=== PATIENT | female | born 1945 | race Caucasian/White ===

== ENCOUNTER 2020-07-24 11:26 | Outpatient (REF) | payer MEDICARE, SELFPAY ==
[2020-07-24 12:53] LABS: Thyroid Stimulating Hormone 2.26 mIU/mL (0.32-4.0)
== END 2020-07-24 11:27 | disposition home or self-care (01) ==
LOC: HO.LAB 11:26
PROVIDERS: PCP Internal Medicine; Visit Provider Internal Medicine
DX: I10 Essential (primary) hypertension (principal)
CPT/HCPCS: 84443

== ENCOUNTER 2020-08-13 13:54 | Outpatient (REF) | payer MEDICARE, SELFPAY ==
[2020-08-13 14:57] LABS: C Reactive Protein 1.05 mg/dL (< or = 0.50)
[2020-08-13 15:10] LABS: Erythrocyte Sedimentation Rate 16 MM/HR (0-20)
[2020-08-13 15:20] LABS: Thyroid Stimulating Hormone 1.31 mIU/mL (0.32-4.0)
== END 2020-08-13 13:55 | disposition home or self-care (01) ==
LOC: HO.LAB 13:54
PROVIDERS: PCP Internal Medicine; Visit Provider Student in an Organized Health Care Education/Training Program
DX: M35.3 Polymyalgia rheumatica (principal); M85.89 Other specified disorders of bone density and structure, multiple sites; Z79.52 Long term (current) use of systemic steroids
CPT/HCPCS: 36415; 84443; 85652; 86140

== ENCOUNTER → 2020-08-29 15:06 | Outpatient (BNVA) | payer MEDICARE, SELFPAY | PROVIDERS: PCP Internal Medicine; Referring Provider Internal Medicine; Visit Provider Student in an Organized Health Care Education/Training Program | DX: M35.3 Polymyalgia rheumatica (principal); M85.89 Other specified disorders of bone density and structure, multiple sites; Z79.52 Long term (current) use of systemic steroids | CPT/HCPCS: 99212 ==

== ENCOUNTER → 2020-10-14 10:48 | Outpatient (BNVA) | payer MEDICARE, SELFPAY | PROVIDERS: PCP Internal Medicine; Visit Provider Internal Medicine | DX: I48.0 Paroxysmal atrial fibrillation (principal); R60.0 Localized edema; I27.20 Pulmonary hypertension, unspecified; I12.9 Hypertensive chronic kidney disease with stage 1 through stage 4 chronic kidney disease, or unspecified chronic kidney disease; N18.9 Chronic kidney disease, unspecified; Z79.01 Long term (current) use of 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 | CPT/HCPCS: 99212 ==

== ENCOUNTER 2020-11-05 13:04 | Outpatient (REF) | payer MEDICARE, SELFPAY ==
[2020-11-05 14:02] LABS: MANUAL DIFF FLAG NO
[2020-11-05 14:15] LABS: Basophils Percent Auto 0.2 % (0-2); Eosinophils Absolute Auto 0.1 X10*3/uL (0.0-0.4); Eosinophils Percent Auto 0.8 % (0-4); Hematocrit 36.4 % (37-47); Hemoglobin 11.6 g/dl (12.0-16.0); Imm Gran Abs Auto 0.09 X10*3/uL (0.00-0.03); Lymphocytes Absolute Auto 2.4 X10*3/uL (1.2-4.9); Lymphocytes Percent Auto 26.5 % (20-40); Mean Corpuscular HGB Conc 31.9 g/dl (31.0-35.0); Mean Corpuscular Hemoglobin 29.7 pg (27.0-33.0); Mean Corpuscular Volume 93.1 fL (80-98); Monocytes Absolute Auto 1.1 X10*3/uL (0.1-1.2); Monocytes Percent Auto 11.9 % (2-11); Neutrophils Absolute Auto 5.5 X10*3/uL (2.0-8.3); Neutrophils Percent Auto 59.6 % (45-73); Platelet Count 120 X10*3/uL (160-400); Red Blood Count 3.91 X10*6/uL (4.20-5.50); Red Cell Distribution Width 13.6 % (11.0-16.0); White Blood Count 9.2 X10*3/uL (4.8-10.8)
[2020-11-05 14:56] LABS: Alanine Aminotransferase 7 U/L (0-31); Albumin Level 3.8 g/dL (3.5-5.0); Alkaline Phosphatase 52 U/L (39-117); Anion Gap 13 (12-20); Aspartate Amino Transferase 10 U/L (5-31); Bilirubin Total 0.8 mg/dL (0.0-1.0); Blood Urea Nitrogen 22 mg/dL (9-16); C Reactive Protein 0.77 mg/dL (< or = 0.50); Calcium 8.7 mg/dL (8.4-10.2); Carbon Dioxide 25 mmol/L (22-29); Chloride 110 mmol/L (96-108); Erythrocyte Sedimentation Rate 16 MM/HR (0-20); Estimated Glomerular Filt Rate 47; Glucose Random 96 mg/dL (60-115); Potassium 4.1 mmol/l (3.3-5.1); Sodium 144 mmol/L (135-145); Total Protein 6.8 g/dL (6.5-8.0)
[2020-11-05 15:04] LABS: Thyroid Stimulating Hormone 1.69 uIU/mL (0.32-4.0)
== END 2020-11-05 13:05 | disposition home or self-care (01) ==
LOC: HO.LAB 13:04
PROVIDERS: PCP Internal Medicine; Visit Provider Student in an Organized Health Care Education/Training Program
DX: M35.3 Polymyalgia rheumatica (principal); E03.9 Hypothyroidism, unspecified; M85.89 Other specified disorders of bone density and structure, multiple sites; Z79.52 Long term (current) use of systemic steroids
CPT/HCPCS: 36415; 80053; 84443; 85025; 85652; 86140; 99212

== ENCOUNTER 2021-01-07 14:08 | Outpatient (REF) | payer MEDICARE, SELFPAY ==
[2021-01-07 14:57] LABS: C Reactive Protein 1.21 mg/dL (< or = 0.50)
[2021-01-07 15:19] LABS: Erythrocyte Sedimentation Rate 26 MM/HR (0-20)
== END 2021-01-07 14:09 | disposition home or self-care (01) ==
LOC: HO.LAB 14:08
PROVIDERS: PCP Internal Medicine; Visit Provider Student in an Organized Health Care Education/Training Program
DX: M35.3 Polymyalgia rheumatica (principal)
CPT/HCPCS: 36415; 85652; 86140

== ENCOUNTER → 2021-01-13 15:09 | Outpatient (BNVA) | payer MEDICARE, SELFPAY | PROVIDERS: Visit Provider Student in an Organized Health Care Education/Training Program | DX: M35.3 Polymyalgia rheumatica (principal); M85.89 Other specified disorders of bone density and structure, multiple sites; Z79.52 Long term (current) use of systemic steroids | CPT/HCPCS: 99212 ==

== ENCOUNTER 2021-02-24 13:01 | Outpatient (REF) | payer MEDICARE, SELFPAY ==
[2021-02-24 14:49] LABS: C Reactive Protein 0.78 mg/dL (< or = 0.50); Cholesterol 163 mg/dL; HDL Cholesterol 35 mg/dL; LDL Cholesterol Calculated 104 mg/dl; Triglycerides 120 mg/dL
[2021-02-24 14:59] LABS: Erythrocyte Sedimentation Rate 26 MM/HR (0-20)
[2021-02-24 15:11] LABS: Thyroid Stimulating Hormone 2.51 uIU/mL (0.32-4.0)
== END 2021-02-24 13:02 | disposition home or self-care (01) ==
LOC: HO.LAB 13:01
PROVIDERS: PCP Internal Medicine; Visit Provider Student in an Organized Health Care Education/Training Program
DX: M35.3 Polymyalgia rheumatica (principal); E03.9 Hypothyroidism, unspecified; E11.9 Type 2 diabetes mellitus without complications
CPT/HCPCS: 36415; 80061; 84443; 85652; 86140

== ENCOUNTER → 2021-02-27 11:34 | Outpatient (BNVA) | payer MEDICARE, SELFPAY | PROVIDERS: Visit Provider Student in an Organized Health Care Education/Training Program | DX: M35.3 Polymyalgia rheumatica (principal); M85.89 Other specified disorders of bone density and structure, multiple sites; Z79.52 Long term (current) use of systemic steroids | CPT/HCPCS: 99212 ==

== ENCOUNTER → 2021-04-15 09:11 | Outpatient (REF) | payer MEDICARE, SELFPAY ==
--- NOTE | 2021-04-15 09:26 | CA_ITS ---
Transthoracic Echocardiogram Patient (Last, First, Middle): Sumi Hamilton B Gender: Female Date of : 1945 Age: 75 Procedure Date: 04/15/2021 Procedure Type: Transthoracic Echocardiogram Location: OP Height: 152.4 cm Weight: 75.75 kg BSA: 1.73 m2 Heart Rate: bpm BP: 124 / 60 mmHg Interventional Radiology Technologist: Referring MD: Dean Calderón MD Symptoms: I27.20 - Pulmonary hypertension, unspecified Study Quality: Fair ECG Rhythm: Sinus Conclusions: - The left ventricular systolic function is normal. The visually estimated ejection fraction is between 55-60%. - Evidence suggests grade II (moderate) diastolic dysfunction. - There is mild mitral valve regurgitation. - There is moderate tricuspid valve regurgitation. - Moderate pulmonary hypertension is present. Findings Left Ventricle Normal left ventricular cavity size. There is normal left ventricular wall thickness. The left ventricular systolic function is normal. The visually estimated ejection fraction is between 55-60%. There is no evidence of regional wall motion abnormalities. E/E prime ratio is between 8 and 15 consistent with indeterminate filling pressures. Evidence suggests grade II (moderate) diastolic dysfunction. Right Ventricle Normal right ventricular cavity size and systolic function. Atria The left atrium is moderately dilated. The right atrium is normal in size. Aortic Valve There is a normal trileaflet aortic valve. There is no aortic valve stenosis. There is trace (trivial) aortic valve regurgitation. Mitral Valve The posterior mitral leaflet has restricted mobility. There is mild mitral valve regurgitation. There is no mitral valve stenosis. Pulmonic Valve The pulmonic valve was not well visualized. Tricuspid Valve There is moderate tricuspid valve regurgitation. The right ventricular systolic pressure is 56 mmHg. Moderate pulmonary hypertension is present. Great Vessels The aortic annulus, sinuses of valsalva, and asc aorta are normal in size. Venous The inferior vena cava is normal in size and collapses greater than 50% with inspiration. Pericardium/Pleural There is no evidence of pericardial effusion. Prior Study Comparison Changes noted compared to prior study dated: 02/08/2019. Diastolic dysfunction now present. RVSP higher. Measurements 2D Linear Measurements IVSd: 0.88 0.6-0.9/0.6-1.0 cm LVIDd: 4.65 3.9-5.3/4.2-5.9 cm LVIDs: 3.04 2.0-3.6 cm LVPWd: 0.88 0.7-1.1 cm Ao Root: 2.75 2.1-3.5 cm LV Mass: 169.62 67-162/88-224 g LVOT Diam: 2.00 3.0+(-)1.3 cm Mitral Valve MV Pk E: 0.80 MV PK A: 0.39 MV Decel Time: 143.18 E/A: 2.03 Decel Mayes: 5.58 Aortic Valve AoV Pk Bobby: 1.32 AoV Mn Bobby: 0.85 AoV VTI: 0.40 AoV Pk Grad: 6.96 Aov Mn Grad: 3.51 LVOT LVOT Pk Bobby: 0.85 LVOT Mn Bobby: 0.58 LVOT VTI: 0.24 LVOT Pk Grad: 2.88 LVOT Mn Grad: 1.58 LVOT Diam: 2.00 LVOT Area: 3.13 Diastolic Function MV Pk E: 0.80 MV Pk A: 0.39 E/A: 2.03 Tricuspid Valve TR Pk Bobby: 3.67 TR Pk Grad: 53.76 RVSP: 56.00 Great Vessels Aorta Ao Root-2D: 2.75 2.0-3.7 cm Ao Asc: 2.69 2.1-3.4 cm Pulmonary Valve PV Pk Bobby: 0.79 Peak PV Grad: 2.51 Updated in Other Vendor System with Status of Final Dean Calderón MD electronically signed on 04/16/2021 11:39:17 AM with status of Final
[2021-04-15 10:04] LABS: C Reactive Protein 1.33 mg/dL (< or = 0.50)
[2021-04-15 10:32] LABS: Erythrocyte Sedimentation Rate 42 MM/HR (0-20)
== END ==
LOC: HO.CARD 09:11
PROVIDERS: Student in an Organized Health Care Education/Training Program; PCP Internal Medicine; Visit Provider Internal Medicine
DX: M35.3 Polymyalgia rheumatica (principal); I27.20 Pulmonary hypertension, unspecified
CPT/HCPCS: 36415; 85652; 86140; 93306

== ENCOUNTER → 2021-04-22 10:36 | Outpatient (BNVA) | payer MEDICARE, SELFPAY | PROVIDERS: PCP Internal Medicine; Referring Provider Internal Medicine; Visit Provider Internal Medicine | DX: I48.0 Paroxysmal atrial fibrillation (principal); I13.0 Hypertensive heart and chronic kidney disease with heart failure and stage 1 through stage 4 chronic kidney disease, or unspecified chronic kidney disease; N18.9 Chronic kidney disease, unspecified; R60.0 Localized edema | CPT/HCPCS: 99212 ==

== ENCOUNTER 2021-04-30 13:41 | Outpatient (REF) | payer MEDICARE, SELFPAY ==
[2021-04-30 15:12] LABS: C Reactive Protein 2.05 mg/dL (< or = 0.50); Cholesterol 147 mg/dL; HDL Cholesterol 27 mg/dL; LDL Cholesterol Calculated 97 mg/dl; Triglycerides 117 mg/dL
[2021-04-30 15:51] LABS: Erythrocyte Sedimentation Rate 39 MM/HR (0-20)
== END 2021-04-30 13:42 | disposition home or self-care (01) ==
LOC: HO.LAB 13:41
PROVIDERS: Student in an Organized Health Care Education/Training Program; PCP Internal Medicine; Visit Provider Internal Medicine
DX: M35.3 Polymyalgia rheumatica (principal); E03.9 Hypothyroidism, unspecified; E11.9 Type 2 diabetes mellitus without complications
CPT/HCPCS: 36415; 80061; 84443; 85652; 86140

== ENCOUNTER → 2021-05-07 08:10 | Outpatient (BNVA) | payer MEDICARE, SELFPAY | PROVIDERS: PCP Internal Medicine; Visit Provider Student in an Organized Health Care Education/Training Program | DX: M35.3 Polymyalgia rheumatica (principal); M85.89 Other specified disorders of bone density and structure, multiple sites; Z79.52 Long term (current) use of systemic steroids | CPT/HCPCS: 99212 ==

== ENCOUNTER 2021-05-08 14:08 | Outpatient (REF) | payer MEDICARE, SELFPAY ==
--- NOTE | ~2021-05-08 | MM_ITS ---
EXAMINATION: MM SCREENING DIGITAL BREAST TOMOSYNTHESIS, BILATERAL CLINICAL INFORMATION: Screening. Asymptomatic. The lifetime risk of breast cancer based on the Tyrer-Cuzick Model is 2%. COMPARISON: Mammography: 11/09/2019, 11/03/2018, 03/23/2016 TECHNIQUE: Digital breast tomosynthesis is performed in both the craniocaudal and mediolateral oblique views along with computer-aided detection (CAD). Synthesized 2D images are generated from the tomosynthesis. Additional views are provided: bilateral CC, bilateral MLO. FINDINGS: There are scattered areas of fibroglandular density (ACR BI-RADS breast composition Category b). Breast tissue composition borders on predominantly fatty. Background stromal and fibroglandular densities are stable. There is no interval mass or developing density or architectural abnormality. There are scattered bilateral benign coarse round calcifications. There are some additional vascular calcifications central outer right breast. The axilla and skin contours are unremarkable. MM/MM tomosynthesis screening BI IMPRESSION: No mammographic evidence of malignancy. ASSESSMENT: BI-RADS 2: Benign RECOMMENDATION: Routine annual mammography screening. This patient's information was entered into a reminder system with a target due date for their next mammogram.
== END 2021-05-08 14:09 | disposition home or self-care (01) ==
LOC: HO.MAMMO 14:08
PROVIDERS: Visit Provider Internal Medicine
DX: Z12.31 Encounter for screening mammogram for malignant neoplasm of breast (principal)
CPT/HCPCS: 77063; 77067

== ENCOUNTER 2021-06-17 13:08 | Outpatient (REF) | payer MEDICARE, SELFPAY ==
[2021-06-17 15:03] LABS: Erythrocyte Sedimentation Rate 39 MM/HR (0-20)
== END 2021-06-17 13:09 | disposition home or self-care (01) ==
LOC: HO.LAB 13:08
PROVIDERS: PCP Internal Medicine; Visit Provider Student in an Organized Health Care Education/Training Program
DX: M35.3 Polymyalgia rheumatica (principal)
CPT/HCPCS: 36415; 85652; 86140

== ENCOUNTER 2021-06-23 10:59 | Emergency (ER) | payer MEDICARE, SELFPAY ==
--- NOTE | ~2021-06-23 | CT_ITS ---
EXAMINATION: CT ANGIOGRAM OF THE CHEST WITH AND WITHOUT CONTRAST (CT PULMONARY ANGIOGRAM FOR PE) CLINICAL INFORMATION: Reason for Exam Coughing up blood on Eliquis COMPARISON: Chest radiographs 10/06/2015 TECHNIQUE: Prior to contrast administration, noncontrast localization images were obtained. Subsequently, multidetector volumetric imaging was performed from the thoracic inlet to below the diaphragms following the administration of 65 mL Omnipaque 350 intravenous contrast. Sagittal, coronal, and MIP oblique sagittal reformatted images were obtained on the CT workstation, uploaded to PACS, and reviewed. This CT examination was performed using dose optimization techniques as appropriate, variously including the following: *Automated exposure control *Adjustment of mA and/or kV according to patient size (this includes techniques or standardized protocols for targeted exams where dose is matched to indication/reason for exam; i.e. extremities or head) *Use of iterative reconstruction technique Total exam dose-length product 112 mGy-cm FINDINGS: QUALITY OF STUDY/CONTRAST BOLUS: Satisfactory. PULMONARY ARTERIES: No central or segmental pulmonary emboli. THORACIC AORTA: No aneurysm or dissection. LUNG: There is no pneumothorax, airspace consolidation or groundglass opacity. Fine linear scarring versus disc atelectasis present left posterior base. There are incidental punctate calcified granulomata left anterior base and right posterior medial base, both under 4 mm. The central airways are clear and there is no endobronchial lesion or bronchiectasis. PLEURA: No pleural effusion or pneumothorax. MEDIASTINUM: Normal heart size. No pericardial effusion. No mediastinal mass. There are heavily calcified nodes present consistent with prior granulomatous changes, largest left prevascular space 1.1 cm and also seen in the subcarinal and hilar regions. No evidence of septal bowing or right heart strain. CHEST WALL/AXILLA: No axillary or internal mammary lymphadenopathy. OSSEOUS STRUCTURES: No acute or suspicious osseous abnormality. UPPER ABDOMEN: Punctate nonobstructing calculus under 4 mm interpolar left kidney. No reflux of contrast into the hepatic veins to suggest elevated right heart pressures. CT/CT angio chest PE protocol IMPRESSION: 1. No pulmonary embolism. No thoracic aortic dissection. 2. Incidental small calcified pulmonary granulomata and calcified hilar and mediastinal nodes consistent with remote granulomatous infection. 3. No airspace consolidation or groundglass opacity. No pneumothorax, pleural thickening, or effusion. VTE: negative
--- NOTE | ~2021-06-23 | US_ITS ---
EXAMINATION: US VENOUS ULTRASOUND WITH DOPPLER LOWER EXTREMITY, RIGHT CLINICAL INFORMATION: Right lower extremity swelling. COMPARISON: None TECHNIQUE: Ultrasound of the deep veins is performed from the hip to the calf with compression sonography and color and pulse Doppler assessment. Spectral analysis with color-flow imaging is performed. FINDINGS: There is normal venous compression and respiratory variation and augmented flow. The visualized common femoral vein, superficial femoral vein, profunda femoral vein, popliteal vein, and the trifurcation region shows no evidence of deep venous thrombosis. There is no significant popliteal fossa cyst. If the patient's symptoms persist, followup ultrasound in 5 days 7 days might be of value to exclude proximal propagation from a non-visualized calf vein. US/US venous duplex LE RT IMPRESSION: No DVT demonstrated in the right lower extremity.
[2021-06-23 11:48] VITALS: BP 181/51; PULSE 69; RESP 16; TEMP 36.6; O2SAT 98; BMI 32.5
[2021-06-23 12:19] VITALS: BP 178/61; PULSE 67; RESP 14; O2SAT 98
[2021-06-23 12:35] LABS: Appearance Urine CLEAR; Color Urine STRAW; Glucose Urine UA NEG (NEG); Leukocyte Esterase Urine 2+ (NEG); Nitrite Urine NEG (NEG); PH 5.5 (5.0-8.0); UACC Culture Trigger YES; Urine Blood TRACE (NEG); Urine Ketones NEG (NEG); Urine Protein NEG (NEG-TRACE)
--- NOTE | 2021-06-23 12:36 | ECG_ITS ---
Test Reason : COUGHING UP BLOOD Blood Pressure : / mmHG Vent. Rate : 062 BPM Atrial Rate : 062 BPM P-R Int : 132 ms QRS Dur : 076 ms QT Int : 410 ms P-R-T Axes : 039 032 013 degrees QTc Int : 416 ms Normal sinus rhythm Nonspecific ST and T wave abnormality Abnormal ECG When compared with ECG of 22-JAN-2019 17:15, Sinus rhythm has replaced Atrial fibrillation Vent. rate has decreased BY 58 BPM Nonspecific T wave abnormality, worse in Lateral leads Referred By: Harsha Arreaga Electronically Signed By:MYLES MENDOZA
--- NOTE | 2021-06-23 12:42 | ED.GENADULT ---
HPI - General Adult General Chief complaint: General Medical Stated complaint: GI Bleed Time Seen by Provider: 06/23/21 12:24 Source: patient Mode of arrival: ambulatory Limitations: no limitations History of Present Illness HPI narrative: 76 year old female presents to the ED from home with complaints of coughing up blood for two days. She states she has been coughing blood tinged sputum since last night and nothing like this has ever happened to her in the past. She is currently taking eliquis for a previous DVT and atrial fibrillation. Last dose of eliquis was last night around 9pm. She states she is coughing to clear her throat, but does not actually have a cough. She reports slight shortness of breath since yesterday and also notes that her right foot has been more swollen than usual. 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 She has no other complaints at this time. She denies chest pain, abdominal pain. fevers, chills. Onset (ago): day(s) (1 day ago ) Treatments prior to arrival: none Related Data Home Medications Medication Instructions Recorded Confirmed alendronate 70 mg tablet 70 mg PO QWEEK 07/25/20 05/07/21 calcipotriene 0.005 % topical cream 1 appl TOPICAL BID 11/05/20 05/07/21 halobetasol propionate 0.05 % 1 appl TOPICAL DAILY 11/05/20 05/07/21 topical cream Previous Rx's Medication Instructions Recorded levothyroxine 50 mcg tablet 50 mcg PO DAILY #90 tab 12/22/20 apixaban 5 mg tablet (Eliquis) 5 mg PO BID #180 tab 01/06/21 pantoprazole 40 mg tablet,delayed 40 mg PO DAILY #90 tab 03/23/21 release atenolol 25 mg tablet 25 mg PO BID 90 Days #180 tab 04/24/21 atenolol 50 mg tablet 50 mg PO BID 90 Days #180 tab 04/24/21 codeine 10 mg-guaifenesin 100 mg/5 10 ml PO Q4-6H PRN #237 ml 06/23/21 mL oral liquid Allergies Allergy/AdvReac Type Severity Reaction Status Date / Time No Known Allergies Allergy Verified 05/07/21 08:19 [No Known Allergies*] Review of Systems Constitutional: Constitutional: Reports no additional constitutional complaints Eyes: Eyes: Reports no additional eye complaints ENT: Reports system reviewed and no additional complaints, except as documented Cardiovascular: Cardiovascular: Reports no additional cardiovascular complaints and Reports dyspnea Respiratory: Respiratory: Reports cough (hemoptysis ), Reports hemoptysis and Reports dyspnea Gastrointestinal: Gastrointestinal: Reports no additional gastrointestinal complaints Genitourinary: Genitourinary: Reports no additional female genitourinary complaints [facility] Past Medical History Medical History Chronic kidney disease, unspecified 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 Osteopenia 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 atrial fibrillation) Polymyalgia rheumatica Pulmonary hypertension Surgical History History of bilateral cataract extraction History of section History of cholecystectomy History of partial hysterectomy Family History Family History (Updated 05/04/21 @ 09:48 by SPENCER Rashid) Father Coronary artery disease FH: CVA (cerebrovascular accident) Mother Kidney failure Social History Social History Housing: House Alcohol intake: never Patient Tobacco Use Status: Never used Tobacco e-Cigarette/Vaping Use: Never Used Second Hand Smoke Exposure: No Use of substances other than those prescribed or required for medical reasons: No Advance Directives: Yes Advance Directives Information Provided: No Advance Directives on File: No service: No Current occupational status: retired Physical Exam Vital Signs: Vital Signs: Last Vital Signs Temp 98.4 F 06/23/21 14:21 Pulse 66 06/23/21 14:21 Resp 20 06/23/21 14:21 BP 158/65 H 06/23/21 14:21 Pulse Ox 98 06/23/21 14:21 Body Mass Index 32.5 Const: General: cooperative, alert, awake and other (noted shortness of breath ) HENMT: Head: Yes normal to inspection Face and sinus: Yes normal facial exam Mouth: Normal oral and palatal mucosa present (no bleeding noted. ), lip normal (Dry blood noted to lips ) and oropharynx normal Teeth and gingiva: poor dentition Chest: Chest palpation & inspection: normal inspection of the chest and normal palpation of entire chest wall Resp: Effort & Inspection: normal respiratory effort and Actively coughing Auscultation: clear to auscultation bilaterally Cardio: Rate: regular rate Rhythm: regular rhythm Heart sounds: S1 normal heart sound present and S2 normal heart sound present Extrem: Other: 3+ pitting edema noted to the right lower extremity from the knee down. 2+ on the left side. Right lower extremity: edema Left lower extremity: edema Medical Decision Making MDM Narrative Medical decision making narrative: Patient with small hemoptysis on Eliquis CTA chest negative venous Doppler negative will discharge patient home on cough syrup advised to hold Eliquis for tonight and restart tomorrow and if continues to cough blood will stop Eliquis. Patient is sinus rhythm. Lab Data Lab results reviewed: Yes I reviewed the patient's lab results. Result diagrams: 06/23/21 13:11 06/23/21 13:11 Labs: Lab Results 06/23/21 06/23/21 06/23/21 Range/Units 12:27 13:11 13:11 WBC 6.3 (4.8-10.8) X10*3/uL RBC 4.04 L (4.20-5.50) X10*6/uL Hgb 11.8 L (12.0-16.0) g/dl Hct 36.0 L (37-47) % MCV 89.1 (80-98) fL MCH 29.2 (27.0-33.0) pg MCHC 32.8 (31.0-35.0) g/dl RDW 13.8 (11.0-16.0) % Plt Count 104 L (160-400) X10*3/uL MPV Not Reportable Immature Gran % (Auto) 2.4 H (0.0-0.4) % Neut % (Auto) 62.9 (45-73) % Lymph % (Auto) 21.8 (20-40) % Sebastian % (Auto) 11.3 H (2-11) % Eos % (Auto) 1.4 (0-4) % Baso % (Auto) 0.2 (0-2) % Lymph # (Auto) 1.4 (1.2-4.9) X10*3/uL Sebastian # (Auto) 0.7 (0.1-1.2) X10*3/uL Eos # (Auto) 0.1 (0.0-0.4) X10*3/uL Baso # (Auto) 0.0 (0.0-0.2) X10*3/uL Abs Immat Gran (auto) 0.15 H (0.00-0.03) X10*3/uL Absolute Neuts (auto) 4.0 (2.0-8.3) X10*3/uL Absolute Nucleated RBC 0.000 (0.0-0.012) X10*3/uL Nucleated RBC % (auto) 0.0 (0.0-0.2) /100WBC PT 21.2 H (9.9-13.0) SEC INR 1.8 H (0.9-1.1) APTT 39.7 H (24.1-38.0) SEC Sodium (135-145) mmol/L Potassium (3.3-5.1) mmol/L Chloride (96-108) mmol/L Carbon Dioxide (22-29) mmol/L Anion Gap (12-20) BUN (9-16) mg/dL Creatinine (0.5-1.4) mg/dL Estim Creat Clear Calc Estimated GFR Random Glucose (60-115) mg/dL Calcium (8.4-10.2) mg/dL Urine Color STRAW Urine Appearance CLEAR Urine pH 5.5 (5.0-8.0) Ur Specific [place] 1.010 (1.005-1.025) Urine Protein NEG (NEG-TRACE) MG/DL Urine Glucose (UA) NEG (NEG) MG/DL Urine Ketones NEG (NEG) MG/DL Urine Blood TRACE (NEG) Urine Nitrite NEG (NEG) Ur Leukocyte Esterase 2+ H (NEG) Urine RBC 0-2 (0) /HPF Urine WBC 5-9 H (0-4) /HPF Ur Squamous Epith Cells TRACE /LPF Urine Bacteria NONE /LPF 06/23/21 Range/Units 13:11 WBC (4.8-10.8) X10*3/uL RBC (4.20-5.50) X10*6/uL Hgb (12.0-16.0) g/dl Hct (37-47) % MCV (80-98) fL MCH (27.0-33.0) pg MCHC (31.0-35.0) g/dl RDW (11.0-16.0) % Plt Count (160-400) X10*3/uL MPV Immature Gran % (Auto) (0.0-0.4) % Neut % (Auto) (45-73) % Lymph % (Auto) (20-40) % Sebastian % (Auto) (2-11) % Eos % (Auto) (0-4) % Baso % (Auto) (0-2) % Lymph # (Auto) (1.2-4.9) X10*3/uL Sebastian # (Auto) (0.1-1.2) X10*3/uL Eos # (Auto) (0.0-0.4) X10*3/uL Baso # (Auto) (0.0-0.2) X10*3/uL Abs Immat Gran (auto) (0.00-0.03) X10*3/uL Absolute Neuts (auto) (2.0-8.3) X10*3/uL Absolute Nucleated RBC (0.0-0.012) X10*3/uL Nucleated RBC % (auto) (0.0-0.2) /100WBC PT (9.9-13.0) SEC INR (0.9-1.1) APTT (24.1-38.0) SEC Sodium 141 (135-145) mmol/L Potassium 3.7 (3.3-5.1) mmol/L Chloride 110 H (96-108) mmol/L Carbon Dioxide 21 L (22-29) mmol/L Anion Gap 14 (12-20) BUN 12 (9-16) mg/dL Creatinine 1.01 (0.5-1.4) mg/dL Estim Creat Clear Calc 43.0 Estimated GFR 53 Random Glucose 89 (60-115) mg/dL Calcium 9.1 (8.4-10.2) mg/dL Urine Color Urine Appearance Urine pH (5.0-8.0) Ur Specific [place] (1.005-1.025) Urine Protein (NEG-TRACE) MG/DL Urine Glucose (UA) (NEG) MG/DL Urine Ketones (NEG) MG/DL Urine Blood (NEG) Urine Nitrite (NEG) Ur Leukocyte Esterase (NEG) Urine RBC (0) /HPF Urine WBC (0-4) /HPF Ur Squamous Epith Cells /LPF Urine Bacteria /LPF ECG Data Attestation: I personally reviewed and interpreted this ECG as follows: Interpretation: Normal sinus rhythm heart rate 62 beats per minute nonspecific ST T wave changes acute ischemia Discharge Plan Discharge Clinical Impression: Cough with hemoptysis Patient Disposition: Home, Self-Care Instructions: Hemoptysis (ED) Additional Instructions: Hold Eliquis for tonight and restart it tomorrow if you are not coughing up any blood Do not start Eliquis if you coughing of blood 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/PCP Cough syrup as advised Prescriptions: New codeine-guaifenesin 10-100 mg/5 mL liquid 10 ml PO Q4-6H PRN (Reason: cough) Qty: 237 RF: 0 No Action levothyroxine 50 mcg tablet 50 mcg PO DAILY Qty: 90 RF: 8 apixaban [Eliquis] 5 mg tablet 5 mg PO BID Qty: 180 RF: 2 pantoprazole 40 mg tablet,delayed release (DR/EC) 40 mg PO DAILY Qty: 90 RF: 8 atenolol 50 mg tablet 50 mg PO BID 90 Days Qty: 180 RF: 4 atenolol 25 mg tablet 25 mg PO BID 90 Days Qty: 180 RF: 4 alendronate 70 mg tablet 70 mg PO QWEEK RF: 0 halobetasol propionate 0.05 % cream 1 appl topical DAILY RF: 0 calcipotriene 0.005 % cream 1 appl topical BID RF: 0
[2021-06-23 12:49] LABS: RBC Urine 0-2 /HPF (0); Squamous Epithelial Cell Urine TRACE /LPF
[2021-06-23 13:23] LABS: Eosinophils Absolute Auto 0.1 X10*3/uL (0.0-0.4); Eosinophils Percent Auto 1.4 % (0-4); MANUAL DIFF FLAG NO
[2021-06-23 13:25] LABS: Basophils Percent Auto 0.2 % (0-2); Hemoglobin 11.8 g/dl (12.0-16.0); Imm Gran Abs Auto 0.15 X10*3/uL (0.00-0.03); Imm Gran Pct Auto 2.4 % (0.0-0.4); Lymphocytes Absolute Auto 1.4 X10*3/uL (1.2-4.9); Lymphocytes Percent Auto 21.8 % (20-40); Mean Corpuscular HGB Conc 32.8 g/dl (31.0-35.0); Mean Corpuscular Hemoglobin 29.2 pg (27.0-33.0); Mean Corpuscular Volume 89.1 fL (80-98); Monocytes Absolute Auto 0.7 X10*3/uL (0.1-1.2); Monocytes Percent Auto 11.3 % (2-11); Neutrophils Percent Auto 62.9 % (45-73); Platelet Count 104 X10*3/uL (160-400); Red Blood Count 4.04 X10*6/uL (4.20-5.50); Red Cell Distribution Width 13.8 % (11.0-16.0); White Blood Count 6.3 X10*3/uL (4.8-10.8)
[2021-06-23 13:28] LABS: INTERNATIONAL NORM RATIO 1.8 (0.9-1.1); Prothrombin Time 21.2 SEC (9.9-13.0)
[2021-06-23 13:31] LABS: Partial Thromboplastin Time 39.7 SEC (24.1-38.0)
[2021-06-23 13:37] LABS: Anion Gap 14 (12-20); Blood Urea Nitrogen 12 mg/dL (9-16); Calcium 9.1 mg/dL (8.4-10.2); Carbon Dioxide 21 mmol/L (22-29); Chloride 110 mmol/L (96-108); Estimated Glomerular Filt Rate 53; Glucose Random 89 mg/dL (60-115); Potassium 3.7 mmol/L (3.3-5.1); Sodium 141 mmol/L (135-145)
[2021-06-23 14:21] VITALS: BP 158/65; PULSE 66; RESP 20; TEMP 36.9; O2SAT 98
[2021-06-23] MEDS: iohexoL 350 MG/ML 100 ML INFUS..BTL IV (15:40)
== END 2021-06-23 17:21 | disposition home or self-care (01) ==
PROVIDERS: Internal Medicine; Emergency Provider Emergency Medicine Emergency Medical Services; PCP Internal Medicine
DX: R04.2 Hemoptysis (principal); R60.0 Localized edema; R06.02 Shortness of breath; Z79.899 Other long term (current) drug therapy; Z79.01 Long term (current) use of 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; Z86.718 Personal history of other venous thrombosis and embolism
CPT/HCPCS: 36415; 71275; 80048; 81001; 85025; 85610; 85730; 87086; 93005; 93971; 99284; Q9967

== ENCOUNTER → 2021-06-25 07:51 | Outpatient (BNVA) | payer MEDICARE, SELFPAY | PROVIDERS: PCP Internal Medicine; Visit Provider Internal Medicine | DX: I48.0 Paroxysmal atrial fibrillation (principal); I51.89 Other ill-defined heart diseases; I27.20 Pulmonary hypertension, unspecified; R60.0 Localized edema; R04.2 Hemoptysis; I12.9 Hypertensive chronic kidney disease with stage 1 through stage 4 chronic kidney disease, or unspecified chronic kidney disease; N18.9 Chronic kidney disease, unspecified | CPT/HCPCS: 99212 ==

== ENCOUNTER 2021-07-17 15:57 | Emergency (ER) | payer MEDICARE, SELFPAY ==
--- NOTE | ~2021-07-17 | CT_ITS ---
EXAMINATION: CT HEAD WITHOUT CONTRAST CLINICAL INFORMATION: Dizziness. COMPARISON: CT head May 23, 2015 TECHNIQUE: Contiguous axial imaging was performed from the skull base to vertex without intravenous administration of contrast. Coronal and sagittal reformatted images are performed at CT scanner This CT examination was performed using dose optimization techniques as appropriate, variously including the following: *Automated exposure control *Adjustment of mA and/or kV according to patient size (this includes techniques or standardized protocols for targeted exams where dose is matched to indication/reason for exam; i.e. extremities or head) *Use of iterative reconstruction technique DLP: 566.73+5.12 mGy-cm FINDINGS: There is no evidence of acute intracranial hemorrhage or territorial infarction. No abnormal mass effect or midline shift is seen. Reyes to white matter differentiation is well preserved. No extra-axial fluid collections are identified. There is generalized global volume loss. There is moderate prominence of the ventricles and the sulci . There is mild hypodensity of the periventricular white matter due to chronic small vessel ischemic disease. There are vascular calcifications of the internal carotid arteries bilaterally. The osseous structures and soft tissues are normal. The mastoid air cells and visualized portions of the paranasal sinuses are well aerated. CT/CT head/brain wo con IMPRESSION: No acute intracranial pathology.
--- NOTE | ~2021-07-17 | CT_ITS ---
EXAMINATION: CT ABDOMEN AND PELVIS WITH CONTRAST CLINICAL INFORMATION: Weight loss and dizziness. COMPARISON: CT chest dated from 06/23/2021 TECHNIQUE: Multidetector volumetric images were obtained from the superior aspect of the liver through the pubic symphysis following administration 85 mL of Omnipaque 350 intravenous contrast. Sagittal and coronal reformatted images were obtained on the technologist's workstation. Oral contrast: No This CT examination was performed using dose optimization techniques as appropriate, variously including the following: *Automated exposure control *Adjustment of mA and/or kV according to patient size (this includes techniques or standardized protocols for targeted exams where dose is matched to indication/reason for exam; i.e. extremities or head) *Use of iterative reconstruction technique DLP: 567 mGy-cm FINDINGS: LUNG BASES: Subsegmental atelectasis. Mild smooth interlobular septal thickening and mosaic attenuation of the parenchyma, suggesting some degree of interstitial edema and air-trapping. No focal consolidation or pleural effusion. LIVER, GALLBLADDER, AND BILIARY TREE: The liver is normal in size, shape, and attenuation without focal abnormalities. The patient is status post cholecystectomy with mild intrahepatic and extrahepatic biliary duct dilatation. For example, the CBD measures up to 7 mm and the common hepatic duct measures up to 1.1 cm. This is normal in a post cholecystectomy state. No choledocholithiasis. PANCREAS: Atrophic without focal abnormalities. The main pancreatic duct is nondilated. No peripancreatic free fluid or inflammatory changes. SPLEEN: Unremarkable. ADRENAL GLANDS: Unremarkable. KIDNEYS AND URETERS: There is a 3 mm nonobstructive calculus in the upper pole of the left kidney at 9.7 cm from the skin surface (26:14). No other renal calculi. No hydronephrosis or hydroureter. There are a few bilateral hypoattenuating lesions that are too small to characterize by CT although statistically likely represent simple cysts. There is no significant perinephric fat stranding or free fluid. BLADDER: Underdistended limiting evaluation of wall thickening. However, there is suggestion of some degree of wall thickening and very mild perivesical fat stranding. GASTROINTESTINAL TRACT: Small hiatal hernia. The stomach and the small bowel are nondilated. Normal appendix. No pericolic inflammatory changes. No bowel obstruction. ABDOMINAL WALL: Small fat-containing umbilical hernia. LYMPH NODES: A 7 mm short axis retro esophageal lymph node (8:14) is stable. There are a few prominent peripancreatic and periportal lymph nodes, for example measuring up to 7 mm in maximum short axis posterior to the splenic vein (20:14). No lymphadenopathy by size criteria. VASCULAR: Scattered atherosclerotic disease. The abdominal aorta is of normal diameter. PELVIC VISCERA: Hysterectomy. No adnexal lesions. OSSEOUS STRUCTURES: No acute or aggressive osseous abnormalities. Multilevel spondylosis. Mild grade 1 anterolisthesis of L4 on L5. CT/CT abdomen pelvis w con IMPRESSION: Colonic diverticulosis without significant pericolic inflammatory changes to suggest acute diverticulitis. No bowel obstruction. Small hiatal hernia. Nonobstructive 3 mm calculus in the upper pole of the left kidney. Questionable wall thickening of the urinary bladder with very mild perivesical fat stranding. Correlate clinically for cystitis. A few prominent posterior mediastinal, periportal and peripancreatic lymph nodes are of uncertain clinical significance, possibly reactive.
--- NOTE | 2021-07-17 16:07 | ECG_ITS ---
Test Reason : DIZZY Blood Pressure : / mmHG Vent. Rate : 062 BPM Atrial Rate : 062 BPM P-R Int : 142 ms QRS Dur : 080 ms QT Int : 430 ms P-R-T Axes : 070 026 024 degrees QTc Int : 436 ms Sinus rhythm with Premature supraventricular complexes Otherwise normal ECG When compared with ECG of 23-JUN-2021 13:25, Premature supraventricular complexes are now Present Nonspecific T wave abnormality no longer evident in Lateral leads Referred By: Ilda Crawford Electronically Signed By:COLBY CANSECO MD
--- NOTE | 2021-07-17 16:08 | ED.DIZZY ---
HPI - Dizziness General Chief Complaint: Dizziness Stated Complaint: dizzy Time Seen by Provider: 07/17/21 16:05 Source: patient, EMS and old records reviewed Mode of arrival: EMS Limitations: no limitations History of Present Illness MD elicited complaint: dizziness, lightheadedness and difficulty walking Onset (ago): day(s) (yesterday in the day) Timing: gradual onset and intermittent Severity: moderate Description: lightheadedness and difficulty walking Context: change in body position Exacerbating factors: movement/ambulation and change in body position Relieving factors: remaining still Associated symptoms: other (notes she lost about 30lbs in the last 2 - 3 months unintentionally ) Related Data Home Medications Medication Instructions Recorded Confirmed calcipotriene 0.005 % topical cream 1 appl TOPICAL BID 11/05/20 07/17/21 halobetasol propionate 0.05 % 1 appl TOPICAL DAILY 11/05/20 07/17/21 topical cream Previous Rx's Medication Instructions Recorded levothyroxine 50 mcg tablet 50 mcg PO DAILY #90 tab 12/22/20 apixaban 5 mg tablet (Eliquis) 5 mg PO BID #180 tab 01/06/21 pantoprazole 40 mg tablet,delayed 40 mg PO DAILY #90 tab 03/23/21 release atenolol 25 mg tablet 25 mg PO BID 90 Days #180 tab 04/24/21 atenolol 50 mg tablet 50 mg PO BID 90 Days #180 tab 04/24/21 codeine 10 mg-guaifenesin 100 mg/5 10 ml PO Q4-6H PRN #237 ml 06/23/21 mL oral liquid cefuroxime axetil 250 mg tablet 250 mg PO BID 7 Days #14 tab 07/17/21 Allergies Allergy/AdvReac Type Severity Reaction Status Date / Time No Known Allergies Allergy Verified 07/17/21 13:10 [No Known Allergies*] Review of Systems Review of Systems: Constitutional : pos Weight loss, No Fever, No Chills, No Fatigue, No Malaise ENT/Mouth : No sore throat, No Rhinorrhea Eyes: No Eye Pain, No Swelling, No Redness Cardiovascular : No Chest Pain, No SOB, No Dyspnea on Exertion, No Orthopnea, No Edema, No Palpitations Respiratory : No Cough, No Sputum, No Wheezing Gastrointestinal : No Nausea, No Vomiting, No Diarrhea, No Constipation, No abdominal Pain, No Hematochezia, No Melena Genitourinary : No Dysuria, No Urinary Frequency, No Hematuria, Musculoskeletal : No joint pain, No Myalgias, No Joint Swelling Skin : No Skin Lesions, No rash Neuro : No Weakness, No Numbness, pos Dizziness, No Headache Psych : No Anxiety/Panic, No Depression Heme/Lymph: No Bruising, No Bleeding,No Lymphadenopathy Endocrine : No Polyuria, No Polydipsia All other systems reviewed and are negative [facility] Past Medical History Attestation statement: The following information was validated with the patient. 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 Osteopenia 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 atrial fibrillation) Polymyalgia rheumatica Pulmonary hypertension Surgical History History of bilateral cataract extraction History of section History of cholecystectomy History of partial hysterectomy Family History Family History Father Coronary artery disease FH: CVA (cerebrovascular accident) Mother Kidney failure Social History Social History Housing: House Alcohol intake: never Patient Tobacco Use Status: Never used Tobacco e-Cigarette/Vaping Use: Never Used Second Hand Smoke Exposure: No Advance Directives: No Advance Directives Information Provided: No service: No Current occupational status: retired Physical Exam Vital Signs: Vital Signs: Last Vital Signs Temp 98.6 F 07/17/21 19:25 Pulse 66 07/17/21 19:25 Resp 18 07/17/21 19:25 BP 159/69 H 07/17/21 19:25 Pulse Ox 97 07/17/21 19:25 Body Mass Index 26.2 Appearance: Alert. Oriented X3. No acute distress. Eyes: Pupils equal, round and reactive to light. ENT: Pharynx normal. Neck: Normal inspection. Neck supple. CVS: Normal heart rate and rhythm. Pulses normal. Respiratory: No respiratory distress. Breath sounds normal. Abdomen: Soft and nontender. Skin: Skin warm and dry. Normal skin color. Normal skin turgor. Extremities: No lower extremity edema. No calf ttp Neuro: Oriented X 3. No motor deficit. No sensory deficit. no pronator drift Course Course Course Narrative: + UTI no fevers, no tachycardia no WBC count no signs of sepsis no issues walking to and from bathroom - can be DC at this time MDM - Dizziness MDM Narrative Medical decision making narrative: 76 yo female from home hx of PAF on eliquis, HTN, CKD here with c/o 1.5 days of dizziness worse with standing - denies any CP/SOB no recent GIB symptoms. States she also lost about 30 lbs in 2 to 3 months time unintentionally. She has no neurologic deficits at this time. Will obtain basic labs, EKG, ortho VS, CT head for ICH, CT abd/pelvis for possible mass causing her unexplained weight loss. Her symptoms are only with standing so posterior stroke seems unusual at this time. Dispo per results and findings. Lab Data Result diagrams: 07/17/21 16:30 07/17/21 19:14 Labs: Lab Results 07/17/21 07/17/21 07/17/21 Range/Units 16:30 16:30 16:30 WBC 7.4 (4.8-10.8) X10*3/uL RBC 3.81 L (4.20-5.50) X10*6/uL Hgb 11.3 L (12.0-16.0) g/dl Hct 33.6 L (37-47) % MCV 88.2 (80-98) fL MCH 29.7 (27.0-33.0) pg MCHC 33.6 (31.0-35.0) g/dl RDW 14.0 (11.0-16.0) % Plt Count 103 L (160-400) X10*3/uL MPV Not Reportable Immature Gran % (Auto) 0.8 H (0.0-0.4) % Neut % (Auto) 61.3 (45-73) % Lymph % (Auto) 23.5 (20-40) % [place] % (Auto) 12.8 H (2-11) % Eos % (Auto) 1.5 (0-4) % Baso % (Auto) 0.1 (0-2) % Lymph # (Auto) 1.8 (1.2-4.9) X10*3/uL [place] # (Auto) 1.0 (0.1-1.2) X10*3/uL Eos # (Auto) 0.1 (0.0-0.4) X10*3/uL Baso # (Auto) 0.0 (0.0-0.2) X10*3/uL Abs Immat Gran (auto) 0.06 H (0.00-0.03) X10*3/uL Absolute Neuts (auto) 4.6 (2.0-8.3) X10*3/uL Absolute Nucleated RBC 0.000 (0.0-0.012) X10*3/uL Nucleated RBC % (auto) 0.0 (0.0-0.2) /100WBC Sodium (135-145) mmol/L Potassium (3.3-5.1) mmol/L Chloride (96-108) mmol/L Carbon Dioxide (22-29) mmol/L Anion Gap (12-20) BUN (9-16) mg/dL Creatinine (0.5-1.4) mg/dL Estim Creat Clear Calc Estimated GFR Random Glucose (60-115) mg/dL Calcium (8.4-10.2) mg/dL Magnesium (1.6-2.6) mg/dL Total Bilirubin (0.0-1.0) mg/dL Direct Bilirubin (0.0-0.5) mg/dL AST (5-31) U/L ALT (0-31) U/L Alkaline Phosphatase (39-117) U/L Troponin I High Sens 4.6 (<3.5-17.0) ng/L Total Protein (6.5-8.0) g/dL Albumin (3.5-5.0) g/dL Urine Color Urine Appearance Urine pH (5.0-8.0) Ur Specific [place] (1.005-1.025) Urine Protein (NEG-TRACE) MG/DL Urine Glucose (UA) (NEG) MG/DL Urine Ketones (NEG) MG/DL Urine Blood (NEG) Urine Nitrite (NEG) Ur Leukocyte Esterase (NEG) Urine RBC (0) /HPF Urine WBC (0-4) /HPF Urine WBC Clumps Ur Squamous Epith Cells /LPF Urine Bacteria /LPF COVID-19 ([place]) Negative (Negative) COVID-19 Clin Com See Note 07/17/21 07/17/21 Range/Units 17:04 19:14 WBC (4.8-10.8) X10*3/uL RBC (4.20-5.50) X10*6/uL Hgb (12.0-16.0) g/dl Hct (37-47) % MCV (80-98) fL MCH (27.0-33.0) pg MCHC (31.0-35.0) g/dl RDW (11.0-16.0) % Plt Count (160-400) X10*3/uL MPV Immature Gran % (Auto) (0.0-0.4) % Neut % (Auto) (45-73) % Lymph % (Auto) (20-40) % [place] % (Auto) (2-11) % Eos % (Auto) (0-4) % Baso % (Auto) (0-2) % Lymph # (Auto) (1.2-4.9) X10*3/uL [place] # (Auto) (0.1-1.2) X10*3/uL Eos # (Auto) (0.0-0.4) X10*3/uL Baso # (Auto) (0.0-0.2) X10*3/uL Abs Immat Gran (auto) (0.00-0.03) X10*3/uL Absolute Neuts (auto) (2.0-8.3) X10*3/uL Absolute Nucleated RBC (0.0-0.012) X10*3/uL Nucleated RBC % (auto) (0.0-0.2) /100WBC Sodium 143 (135-145) mmol/L Potassium 4.5 D (3.3-5.1) mmol/L Chloride 112 H (96-108) mmol/L Carbon Dioxide 23 (22-29) mmol/L Anion Gap 13 (12-20) BUN 12 (9-16) mg/dL Creatinine 1.04 (0.5-1.4) mg/dL Estim Creat Clear Calc 36.0 Estimated GFR 52 Random Glucose 87 (60-115) mg/dL Calcium 9.0 (8.4-10.2) mg/dL Magnesium 2.0 (1.6-2.6) mg/dL Total Bilirubin 0.7 (0.0-1.0) mg/dL Direct Bilirubin 0.3 (0.0-0.5) mg/dL AST 13 (5-31) U/L ALT 9 (0-31) U/L Alkaline Phosphatase 71 D (39-117) U/L Troponin I High Sens (<3.5-17.0) ng/L Total Protein 7.4 (6.5-8.0) g/dL Albumin 3.5 (3.5-5.0) g/dL Urine Color STRAW Urine Appearance CLEAR Urine pH 6.5 (5.0-8.0) Ur Specific [place] <= 1.005 (1.005-1.025) Urine Protein NEG (NEG-TRACE) MG/DL Urine Glucose (UA) NEG (NEG) MG/DL Urine Ketones NEG (NEG) MG/DL Urine Blood TRACE (NEG) Urine Nitrite NEG (NEG) Ur Leukocyte Esterase 2+ H (NEG) Urine RBC 0-2 (0) /HPF Urine WBC 10-14 H (0-4) /HPF Urine WBC Clumps NOTED Ur Squamous Epith Cells 1+ /LPF Urine Bacteria NONE /LPF COVID-19 ([place]) (Negative) COVID-19 Clin Com ECG Data Attestation: I personally reviewed and interpreted this ECG as follows: ECG interpretation date: 07/17/21 ECG interpretation time: 17:35 Interpretation: Rate: 62 Rhythm: NSR with occ PACs Mason: normal Normal P waves. Normal YENY. Normal QRS complex. ST T wave : normal no AMBER qTC: normal prior studies: no acute ischemia The study has been interpreted contemporaneously by me. . Discharge Plan Discharge Clinical Impression: Acute UTI, Dizziness Patient Disposition: Home, Self-Care Instructions: Urinary Tract Infection in Women (ED), Dizziness (ED) Additional Instructions: return to ED for any worsening symptoms or concerns IMPRESSION: Colonic diverticulosis without significant pericolic inflammatory changes to suggest acute diverticulitis. No bowel obstruction. ? Small hiatal hernia. ? Nonobstructive 3 mm calculus in the upper pole of the left kidney. ? Questionable wall thickening of the urinary bladder with very mild perivesical fat stranding. Correlate clinically for cystitis. ? A few prominent posterior mediastinal, periportal and peripancreatic lymph nodes are of uncertain clinical significance, possibly reactive. PLEASE FOLLOW UP WITH YOUR DOCTOR Prescriptions: New cefuroxime axetil 250 mg tablet 250 mg PO BID 7 Days Qty: 14 RF: 0 No Action levothyroxine 50 mcg tablet 50 mcg PO DAILY Qty: 90 RF: 8 apixaban [Eliquis] 5 mg tablet 5 mg PO BID Qty: 180 RF: 2 pantoprazole 40 mg tablet,delayed release (DR/EC) 40 mg PO DAILY Qty: 90 RF: 8 atenolol 50 mg tablet 50 mg PO BID 90 Days Qty: 180 RF: 4 atenolol 25 mg tablet 25 mg PO BID 90 Days Qty: 180 RF: 4 codeine-guaifenesin 10-100 mg/5 mL liquid 10 ml PO Q4-6H PRN (Reason: cough) Qty: 237 RF: 0 halobetasol propionate 0.05 % cream 1 appl topical DAILY RF: 0 calcipotriene 0.005 % cream 1 appl topical BID RF: 0 Referrals: Physician,Unknown J [Primary Care Provider] - 3 days (if not better)
[2021-07-17 16:32] VITALS: BP 170/100; BP 170/67; PULSE 64; PULSE 69; RESP 14; TEMP 36.5; O2SAT 94; O2SAT 98; BMI 26.2
[2021-07-17 16:37] LABS: Basophils Percent Auto 0.1 % (0-2); Hematocrit 33.6 % (37-47); Hemoglobin 11.3 g/dl (12.0-16.0); Mean Corpuscular HGB Conc 33.6 g/dl (31.0-35.0); Neutrophils Percent Auto 61.3 % (45-73); SCAN SMEAR FLAG 1
[2021-07-17 16:39] LABS: Eosinophils Absolute Auto 0.1 X10*3/uL (0.0-0.4); Eosinophils Percent Auto 1.5 % (0-4); Imm Gran Abs Auto 0.06 X10*3/uL (0.00-0.03); Imm Gran Pct Auto 0.8 % (0.0-0.4); Lymphocytes Absolute Auto 1.8 X10*3/uL (1.2-4.9); Lymphocytes Percent Auto 23.5 % (20-40); Mean Corpuscular Hemoglobin 29.7 pg (27.0-33.0); Mean Corpuscular Volume 88.2 fL (80-98); Monocytes Percent Auto 12.8 % (2-11); Neutrophils Absolute Auto 4.6 X10*3/uL (2.0-8.3); Platelet Count 103 X10*3/uL (160-400); Red Blood Count 3.81 X10*6/uL (4.20-5.50); White Blood Count 7.4 X10*3/uL (4.8-10.8)
[2021-07-17 16:42] LABS: PLT ABN DIST 1
[2021-07-17 16:54] LABS: COVID-19 Test Negative (Negative)
[2021-07-17 16:59] LABS: Troponin-I High Sensitivity 4.6 ng/L (<3.5-17.0)
[2021-07-17 17:15] LABS: Appearance Urine CLEAR; Color Urine STRAW; Glucose Urine UA NEG (NEG); Leukocyte Esterase Urine 2+ (NEG); Nitrite Urine NEG (NEG); PH 6.5 (5.0-8.0); Specific Gravity - Urine <= 1.005 (1.005-1.025); UACC Culture Trigger YES; Urine Blood TRACE (NEG); Urine Ketones NEG (NEG); Urine Protein NEG (NEG-TRACE)
[2021-07-17 17:22] VITALS: BP 153/68; PULSE 59
[2021-07-17 17:23] VITALS: BP 153/70; BP 165/70; PULSE 61; PULSE 64
[2021-07-17 17:41] LABS: Squamous Epithelial Cell Urine 1+ /LPF
[2021-07-17 17:43] LABS: RBC Urine 0-2 /HPF (0)
[2021-07-17 17:44] LABS: WBC Clumps Urine NOTED
[2021-07-17] MEDS: 0.9 % Sodium Chloride 500 ML IV (17:56)
[2021-07-17] MEDS: cefTRIAXone sodium 1 GM in 0.9 % Sodium Chloride 50 ML IV (19:05)
[2021-07-17 19:25] VITALS: BP 159/69; PULSE 66; RESP 18; TEMP 37; O2SAT 97
[2021-07-17 19:43] LABS: Alanine Aminotransferase 9 U/L (0-31); Albumin Level 3.5 g/dL (3.5-5.0); Alkaline Phosphatase 71 U/L (39-117); Anion Gap 13 (12-20); Aspartate Amino Transferase 13 U/L (5-31); Bilirubin Direct 0.3 mg/dL (0.0-0.5); Bilirubin Total 0.7 mg/dL (0.0-1.0); Blood Urea Nitrogen 12 mg/dL (9-16); Carbon Dioxide 23 mmol/L (22-29); Chloride 112 mmol/L (96-108); Estimated Glomerular Filt Rate 52; Glucose Random 87 mg/dL (60-115); Potassium 4.5 mmol/L (3.3-5.1); Sodium 143 mmol/L (135-145); Total Protein 7.4 g/dL (6.5-8.0)
[2021-07-17] MEDS: iohexoL 350 MG/ML 100 ML INFUS..BTL IV (20:06)
== END 2021-07-17 21:51 | disposition home or self-care (01) ==
PROVIDERS: Emergency Provider Emergency Medicine
DX: N39.0 Urinary tract infection, site not specified (principal); R42 Dizziness and giddiness; I12.9 Hypertensive chronic kidney disease with stage 1 through stage 4 chronic kidney disease, or unspecified chronic kidney disease; N18.9 Chronic kidney disease, unspecified; I48.0 Paroxysmal atrial fibrillation; Z79.01 Long term (current) use of 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; Z20.822 Contact with and (suspected) exposure to COVID-19
CPT/HCPCS: 36415; 70450; 74177; 80048; 80076; 81001; 83735; 84484; 85025; 87086; 87635; 93005; 96361; 96365; 99284; 99285; J0696; Q9967

== ENCOUNTER 2021-09-07 09:55 | Outpatient (REF) | payer MEDICARE, SELFPAY ==
[2021-09-07 11:53] LABS: Erythrocyte Sedimentation Rate 51 MM/HR (0-20)
[2021-09-07 12:09] LABS: C Reactive Protein 2.84 mg/dL (< or = 0.50)
== END 2021-09-07 09:56 | disposition home or self-care (01) ==
LOC: HO.LAB 09:55
PROVIDERS: PCP Internal Medicine; Visit Provider Nurse Practitioner Family
DX: M35.3 Polymyalgia rheumatica (principal); M85.89 Other specified disorders of bone density and structure, multiple sites; M25.511 Pain in right shoulder; M25.512 Pain in left shoulder
CPT/HCPCS: 36415; 85652; 86140; 99212

== ENCOUNTER → 2021-09-29 10:04 | Outpatient (BNVA) | payer MEDICARE, SELFPAY | PROVIDERS: PCP Internal Medicine; Visit Provider Internal Medicine | DX: R04.2 Hemoptysis (principal); R91.8 Other nonspecific abnormal finding of lung field | CPT/HCPCS: 99202 ==

== ENCOUNTER → 2021-10-28 11:13 | Outpatient (BNVA) | payer MEDICARE, SELFPAY | PROVIDERS: PCP Internal Medicine; Referring Provider Internal Medicine; Visit Provider Internal Medicine | DX: I48.0 Paroxysmal atrial fibrillation (principal); I13.10 Hypertensive heart and chronic kidney disease without heart failure, with stage 1 through stage 4 chronic kidney disease, or unspecified chronic kidney disease; N18.9 Chronic kidney disease, unspecified; I27.20 Pulmonary hypertension, unspecified; R60.0 Localized edema; R04.2 Hemoptysis; Z79.01 Long term (current) use of 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; Z79.899 Other long term (current) drug therapy | CPT/HCPCS: 99212 ==

== ENCOUNTER 2021-12-02 11:26 | Outpatient (REF) | payer MEDICARE, SELFPAY ==
--- NOTE | ~2021-12-02 | XR_ITS ---
EXAMINATION: BILATERAL KNEE X-RAY CLINICAL INFORMATION: Pain COMPARISON: Previous x-rays most recent January 2013 TECHNIQUE: 2 views of each knee FINDINGS: Left: Bone alignment is normal. No fracture or dislocation is seen. There is mild joint space narrowing at the lateral femoral tibial joint. There is a small osteophyte at the patellofemoral joint. There is no significant joint effusion. Right knee: Bone alignment is normal. No fracture or dislocation is seen. There are mild degenerative changes at the medial femoral tibial joint with joint space narrowing. There are small osteophytes at the patellofemoral joint. There is no significant joint effusion. XR/XR knee RT 2V IMPRESSION: Mild degenerative changes.
--- NOTE | ~2021-12-02 | XR_ITS ---
EXAMINATION: BILATERAL KNEE X-RAY CLINICAL INFORMATION: Pain COMPARISON: Previous x-rays most recent January 2013 TECHNIQUE: 2 views of each knee FINDINGS: Left: Bone alignment is normal. No fracture or dislocation is seen. There is mild joint space narrowing at the lateral femoral tibial joint. There is a small osteophyte at the patellofemoral joint. There is no significant joint effusion. Right knee: Bone alignment is normal. No fracture or dislocation is seen. There are mild degenerative changes at the medial femoral tibial joint with joint space narrowing. There are small osteophytes at the patellofemoral joint. There is no significant joint effusion. XR/XR knee LT 2V IMPRESSION: Mild degenerative changes.
[2021-12-02 12:47] LABS: Cholesterol 124 mg/dL; HDL Cholesterol 28 mg/dL; LDL Cholesterol Calculated 72 mg/dl; Triglycerides 120 mg/dL
[2021-12-02 13:08] LABS: Thyroid Stimulating Hormone 4.17 uIU/mL (0.32-4.0)
== END 2021-12-02 11:27 | disposition home or self-care (01) ==
LOC: HO.XRAY 11:26
PROVIDERS: PCP Internal Medicine; Visit Provider Internal Medicine
DX: Z00.00 Encounter for general adult medical examination without abnormal findings (principal); M25.561 Pain in right knee; M25.562 Pain in left knee
CPT/HCPCS: 36415; 73560; 80061; 84443

== ENCOUNTER 2021-12-03 14:07 | Outpatient (REF) | payer MEDICARE, SELFPAY ==
--- NOTE | ~2021-12-03 | MM_ITS ---
EXAMINATION: BONE DENSITOMETRY CLINICAL INDICATION: Other specified disorders of bone density and structure, unspecified site. COMPARISON: Baseline BD dated 11/09/2019. TECHNIQUE: Using a Auto Secure DXA System (software version: 13.1) manufactured by [employer], dual-energy x-ray absorptiometry was performed of the lumbar spine and right hip. The images are of good technical quality. Summary results are attached. FINDINGS: AP SPINE L1-L4: Current: BMD 1.039 g/cm2, Z-score 0.6, T-score -1.2, osteopenia, 3.4% increase from baseline (<5% change is not significant). Baseline: BMD 1.005 g/cm2. LEFT FEMUR, NECK: Current: BMD 0.740 g/cm2, Z-score -0.2, T-score -2.1, osteopenia. Baseline: BMD 0.875 g/cm2. LEFT FEMUR, TOTAL: Current: BMD 0.862 g/cm2, Z-score 0.6, T-score -1.2, osteopenia, 11.8% decrease from baseline (<5% change is not significant). Baseline: BMD 0.977 g/cm2. IDENTIFIED RISK FACTORS: Rheumatoid arthritis. Low calcium intake. Secondary osteoporosis (early menopause). Hysterectomy. HISTORY OF FRACTURE: None listed. MEDICATIONS: None listed. MM/XR DEXA axial skeleton IMPRESSION: 1. DIAGNOSIS: Osteopenia based on the lowest T-score value of -2.1 in the femoral neck applying World Health Organization criteria. 2. 10-YEAR FRACTURE RISK PREDICTION, FRAX: Major osteoporotic fracture (clinical spine, forearm, hip or shoulder) 19.0%. Hip fracture 5.8%. 3. Treatment Recommendations: NOF guidelines recommend consideration for treatment in postmenopausal women and men age 50 and older presenting with the following: -A hip or vertebral (clinical or morphometric) fracture. -T-score less than or equal to -2.5 at the femoral neck or spine after appropriate evaluation to exclude secondary causes. -Low bone mass at the hip or spine and a 10-year fracture probability by FRAX of greater than or equal to 3% for hip fracture or greater than or equal to 20% for major osteoporotic fracture based on the [place] adapted WHO algorithm. 4. Other Recommendations: All treatment decisions require clinical judgment and consideration of individual patient factors, including patient preferences, comorbidities, previous drug use, risk factors not captured in the FRAX model (e.g. frailty, falls, vitamin D deficiency, increased bone turnover, interval significant decline in bone density) and possible under or overestimation of fracture risk by FRAX. Additional medical evaluation for secondary cause of low bone mineral density may be appropriate. FUTURE SCAN RECOMMENDATION: People with diagnosed cases of osteoporosis or at high risk for fracture should have regular bone mineral density tests. For patients eligible for Medicare, routine testing is allowed once every 2 years. The testing frequency can be increased to one year for patients who have rapidly progressing disease, those who are receiving or discontinuing medical therapy to restore bone mass, or have additional risk factors.
== END 2021-12-03 14:08 | disposition home or self-care (01) ==
LOC: HO.MAMMO 14:07
PROVIDERS: PCP Internal Medicine; Visit Provider Nurse Practitioner Family
DX: Z13.820 Encounter for screening for osteoporosis (principal); M85.89 Other specified disorders of bone density and structure, multiple sites; Z78.0 Asymptomatic menopausal state; Z98.890 Other specified postprocedural states
CPT/HCPCS: 77080

== ENCOUNTER → 2022-02-05 09:14 | Outpatient (BNVA) | payer MEDICARE, SELFPAY | PROVIDERS: PCP Internal Medicine; Referring Provider Internal Medicine; Visit Provider Nurse Practitioner Family | DX: R94.31 Abnormal electrocardiogram [ECG] [EKG] (principal) | CPT/HCPCS: 93005 ==

== ENCOUNTER → 2022-02-25 09:46 | Outpatient (REF) | payer MEDICARE, SELFPAY ==
--- NOTE | ~2022-02-25 | NM_ITS ---
Lexiscan Myocardial perfusion study Indication: Chest pain, assess for coronary disease and ischemia Technique: The patient was brought in for a Lexiscan perfusion study on 02/25/2022 and was injected 0.4 mg of Lexiscan intravenously. Within a minute of this injection 25 mCi of sestamibi was given intravenously. Images were obtained using the SPECT gamma camera interlaced with the gating device. Images were obtained in supine position. Resting perfusion study was performed on 02/26/2022. Patient was administered 25 mCi of sestamibi intravenously at rest. Images were then obtained in supine position. Total DLP 94mGy-cm. Images were processed with the software and compared side to side in short axis, horizontal long axis and vertical long axis views. Findings: Raw acquisition reviewed. The stress perfusion study showed no significant perfusion abnormality. Both uncorrected as well as CT attenuation corrected images were reviewed. The gated study shows normal LV systolic function with calculated LVEF of 62%. LV cavity is normal in size. The gated study shows normal wall thickening and contraction of segments. Resting study shows no significant perfusion abnormality. Gating at rest reveals normal wall motion with ejection fraction at 70%. The findings are consistent with no reversible or fixed perfusion abnormality. NM/NM cardiolite stress test Impression: 1. Myocardial perfusion imaging study shows likely normal myocardial perfusion. 2. Gated LVEF is 62% during stress and 70% during rest. 3. Transient ischemic dilatation not present. EKG component of the test reported separately.
--- NOTE | 2022-02-25 09:55 | CA_ITS ---
Acquisition Time: 2022-02-25 10:02:14 Total Exercise Time: 00:02:00 Test Indications: Chest Pain Medications: Protocol: LEXISCAN Max HR: 104 BPM 72% of Pred: 144 BPM Max BP: 166/054 mmHG Max Work Load: 1.0 METS Pharmacological stress test with Lexiscan injection, while sitting and kicking her legs, with report of her vague tired feeling in chest , with isolated PAC, with normotensive response to injection, with nondiagnostic EKG for ischemia. In recovery she was treated with Aminophylline 75mg IVP to reverse Lexiscan with resolution of chest symptom. Nuclear images pending. Test reviewed with Dr Calderón. Referred By: Patricia Knox Overread By: PATRICIA KNOX
== END ==
LOC: HO.CARD 09:46
PROVIDERS: PCP Internal Medicine; Visit Provider Nurse Practitioner Family
DX: R07.89 Other chest pain (principal); I48.0 Paroxysmal atrial fibrillation; I10 Essential (primary) hypertension; I27.20 Pulmonary hypertension, unspecified
CPT/HCPCS: 78452; 93017; A9500; J0280; J2785

== ENCOUNTER → 2022-05-13 13:40 | Outpatient (REF) | payer MEDICARE, SELFPAY ==
--- NOTE | 2022-05-13 13:43 | CA_ITS ---
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 Normal LV systolic function 2. Mildly dilated left atrium 3. Fibrocalcific aortic valve and mitral calcification noted 4. Moderate to severe elevation of right ventricular systolic pressure with mildly elevated right atrial pressures 5. Small to moderate circumferential pericardial effusion Findings Left Ventricle Normal left ventricular size, thickness, and systolic function. The visually estimated ejection fraction is between 55-60%. Diastolic function is indeterminate on the basis of available data. Right Ventricle Normal right ventricular cavity size. There is normal right ventricular systolic function. Atria The left atrium is mildly dilated. Interatrial shunt cannot be excluded. The right atrium is likely dilated. Aortic Valve There is mild calcification of the aortic valve. There is no aortic valve stenosis. There is no aortic valve regurgitation. Mitral Valve There is mild anterior and posterior mitral leaflet thickening. There is mild mitral annular calcification. There is trace mitral valve regurgitation. There is no mitral valve stenosis. Pulmonic Valve The pulmonic valve was not well visualized. Tricuspid Valve Likely normal tricuspid valve structure and function. There is mild tricuspid valve regurgitation. Mildly elevated right atrial pressure. Moderate to severe pulmonary hypertension is present. Great Vessels All visible segments of the aorta are normal in size. The pulmonary artery was not well visualized. Venous The inferior vena cava is normal in size and collapses less than 50% with inspiration. Pericardium/Pleural There is a moderate circumferential pericardial effusion. Prior Study Comparison Changes noted compared to prior study dated: 04/15/2021. RV systolic pressure is further increased. Pericardial effusion is noted Measurements 2D Linear Measurements IVSd: 0.96 0.6-0.9/0.6-1.0 cm LVIDd: 4.68 3.9-5.3/4.2-5.9 cm LVIDd Index: 2.98 2.4-3.2/2.2-3.1 cm/m2 LVIDs: 3.24 2.0-3.6 cm LVPWd: 0.72 0.7-1.1 cm LA Diam: 4.30 2.7-3.8/3.0-4.0 cm LAIDs Index: 2.74 1.5-2.3 cm/m2 LV Mass: 159.81 67-162/88-224 g LV Mass Index: 101.79 43-95/49-115 g/m2 LVOT Diam: 1.90 3.0+(-)1.3 cm 2D Systolic Function EF 4C: 57.90 >55% Mitral Valve MV Pk E: 0.69 MV PK A: 0.23 MV Decel Time: 111.00 E/A: 2.90 E'Lateral: 6.73 E'Medial: 4.47 E/E' Med: 15.30 E/E' Lat: 10.20 PHT: 33.00 MVA PHT: 6.67 Decel Yell: 6.17 Aortic Valve AoV Pk Bobby: 1.17 AoV Mn Bobby: 0.82 AoV VTI: 0.29 AoV Pk Grad: 5.00 Aov Mn Grad: 3.00 DOMENICO Cont.VTI: 1.36 LVOT LVOT Pk Bobby: 0.54 LVOT Mn Bobby: 0.44 LVOT VTI: 0.14 LVOT Pk Grad: 1.00 LVOT Mn Grad: 1.00 LVOT Diam: 1.90 LVOT Area: 2.84 Diastolic Function MV Pk E: 0.69 MV Pk A: 0.23 E/A: 2.90 E'Medial: 4.47 E/E' Med: 15.30 E' Laterial: 6.73 E/E' Lat: 10.20 Right Ventricle TAPSE (mm): 17.80 TVS' Bobby: 12.00 Tricuspid Valve TR Pk Bobby: 3.79 TR Pk Grad: 57.00 RA Press: 8.00 RVSP: 65.00 Great Vessels Aorta Sinus of Valsalva: 2.80 2.0-3.5 cm Ao Asc: 2.90 2.1-3.4 cm Pulmonary Veins Pulm Vein S/D 0.60 Pulmonary Valve PV Pk Bobby: 0.54 Peak PV Grad: 1.00 Updated in Other Vendor System with Status of Final Rajesh Haroon MD electronically signed on 05/14/2022 5:13:51 PM with status of Final
[2022-05-13 15:28] LABS: Thyroid Stimulating Hormone 1.95 uIU/mL (0.32-4.0)
== END ==
LOC: HO.CARD 13:40
PROVIDERS: PCP Internal Medicine; Visit Provider Nurse Practitioner Family
DX: R07.89 Other chest pain (principal); I27.20 Pulmonary hypertension, unspecified; I51.89 Other ill-defined heart diseases; E03.9 Hypothyroidism, unspecified
CPT/HCPCS: 36415; 84443; 93306

== ENCOUNTER → 2022-06-21 09:48 | Outpatient (BNVA) | payer MEDICARE, SELFPAY | PROVIDERS: PCP Internal Medicine; Referring Provider Internal Medicine; Visit Provider Internal Medicine | DX: I48.0 Paroxysmal atrial fibrillation (principal); I31.3 Pericardial effusion (noninflammatory); I10 Essential (primary) hypertension; I51.89 Other ill-defined heart diseases; I27.20 Pulmonary hypertension, unspecified; N18.9 Chronic kidney disease, unspecified; R60.0 Localized edema | CPT/HCPCS: 99212 ==

== ENCOUNTER 2022-07-02 11:20 | Outpatient (REF) | payer MEDICARE, SELFPAY ==
[2022-07-02 13:52] LABS: C Reactive Protein 1.66 mg/dL (< or = 0.50)
[2022-07-02 14:23] LABS: Erythrocyte Sedimentation Rate 60 MM/HR (0-20)
== END 2022-07-02 11:21 | disposition home or self-care (01) ==
LOC: HO.10HDL 11:20
PROVIDERS: Visit Provider Nurse Practitioner Family
DX: M35.3 Polymyalgia rheumatica (principal); M85.89 Other specified disorders of bone density and structure, multiple sites; M25.512 Pain in left shoulder; M25.511 Pain in right shoulder; I48.91 Unspecified atrial fibrillation; Z79.899 Other long term (current) drug therapy; Z79.891 Long term (current) use of opiate analgesic; Z79.01 Long term (current) use of 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
CPT/HCPCS: 36415; 85652; 86140; 99212

== ENCOUNTER 2022-07-07 15:25 | Outpatient (REF) | payer MEDICARE, SELFPAY ==
[2022-07-07 15:41] LABS: MANUAL DIFF FLAG NO
[2022-07-07 15:59] LABS: Basophils Percent Auto 0.3 % (0-2); Mean Corpuscular Volume 74.9 fL (80.0-98.0); Red Cell Distribution Width 18.1 % (11.0-16.0); SCAN SMEAR FLAG 1
[2022-07-07 16:01] LABS: Eosinophils Absolute Auto 0.4 X10*3/uL (0.0-0.4); Eosinophils Percent Auto 4.8 % (0-4); Imm Gran Abs Auto 0.05 X10*3/uL (0.00-0.03); Imm Gran Pct Auto 0.7 % (0.0-0.4); Lymphocytes Absolute Auto 2.2 X10*3/uL (1.2-4.9); Lymphocytes Percent Auto 28.9 % (20-40); Mean Corpuscular Hemoglobin 22.5 pg (27.0-33.0); Monocytes Absolute Auto 1.1 X10*3/uL (0.1-1.2); Monocytes Percent Auto 14.7 % (2-11); Neutrophils Absolute Auto 3.8 x10*3/uL (2.0-8.3); Neutrophils Percent Auto 50.6 % (45-73); Platelet Count 152 X10*3/uL (160-400); Red Blood Count 3.07 X10*6/uL (4.20-5.50); White Blood Count 7.5 X10*3/uL (4.8-10.8)
[2022-07-07 16:26] LABS: Alanine Aminotransferase < 6 U/L (0-31); Albumin Level 3.7 g/dL (3.5-5.0); Alkaline Phosphatase 69 U/L (39-117); Anion Gap 15 (12-20); Aspartate Amino Transferase 11 U/L (5-31); Bilirubin Total 0.6 mg/dL (0.0-1.0); Blood Urea Nitrogen 22 mg/dL (9-16); Calcium 9.1 mg/dL (8.4-10.2); Carbon Dioxide 21 mmol/L (22-29); Chloride 107 mmol/L (96-108); Estimated Glomerular Filt Rate 47; Glucose Random 95 mg/dL (60-115); Potassium 4.8 mmol/L (3.3-5.1); Sodium 138 mmol/L (135-145); Total Protein 7.9 g/dL (6.5-8.0)
[2022-07-07 16:47] LABS: Appearance Urine Turbid; Color Urine Yellow; Glucose Urine UA Negative (Negative); Leukocyte Esterase Urine Large (3+) (Negative); Nitrite Urine Negative (Negative); PH 6.5 (5.0-9.0); Specific Gravity - Urine 1.015 (1.005-1.025); UMIC TRIGGER UACC YES; Urine Blood Trace (Negative); Urine Ketones Negative (Negative); Urine Protein 30 (1+) mg/dL (Neg-Trace)
[2022-07-07 17:50] LABS: Hemoglobin 6.9 g/dl (12.0-16.0); PLT ABN DIST 1
[2022-07-07 17:51] LABS: Bacteria Urine 4+ (None Seen); RBC Urine 0-2 /HPF (0-2); Squamous Epithelial Cell Urine >20 /HPF (0-2); UACC Culture Trigger YES; WBC Urine >50 /HPF (0-5)
== END 2022-07-07 15:26 | disposition home or self-care (01) ==
LOC: HO.LAB 15:25
PROVIDERS: PCP Internal Medicine; Visit Provider Nurse Practitioner Family
DX: R70.0 Elevated erythrocyte sedimentation rate (principal)
CPT/HCPCS: 36415; 80053; 81001; 85025; 87086

== ENCOUNTER 2022-07-07 18:23 | Inpatient (IN) | payer MEDICARE, SELFPAY ==
--- NOTE | ~2022-07-07 | CT_ITS ---
EXAMINATION: CT HEAD WITHOUT CONTRAST CLINICAL INFORMATION: Difficulty with speaking. COMPARISON: CT head 07/17/2021, 05/23/2015. TECHNIQUE: Contiguous axial imaging was performed from the skull base to vertex without intravenous administration of contrast. Coronal and sagittal reformatted images are performed at the CT scanner. [This CT examination was performed using dose optimization techniques as appropriate, variously including the following: *Automated exposure control *Adjustment of mA and/or kV according to patient size (this includes techniques or standardized protocols for targeted exams where dose is matched to indication/reason for exam; i.e. extremities or head) *Use of iterative reconstruction technique] DLP: 703 mGy-cm. FINDINGS: There is no evidence of acute intracranial hemorrhage or territorial infarction. No abnormal mass-effect or midline shift is seen. Reyes to white matter differentiation is well preserved. No extra-axial fluid collections are identified. There is generalized global volume loss. There is moderate prominence of the ventricles and the sulci . There is mild hypodensity of the periventricular white matter due to chronic small vessel ischemic disease. There are vascular calcifications of the internal carotid arteries bilaterally. Redemonstration of expansion of the dipole of the skull which remains stable since prior studies. Stable mixed areas of hypodensity and osteosclerosis involving the skull, skull base and partially imaged facial bones. No bone destruction or abnormal periosteal reaction. CT/CT head/brain wo IV con IMPRESSION: No acute intracranial pathology.
--- NOTE | ~2022-07-07 | XR_ITS ---
EXAMINATION: XR CHEST CLINICAL INFORMATION: Dyspnea COMPARISON: 10/06/2015 TECHNIQUE: Frontal view of the chest was obtained. FINDINGS: The lungs are well expanded. There is no focal consolidation, edema, or effusion. No pneumothorax. The cardiomediastinal silhouette is unchanged with a calcified aorta. Left hilar calcifications. No acute osseous abnormality. XR/XR chest 1V IMPRESSION: No acute pulmonary finding.
[2022-07-07 19:24] VITALS: BP 121/38; PULSE 63; RESP 16; TEMP 36.5; O2SAT 100; BMI 26.2
--- NOTE | 2022-07-07 21:15 | ECG_ITS ---
Test Reason : DYSPNEA Blood Pressure : / mmHG Vent. Rate : 061 BPM Atrial Rate : 061 BPM P-R Int : 136 ms QRS Dur : 078 ms QT Int : 422 ms P-R-T Axes : 077 019 035 degrees QTc Int : 424 ms Normal sinus rhythm Cannot rule out Anterior infarct , age undetermined Abnormal ECG When compared with ECG of 17-JUL-2021 17:25, Premature supraventricular complexes are no longer Present Referred By: Raza Babin Electronically Signed By:MYLES MENDOZA
[2022-07-07 21:53] VITALS: BP 167/51; PULSE 63; RESP 16; TEMP 36.5; O2SAT 100
[2022-07-07 22:15] LABS: MANUAL DIFF FLAG NO
[2022-07-07 22:18] LABS: Basophils Percent Auto 0.3 % (0-2); Eosinophils Absolute Auto 0.3 X10*3/uL (0.0-0.4); Eosinophils Percent Auto 4.2 % (0-4); Hematocrit 22.2 % (37.0-47.0); Imm Gran Abs Auto 0.09 X10*3/uL (0.00-0.03); Imm Gran Pct Auto 1.4 % (0.0-0.4); Lymphocytes Absolute Auto 1.9 X10*3/uL (1.2-4.9); Mean Corpuscular HGB Conc 30.2 g/dl (31.0-35.0); Mean Corpuscular Hemoglobin 22.6 pg (27.0-33.0); Mean Corpuscular Volume 74.7 fL (80.0-98.0); Monocytes Percent Auto 15.5 % (2-11); Neutrophils Percent Auto 47.6 % (45-73); Platelet Count 116 X10*3/uL (160-400); Red Blood Count 2.97 X10*6/uL (4.20-5.50); Red Cell Distribution Width 17.8 % (11.0-16.0); SCAN SMEAR FLAG 1; White Blood Count 6.3 X10*3/uL (4.8-10.8)
[2022-07-07 22:21] LABS: Hemoglobin 6.7 g/dl (12.0-16.0); PLT ABN DIST 1
[2022-07-07 22:29] LABS: Prothrombin Time 23.9 SEC (10.0-13.1)
[2022-07-07 22:32] LABS: Partial Thromboplastin Time 37.6 SEC (26.0-36.4)
[2022-07-07 22:32] LABS: COVID-19 Test Negative (Negative)
--- NOTE | 2022-07-07 22:33 | ED.RECABL ---
HPI - Recheck/Abnormal Lab/Rx General Chief Complaint: Recheck/Abnormal Lab/Rx Stated Complaint: abdnormal labs Time Seen by Provider: 07/07/22 20:54 Source: patient Mode of arrival: ambulatory Limitations: no limitations History of Present Illness HPI narrative: 77-year-old female who presents emergency department for evaluation of a low H&H with labs done today revealing hemoglobin of 6.9 hematocrit of 23.0. Patient states that she has been feeling lightheaded and woozy over the past 2-3 days. She states she has been very tired and fatigued over the last several weeks. She has noted dyspnea on exertion but no chest pain with exertion. She has not noticed any change in her bowel movements. She denied abdominal pain. She denied fever, chills, chest pain, weight loss or weight gain. Patient states that she does have GERD and takes pantoprazole. She also has a history of atrial fibrillation and is on Eliquis. She states that 2-3 months prior she was coughing up small amounts of blood in her doctor stopped her Eliquis with improvement of the symptoms and restarted her Eliquis. complaint: abnormal lab Initial visit (ago): hour(s) (3) Initial visit for: other ( by PCP for evaluation of fatigue, lightheadedness and dizziness) Returns today for: other ( evaluation of symptomatic anemia) Description of abnormal result: low H&H 6.9 and 23 Context: called for abnormal lab result ( by PCP) Associated symptoms: shortness of breath ( lightheadedness, dizziness, fatigue, weakness) Related Data Home Medications Medication Instructions Recorded Confirmed calcipotriene 0.005 % topical cream 1 appl topical BID 11/05/20 07/02/22 halobetasol propionate 0.05 % 1 appl topical DAILY 11/05/20 07/02/22 topical cream Previous Rx's Medication Instructions Recorded meclizine 25 mg tablet 25 mg PO TID PRN dizziness #30 tabs 07/28/21 apixaban 5 mg tablet (Eliquis) 5 mg PO BID 90 days #180 tabs 10/21/21 levothyroxine 50 mcg tablet 50 mcg PO DAILY #90 tabs 12/25/21 pantoprazole 40 mg tablet,delayed 40 mg PO DAILY #90 tabs 12/25/21 release atenolol 25 mg tablet 25 mg PO BID 90 days #180 tabs 02/04/22 atenolol 50 mg tablet 50 mg PO BID 90 days #180 tabs 02/04/22 Allergies Allergy/AdvReac Type Severity Reaction Status Date / Time No Known Allergies Allergy Verified 07/02/22 10:23 [No Known Allergies*] Review of Systems Review of Systems: Yes all other systems are reviewed and are negative [facility] Past Medical History [facility] Narrative: social history: She lives at home with her . She denies tobacco, alcohol and drug use. 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 Osteopenia 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 atrial fibrillation) Polymyalgia rheumatica Pulmonary hypertension Pulmonary nodules Surgical History History of bilateral cataract extraction History of section History of cholecystectomy History of partial hysterectomy Family History Family History Father Coronary artery disease FH: CVA (cerebrovascular accident) Mother Kidney failure Social History Social History Housing: House Alcohol intake: never Patient Tobacco Use Status: Never used Tobacco e-Cigarette/Vaping Use: Never Used Second Hand Smoke Exposure: No Advance Directives: No Advance Directives Information Provided: No service: No Current occupational status: retired Cognitive needs: No Hearing needs: No Vision needs: Yes Physical Exam Vital Signs: Vital Signs: Last Vital Signs Temp 97.7 F 07/07/22 21:53 Pulse 63 07/07/22 21:53 Resp 16 07/07/22 21:53 BP 167/51 H 07/07/22 21:53 Pulse Ox 100 07/07/22 21:53 O2 Del Method 07/07/22 21:53 BMI result Body Mass Index 26.2 Const: General: cooperative and no acute distress Orientation/consciousness: oriented to person and oriented to place Limitations: no limitations HEENT: Head: Yes normal to inspection, Yes normocephalic and Yes atraumatic Ears: external ears normal General nose exam: Normal external nose present Face and sinus: Yes normal facial exam Mouth: Normal oral and palatal mucosa present Throat: Yes posterior oropharynx normal Eyes: General: appearance normal, both eyes and all related structures Pupils: Equal, round and reactive pupils present Neck: Neck: Yes normal visual inspection, Yes no lymphadenopathy, Yes trachea midline and Yes supple Chest: Chest palpation & inspection: normal inspection of the chest and normal palpation of entire chest wall Resp: Effort & Inspection: normal respiratory effort and able to speak in complete sentences Auscultation: clear to auscultation bilaterally Cardio: Rate: regular rate Rhythm: regular rhythm Heart sounds: S1 normal heart sound present, S2 normal heart sound present and no murmurs GI: Inspection: Yes normal to inspection Palpation (GI): Soft to palpation, nontender and no guarding Auscultation: normal bowel sounds Rectal Exam - Female: visual inspection normal, normal sphincter tone and heme positive stool ( Brown stool, trace Hemoccult-positive) : General: Yes no CVA tenderness Back/Spine/Pelvis: Back: no CVA tenderness Skin: General skin exam: no rashes or lesions noted Neuro: General: oriented to person and oriented to place Cranial nerves: Yes CN's II-XII intact bilaterally and Yes Equal, round and reactive pupils present Cognition (Neuro): normal cognition Motor exam (neuro): 5/5 motor strength present throughout Extrem: General: Yes normal to inspection Psych: Appearance: grossly normal Speech and movement: Normal speech and movement present Affect: normal affect Attitude: cooperative Thought process: Normal thought process present Thought content: Normal thought content present Course Course Course Narrative: 77-year-old female who presents emergency department for evaluation of symptomatic microcytic anemia which was found by the patient's PCP today and the patient was advised to come to the emergency department for evaluation. Patient states she has had symptoms for several weeks but has been worse over the past 2-3 days with lightheadedness, dizziness, fatigue, weakness and dyspnea on exertion. Abdominal exam was unremarkable. Rectal exam did reveal brown stool which was trace Hemoccult positive. Repeat H&H did confirm that the patient was anemic with a hemoglobin of 6.7 and hematocrit of 22.1. Patient has known thrombocytopenia with a platelet count today of 116,000. BUN was 23, she has had similar elevations in the past. Chest x-ray was unremarkable and 12 EKG was unremarkable . I did order 1 unit of packed red blood cells to be transfused. I will discuss admission with the covering hospitalist. MDM - Recheck/Abnormal Lab/Rx Medical Records Attestation: I reviewed the patient's medical records. Lab Data Attestation: I reviewed the patient's lab results. Result diagrams: 07/07/22 22:10 07/07/22 22:10 Labs: Lab Results 07/07/22 07/07/22 07/07/22 Range/Units 22:09 22:09 22:10 WBC 6.3 (4.8-10.8) X10*3/uL RBC 2.97 L (4.20-5.50) X10*6/uL Hgb 6.7 L* (12.0-16.0) g/dl Hct 22.2 L (37.0-47.0) % MCV 74.7 L (80.0-98.0) fL MCH 22.6 L (27.0-33.0) pg MCHC 30.2 L (31.0-35.0) g/dl RDW 17.8 H (11.0-16.0) % Plt Count 116 L (160-400) X10*3/uL MPV TNP Immature Gran % (Auto) 1.4 H (0.0-0.4) % Neut % (Auto) 47.6 (45-73) % Lymph % (Auto) 31.0 (20-40) % [place] % (Auto) 15.5 H (2-11) % Eos % (Auto) 4.2 H (0-4) % Baso % (Auto) 0.3 (0-2) % Lymph # (Auto) 1.9 (1.2-4.9) X10*3/uL [place] # (Auto) 1.0 (0.1-1.2) X10*3/uL Eos # (Auto) 0.3 (0.0-0.4) X10*3/uL Baso # (Auto) 0.0 (0.0-0.2) X10*3/uL Abs Immat Gran (auto) 0.09 H (0.00-0.03) X10*3/uL Absolute Neuts (auto) 3.0 (2.0-8.3) x10*3/uL Absolute Nucleated RBC 0.000 (0.0-0.012) X10*3/uL Nucleated RBC % (auto) 0.0 (0.0-0.2) /100WBC PT (10.0-13.1) SEC INR (0.9-1.1) APTT (26.0-36.4) SEC COVID-19 ([place]) Negative (Negative) COVID-19 Clin Com See Note Crossmatch See Detail 07/07/22 Range/Units 22:10 WBC (4.8-10.8) X10*3/uL RBC (4.20-5.50) X10*6/uL Hgb (12.0-16.0) g/dl Hct (37.0-47.0) % MCV (80.0-98.0) fL MCH (27.0-33.0) pg MCHC (31.0-35.0) g/dl RDW (11.0-16.0) % Plt Count (160-400) X10*3/uL MPV Immature Gran % (Auto) (0.0-0.4) % Neut % (Auto) (45-73) % Lymph % (Auto) (20-40) % [place] % (Auto) (2-11) % Eos % (Auto) (0-4) % Baso % (Auto) (0-2) % Lymph # (Auto) (1.2-4.9) X10*3/uL [place] # (Auto) (0.1-1.2) X10*3/uL Eos # (Auto) (0.0-0.4) X10*3/uL Baso # (Auto) (0.0-0.2) X10*3/uL Abs Immat Gran (auto) (0.00-0.03) X10*3/uL Absolute Neuts (auto) (2.0-8.3) x10*3/uL Absolute Nucleated RBC (0.0-0.012) X10*3/uL Nucleated RBC % (auto) (0.0-0.2) /100WBC PT 23.9 H (10.0-13.1) SEC INR 2.0 H (0.9-1.1) APTT 37.6 H (26.0-36.4) SEC COVID-19 ([place]) (Negative) COVID-19 Clin Com Crossmatch ECG Data Attestation: I personally reviewed and interpreted this ECG as follows: Interpretation: 2148 : Normal sinus rhythm with a rate of 61, normal AL interval, QRS duration and QTC interval, no ST segment elevation, no ST segment depression, no T-wave abnormalities, poor R-wave progression, Q-wave in lead 3. Compared to EKG dated July 17, 2021 there is no acute changes. Discharge Plan Discharge Clinical Impression: Microcytic anemia Patient Disposition: Admitted As Inpatient
[2022-07-07 22:49] LABS: Alanine Aminotransferase < 6 U/L (0-31); Albumin Level 3.6 g/dL (3.5-5.0); Alkaline Phosphatase 69 U/L (39-117); Anion Gap 17 (12-20); Aspartate Amino Transferase 10 U/L (5-31); Bilirubin Total 0.2 mg/dL (0.0-1.0); Blood Urea Nitrogen 23 mg/dL (9-16); Calcium 9.1 mg/dL (8.4-10.2); Carbon Dioxide 21 mmol/L (22-29); Chloride 109 mmol/L (96-108); Creatinine Clr Calc Pharmacy 32.6; Estimated Glomerular Filt Rate 47; Glucose Random 98 mg/dL (60-115); Lipase 66 U/L (8-78); Potassium 4.8 mmol/L (3.3-5.1); Sodium 142 mmol/L (135-145); Total Protein 7.8 g/dL (6.5-8.0)
[2022-07-07 22:59] LABS: Troponin-I High Sensitivity < 3.5 ng/L (<3.5-17.0)
--- NOTE | 2022-07-07 23:04 | PM.IMHP ---
History of Present Illness Date of Service: 07/07/22 Chief Complaint: SOB 77-year-old female with a past medical history of hypertension, hyperlipidemia, AFib on Eliquis, polymyalgia rheumatica, pulmonary hypertension, pulmonary nodules, peripheral edema, osteopenia presented to the hospital today with a chief complaint of shortness of breath. Patient mentioned that over the past few days he has been having shortness of breath and dyspnea on exertion. Had routine labs done outpatient noted to have low hemoglobin of 6.9; subsequently asked her to go to the ER for further evaluation. Patient denies any gross blood in the stool. Denies any nausea vomiting or diarrhea. Denies any fever chills cough, urinary symptoms. Patient denies any chest pain or palpitations. Mentions that over the past few weeks he has been very fatigued and tired. Denies any change in diet habits. Review of all other systems is negative except mentioned above ER course: Per ER team patient exam was benign, repeat hemoglobin noted to be 6.7; on the rectal exam noted to have brown stool with guaiac positive stool. Patient was given 1 unit of blood transfusion. Admitted for further management. EKG was nonischemic. 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 Osteopenia 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 atrial fibrillation) Polymyalgia rheumatica Pulmonary hypertension Pulmonary nodules Family History Father Coronary artery disease FH: CVA (cerebrovascular accident) Mother Kidney failure Surgical History History of bilateral cataract extraction History of section History of cholecystectomy History of partial hysterectomy Social History Household Members: Spouse Housing: House Do you presently have visiting nurse or other home services: No Alcohol intake: never Patient Tobacco Use Status: Never used Tobacco e-Cigarette/Vaping Use: Never Used Second Hand Smoke Exposure: No service: No Current occupational status: retired Cognitive needs: No Hearing needs: No Vision needs: Yes Meds Allergies Allergy/AdvReac Type Severity Reaction Status Date / Time No Known Allergies Allergy Verified 07/02/22 10:23 [No Known Allergies*] Physical Exam Vital Signs and Narrative: Vital Signs: Last Vital Signs Temp 97.7 F 07/07/22 21:53 Pulse 63 07/07/22 21:53 Resp 16 07/07/22 21:53 BP 167/51 H 07/07/22 21:53 Pulse Ox 100 07/07/22 21:53 O2 Del Method 07/07/22 21:53 BMI result Body Mass Index 26.2 Gen: Appears be in no acute distress HEENT: NCAT, Moist mucosa. Pulmonary: Vesicular breath sounds, fair air entry CVS: Normal S1-S2 Abdomen: BS+, Soft, Nontender Extremities: Warm well perfused Neuro: Alert and awake. Results Labs CBC and Chem 7: 07/11/22 06:39 07/09/22 06:04 Labs: Laboratory Results - last 24 hr 07/07/22 07/07/22 07/07/22 22:09 22:09 22:10 MCV 74.7 L MCH 22.6 L MCHC 30.2 L RDW 17.8 H Plt Count 116 L MPV TNP Immature Gran % (Auto) 1.4 H Neut % (Auto) 47.6 Lymph % (Auto) 31.0 [place] % (Auto) 15.5 H Eos % (Auto) 4.2 H Baso % (Auto) 0.3 Lymph # (Auto) 1.9 [place] # (Auto) 1.0 Eos # (Auto) 0.3 Baso # (Auto) 0.0 Abs Immat Gran (auto) 0.09 H Absolute Neuts (auto) 3.0 Absolute Nucleated RBC 0.000 Nucleated RBC % (auto) 0.0 PT INR APTT Anion Gap Estim Creat Clear Calc Estimated GFR Random Glucose Calcium Total Bilirubin AST ALT Alkaline Phosphatase Total Protein Albumin Lipase COVID-19 ([place]) Negative COVID-19 Clin Com See Note Blood Type A Negative Antibody Screen NEGATIVE Crossmatch See Detail 07/07/22 07/07/22 22:10 22:10 MCV MCH MCHC RDW Plt Count MPV Immature Gran % (Auto) Neut % (Auto) Lymph % (Auto) [place] % (Auto) Eos % (Auto) Baso % (Auto) Lymph # (Auto) [place] # (Auto) Eos # (Auto) Baso # (Auto) Abs Immat Gran (auto) Absolute Neuts (auto) Absolute Nucleated RBC Nucleated RBC % (auto) PT 23.9 H INR 2.0 H APTT 37.6 H Anion Gap 17 Estim Creat Clear Calc 32.6 Estimated GFR 47 Random Glucose 98 Calcium 9.1 Total Bilirubin 0.2 AST 10 ALT < 6 Alkaline Phosphatase 69 Total Protein 7.8 Albumin 3.6 Lipase 66 COVID-19 ([place]) COVID-19 Clin Com Blood Type Antibody Screen Crossmatch Imaging Radiologist's Impressions: Impressions Chest X-Ray 07/07/22 21:20 IMPRESSION: No acute pulmonary finding. Assessment and Plan (1) Microcytic anemia: Status: Acute Plan 77-year-old female with a past medical history of hypertension, hyperlipidemia, AFib on Eliquis, polymyalgia rheumatica, pulmonary hypertension, pulmonary nodules, peripheral edema, osteopenia presented to the hospital today with a chief complaint of shortness of breath. Noted to have symptomatic anemia in the setting of likely GI bleed. Admitted for further management. Symptomatic anemia: Likely in setting of GI bleed. Patient noted to have guaiac-positive stool, brown stool in the rectal wall. Microcytic anemia Will obtain iron studies Patient being transfused 1 unit of blood IV PPI NPO GI consult Shortness of breath/dyspnea on exertion: Likely in setting of anemia. Patient had recent echocardiogram in May noted to have fibrocalcific aortic valve and mitral calcification, moderate to severe elevation in right ventricular systolic pressure, small to moderate pericardial effusion, normal LV systolic function. Will obtain acute echocardiogram Blood pressure currently stable EKG nonischemic Troponin negative History of AFib: Rate controlled. Hold home Eliquis until cleared by Gastroenterology History of hypertension: Hold home atenolol for now History of hypothyroidism: Continue home levothyroxine DVT prophylaxis: SCD boots Code status: Full code Quality Stroke Does the patient have a stroke diagnosis?: No VTE Prior VTE?: No VTE Risk Level:: Medical - moderate - high VTE Device Contraindication: N/A - Device Ordered VTE Drug Contraindication: Treatment Not Indicated
[2022-07-07 23:46] VITALS: BP 173/42; PULSE 63; RESP 16; TEMP 36.6
[2022-07-07 23:49] VITALS: BP 173/57; PULSE 62; RESP 15; O2SAT 98
[2022-07-08] VITALS (7 sets, daily range): BP systolic 143–180; BP diastolic 49–76; PULSE 58–68; RESP 14–20; TEMP 36.2–36.9; O2SAT 97–100; BMI 26.2
--- NOTE | 2022-07-08 | ECG_ITS ---
Test Reason : doctor order Blood Pressure : / mmHG Vent. Rate : 067 BPM Atrial Rate : 067 BPM P-R Int : 140 ms QRS Dur : 072 ms QT Int : 374 ms P-R-T Axes : 081 033 046 degrees QTc Int : 395 ms Normal sinus rhythm Nonspecific ST abnormality Abnormal ECG When compared with ECG of 07-JUL-2022 21:49, No significant change was found Referred By: Armand Parr Electronically Signed By:MYLES MENDOZA
[2022-07-08 00:17] LABS: Iron 10 mcg/dL (30-160); Percent Iron Saturation 3 % (15-50); Total Iron Binding Capacity 365 mcg/dL (228-428); Unsaturated Iron Binding 355 ug/dL
[2022-07-08 00:38] LABS: Ferritin 8 ng/mL (10-250)
[2022-07-08] MEDS: Pantoprazole Sodium 40 MG/10 ML VIAL IVPUSH (05:07)
[2022-07-08] MEDS: Levothyroxine Sodium 50 MCG TABLET PO (05:07)
[2022-07-08 06:06] LABS: Folate 6.9 ng/mL (> or = 4.0); Vitamin B12 748 pg/mL (200-900)
--- NOTE | 2022-07-08 07:00 | CA_ITS ---
Transthoracic Echocardiogram Patient (Last, First, Middle): Sumi Hamilton B Gender: Female Date of : 1945 Age: 77 Procedure Date: 07/08/2022 Procedure Type: Transthoracic Echocardiogram Location: [facility] [place] Height: 149.86 cm Weight: 58.51 kg BSA: 1.53 m2 Heart Rate: 66 bpm BP: 177 / 70 mmHg Regulatory Affairs Coordinator: SB Referring MD: Armand Parr MD Symptoms: pericardial effusion Study Quality: Adequate ECG Rhythm: Sinus Conclusions: - Limited echo. - Pericardial effusion is small. There are no definitive signs of pericardial tamponade. Findings Left Ventricle Normal left ventricular size and systolic function. The visually estimated ejection fraction is between 55-60%. There is no evidence of regional wall motion abnormalities. Diastolic function is indeterminate on the basis of available data. Right Ventricle Normal right ventricular cavity size and systolic function. Venous The inferior vena cava is normal in size and collapses greater than 50% with inspiration. Pericardium/Pleural There is a small pericardial effusion. Prior Study Comparison Changes noted compared to prior study dated: 05/13/2022. Small pericardial effusion posteriorly. Measurements Tricuspid Valve RA Press: 3.00 Updated in Other Vendor System with Status of Final John Mueller MD electronically signed on 07/09/2022 12:39:19 PM with status of Final
[2022-07-08 08:23] LABS: MANUAL DIFF FLAG NO
[2022-07-08 08:28] LABS: Basophils Percent Auto 0.2 % (0-2); Eosinophils Absolute Auto 0.3 X10*3/uL (0.0-0.4); Eosinophils Percent Auto 3.3 % (0-4); Hematocrit 27.2 % (37.0-47.0); Hemoglobin 8.6 g/dl (12.0-16.0); Imm Gran Abs Auto 0.08 X10*3/uL (0.00-0.03); Imm Gran Pct Auto 0.9 % (0.0-0.4); Lymphocytes Absolute Auto 2.2 X10*3/uL (1.2-4.9); Lymphocytes Percent Auto 25.6 % (20-40); Mean Corpuscular HGB Conc 31.6 g/dl (31.0-35.0); Mean Corpuscular Hemoglobin 24.6 pg (27.0-33.0); Mean Corpuscular Volume 77.9 fL (80.0-98.0); Monocytes Absolute Auto 1.4 X10*3/uL (0.1-1.2); Monocytes Percent Auto 16.6 % (2-11); Neutrophils Absolute Auto 4.5 x10*3/uL (2.0-8.3); Neutrophils Percent Auto 53.4 % (45-73); Platelet Count 126 X10*3/uL (160-400); Red Blood Count 3.49 X10*6/uL (4.20-5.50); Red Cell Distribution Width 20.2 % (11.0-16.0); White Blood Count 8.5 X10*3/uL (4.8-10.8)
--- NOTE | 2022-07-08 08:45 | P.CDIC_ITS ---
CDI Concurrent Query Documentation Clarification: PHYSICIAN'S DOCUMENTATION REQUEST Date of Query: 07/08/22 0846 Patient Name: Sumi Hamilton Admit Date: 07/07/22 Dear Doctor, A review of the medical record indicates additional documentation may be needed. Please review below and update the documentation accordingly. Clinical Indicators: Risk Factors/Clinical Indicators/Treatments H/H: 6.9/23.0 Atrial Fibrillation- on Eliquis, held stool OB + GI:pending transfusion given Based on the above, could you clarify in the Progress Notes which of the following is the most likely type of anemia you are evaluating, treating, and/or monitoring? * Acute blood loss anemia * Acute blood loss anemia with baseline chronic anemia (specify type) * Anemia of chronic disease- indicate if neoplastic disease, CKD, or other * Chronic iron deficiency anemia due to blood loss * Anemia due to anti-coagulant use (Eliquis) * Other ? please specify * Unable to determine Use of terms such as suspected, likely, concern for, or probable (associated with a specific diagnosis that is being evaluated, monitored, or treated as if it exists) are acceptable and can be coded in the inpatient setting, when documented at the time of discharge. Thank you, Mariely Vivar RN Extension: [phone] Please use your independent medical judgment in providing your response. THIS QUERY IS PART OF THE PERMANENT MEDICAL RECORD Provider Response: Other Other Diagnosis: acute blood loss anemia due to GI blood loss
--- NOTE | 2022-07-08 08:58 | MHC.CM.PN ---
IMM 07/08/22 Female 77 DX Anemia She lives with her spouse. A dtr lives close by, she assists. Patient uses a cane and a walker, PRN. She receives assist from family prn for ADLs. The Pt has been Vaccinated 3x. She does not have a HCP. Education was provided; but Pt declined. DP home no services. A family member will provide transportation.
[2022-07-08 09:40] LABS: Anion Gap 16 (12-20); Blood Urea Nitrogen 23 mg/dL (9-16); Calcium 8.6 mg/dL (8.4-10.2); Carbon Dioxide 20 mmol/L (22-29); Chloride 109 mmol/L (96-108); Creatinine Clr Calc Pharmacy 40.4; Estimated Glomerular Filt Rate 60; Glucose Random 78 mg/dL (60-115); Potassium 4.5 mmol/L (3.3-5.1); Sodium 140 mmol/L (135-145)
[2022-07-08] MEDS: 0.9 % Sodium Chloride Flush 3 ML SYRINGE IVFLUSH ×2 (12:00→17:37)
[2022-07-08] MEDS: atenoloL 25 MG TABLET 75 MG PO ×2 (12:00→19:13)
--- NOTE | 2022-07-08 12:17 | P.PNIM_ITS ---
Subjective Subjective Date of Service: 07/08/22 Interval History: no abd pain dyspnea/lightheadedness resolved NPO for GI eval Review of Systems Review of Systems: Yes all other systems are reviewed and are negative Physical Exam Vital Signs: Vital Signs: Last Vital Signs Temp 98.4 F 07/08/22 11:45 Pulse 65 07/08/22 11:45 Resp 20 07/08/22 11:45 BP 143/63 H 07/08/22 11:45 Pulse Ox 97 07/08/22 11:45 O2 Del Method 07/08/22 11:45 BMI result Body Mass Index 26.2 Gen: in no acute distress HEENT: sclera anicteric, pale mucosa Neck: supple Lungs: clear to auscultation bilaterally Heart: regular rate and rhythm, no murmurs Abd: soft, non-tender, non-distended Ext: no edema Skin: warm/well-perfused Neuro: alert and oriented x3, no focal findings Psych: appropriate affect Objective Data Active Medications Acetaminophen (Acetaminophen 325 Mg Tablet) 650 mg PO Q6H PRN PRN Reason: Pain, Mild (Pain Scale 1-3) Atenolol (Atenolol 25 Mg Tablet) 75 mg PO BID [facility]; Protocol Last Admin: 07/08/22 12:00 Dose: 75 mg Documented By: ALMA Benzonatate (Benzonatate 100 Mg Capsule) 100 mg PO TID PRN PRN Reason: Cough Levothyroxine Sodium (Levothyroxine Sodium 50 Mcg Tablet) 50 mcg PO DAILY@0600 [facility] Last Admin: 07/08/22 05:07 Dose: 50 mcg Documented By: OREN Melatonin (Melatonin 3 Mg Tablet) 6 mg PO BEDTIME PRN PRN Reason: Insomnia Pantoprazole Sodium (Pantoprazole Sodium 40 Mg/10 Ml Vial) 40 mg IVPUSH DAILY@0630 [facility] Last Admin: 07/08/22 05:07 Dose: 40 mg Documented By: OREN Senna (Sennosides 8.6 Mg Tablet) 17.2 mg PO BEDTIME PRN PRN Reason: Constipation Sodium Chloride (0.9 % Sodium Chloride Flush 3 Ml Syringe) 3 ml IVFLUSH QSHIFT [facility] Last Admin: 07/08/22 12:00 Dose: 3 ml Documented By: ALMA Labs CBC & Chem 7: 07/08/22 08:12 07/08/22 08:12 Labs: Laboratory Results - last 24 hr 07/07/22 07/07/22 07/07/22 22:09 22:09 22:10 MCV 74.7 L MCH 22.6 L MCHC 30.2 L RDW 17.8 H Plt Count 116 L MPV TNP Immature Gran % (Auto) 1.4 H Neut % (Auto) 47.6 Lymph % (Auto) 31.0 [place] % (Auto) 15.5 H Eos % (Auto) 4.2 H Baso % (Auto) 0.3 Lymph # (Auto) 1.9 [place] # (Auto) 1.0 Eos # (Auto) 0.3 Baso # (Auto) 0.0 Abs Immat Gran (auto) 0.09 H Absolute Neuts (auto) 3.0 Absolute Nucleated RBC 0.000 Nucleated RBC % (auto) 0.0 PT INR APTT Anion Gap Estim Creat Clear Calc Estimated GFR Random Glucose Calcium Iron TIBC % Saturation Unsat Iron Binding Ferritin Total Bilirubin AST ALT Alkaline Phosphatase Troponin I High Sens Total Protein Albumin Lipase Vitamin B12 Folate COVID-19 ([place]) Negative COVID-19 Clin Com See Note Blood Type A Negative Antibody Screen NEGATIVE Crossmatch See Detail 07/07/22 07/07/22 07/07/22 22:10 22:10 22:10 MCV MCH MCHC RDW Plt Count MPV Immature Gran % (Auto) Neut % (Auto) Lymph % (Auto) [place] % (Auto) Eos % (Auto) Baso % (Auto) Lymph # (Auto) [place] # (Auto) Eos # (Auto) Baso # (Auto) Abs Immat Gran (auto) Absolute Neuts (auto) Absolute Nucleated RBC Nucleated RBC % (auto) PT 23.9 H INR 2.0 H APTT 37.6 H Anion Gap 17 Estim Creat Clear Calc 32.6 Estimated GFR 47 Random Glucose 98 Calcium 9.1 Iron 10 L TIBC 365 % Saturation 3 L Unsat Iron Binding 355 Ferritin 8 L Total Bilirubin 0.2 AST 10 ALT < 6 Alkaline Phosphatase 69 Troponin I High Sens < 3.5 Total Protein 7.8 Albumin 3.6 Lipase 66 Vitamin B12 Folate COVID-19 ([place]) COVID-19 Clin Com Blood Type Antibody Screen Crossmatch 07/07/22 07/08/22 07/08/22 22:10 08:12 08:12 MCV 77.9 L MCH 24.6 L MCHC 31.6 RDW 20.2 H Plt Count 126 L MPV Not Reportable Immature Gran % (Auto) 0.9 H Neut % (Auto) 53.4 Lymph % (Auto) 25.6 [place] % (Auto) 16.6 H Eos % (Auto) 3.3 Baso % (Auto) 0.2 Lymph # (Auto) 2.2 [place] # (Auto) 1.4 H Eos # (Auto) 0.3 Baso # (Auto) 0.0 Abs Immat Gran (auto) 0.08 H Absolute Neuts (auto) 4.5 Absolute Nucleated RBC 0.000 Nucleated RBC % (auto) 0.0 PT INR APTT Anion Gap 16 Estim Creat Clear Calc 40.4 Estimated GFR 60 Random Glucose 78 Calcium 8.6 Iron TIBC % Saturation Unsat Iron Binding Ferritin Total Bilirubin AST ALT Alkaline Phosphatase Troponin I High Sens Total Protein Albumin Lipase Vitamin B12 748 Folate 6.9 COVID-19 ([place]) COVID-19 Clin Com Blood Type Antibody Screen Crossmatch Assessment and Plan (1) Microcytic anemia: Status: Acute [facility] hospital d#22 77yo F wtih HTN, HLD, AF on apixaban, chronic HFpEF, pHTN, PMR presenting with dyspnea, found to have iron deficiency anemia, FOBT+ # acute anemia due to GI blood loss - appropriate response to 1u pRBCs, continue IV PPI, NPO for GI evaluation, hold apixaban # dyspnea - likely due to anemia though has significant cardiac disease- followed by [facility] Cardiology # AF - rate-controlled on atenolol; hold apixaban # HTN - continue atenolol # hypothyroidism - continue LT4 # VTE ppx: SCDs In my clinical judgment, the patient requires continued hospitalization for the following reasons: anemia, GI evaluation Quality Stroke Does the patient have a stroke diagnosis?: No VTE Prior VTE?: No VTE Risk Level:: Medical - moderate - high VTE Device Contraindication: N/A - Device Ordered VTE Drug Contraindication: Treatment Not Indicated
--- NOTE | 2022-07-08 18:16 | MHC.SHP ---
Pre-Procedural Eval Section A Date of Service: 07/08/22 The patient is an INPATIENT: Yes The History & Physical has been completed within 30 days and I have reviewed it.: Yes Section B Chief Complaint: Anemia Allergies: Allergies Allergy/AdvReac Type Severity Reaction Status Date / Time No Known Allergies Allergy Verified 07/02/22 10:23 [No Known Allergies*] Plan I have reviewed the history and physical and performed a pertinent physical examination on my patient. No changes have occurred unless specified.
--- NOTE | 2022-07-08 18:16 | PM.EVENT ---
Event Note Date of Service: 07/08/22 Event Note: GI Consult-Full note dictated-Hx via patient, , granddaughter, and EMR. Imp: 77 yo female on Eliquis presenting with approx. 6 months of early satiety, anorexia, approx. 50 pound weight loss, Heme + stool, and microcytic Iron deficiency anemia. She denies any significant heartburn, N/V, dysphagia, abdominal pain, rectal bleeding, nor melena. She denies any aspirin nor NSAID use. She reports 1 or 2 previous colonoscopies but they were a long time ago. Diff dx: Chronic GI blood loss, with associated anemia, due to GI neoplasm, AVM's, silent ulcer disease, erosive gastritis/esophagitis. Celiac disease with iron malabsorption is possible as well. Rec: Correct elevated PT/INR with IV Vitamin K. Given her predominantly UGI complaints, I did recommend an EGD tomorrow, 07/09, with me or Dr. Parekh so as to R/O the above possibilities, including celiac disease. Full consent obtained for this, including risks of bleeding and peforation. Continue PPI for the time being. If the EGD is negative tomorrow the plan will be to have her undergo a colonoscopy on Tuesday, 07/12. D/W patient and family in detail, and they are comfortable with this plan. Thanks
[2022-07-08] MEDS: Phytonadione (Vit K1) 10 MG in 0.9 % Sodium Chloride 50 ML 51 MG IV (19:13)
[2022-07-08 19:32] LABS: Glucose, Whole Blood 91 mg/dL (60-115)
--- NOTE | 2022-07-08 19:41 | PM.EVENT ---
Event Note Date of Service: 07/08/22 Event Note: Rapid response note: Patient had a brief episode of unable to speak after patient was started on vitamin K IV. Vitamin K was stopped. When I examined the patient patient is alert and awake, mentating well, nonfocal examination, speech is clear. Patient reported nausea-likely contributing to her symptoms. Will also obtain a CT head Patient complained of low back pain-chronic; given Dilaudid. Patient also received Zofran for nausea. QTC within normal limits. High blood pressure: Patient systolic blood pressure noted to be in 200s ->likely Pain driven. Will continue to monitor. Patient already received her home dose of atenolol.
[2022-07-08] MEDS: ondansetron HCL 4 MG/2 ML VIAL IVPUSH (19:53)
[2022-07-08 20:40] LABS: Anion Gap 17 (12-20); Blood Urea Nitrogen 20 mg/dL (9-16); Calcium 8.9 mg/dL (8.4-10.2); Carbon Dioxide 19 mmol/L (22-29); Chloride 108 mmol/L (96-108); Estimated Glomerular Filt Rate 53; Glucose Random 99 mg/dL (60-115); Magnesium 1.9 mg/dL (1.6-2.6); Potassium 4.4 mmol/L (3.3-5.1); Sodium 140 mmol/L (135-145)
[2022-07-08 20:45] LABS: Troponin-I High Sensitivity < 3.5 ng/L (<3.5-17.0)
[2022-07-09] VITALS (14 sets, daily range): BP systolic 118–191; BP diastolic 36–74; PULSE 55–79; RESP 16–20; TEMP 36.1–37; O2SAT 98–100
--- NOTE | 2022-07-09 02:23 | PC.NURSE ---
At 1930 this RN was administering pts Vit K IV infusion per DEC. After one minute of infusion, pt states she does not feel well, and is not ok. Upon assessment pt not following commands, unable to speak, clenching teeth with pressured groaning, not responding to this RN or her family members at the bedside. IV Vit K stopped, VS obatined. BP 202/80 manually, poc 91. Rapid response was initiated, and nursing fixer supervisor to pts bedside. New orders for Zofran 4mg IVP, 0.5mg Dilaudid IVP, STAT EKG, head CT, and serial troponins. Episode was brief, now A&oX4. Will continue to monitor pt closely.
--- NOTE | 2022-07-09 03:50 | CONS_ITS ---
DATE OF SERVICE: 07/08/2022 REASON FOR CONSULTATION: Iron-deficiency anemia and heme-positive stool, anorexia, weight loss, and early satiety. HISTORY OF PRESENT ILLNESS: This has been obtained from the patient, her , her granddaughter, and the medical record. The patient is a 77-year-old female admitted to the hospital with significant anemia and symptoms including shortness of breath and weakness. The patient describes that she has been feeling short of breath and weak more lately and had some routine laboratories with her taxation inspector. This revealed significant anemia, and she was directed to go to the ER. The patient does describe that over the past 6 months or so, she has had significant weight loss upwards of 50 pounds, early satiety, and some anorexia. She denies any significant heartburn nor dysphagia. She reports that her bowel movements have been regular with a formed stool on a daily basis. She denies any hematochezia nor melena. She did have a colon[place] [address] Sen, which was described as negative. She thinks she may have had another colonoscopy elsewhere. She does not think she has had a colonoscopy since 2004. She has never had an upper endoscopy. She does take chronic Eliquis, but does not use any aspirin or NSAIDs. She does not use any alcohol nor tobacco. Since admission, she did receive 1 unit of blood and does report that she is feeling somewhat better from a symptomatic standpoint. There has been no sign of bleeding here in the hospital. Her stool did test positive for occult blood. MEDICATIONS: At home include Eliquis, atenolol, levothyroxine, and pantoprazole. Her medications here in the hospital include acetaminophen, Tessalon, IV pantoprazole, Senokot, levothyroxine. PAST MEDICAL HISTORY: She describes a cholecystectomy and foot surgery. She describes a history of atrial fibrillation and hypothyroidism. She denies any history of [place], diabetes, stroke, lung disease, nor kidney disease. She has a history of hypertension and hyperlipidemia. She describes rheumatoid arthritis, although the chart says polymyalgia rheumatica. There was also a report of pulmonary hypertension and edema. SOCIAL HISTORY: She is . She does not smoke nor drink alcohol other than on rare occasions. FAMILY HISTORY: Noncontributory. REVIEW OF SYSTEMS: CONSTITUTIONAL: She has been feeling weak at home and has also been having trouble eating and losing weight. SKIN: No rash, no pruritus. PULMONARY: No coughing or hemoptysis. GI: As above. PHYSICAL EXAMINATION: GENERAL: The patient is a pleasant, alert, comfortable-appearing female. SKIN: Warm and dry. She is somewhat pale. Anicteric sclerae. Moist mucous membranes. CHEST: Clear. CARDIAC: Normal S1, S2. ABDOMEN: Soft, nondistended, nontender without palpable mass. LABORATORY DATA: Initial hemoglobin was 6.9 with MCV of 75. Hemoglobin in July 2021 was 11.3 with a normal MCV. After the unit of blood. Her hemoglobin was 8.6. White blood cell count 8.5. Platelets 126,000. PT was 22.9 with INR 2.0. Normal electrolytes. BUN 22, creatinine 1.1. Iron of 10, TIBC 365 with an iron saturation of 3%. Ferritin was 8. Liver profile was normal. Lipase 66. B12 level 748. Folate 6.9. Chest x-ray on admission was negative for any acute findings. IMPRESSION: The patient is a 77-year-old female, on chronic Eliquis, who presents with significant and symptomatic anemia with iron deficiency. Her main symptoms include that of anorexia, early satiety, and a 50-pound weight loss. At this point, the differential diagnosis would include an upper gastrointestinal source of chronic blood loss such as erosive gastritis, angiodysplasias, ulcer disease, or gastrointestinal neoplasm. Since she is not having any lower gastrointestinal complaints, and the great majority of her symptoms are related to her upper gastrointestinal tract, I would recommend that we simply proceed with an upper endoscopy tomorrow with monitored anesthesia care. I think that would be better than putting her through both procedures as the upper endoscopy may actually reveal the source of her anemia and weight loss. If the upper endoscopy is completely negative, I would then recommend a colonoscopy for further evaluation. The procedures will be done with monitored anesthesia care. Full consent has been obtained from her for both procedures, including risks of bleeding and perforation. In the meantime, she appears very stable. I would obtain repeat laboratories in the morning including a PT with INR. She will receive a dose of IV vitamin K tonight. She does have other blood work ordered for the morning already including a CBC and chemistries. I would continue the IV PPI for the time being. Thank you for the consultation. MD ESAU Figueroa/PAUL / [id number] CHEN
[2022-07-09] MEDS: Levothyroxine Sodium 50 MCG TABLET PO (06:11)
[2022-07-09] MEDS: Pantoprazole Sodium 40 MG/10 ML VIAL IVPUSH (06:11)
[2022-07-09 06:43] LABS: INTERNATIONAL NORM RATIO 1.4 (0.9-1.1); Prothrombin Time 16.1 SEC (10.0-13.1)
[2022-07-09 06:53] LABS: Hematocrit 26.5 % (37.0-47.0); Hemoglobin 8.4 g/dl (12.0-16.0); Mean Corpuscular HGB Conc 31.7 g/dl (31.0-35.0); Mean Corpuscular Hemoglobin 24.9 pg (27.0-33.0); Mean Corpuscular Volume 78.4 fL (80.0-98.0); Platelet Count 115 X10*3/uL (160-400); Red Blood Count 3.38 X10*6/uL (4.20-5.50); Red Cell Distribution Width 20.1 % (11.0-16.0); White Blood Count 9.2 X10*3/uL (4.8-10.8)
[2022-07-09 07:06] LABS: Anion Gap 13 (12-20); Blood Urea Nitrogen 20 mg/dL (9-16); Calcium 8.9 mg/dL (8.4-10.2); Carbon Dioxide 22 mmol/L (22-29); Chloride 108 mmol/L (96-108); Creatinine Clr Calc Pharmacy 38.7; Estimated Glomerular Filt Rate 57; Glucose Random 83 mg/dL (60-115); Potassium 4.4 mmol/L (3.3-5.1); Sodium 139 mmol/L (135-145)
[2022-07-09 08:42] LABS: Troponin-I High Sensitivity 12.6 ng/L (<3.5-17.0)
[2022-07-09] MEDS: atenoloL 25 MG TABLET 75 MG PO ×2 (11:06→21:13)
[2022-07-09] MEDS: 0.9 % Sodium Chloride Flush 3 ML SYRINGE IVFLUSH ×2 (11:06→18:04)
--- NOTE | 2022-07-09 12:25 | P.CONAN_ITS ---
[facility] Active Problems Active Problems: All Active Problems (Updated 07/07/22 @ 22:56 by Raza Babin MD) Microcytic anemia (Acute) Pericardial effusion (Acute) Chest pressure (Acute) Pulmonary nodules (Acute) Bilateral shoulder pain (Acute) Dizziness (Acute) Hemoptysis (Acute) Obesity (BMI 30.0-34.9) (Acute) Diastolic dysfunction (Acute) shelter current use of anticoagulant (Acute) Chronic kidney disease, unspecified (Acute) Leg edema (Acute) Pulmonary hypertension (Acute) Essential hypertension (Acute) 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 atrial fibrillation) (Acute) Osteopenia (Acute) Polymyalgia rheumatica (Acute) Hypothyroidism (Acute) Hypertension (Acute) Past Medical History Medical History Chronic kidney disease, unspecified Essential hypertension Leg edema 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 atrial fibrillation) Polymyalgia rheumatica Pulmonary hypertension Pulmonary nodules Family History Family History Father Coronary artery disease FH: CVA (cerebrovascular accident) Mother Kidney failure Family history of problems with anesthesia: No Surgical History Surgical History History of bilateral cataract extraction History of section History of cholecystectomy History of partial hysterectomy History of Problems with Anesthesia: No Social History Social History Household Members: Spouse Housing: House Do you presently have visiting nurse or other home services: No Alcohol intake: never Patient Tobacco Use Status: Never used Tobacco e-Cigarette/Vaping Use: Never Used Second Hand Smoke Exposure: No Use of substances other than those prescribed or required for medical reasons: No Currently Displaying Signs/Symptoms of Drug Intoxication Withdrawal: No Have you been hit, kicked, punched, or otherwise hurt by someone within the past year? If so, by whom?: No Do you feel safe in your current relationship?: Yes Is there a partner from a previous relationship who is making you feel unsafe now?: No Spiritual Healthcare Practices: none Catholic Healthcare Practices: none Cultural Healthcare Practices: none Advance Directives: No Advance Directives Information Provided: No Do you have thoughts of harming others: None Do you have a plan to hurt others: No Plan Recently lost weight without trying: No Eating poorly because of decreased appetite: No Nutrition Risks: No Nutritional Risk Patient : No service: No Current occupational status: retired Cognitive needs: No Hearing needs: No Vision needs: Yes Meds Allergies Allergy/AdvReac Type Severity Reaction Status Date / Time No Known Allergies Allergy Verified 07/02/22 10:23 [No Known Allergies*] Active Medications: Current Medications Acetaminophen (Acetaminophen 325 Mg Tablet) 650 mg PO Q6H PRN PRN Reason: Pain, Mild (Pain Scale 1-3) Atenolol (Atenolol 25 Mg Tablet) 75 mg PO BID [facility]; Protocol Last Admin: 07/09/22 11:06 Dose: 75 mg Benzonatate (Benzonatate 100 Mg Capsule) 100 mg PO TID PRN PRN Reason: Cough Levothyroxine Sodium (Levothyroxine Sodium 50 Mcg Tablet) 50 mcg PO DAILY@0600 [facility] Last Admin: 07/09/22 06:11 Dose: 50 mcg Melatonin (Melatonin 3 Mg Tablet) 6 mg PO BEDTIME PRN PRN Reason: Insomnia Pantoprazole Sodium (Pantoprazole Sodium 40 Mg/10 Ml Vial) 40 mg IVPUSH DAILY@0630 [facility] Last Admin: 07/09/22 06:11 Dose: 40 mg Senna (Sennosides 8.6 Mg Tablet) 17.2 mg PO BEDTIME PRN PRN Reason: Constipation Sodium Chloride (0.9 % Sodium Chloride Flush 3 Ml Syringe) 3 ml IVFLUSH QSHIFT [facility] Last Admin: 07/09/22 11:06 Dose: 3 ml Exam Exam Date and Time: July 09, 2022 1226 Height,Weight and Vital Signs: Height 4 ft 11 in Weight 58.9 kg Last Vital Signs Temp 97.0 F 07/09/22 12:24 Pulse 63 07/09/22 12:24 Resp 18 07/09/22 12:24 BP 145/59 H 07/09/22 12:24 Pulse Ox 98 07/09/22 12:24 O2 Del Method 07/09/22 12:24 Pertinent Lab Results Pertinent Lab Results: Laboratory Tests 07/07/22 07/07/22 07/07/22 22:09 22:09 22:10 WBC 6.3 RBC 2.97 L Hgb 6.7 L* Hct 22.2 L MCV 74.7 L MCH 22.6 L MCHC 30.2 L RDW 17.8 H Plt Count 116 L MPV TNP Immature Gran % (Auto) 1.4 H Neut % (Auto) 47.6 Lymph % (Auto) 31.0 [place] % (Auto) 15.5 H Eos % (Auto) 4.2 H Baso % (Auto) 0.3 Lymph # (Auto) 1.9 [place] # (Auto) 1.0 Eos # (Auto) 0.3 Baso # (Auto) 0.0 Abs Immat Gran (auto) 0.09 H Absolute Neuts (auto) 3.0 Absolute Nucleated RBC 0.000 Nucleated RBC % (auto) 0.0 PT INR APTT Sodium Potassium Chloride Carbon Dioxide Anion Gap BUN Creatinine Estim Creat Clear Calc Estimated GFR POC Glucose Random Glucose Calcium Magnesium Iron TIBC % Saturation Unsat Iron Binding Ferritin Total Bilirubin AST ALT Alkaline Phosphatase Troponin I High Sens Total Protein Albumin Lipase Vitamin B12 Folate COVID-19 ([place] Negative COVID-19 Clin Com See Note Blood Type A Negative Antibody Screen NEGATIVE Crossmatch See Detail 07/07/22 07/07/22 07/07/22 22:10 22:10 22:10 WBC RBC Hgb Hct MCV MCH MCHC RDW Plt Count MPV Immature Gran % (Auto) Neut % (Auto) Lymph % (Auto) [place] % (Auto) Eos % (Auto) Baso % (Auto) Lymph # (Auto) [place] # (Auto) Eos # (Auto) Baso # (Auto) Abs Immat Gran (auto) Absolute Neuts (auto) Absolute Nucleated RBC Nucleated RBC % (auto) PT 23.9 H INR 2.0 H APTT 37.6 H Sodium 142 Potassium 4.8 Chloride 109 H Carbon Dioxide 21 L Anion Gap 17 BUN 23 H Creatinine 1.13 Estim Creat Clear Calc 32.6 Estimated GFR 47 POC Glucose Random Glucose 98 Calcium 9.1 Magnesium Iron 10 L TIBC 365 % Saturation 3 L Unsat Iron Binding 355 Ferritin 8 L Total Bilirubin 0.2 AST 10 ALT < 6 Alkaline Phosphatase 69 Troponin I High Sens < 3.5 Total Protein 7.8 Albumin 3.6 Lipase 66 Vitamin B12 Folate COVID-19 ([place] COVID-19 Clin Com Blood Type Antibody Screen Crossmatch 07/07/22 07/08/22 07/08/22 22:10 08:12 08:12 WBC 8.5 RBC 3.49 L Hgb 8.6 L D Hct 27.2 L D MCV 77.9 L MCH 24.6 L MCHC 31.6 RDW 20.2 H Plt Count 126 L MPV Not Reportable Immature Gran % (Auto) 0.9 H Neut % (Auto) 53.4 Lymph % (Auto) 25.6 [place] % (Auto) 16.6 H Eos % (Auto) 3.3 Baso % (Auto) 0.2 Lymph # (Auto) 2.2 [place] # (Auto) 1.4 H Eos # (Auto) 0.3 Baso # (Auto) 0.0 Abs Immat Gran (auto) 0.08 H Absolute Neuts (auto) 4.5 Absolute Nucleated RBC 0.000 Nucleated RBC % (auto) 0.0 PT INR APTT Sodium 140 Potassium 4.5 Chloride 109 H Carbon Dioxide 20 L Anion Gap 16 BUN 23 H Creatinine 0.91 Estim Creat Clear Calc 40.4 Estimated GFR 60 POC Glucose Random Glucose 78 Calcium 8.6 Magnesium Iron TIBC % Saturation Unsat Iron Binding Ferritin Total Bilirubin AST ALT Alkaline Phosphatase Troponin I High Sens Total Protein Albumin Lipase Vitamin B12 748 Folate 6.9 COVID-19 ([place]) COVID-[facility] [employer] Blood Type Antibody Screen Crossmatch 07/08/22 07/08/22 07/08/22 19:28 20:11 20:11 WBC RBC Hgb Hct MCV MCH MCHC RDW Plt Count MPV Immature Gran % (Auto) Neut % (Auto) Lymph % (Auto) [place] % (Auto) Eos % (Auto) Baso % (Auto) Lymph # (Auto) [place] # (Auto) Eos # (Auto) Baso # (Auto) Abs Immat Gran (auto) Absolute Neuts (auto) Absolute Nucleated RBC Nucleated RBC % (auto) PT INR APTT Sodium 140 Potassium 4.4 Chloride 108 Carbon Dioxide 19 L Anion Gap 17 BUN 20 H Creatinine 1.02 Estim Creat Clear Calc 36.0 Estimated GFR 53 POC Glucose 91 Random Glucose 99 Calcium 8.9 Magnesium 1.9 Iron TIBC % Saturation Unsat Iron Binding Ferritin Total Bilirubin AST ALT Alkaline Phosphatase Troponin I High Sens < 3.5 Total Protein Albumin Lipase Vitamin B12 Folate COVID-19 ([place]) [employer] [facility] Blood Type Antibody Screen Crossmatch 07/08/22 07/09/22 07/09/22 22:45 06:04 06:04 WBC 9.2 RBC 3.38 L Hgb 8.4 L Hct 26.5 L MCV 78.4 L MCH 24.9 L MCHC 31.7 RDW 20.1 H Plt Count 115 L MPV Not Reportable Immature Gran % (Auto) Neut % (Auto) Lymph % (Auto) [place] % (Auto) Eos % (Auto) Baso % (Auto) Lymph # (Auto) [place] # (Auto) Eos # (Auto) Baso # (Auto) Abs Immat Gran (auto) Absolute Neuts (auto) Absolute Nucleated RBC 0.000 Nucleated RBC % (auto) 0.0 PT INR APTT Sodium 139 Potassium 4.4 Chloride 108 Carbon Dioxide 22 Anion Gap 13 BUN 20 H Creatinine 0.95 Estim Creat Clear Calc 38.7 Estimated GFR 57 POC Glucose Random Glucose 83 Calcium 8.9 Magnesium Iron TIBC % Saturation Unsat Iron Binding Ferritin Total Bilirubin AST ALT Alkaline Phosphatase Troponin I High Sens 17.0 D Total Protein Albumin Lipase Vitamin B12 Folate COVID-19 ([place]) COVID-[facility] [employer] Blood Type Antibody Screen Crossmatch 07/09/22 07/09/22 06:04 07:56 WBC RBC Hgb Hct MCV MCH MCHC RDW Plt Count MPV Immature Gran % (Auto) Neut % (Auto) Lymph % (Auto) [place] % (Auto) Eos % (Auto) Baso % (Auto) Lymph # (Auto) [place] # (Auto) Eos # (Auto) Baso # (Auto) Abs Immat Gran (auto) Absolute Neuts (auto) Absolute Nucleated RBC Nucleated RBC % (auto) PT 16.1 H INR 1.4 H APTT Sodium Potassium Chloride Carbon Dioxide Anion Gap BUN Creatinine Estim Creat Clear Calc Estimated GFR POC Glucose Random Glucose Calcium Magnesium Iron TIBC % Saturation Unsat Iron Binding Ferritin Total Bilirubin AST ALT Alkaline Phosphatase Troponin I High Sens 12.6 Total Protein Albumin Lipase Vitamin B12 Folate COVID-19 ([place]) [employer] [facility] Blood Type Antibody Screen Crossmatch Assessment and Plan Assessment Anesthesia Assessment: Anesthesia Plan Discussed and Chart Reviewed Final Anesthetic Review Family History of Problems with Anesthesia: No History of Problems with Anesthesia: No NPO: Yes ASA Class: III Final Preanesthetic Review: No Changes in Pt Med Stat, Meds/Allgs Chart Reviewed, Consent Obtained/Reviewed and Anes Risks/Benef Reviewed Patient Risk: Intermediate Procedure Risk: Low Anesthetic Plan Anesthetic Plan: MAC: Disposition: Standard PACU
--- NOTE | 2022-07-09 12:26 | PC.NURSE ---
Anesthesia Dr Tuttle aware of pending cardio & neuro consult on patient. Per Dr. Tuttle- to proceed with EGD without consults being completed.
--- NOTE | 2022-07-09 12:31 | P.CONCA_ITS ---
History of Present Illness History of Present Illness Date of Service: 07/09/22 Requesting physician: Rohith Kahn Chief complaint: Anemia, preop assessment Narrative: 77-year-old female who is presenting with a anemia. She has been feeling fatigued and tired and underwent blood workup which showed anemia. She is due to get endoscopy. She also has background history of diastolic dysfunction, small to moderate pericardial effusion, paroxysmal atrial fibrillation on anticoagulation and hypertension. Patient is denying any significant symptoms other than that she is feeling fatigued and tired. It appears she also had a reaction to vitamin K overnight. As per the description she received vitamin K IV and then became unresponsive. I am not clearly sure what exactly happened to her there. 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 Osteopenia 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 atrial fibrillation) Polymyalgia rheumatica Pulmonary hypertension Pulmonary nodules Family History Family History Father Coronary artery disease FH: CVA (cerebrovascular accident) Mother Kidney failure Surgical History Surgical History History of bilateral cataract extraction History of section History of cholecystectomy History of partial hysterectomy Social History Social History Household Members: Spouse Housing: House Do you presently have visiting nurse or other home services: No Alcohol intake: never Patient Tobacco Use Status: Never used Tobacco e-Cigarette/Vaping Use: Never Used Second Hand Smoke Exposure: No Use of substances other than those prescribed or required for medical reasons: No Currently Displaying Signs/Symptoms of Drug Intoxication Withdrawal: No Have you been hit, kicked, punched, or otherwise hurt by someone within the past year? If so, by whom?: No Do you feel safe in your current relationship?: Yes Is there a partner from a previous relationship who is making you feel unsafe now?: No Spiritual Healthcare Practices: none Muslim Healthcare Practices: none Cultural Healthcare Practices: none Advance Directives: No Advance Directives Information Provided: No Do you have thoughts of harming others: None Do you have a plan to hurt others: No Plan Recently lost weight without trying: No Eating poorly because of decreased appetite: No Nutrition Risks: No Nutritional Risk Patient : No service: No Current occupational status: retired Cognitive needs: No Hearing needs: No Vision needs: Yes Meds Allergies Allergy/AdvReac Type Severity Reaction Status Date / Time No Known Allergies Allergy Verified 07/02/22 10:23 [No Known Allergies*] Active Medications: Current Medications Acetaminophen (Acetaminophen 325 Mg Tablet) 650 mg PO Q6H PRN PRN Reason: Pain, Mild (Pain Scale 1-3) Atenolol (Atenolol 25 Mg Tablet) 75 mg PO BID [facility]; Protocol Last Admin: 07/09/22 11:06 Dose: 75 mg Benzonatate (Benzonatate 100 Mg Capsule) 100 mg PO TID PRN PRN Reason: Cough Levothyroxine Sodium (Levothyroxine Sodium 50 Mcg Tablet) 50 mcg PO DAILY@0600 [facility] Last Admin: 07/09/22 06:11 Dose: 50 mcg Melatonin (Melatonin 3 Mg Tablet) 6 mg PO BEDTIME PRN PRN Reason: Insomnia Pantoprazole Sodium (Pantoprazole Sodium 40 Mg/10 Ml Vial) 40 mg IVPUSH DAILY@0630 [facility] Last Admin: 07/09/22 06:11 Dose: 40 mg Senna (Sennosides 8.6 Mg Tablet) 17.2 mg PO BEDTIME PRN PRN Reason: Constipation Sodium Chloride (0.9 % Sodium Chloride Flush 3 Ml Syringe) 3 ml IVFLUSH QSHIFT [facility] Last Admin: 07/09/22 11:06 Dose: 3 ml Physical Exam Vital Signs: Vital Signs: Last Vital Signs Temp 97.0 F 07/09/22 12:24 Pulse 63 07/09/22 12:24 Resp 18 07/09/22 12:24 BP 145/59 H 07/09/22 12:24 Pulse Ox 98 07/09/22 12:24 O2 Del Method 07/09/22 12:24 BMI result Body Mass Index 26.2 GENERAL APPEARANCE: in no acute distress, pleasant. NECK: no carotid bruit, no jugular venous distention. SKIN: no suspicious lesions, warm and dry. HEART: no murmurs, regular rate and rhythm. LUNGS: clear to auscultation bilaterally. ABDOMEN: soft, nontender. EXTREMITIES: no edema. PERIPHERAL PULSES: equal. NEUROLOGIC: No gross deficits, AAO X 3 Objective Labs and Meds Result diagrams: 07/09/22 06:04 07/09/22 06:04 Lab results: Laboratory Results - last 24 hr 07/08/22 07/08/22 07/08/22 19:28 20:11 20:11 WBC RBC Hgb Hct MCV MCH MCHC RDW Plt Count MPV Absolute Nucleated RBC Nucleated RBC % (auto) PT INR Sodium 140 Potassium 4.4 Chloride 108 Carbon Dioxide 19 L Anion Gap 17 BUN 20 H Creatinine 1.02 Estim Creat Clear Calc 36.0 Estimated GFR 53 POC Glucose 91 Random Glucose 99 Calcium 8.9 Magnesium 1.9 Troponin I High Sens < 3.5 07/08/22 07/09/22 07/09/22 22:45 06:04 06:04 WBC 9.2 RBC 3.38 L Hgb 8.4 L Hct 26.5 L MCV 78.4 L MCH 24.9 L MCHC 31.7 RDW 20.1 H Plt Count 115 L MPV Not Reportable Absolute Nucleated RBC 0.000 Nucleated RBC % (auto) 0.0 PT INR Sodium 139 Potassium 4.4 Chloride 108 Carbon Dioxide 22 Anion Gap 13 BUN 20 H Creatinine 0.95 Estim Creat Clear Calc 38.7 Estimated GFR 57 POC Glucose Random Glucose 83 Calcium 8.9 Magnesium Troponin I High Sens 17.0 D 07/09/22 07/09/22 06:04 07:56 WBC RBC Hgb Hct MCV MCH MCHC RDW Plt Count MPV Absolute Nucleated RBC Nucleated RBC % (auto) PT 16.1 H INR 1.4 H Sodium Potassium Chloride Carbon Dioxide Anion Gap BUN Creatinine Estim Creat Clear Calc Estimated GFR POC Glucose Random Glucose Calcium Magnesium Troponin I High Sens 12.6 Imaging Radiologist's impression: Impressions Head CT 07/08/22 20:46 IMPRESSION: No acute intracranial pathology. Assessment and Plan (1) Microcytic anemia: Status: Acute (2) Pericardial effusion: Status: Acute (3) Preop cardiovascular exam: Status: Acute Plan Pleasant 77-year-old female with paroxysmal atrial fibrillation on Eliquis who is presenting with fatigue and anemia. She requires evaluation for anemia and will need EGD/colonoscopy. Clinically stable and has no chest pain or signs of heart failure. She has history of moderate to severe pulmonary hypertension in the past and usually this is a preload dependent condition and during anesthesia if she has any hypotension then fluid administration and avoidance of pure alpha agonist is important. She has a small pericardial effusion and there is no concern for tamponade on her echocardiography. Can proceed with endoscopy with intermediate risk. If a treatable cause is found then anticoagulation can be resumed and we can discuss that in more detail. For now anticoagulation should be stopped. Thank you for allowing me to participate in the care of your patient. Please feel free to contact me if you have any questions. Procedures Date of Service Date of Service: 07/09/22
--- NOTE | 2022-07-09 12:40 | P.CNNE_ITS ---
History of Present Illness Data of Consult Service Date: 07/09/22 Primary Care Provider: Jamshid John MD [facility] Reason for consult: Samia 77 years old woman with hypertension and atrial fibrillation who apparently had an episode of unresponsiveness. Her was around. He said that she said she was not well and then she has slumped to 1 side became unresponsive for few seconds to a minute or 2 and then came out of it but was somewhat not well for few more minutes before she was fully aware. She did not have full knowledge of what had happened. This is not happened before. 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 Osteopenia 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 atrial fibrillation) Polymyalgia rheumatica Pulmonary hypertension Pulmonary nodules Family History Family History Father Coronary artery disease FH: CVA (cerebrovascular accident) Mother Kidney failure Surgical History Surgical History History of bilateral cataract extraction History of section History of cholecystectomy History of partial hysterectomy Social History Social History Household Members: Spouse Housing: House Do you presently have visiting nurse or other home services: No Alcohol intake: never Patient Tobacco Use Status: Never used Tobacco e-Cigarette/Vaping Use: Never Used Second Hand Smoke Exposure: No Use of substances other than those prescribed or required for medical reasons: No Currently Displaying Signs/Symptoms of Drug Intoxication Withdrawal: No Have you been hit, kicked, punched, or otherwise hurt by someone within the past year? If so, by whom?: No Do you feel safe in your current relationship?: Yes Is there a partner from a previous relationship who is making you feel unsafe now?: No Spiritual Healthcare Practices: none [place] Healthcare Practices: none Cultural Healthcare Practices: none Advance Directives: No Advance Directives Information Provided: No Do you have thoughts of harming others: None Do you have a plan to hurt others: No Plan Recently lost weight without trying: No Eating poorly because of decreased appetite: No Nutrition Risks: No Nutritional Risk Patient : No service: No Current occupational status: retired Cognitive needs: No Hearing needs: No Vision needs: Yes Meds Allergies Allergy/AdvReac Type Severity Reaction Status Date / Time No Known Allergies Allergy Verified 07/02/22 10:23 [No Known Allergies*] Active Medications: Current Medications Acetaminophen (Acetaminophen 325 Mg Tablet) 650 mg PO Q6H PRN PRN Reason: Pain, Mild (Pain Scale 1-3) Atenolol (Atenolol 25 Mg Tablet) 75 mg PO BID [facility]; Protocol Last Admin: 07/09/22 11:06 Dose: 75 mg Benzonatate (Benzonatate 100 Mg Capsule) 100 mg PO TID PRN PRN Reason: Cough Levothyroxine Sodium (Levothyroxine Sodium 50 Mcg Tablet) 50 mcg PO DAILY@0600 [facility] Last Admin: 07/09/22 06:11 Dose: 50 mcg Melatonin (Melatonin 3 Mg Tablet) 6 mg PO BEDTIME PRN PRN Reason: Insomnia Pantoprazole Sodium (Pantoprazole Sodium 40 Mg/10 Ml Vial) 40 mg IVPUSH DAILY@0630 [facility] Last Admin: 07/09/22 06:11 Dose: 40 mg Senna (Sennosides 8.6 Mg Tablet) 17.2 mg PO BEDTIME PRN PRN Reason: Constipation Sodium Chloride (0.9 % Sodium Chloride Flush 3 Ml Syringe) 3 ml IVFLUSH QSHIFT [facility] Last Admin: 07/09/22 11:06 Dose: 3 ml Physical Exam Vital Signs: Vital Signs: Last Vital Signs Temp 97.0 F 07/09/22 12:24 Pulse 63 07/09/22 12:24 Resp 18 07/09/22 12:24 BP 145/59 H 07/09/22 12:24 Pulse Ox 98 07/09/22 12:24 O2 Del Method 07/09/22 12:24 BMI result Body Mass Index 26.2 Neuro: Other: She was alert and awake with normal spontaneity of speech fluency comprehension and affect. She had hearing difficulty. Face was symmetrical. Visual rudolph are full. There was no obvious focal arm or leg weakness. Plantars were flexor. 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 This type of seizures are common in this type of patients an age group. I recommend an EEG, which if cannot be done today can be arranged as an outpatient. If EEG would show epileptic tendency or if she would have another episode with no obvious explanation, I would start her on lamotrigine 25 mg twice a day Procedures Date of Service Date of Service: 07/09/22
--- NOTE | 2022-07-09 13:01 | PM.EVENT ---
Event Note Date of Service: 07/09/22 Event Note: GI-EGD-Full note dictated Findings: 1. Gastric ulcer above the pylorus with edema and friability-biopsies taken 2. Hiatal hernia Rec: Hold off on colonoscopy, hold all blood thinners, F/U Hgb, advance diet as long as things remain stable, and change to oral BID PPI. Observe today. Will probably need repeat upper endoscopy in approx. 6 weeks. Will discuss with patient and family. Thanks
--- NOTE | 2022-07-09 13:07 | PM.OP ---
Brief Operative Note Date of Service: 07/09/22 Pre-op diagnosis: Anorexia, anemia, weight loss Post-op diagnosis: other (Gastric ulcer above pylorus, Hiatal hernia) Procedure: EGD with biopsies Surgeon: Luis Marks Anesthesia: MAC Was an Director Instructional Material used for this Procedure?: No Estimated blood loss (mL): 3.0 Pathology: other (A. Gastric antral ulcer) Condition: stable Disposition: PACU
--- NOTE | 2022-07-09 13:56 | MHC.CM.PN ---
Female DX Anemia No DC today. Per MD rounds A Neuro consult is scheduled today. Last PM patient has what appeared to be SZ like activity. She is also scheduled to be SCOPED today r/t Anemia.
--- NOTE | 2022-07-09 14:06 | HO.PM.IMPN ---
Subjective Subjective Date of Service: 07/09/22 Interval History: During vit K infusion last night became stiff, unresponsive, drooling- [facility] called. CT head negative. Took a few minutes before she became fully aware. No hx of seizures. No overt GI bleeding. NPO for EGD today. Review of Systems Review of Systems: Yes all other systems are reviewed and are negative Physical Exam Vital Signs: Vital Signs: Last Vital Signs Temp 97.0 F 07/09/22 12:24 Pulse 63 07/09/22 12:24 Resp 18 07/09/22 12:24 BP 145/59 H 07/09/22 12:24 Pulse Ox 98 07/09/22 12:24 O2 Del Method 07/09/22 12:24 BMI result Body Mass Index 26.2 Gen: in no acute distress HEENT: sclera anicteric, pale mucosa Neck: supple Lungs: clear to auscultation bilaterally Heart: regular rate and rhythm, no murmurs Abd: soft, non-tender, non-distended Ext: no edema Skin: warm/well-perfused Neuro: alert and oriented x3, no focal findings Psych: appropriate affect Objective Data Active Medications Acetaminophen (Acetaminophen 325 Mg Tablet) 650 mg PO Q6H PRN PRN Reason: Pain, Mild (Pain Scale 1-3) Atenolol (Atenolol 25 Mg Tablet) 75 mg PO BID [facility]; Protocol Last Admin: 07/09/22 11:06 Dose: 75 mg Documented By: ALMA Benzonatate (Benzonatate 100 Mg Capsule) 100 mg PO TID PRN PRN Reason: Cough Levothyroxine Sodium (Levothyroxine Sodium 50 Mcg Tablet) 50 mcg PO DAILY@0600 [facility] Last Admin: 07/09/22 06:11 Dose: 50 mcg Documented By: BIANKA Melatonin (Melatonin 3 Mg Tablet) 6 mg PO BEDTIME PRN PRN Reason: Insomnia Pantoprazole Sodium (Pantoprazole Sodium 40 Mg/10 Ml Vial) 40 mg IVPUSH DAILY@0630 [facility] Last Admin: 07/09/22 06:11 Dose: 40 mg Documented By: BIANKA Senna (Sennosides 8.6 Mg Tablet) 17.2 mg PO BEDTIME PRN PRN Reason: Constipation Sodium Chloride (0.9 % Sodium Chloride Flush 3 Ml Syringe) 3 ml IVFLUSH QSHIFT [facility] Last Admin: 07/09/22 11:06 Dose: 3 ml Documented By: ALMA Labs CBC & Chem 7: 07/09/22 06:04 07/09/22 06:04 Labs: Laboratory Results - last 24 hr 07/08/22 07/08/22 07/08/22 19:28 20:11 20:11 MCV MCH MCHC RDW Plt Count MPV Absolute Nucleated RBC Nucleated RBC % (auto) PT INR Anion Gap 17 Estim Creat Clear Calc 36.0 Estimated GFR 53 POC Glucose 91 Random Glucose 99 Calcium 8.9 Magnesium 1.9 Troponin I High Sens < 3.5 07/08/22 07/09/22 07/09/22 22:45 06:04 06:04 MCV 78.4 L MCH 24.9 L MCHC 31.7 RDW 20.1 H Plt Count 115 L MPV Not Reportable Absolute Nucleated RBC 0.000 Nucleated RBC % (auto) 0.0 PT INR Anion Gap 13 Estim Creat Clear Calc 38.7 Estimated GFR 57 POC Glucose Random Glucose 83 Calcium 8.9 Magnesium Troponin I High Sens 17.0 D 07/09/22 07/09/22 06:04 07:56 MCV MCH MCHC RDW Plt Count MPV Absolute Nucleated RBC Nucleated RBC % (auto) PT 16.1 H INR 1.4 H Anion Gap Estim Creat Clear Calc Estimated GFR POC Glucose Random Glucose Calcium Magnesium Troponin I High Sens 12.6 Assessment and Plan (1) Microcytic anemia: Status: Acute Plan hospital d#3 77yo F wtih HTN, HLD, AF on apixaban, chronic HFpEF, pHTN, PMR presenting with dyspnea, found to have iron deficiency anemia, FOBT+ # acute anemia due to GI blood loss from gastric ulcer - EGD today showed gastric ulcer above the pylorus with edema and friability; biopsies taken - hold apixaban, monitor H+H [stable after 1u pRBCs transfused 07/07/22] - change to PO PPI bid - repeat EGD in 6 wk # possible complex partial seizure - Neuro consulted; EEG; lamotrigine if EEG abnormal or episode recurs # dyspnea - likely due to anemia though has significant pulmonary HTN; intermediate-risk for EGD # AF - rate-controlled on atenolol; hold apixaban as above # HTN - continue atenolol # hypothyroidism - continue LT4 # VTE ppx: SCDs In my clinical judgment, the patient requires continued hospitalization for the following reasons: anemia, GI evaluation Quality Stroke Does the patient have a stroke diagnosis?: No VTE Prior VTE?: No VTE Risk Level:: Medical - moderate - high VTE Device Contraindication: N/A - Device Ordered VTE Drug Contraindication: Treatment Not Indicated
[2022-07-09 16:55] LABS: Hematocrit 26.7 % (37.0-47.0); Hemoglobin 8.1 g/dl (12.0-16.0)
[2022-07-09] MEDS: Omeprazole 40 MG CAPSULE.DR PO (18:04)
[2022-07-10] VITALS (9 sets, daily range): BP systolic 140–166; BP diastolic 56–72; PULSE 60–63; RESP 14–18; TEMP 35.7–37; O2SAT 94–100
[2022-07-10] MEDS: 0.9 % Sodium Chloride Flush 3 ML SYRINGE IVFLUSH ×3 (00:02→20:21)
--- NOTE | 2022-07-10 04:27 | OP_ITS ---
SURGEON: Luis Marks MD INDICATIONS: The patient presents for evaluation of anemia, anorexia, early satiety, and weight loss. Full consent has been obtained from her for this, including risks of bleeding and perforation. PREOPERATIVE DIAGNOSIS: POSTOPERATIVE DIAGNOSIS: PROCEDURE PERFORMED: Esophagogastroduodenoscopy with biopsies. ESTIMATED BLOOD LOSS: COMPLICATIONS: ANESTHESIA: Medication used, monitored anesthesia care. ASSISTANTS: SPECIMENS: PREOPERATIVE DIAGNOSES: 1. Anemia. 2. Anorexia. 3. Early satiety. 4. Weight loss. POSTOPERATIVE DIAGNOSES: 1. Anemia. 2. Anorexia. 3. Early satiety. 4. Weight loss. 5. Gastric ulcer. 6. Hiatal hernia. DESCRIPTION OF PROCEDURE: The patient was placed in the left lateral decubitus position. The Olympus video gastroscope was passed in the posterior oropharynx and upper esophagus under direct vision. The scope was passed slowly to the distal esophagus. The gastroesophageal junction appeared normal at 36 cm. There was no sign of any esophagitis. The scope entered into the stomach. There was a small hiatal hernia. The scope was advanced to the pylorus and the duodenum was cannulated to the descending portion. The duodenum including the bulb appeared normal without mass or ulceration. Duodenal folds appeared normal with normal villi. Biopsies were not obtained to rule out celiac disease given the subsequent findings in the stomach. The scope was withdrawn back into the stomach. Above the pylorus, was an area of edema and friability with an associated discrete approximately 15 mm ulcer with overlying exudate. The surrounding tissue was friable with some oozing. There was no active bleeding nor any visible vessel. There were some red markings noted in the ulcer itself. Biopsies were obtained from some of the margins, but I only obtained 2 biopsies as the tissue was quite friable. She had also been on Eliquis up until about 36 to 48 hours ago. The remainder of the gastric antrum and body appeared normal with good peristalsis. The scope was retroflexed visualizing the proximal stomach carefully, which appeared normal, without any sign of mass or ulceration, other than some hyperplastic appearing gastric polyps. The scope was straightened and withdrawn back into the esophagus. The esophageal mucosa appeared normal. The scope was withdrawn from the patient. She tolerated the procedure well and was returned to the recovery area in stable condition. IMPRESSION: 1. Gastric ulcer. 2. Hiatal hernia. PLAN: The results of the biopsies will be checked. Given this finding, I would recommend a repeat upper endoscopy in 6 weeks to assess for healing. If H pylori is found, I would recommend treating that as well. Based on today's findings and her clinical history, I would hold off on a colonoscopy in regard to further evaluation of the anemia, for at least the time being. She will be switched over to oral PPI therapy twice a day. Her diet will be advanced. She should obviously avoid all aspirin and NSAIDs fci, and remain off all 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 for at least 1 or 2 weeks. She should start some iron replacement as well. This has been discussed with the patient and her . My office will arrange for an outpatient followup endoscopy in the next 6 weeks. At some point, if need be, we can always perform an outpatient colonoscopy as well. MD ESAU Figueroa/PAUL / [id number] MTDD
[2022-07-10] MEDS: Levothyroxine Sodium 50 MCG TABLET PO (05:49)
[2022-07-10] MEDS: Omeprazole 40 MG CAPSULE.DR PO ×2 (05:49→17:37)
[2022-07-10 06:43] LABS: Hematocrit 24.8 % (37.0-47.0); Hemoglobin 7.8 g/dl (12.0-16.0)
[2022-07-10] MEDS: atenoloL 25 MG TABLET 75 MG PO ×2 (10:08→20:21)
[2022-07-10] MEDS: amLODIPine Besylate 2.5 MG TABLET PO (11:14)
--- NOTE | 2022-07-10 14:17 | PM.PNCARD ---
Subjective Subjective Date of Service: 07/10/22 Interval history: Seen and examined at bedside. Underwent endoscopy which showed gastric ulcer. She has been off anticoagulation currently. Physical Exam Vital Signs: Last Vital Signs Temp 97.7 F 07/10/22 11:46 Pulse 61 07/10/22 11:46 Resp 16 07/10/22 11:46 BP 164/66 H 07/10/22 11:46 Pulse Ox 98 07/10/22 11:46 O2 Del Method 07/10/22 11:46 O2 Flow Rate 0 07/09/22 13:18 BMI result Body Mass Index 26.2 GENERAL APPEARANCE: in no acute distress, pleasant. NECK: no carotid bruit, no jugular venous distention. SKIN: no suspicious lesions, warm and dry. HEART: no murmurs, regular rate and rhythm. LUNGS: clear to auscultation bilaterally. ABDOMEN: soft, nontender. EXTREMITIES: no edema. PERIPHERAL PULSES: equal. NEUROLOGIC: No gross deficits, AAO X 3 Objective Labs and Meds Result diagrams: 07/10/22 06:15 07/09/22 06:04 Lab results: Laboratory Results - last 24 hr 07/09/22 07/10/22 16:31 06:15 Hgb 8.1 L 7.8 L Hct 26.7 L 24.8 L Progress Note: A&P Assessment and plan (1) Gastric ulcer: Status: Acute (2) Microcytic anemia: Status: Acute (3) Hypertension: Status: Acute (4) 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 atrial fibrillation): Status: Acute Plan [age] year female with paroxysmal atrial fibrillation was on Eliquis and atenolol presenting with anemia and gastric ulcer. Has been off Eliquis appropriately. No further concern for bleeding currently. Her blood pressure is elevated. Adding amlodipine 2.5 mg once a day. As per GI recommendation she should wait 1-2 weeks before starting Eliquis. Continue PPI. Avoid NSAIDs. Thank you for allowing me to participate in the care of your patient. Please feel free to contact me if you have any questions. Time Spent With Patient Time: Total time spent is greater than 50% in coordination of care (as documented) at patient's floor/unit and/or counseling patient: Progress Note: Quality Stroke Does the patient have a stroke diagnosis?: No Procedures Date of Service Date of Service: 07/10/22
--- NOTE | 2022-07-10 15:00 | HO.PM.IMPN ---
Subjective Subjective Date of Service: 07/10/22 Interval History: No further episodes overnight. Feels well Review of Systems Denies chest pain Denies shortness of breath Denies nausea vomiting diarrhea Denies fever chills Physical Exam Vital Signs: Vital Signs: Last Vital Signs Temp 97.7 F 07/10/22 11:46 Pulse 61 07/10/22 11:46 Resp 16 07/10/22 11:46 BP 164/66 H 07/10/22 11:46 Pulse Ox 98 07/10/22 12:26 O2 Del Method 07/10/22 12:26 O2 Flow Rate 0 07/09/22 13:18 BMI result Body Mass Index 26.2 Const: Other: Awake alert no acute distress Resp: Other: Clear to auscultation bilaterally no rales rhonchi or wheezes Cardio: Other: No S4; positive S1-S2; no S3 murmurs rubs or gallops GI: Other: Soft nontender nondistended normoactive bowel sounds Extrem: Other: No edema bilaterally Objective Data Active Medications Acetaminophen (Acetaminophen 325 Mg Tablet) 650 mg PO Q6H PRN PRN Reason: Pain, Mild (Pain Scale 1-3) Amlodipine Besylate (Amlodipine Besylate 2.5 Mg Tablet) 2.5 mg PO DAILY [facility]; Protocol Last Admin: 07/10/22 11:14 Dose: 2.5 mg Documented By: VIN Atenolol (Atenolol 25 Mg Tablet) 75 mg PO BID [facility]; Protocol Last Admin: 07/10/22 10:08 Dose: 75 mg Documented By: VIN Benzonatate (Benzonatate 100 Mg Capsule) 100 mg PO TID PRN PRN Reason: Cough Levothyroxine Sodium (Levothyroxine Sodium 50 Mcg Tablet) 50 mcg PO DAILY@0600 [facility] Last Admin: 07/10/22 05:49 Dose: 50 mcg Documented By: BRIDGRE Melatonin (Melatonin 3 Mg Tablet) 6 mg PO BEDTIME PRN PRN Reason: Insomnia Omeprazole (Omeprazole 40 Mg Capsule.) 40 mg PO BID@0630,1630 [facility] Last Admin: 07/10/22 05:49 Dose: 40 mg Documented By: BRIDGER Senna (Sennosides 8.6 Mg Tablet) 17.2 mg PO BEDTIME PRN PRN Reason: Constipation Sodium Chloride (0.9 % Sodium Chloride Flush 3 Ml Syringe) 3 ml IVFLUSH QSHIFT [facility] Last Admin: 07/10/22 10:09 Dose: 3 ml Documented By: VIN Labs CBC & Chem 7: 07/10/22 06:15 07/09/22 06:04 Assessment and Plan (1) Gastric ulcer: Status: Acute (2) 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 atrial fibrillation): Status: Acute (3) Pulmonary hypertension: Status: Acute (4) Hypertension: Status: Acute (5) Mental status change resolved: Status: Acute Plan 77yo F wtih HTN, HLD, AF on apixaban, chronic HFpEF, pHTN, PMR presenting with dyspnea, found to have iron deficiency anemia, FOBT+ 1.Acute anemia/ gastric ulcer - PPI b.i.d. - hold apixaban x 2 weeks...restart as outpationt - follow-up with GI. . . Dr. Marks to arrange 2.Possible complex partial seizure/mental status change. .. Resolved - Neuro consulted; EEG; lamotrigine if EEG abnormal or episode recurs 3.P AF - rate-controlled on atenolol - hold apixaban as above 4.HTN -acceptable control - continue atenolol SCDs Patient requires ongoing hospitalization to document stabilization gastric ulcer bleed Quality Stroke Does the patient have a stroke diagnosis?: No VTE Prior VTE?: No VTE Risk Level:: Medical - moderate - high VTE Device Contraindication: N/A - Device Ordered VTE Drug Contraindication: Treatment Not Indicated
[2022-07-11] MEDS: Levothyroxine Sodium 50 MCG TABLET PO (05:00)
[2022-07-11] MEDS: Omeprazole 40 MG CAPSULE.DR PO (05:00)
[2022-07-11 06:45] LABS: MANUAL DIFF FLAG NO
[2022-07-11 06:57] LABS: Basophils Percent Auto 0.4 % (0-2); Eosinophils Absolute Auto 0.4 X10*3/uL (0.0-0.4); Eosinophils Percent Auto 4.4 % (0-4); Hematocrit 25.4 % (37.0-47.0); Hemoglobin 7.9 g/dl (12.0-16.0); Imm Gran Abs Auto 0.06 X10*3/uL (0.00-0.03); Imm Gran Pct Auto 0.8 % (0.0-0.4); Lymphocytes Absolute Auto 2.2 X10*3/uL (1.2-4.9); Lymphocytes Percent Auto 27.7 % (20-40); Mean Corpuscular HGB Conc 31.1 g/dl (31.0-35.0); Mean Corpuscular Hemoglobin 24.5 pg (27.0-33.0); Mean Corpuscular Volume 78.6 fL (80.0-98.0); Monocytes Absolute Auto 1.5 X10*3/uL (0.1-1.2); Monocytes Percent Auto 18.5 % (2-11); Neutrophils Absolute Auto 3.8 x10*3/uL (2.0-8.3); Neutrophils Percent Auto 48.2 % (45-73); Platelet Count 96 X10*3/uL (160-400); Red Blood Count 3.23 X10*6/uL (4.20-5.50); Red Cell Distribution Width 20.8 % (11.0-16.0); White Blood Count 7.9 X10*3/uL (4.8-10.8)
[2022-07-11 08:00] VITALS: BP 153/69; PULSE 61; RESP 18; TEMP 36.6; O2SAT 98
[2022-07-11] MEDS: atenoloL 25 MG TABLET 75 MG PO (08:26)
[2022-07-11] MEDS: amLODIPine Besylate 2.5 MG TABLET PO (08:26)
[2022-07-11] MEDS: 0.9 % Sodium Chloride Flush 3 ML SYRINGE IVFLUSH (08:28)
--- NOTE | 2022-07-11 11:22 | HO.POSTANES ---
Post Anesthesia Evaluation Post Anesthesia Evaluation Vital Signs: Vital Signs Temp Pulse Resp BP Pulse Ox O2 Del Method 07/11/22 08:00 98 F 61 18 153/69 H 98 Room Air Anesthesia: Monitored Mental Status: Awake Pain Control: Satisfactory Nausea/Vomiting: None Hydration: Adequate Anesthesia-Related Issues: No Anes. Related Issues
[2022-07-11 11:40] VITALS: BP 135/60; PULSE 58; RESP 19; TEMP 36.7; O2SAT 99
--- NOTE | 2022-07-11 11:59 | P.DS_ITS ---
DS: Providers Provider Date of Service: 07/11/22 Date of admission: 07/07/22 23:01 Date of discharge: 07/11/22 Primary care physician: Jamshid John MD Consults: 07/07/22 23:03 Consult to Gastroenterology Routine Consulting Provider: Jacinto Parekh Reason for consultation: Anemia; Guaiiac positive stool 07/08/22 15:15 Consult to Cardiology Routine Consulting Provider[place] [facility] Reason for consultation: pre-EGD/C-scope evaluation requested 07/09/22 10:03 Consult to Neurology Routine Consulting Provider: [facility] Reason for consultation: seizure like episode during vit K infusion last night DS: Diagnosis Discharge Diagnosis (1) Gastric ulcer: Status: Acute (2) Microcytic anemia: Status: Acute (3) Hypertension: Status: Acute (4) 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 atrial fibrillation): Status: Acute DS: Summary Hospital Course Hospital Course: 77-year-old female with a past medical history of hypertension, hyperlipidemia, AFib on Eliquis, polymyalgia rheumatica, pulmonary hypertension, pulmonary nodu les, peripheral edema, osteopenia presented to the hospital today with a chief complaint of shortness of breath.? Patient mentioned that over the past few days he has been having shortness of breath and dyspnea on exertion.? Had routine labs done outpatient noted to have low hemoglobin of 6.9; subsequently asked her to go to the ER for further evaluation.? Patient denies any gross blood in the stool.? Given 1 unit of blood with good response in hemoglobin. On 07/09/22 she underwent EGD which demonstrated a gastric ulcer. Her hemoglobin continued to be stable and she was started on omeprazole 40 mg b.i.d.. At this point time she is stable for discharge will return to home to continue omeprazole. Her Eliquis will be held for 2 weeks until she is followed up by her PCP at which time they can discuss resuming Eliquis Time Spent with Patient Time attestation: Total time spent providing and/or coordinating discharge services: Discharge coordination time: Greater than 30 minutes Quality: Safe Use of Opioids Does Pt have an Active Cancer Diagnosis on the Problem List?: No Quality: Stroke Does the patient have a stroke diagnosis?: No Physical Exam Vital Signs: Vital Signs: Last Vital Signs Temp 98.1 F 07/11/22 11:40 Pulse 58 07/11/22 11:40 Resp 19 07/11/22 11:40 BP 135/60 07/11/22 11:40 Pulse Ox 99 07/11/22 11:40 O2 Del Method 07/11/22 11:40 O2 Flow Rate 0 07/09/22 13:18 BMI result Body Mass Index 26.2 Const: Other: Awake alert no acute distress Resp: Other: Clear to auscultation bilaterally no rales rhonchi or wheezes Cardio: Other: No S4; positive S1-S2; no S3 murmurs rubs or gallops GI: Other: Soft nontender nondistended normoactive bowel sounds Extrem: Other: No edema bilaterally DS: Data Data Completed and Pending Pending studies at discharge: Pending at discharge 07/09/22 12:50 Surgical [PTH] Routine Labs on day of discharge: Laboratory Results - last 24 hr 07/11/22 06:39 WBC 7.9 RBC 3.23 L Hgb 7.9 L Hct 25.4 L MCV 78.6 L MCH 24.5 L MCHC 31.1 RDW 20.8 H Plt Count 96 L MPV Not Reportable Immature Gran % (Auto) 0.8 H Neut % (Auto) 48.2 Lymph % (Auto) 27.7 [place] % (Auto) 18.5 H Eos % (Auto) 4.4 H Baso % (Auto) 0.4 Lymph # (Auto) 2.2 [place] # (Auto) 1.5 H Eos # (Auto) 0.4 Baso # (Auto) 0.0 Abs Immat Gran (auto) 0.06 H Absolute Neuts (auto) 3.8 Absolute Nucleated RBC 0.000 Nucleated RBC % (auto) 0.0 Discharge Plan Discharge Anticipated Discharge Date/Time: 07/11/22 00:53 Patient Disposition: Home Health Service Discharge Diagnosis: Gastric ulcer Referrals: Jamshid John MD [Primary Care Provider] - 1 Week Discharge Medications: New atenolol 25 mg Tablet 75 mg PO BID Qty: 180 0RF Protocol: Hold for SBP/HR < HOLD for SBP < : 90 HOLD for HR < : 60 amlodipine 2.5 mg Tablet 2.5 mg PO DAILY Qty: 30 0RF Protocol: Hold for SBP< HOLD for SBP < : 90 omeprazole 40 mg Capsule,Delayed Release(Dr/Ec) 40 mg PO BID@0630,1630 Qty: 60 0RF Continued levothyroxine 50 mcg tablet 50 mcg PO DAILY Qty: 90 8RF Discontinued Eliquis 5 mg tablet 5 mg PO BID 90 Days Qty: 180 3RF pantoprazole 40 mg tablet,delayed release (DR/EC) 40 mg PO DAILY Qty: 90 8RF atenolol 50 mg tablet 50 mg PO BID 90 Days Qty: 180 3RF Rx Instructions: Take with one 25mg tablet (to total 75mg) twice daily atenolol 25 mg tablet 25 mg PO BID 90 Days Qty: 180 3RF Discharge Orders: Discharge Order (Routine); Ordered 07/11/22 Ordered By: Terrance Tucker Diet: Advance to usual diet Activity on Discharge: As tolerated Stand Alone Forms: Patient Portal Discharge page Care Plan Goals: Hold Eliquis for 2 weeks. Follow-up with the PCP to discuss restarting Eliquis Health Concerns: Increase omeprazole to 40 mg twice daily Plan of Treatment: Diet as tolerated Assessment: See discharge summary
--- NOTE | 2022-07-11 12:03 | W.MHC.F2F ---
Service Date Service Date: 07/11/22 Encounter Date of encounter: 07/11/22 Encounter: Acute hospitalization Reasons for Services Signs and symptoms assessed: 77-year-old female with upper GI bleed related to gastric ulcer Reason for prison: medication management, teach disease management and GI/ assessment Homebound: Leaving the home is medically contraindicated at this time without the asist of a device and/or another person due th the listed conditions above and below. Reason homebound: unsteady gait / fall risk and weakness related to hospital stay Certification: Based on the above findings, I certify that this patient is confined to the home and needs intermittent prison care, physical therapy and/or speech therapy, or continues to need occupational therapy. The patient is under my care, and I have initiated the establishment of the plan of care. The patient will be followed by a physician who will periodically review the plan of care.
--- NOTE | 2022-07-11 12:16 | MHC.CM.PN ---
order for home, self-care, CM acknowledge.
== END 2022-07-11 14:45 | disposition home health service (06) | DRG 378 ==
LOC: HO.ED 22:56 → HO.EDOVER 23:06 → HO.IMC 07-08 01:18
PROVIDERS: Family Medicine; Internal Medicine; Admitting Provider Hospitalist; Emergency Provider Emergency Medicine Emergency Medical Services; PCP Internal Medicine; Visit Provider Hospitalist
PROC: 0DJ08ZZ Inspection of Upper Intestinal Tract, Via Natural or Artificial Opening Endoscopic (ICD-10-PCS; CPT 43235; principal; 2022-07-09 12:20)
DX: K25.4 Chronic or unspecified gastric ulcer with hemorrhage (principal); D62 Acute posthemorrhagic anemia; I31.3 Pericardial effusion (noninflammatory); G40.89 Other seizures; K44.9 Diaphragmatic hernia without obstruction or gangrene; I48.0 Paroxysmal atrial fibrillation; E78.5 Hyperlipidemia, unspecified; E03.9 Hypothyroidism, unspecified; I10 Essential (primary) hypertension; M35.3 Polymyalgia rheumatica; Z20.822 Contact with and (suspected) exposure to COVID-19; Z79.890 Hormone replacement therapy; Z79.899 Other long term (current) drug therapy
CPT/HCPCS: 36415; 36430; 70450; 71045; 80048; 80053; 82607; 82728; 82746; 82947; 83540; 83690; 83735; 84484; 85014; 85018; 85025; 85027; 85610; 85730; 86850; 86900; 86901; 86923; 87635; 88305; 88342; 93005; 93308; 99285; J2405; J3430; P9016

== ENCOUNTER → 2022-07-28 10:24 | Outpatient (BNVA) | payer MEDICARE, SELFPAY | PROVIDERS: PCP Internal Medicine; Visit Provider Internal Medicine | DX: I27.20 Pulmonary hypertension, unspecified (principal); I48.0 Paroxysmal atrial fibrillation; R91.8 Other nonspecific abnormal finding of lung field; Z79.01 Long term (current) use of 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; Z79.52 Long term (current) use of systemic steroids | CPT/HCPCS: 99212 ==

== ENCOUNTER 2022-08-17 11:39 | Outpatient (REF) | payer MEDICARE, SELFPAY ==
[2022-08-17 12:48] LABS: Basophils Percent Auto 0.4 % (0-2); Eosinophils Absolute Auto 0.2 X10*3/uL (0.0-0.4); Eosinophils Percent Auto 3.2 % (0-4); Hematocrit 29.4 % (37.0-47.0); Imm Gran Abs Auto 0.05 X10*3/uL (0.00-0.03); Lymphocytes Absolute Auto 1.3 X10*3/uL (1.2-4.9); Lymphocytes Percent Auto 26.1 % (20-40); MANUAL DIFF FLAG SCAN; Mean Corpuscular HGB Conc 30.6 g/dl (31.0-35.0); Mean Corpuscular Hemoglobin 24.9 pg (27.0-33.0); Mean Corpuscular Volume 81.4 fL (80.0-98.0); Monocytes Absolute Auto 1.1 X10*3/uL (0.1-1.2); Monocytes Percent Auto 21.4 % (2-11); Neutrophils Absolute Auto 2.4 x10*3/uL (2.0-8.3); Neutrophils Percent Auto 47.9 % (45-73); Platelet Count 87 X10*3/uL (160-400); Red Blood Count 3.61 X10*6/uL (4.20-5.50); SCAN SMEAR FLAG 1
[2022-08-17 13:13] LABS: SLIDE REVIEW VERIFIED
== END 2022-08-17 11:40 | disposition home or self-care (01) ==
LOC: HO.LAB 11:39
PROVIDERS: PCP Internal Medicine; Visit Provider Internal Medicine
DX: Z13.0 Encounter for screening for diseases of the blood and blood-forming organs and certain disorders involving the immune mechanism (principal)
CPT/HCPCS: 36415; 85025

== ENCOUNTER → 2022-09-09 10:18 | Outpatient (REF) | payer MEDICARE, SELFPAY ==
--- NOTE | 2022-09-09 10:21 | CA_ITS ---
Transthoracic Echocardiogram Patient (Last, First, Middle): Sumi Hamilton B Gender: Female Date of : 1945 Age: 77 Procedure Date: 09/09/2022 Procedure Type: Transthoracic Echocardiogram Location: OP Height: 149.86 cm Weight: 57.15 kg BSA: 1.52 m2 Heart Rate: bpm BP: 132 / 70 mmHg [employer]er: LORENA Referring MD: Dean Calderón MD Mixing Tumbler Operator: Rajesh Patiño MD Symptoms: I27.20 - Pulmonary hypertension, unspecified Study Quality: Adequate ECG Rhythm: Sinus Conclusions: - 1. Normal LV systolic function with at least grade 2 diastolic dysfunction 2. Moderately dilated left atrium 3. Wurf-rw-[id number] tricuspid regurgitation with moderately elevated right ventricular systolic pressure 4. No gross pericardial effusion Findings Left Ventricle Normal left ventricular size, thickness, and systolic function. The visually estimated ejection fraction is between 55-60%. Spectral Doppler is indicative of a pseudonormal filling pattern. E/E prime ratio is >15, consistent with elevated filling pressures. Evidence suggests grade II (moderate) diastolic dysfunction. Peak GLS is -15.7%, which is reduced. Right Ventricle Normal right ventricular cavity size and systolic function. Atria The left atrium is moderately dilated. There is no evidence of interatrial shunt. The right atrium is normal in size. Aortic Valve There is mild thickening of the aortic valve. There is no aortic valve stenosis. There is no aortic valve regurgitation. Mitral Valve There is mild anterior and posterior mitral leaflet thickening. There is trace mitral valve regurgitation. There is no mitral valve stenosis. Tricuspid Valve Normal tricuspid valve structure. There is mild to moderate tricuspid valve regurgitation. Normal right atrial pressure. Moderate pulmonary hypertension is present. Great Vessels All visible segments of the aorta are normal in size. The pulmonary artery was not well visualized. Venous The inferior vena cava is normal in size and collapses greater than 50% with inspiration. Pericardium/Pleural There is no evidence of pericardial effusion. Prior Study Comparison Changes noted compared to prior study dated: 07/08/2022. no significant pericardial effusion noted. Moderately elevated right ventricular systolic pressure Measurements 2D Linear Measurements IVSd: 0.97 0.6-0.9/0.6-1.0 cm LVIDd: 4.24 3.9-5.3/4.2-5.9 cm LVIDd Index: 2.79 2.4-3.2/2.2-3.1 cm/m2 LVIDs: 2.80 2.0-3.6 cm LVPWd: 0.82 0.7-1.1 cm LA Diam: 3.70 2.7-3.8/3.0-4.0 cm LAIDs Index: 2.43 1.5-2.3 cm/m2 LV Mass: 148.98 67-162/88-224 g LV Mass Index: 98.01 43-95/49-115 g/m2 LVOT Diam: 1.90 3.0+(-)1.3 cm 2D Systolic Function EF 4C: 57.00 >55% EF 2C: 57.70 >55% EF BiP: 57.90 >55% Mitral Valve MV Pk E: 0.83 MV PK A: 0.32 MV Decel Time: 156.00 E/A: 2.60 E'Lateral: 8.27 E'Medial: 6.31 E/E' Med: 13.10 E/E' Lat: 10.00 PHT: 61.00 MVA PHT: 3.61 Decel [place]: 3.99 Aortic Valve AoV Pk Bobby: 1.20 AoV Mn Bobby: 0.92 AoV VTI: 0.36 AoV Pk Grad: 6.00 Aov Mn Grad: 4.00 DOMENICO Cont.VTI: 1.91 LVOT LVOT Pk Bobby: 0.77 LVOT Mn Bobby: 0.59 LVOT VTI: 0.24 LVOT Pk Grad: 2.00 LVOT Mn Grad: 2.00 LVOT Diam: 1.90 LVOT Area: 2.84 Diastolic Function MV Pk E: 0.83 MV Pk A: 0.32 E/A: 2.60 E'Medial: 6.31 E/E' Med: 13.10 E' Laterial: 8.27 E/E' Lat: 10.00 Right Ventricle TAPSE (mm): 19.60 TVS' Bobby: 12.20 Tricuspid Valve TR Pk Bobby: 3.73 TR Pk Grad: 56.00 RA Press: 3.00 RVSP: 59.00 Great Vessels Aorta Sinus of Valsalva: 3.05 2.0-3.[address] [place]: 2.17 1.7-3.4 cm Ao Asc: 2.80 2.1-3.4 cm Updated in Other Vendor System with Status of Final Rajesh Patiño MD electronically signed on 09/09/2022 2:47:57 PM with status of Final
== END ==
LOC: HO.CARD 10:18
PROVIDERS: PCP Internal Medicine; Visit Provider Internal Medicine
DX: I27.20 Pulmonary hypertension, unspecified (principal); I31.39 Other pericardial effusion (noninflammatory)
CPT/HCPCS: 93306

== ENCOUNTER 2022-09-15 07:13 | Day surgery (SDC) | payer MEDICARE, SELFPAY ==
--- NOTE | 2022-09-14 09:42 | HO.ANESPROP2 ---
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 (Acute) Chronic kidney disease, unspecified (Acute) Leg edema (Acute) Pulmonary hypertension (Acute) Essential hypertension (Acute) 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 atrial fibrillation) (Acute) Osteopenia (Acute) Polymyalgia rheumatica (Acute) Hypothyroidism (Acute) Hypertension (Acute) Past Medical History Medical History Chronic kidney disease, unspecified Essential hypertension Leg edema 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 Osteopenia 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 atrial fibrillation) Polymyalgia rheumatica Preop cardiovascular exam Pulmonary hypertension Pulmonary nodules Family History Family History Father Coronary artery disease FH: CVA (cerebrovascular accident) Mother Kidney failure Family history of problems with anesthesia: No Surgical History Surgical History History of bilateral cataract extraction History of section History of cholecystectomy History of partial hysterectomy History of Problems with Anesthesia: No Social History Social History Household Members: Spouse Housing: House Do you presently have visiting nurse or other home services: No Alcohol intake: never Patient Tobacco Use Status: Never used Tobacco e-Cigarette/Vaping Use: Never Used Second Hand Smoke Exposure: No Use of substances other than those prescribed or required for medical reasons: No Advance Directives: No Advance Directives Information Provided: Yes service: No Current occupational status: retired Cognitive needs: No Hearing needs: No Vision needs: Yes Meds Allergies Allergy/AdvReac Type Severity Reaction Status Date / Time No Known Allergies Allergy Verified 08/25/22 11:26 [No Known Allergies*] Exam Exam Date and Time: September 14, 2022 0942 Narrative Narrative: EKG 06/2022 Vent. Rate : 067 BPM ? ? Atrial Rate : 067 BPM ?? P-R Int : 140 ms? QRS Dur : 072 ms ? ? QT Int : 374 ms ? ? ? P-R-T Axes : 081 033 046 degrees ?? QTc Int : 395 ms ? Normal sinus rhythm Nonspecific ST abnormality Abnormal ECG When compared with ECG of 07-JUL-2022 21:49, No significant change was found ECHO Conclusions: - 1. Normal LV systolic function with at least grade 2 diastolic dysfunction? 2. Moderately dilated left atrium? 3. [id number]-sv-[id number] tricuspid regurgitation with moderately? ? ? elevated right ventricular systolic pressure ? 4. No gross pericardial effusion ? 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 Osteopenia 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 atrial fibrillation) Polymyalgia rheumatica Preop cardiovascular exam Pulmonary hypertension Pulmonary nodules Family History Family History Father Coronary artery disease FH: CVA (cerebrovascular accident) Mother Kidney failure Surgical History Surgical History (Reviewed 08/25/22 @ 11: by SPENCER Grimaldo) History of bilateral cataract extraction History of section History of cholecystectomy History of partial hysterectomy Social History Social History (Reviewed 08/25/22 @ 11: by SPENCER Grimaldo) Household Members: Spouse Housing: House Do you presently have visiting nurse or other home services: No Alcohol intake: never Patient Tobacco Use Status: Never used Tobacco e-Cigarette/Vaping Use: Never Used Second Hand Smoke Exposure: No Use of substances other than those prescribed or required for medical reasons: No Advance Directives: No Advance Directives Information Provided: Yes service: No Current occupational status: retired Cognitive needs: No Hearing needs: No Vision needs: Yes Meds Allergies Allergy/AdvReac Type Severity Reaction Status Date / Time No Known Allergies Allergy Verified 08/25/22 11:26 [No Known Allergies*] Exam Airway Mallampati Class: II TM Dist: >3cm Neck ROM: Full Loose/Missing/Broken Teeth: Yes and Lower Heart: rr Lungs: cta Assessment and Plan Final Anesthetic Review NPO: Yes ASA Class: II Final Preanesthetic Review: No Changes in Pt Med Stat Patient Risk: Intermediate Procedure Risk: Low Anesthetic Plan Anesthetic Plan: MAC: Disposition: Standard PACU
[2022-09-15 07:30] VITALS: BMI 25.0; BMI 25.4
[2022-09-15 07:57] VITALS: BP 150/49; PULSE 58; RESP 16; TEMP 36.1; O2SAT 97
[2022-09-15] MEDS: Lactated Ringers 1,000 ML 50 ML IVCONT (07:58)
[2022-09-15 08:54] VITALS: BP 108/38; PULSE 52; RESP 12; TEMP 36.6; O2SAT 99
--- NOTE | 2022-09-15 09:00 | PM.OP ---
Brief Operative Note Date of Service: 09/15/22 Pre-op diagnosis: Gastric ulcer Post-op diagnosis: other (Gastritis) Procedure: EGD with biopsies Surgeon: Luis Marks Anesthesia: MAC Was an Avionics Systems Engineer used for this Procedure?: No Estimated blood loss (mL): 2.0 Pathology: other (A. Gastric antrum) Condition: stable Disposition: PACU
[2022-09-15 09:09] VITALS: BP 133/57; PULSE 57; RESP 17; O2SAT 97
[2022-09-15 09:24] VITALS: BP 116/50; PULSE 58; RESP 18; TEMP 36.6; O2SAT 97
--- NOTE | 2022-09-15 09:36 | OP_ITS ---
SURGEON: Luis Marks MD INDICATIONS: The patient presents for evaluation of previous gastric ulcer and GI bleeding. Full consent was obtained from her for this, including risks of bleeding and perforation. PREOPERATIVE DIAGNOSIS: History of gastric ulcer and gastrointestinal bleeding. POSTOPERATIVE DIAGNOSIS: History of gastric ulcer and gastrointestinal bleeding, gastritis, hiatal hernia. PROCEDURE PERFORMED: Esophagogastroduodenoscopy with biopsies. ESTIMATED BLOOD LOSS: COMPLICATIONS: ANESTHESIA: Medication used: Monitored anesthesia care. ASSISTANTS: SPECIMENS: DESCRIPTION OF PROCEDURE: The patient was placed in the left lateral decubitus position. The Olympus video gastroscope was passed in the posterior oropharynx and upper esophagus under direct vision. The scope was passed slowly to the distal esophagus. The gastroesophageal junction appeared at 34 cm. There was no sign of any esophagitis nor Bella's esophagus. The scope entered into the stomach. There was a small hiatal hernia. The scope was advanced to the pylorus, and the duodenum was cannulated to the descending portion. The duodenum including the bulb appeared normal without mass or ulceration. The scope was withdrawn back to the stomach. The gastric antrum and body were notable for some friability of the mucosa, but no discrete ulcer. There was a minimal amount of some retained fluid and mucus, as well as a minimal amount of old food. However, the pyloric channel appeared patent without any sign of stricture. The scope was retroflexed visualizing the proximal stomach carefully, which appeared normal, without any sign of mass or ulceration. The scope was straightened. Biopsies were obtained from the gastric antrum. Again, the tissue was quite friable. The scope was withdrawn back to the esophagus. The esophageal mucosa appeared normal. The scope was withdrawn from the patient. She tolerated the procedure well and was returned to the recovery area in stable condition. IMPRESSION: 1. Gastritis. 2. Hiatal hernia. PLAN: The results of the biopsies will be checked. Her most recent blood count at the beginning in August had improved to 9.0. She has been advised to use iron supplements twice a day and to decrease the omeprazole 40 mg to just once a day. I shall add sucralfate 1 g b.i.d. given the ongoing friability of the gastric mucosa despite being on omeprazole. She will have followup blood counts and iron studies, and be seen in the office as well. At some point she may need a colonoscopy if the anemia persists. This has all been discussed with her . MD ESAU Figueroa/PAUL / [id number] CHEN
== END 2022-09-15 09:48 | disposition home or self-care (01) ==
PROVIDERS: PCP Internal Medicine; Visit Provider Internal Medicine
PROC: 0DJ08ZZ Inspection of Upper Intestinal Tract, Via Natural or Artificial Opening Endoscopic (ICD-10-PCS; CPT 43235; principal; 2022-09-15 08:30)
DX: K29.70 Gastritis, unspecified, without bleeding (principal); K44.9 Diaphragmatic hernia without obstruction or gangrene; D50.9 Iron deficiency anemia, unspecified; I48.0 Paroxysmal atrial fibrillation; I12.9 Hypertensive chronic kidney disease with stage 1 through stage 4 chronic kidney disease, or unspecified chronic kidney disease; N18.9 Chronic kidney disease, unspecified; Z87.19 Personal history of other diseases of the digestive system; Z79.01 Long term (current) use of 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; Z79.899 Other long term (current) drug therapy
CPT/HCPCS: 43239; 88305; 88342

== ENCOUNTER 2022-10-20 15:32 | Outpatient (REF) | payer MEDICARE, SELFPAY ==
[2022-10-20 15:53] LABS: MANUAL DIFF FLAG NO
[2022-10-20 16:12] LABS: Basophils Percent Auto 0.2 % (0-2); Eosinophils Absolute Auto 0.2 X10*3/uL (0.0-0.4); Eosinophils Percent Auto 1.8 % (0-4); Hematocrit 30.2 % (37.0-47.0); Hemoglobin 9.7 g/dl (12.0-16.0); Imm Gran Abs Auto 0.08 X10*3/uL (0.00-0.03); Lymphocytes Absolute Auto 1.7 X10*3/uL (1.2-4.9); Lymphocytes Percent Auto 19.8 % (20-40); Mean Corpuscular HGB Conc 32.1 g/dl (31.0-35.0); Mean Corpuscular Hemoglobin 27.3 pg (27.0-33.0); Mean Corpuscular Volume 85.1 fL (80.0-98.0); Monocytes Percent Auto 11.9 % (2-11); Neutrophils Absolute Auto 5.5 x10*3/uL (2.0-8.3); Neutrophils Percent Auto 65.3 % (45-73); Red Blood Count 3.55 X10*6/uL (4.20-5.50); Red Cell Distribution Width 18.4 % (11.0-16.0); White Blood Count 8.3 X10*3/uL (4.8-10.8)
[2022-10-20 16:13] LABS: Platelet Count 98 X10*3/uL (160-400)
[2022-10-20 16:46] LABS: Alanine Aminotransferase < 6 U/L (0-31); Albumin Level 3.4 g/dL (3.5-5.0); Alkaline Phosphatase 59 U/L (39-117); Aspartate Amino Transferase 10 U/L (5-31); Bilirubin Direct 0.2 mg/dL (0.0-0.5); Bilirubin Total 0.6 mg/dL (0.0-1.0); Iron 102 mcg/dL (30-160); Percent Iron Saturation 44 % (15-50); Total Iron Binding Capacity 231 mcg/dL (228-428); Total Protein 7.5 g/dL (6.5-8.0); Unsaturated Iron Binding 129 ug/dL
[2022-10-20 16:58] LABS: Ferritin 41 ng/mL (10-250)
[2022-10-20 17:13] LABS: Vitamin B12 843 pg/mL (200-900)
[2022-10-22 13:08] LABS: Immunoglobulin A 728 mg/dL (70-320)
[2022-10-22 13:14] LABS: Gliadin Deamidated IgA Ab 115.2 U/mL; Gliadin Deamidated IgG Ab 6.7 U/mL; Transglutaminase Ab IgG 3.2 U/mL
[2022-10-26 14:09] LABS: Endomysial IgA Antibody Negative (Negative)
== END 2022-10-20 15:33 | disposition home or self-care (01) ==
LOC: HO.LAB 15:32
PROVIDERS: PCP Internal Medicine; Visit Provider Internal Medicine
DX: D64.9 Anemia, unspecified (principal)
CPT/HCPCS: 36415; 80076; 82607; 82728; 82746; 82784; 83540; 85025; 86231; 86258; 86364

== ENCOUNTER 2022-12-15 13:16 | Day surgery (SDC) | payer MEDICARE, SELFPAY ==
[2022-12-15 15:14] VITALS: BP 186/52; PULSE 58; RESP 16; TEMP 36.2; O2SAT 97
--- NOTE | 2022-12-15 15:38 | P.CONAN_ITS ---
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) Chronic kidney disease, unspecified (Acute) Leg edema (Acute) Pulmonary hypertension (Acute) Essential hypertension (Acute) 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 atrial fibrillation) (Acute) Osteopenia (Acute) Polymyalgia rheumatica (Acute) Hypothyroidism (Acute) Hypertension (Acute) Past Medical History Medical History Chronic kidney disease, unspecified Essential hypertension Leg edema 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 Osteopenia 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 atrial fibrillation) Polymyalgia rheumatica Preop cardiovascular exam Pulmonary hypertension Pulmonary nodules Family History Family History Father Coronary artery disease FH: CVA (cerebrovascular accident) Mother Kidney failure Family history of problems with anesthesia: No Surgical History Surgical History History of bilateral cataract extraction History of section History of cholecystectomy History of partial hysterectomy History of Problems with Anesthesia: No Social History Social History Household Members: Spouse Housing: House Do you presently have visiting nurse or other home services: No Alcohol intake: never Patient Tobacco Use Status: Never used Tobacco e-Cigarette/Vaping Use: Never Used Second Hand Smoke Exposure: No Use of substances other than those prescribed or required for medical reasons: No Are you DNR?: No Advance Directives: No Advance Directives Information Provided: Yes service: No Current occupational status: retired Cognitive needs: No Hearing needs: No Vision needs: Yes Meds Allergies Allergy/AdvReac Type Severity Reaction Status Date / Time vitamin k Allergy Unknown Uncoded 12/14/22 08:54 Active Medications: Current Medications Sodium Biphosphate/Sodium Phosphate (Sodium Phosphate,Mohave-Dibasic 133 Ml Enema) 133 ml DE ONCE PRN PRN Reason: Poor Colonoscopy Prep Results Home Medications Medication Instructions Recorded Confirmed Last Taken Type apixaban 5 mg tablet (Eliquis) 1 tab PO BID 12/14/22 Unknown History Exam Exam Date and Time: December 15, 2022 1538 Height,Weight and Vital Signs: Last Vital Signs Temp 97.2 F 12/15/22 15:14 Pulse 58 12/15/22 15:14 Resp 16 12/15/22 15:14 BP 186/52 H 12/15/22 15:14 Pulse Ox 97 12/15/22 15:14 O2 Del Method 12/15/22 15:14 Airway Mallampati Class: II TM Dist: >3cm Neck ROM: Full Assessment and Plan Assessment Anesthesia Assessment: Anesthesia Plan Discussed and Chart Reviewed Final Anesthetic Review Family History of Problems with Anesthesia: No History of Problems with Anesthesia: No NPO: Yes ASA Class: III Final Preanesthetic Review: No Changes in Pt Med Stat, Meds/Allgs Chart Reviewed, Consent Obtained/Reviewed and Anes Risks/Benef Reviewed Patient Risk: Intermediate Procedure Risk: Low Anesthetic Plan Anesthetic Plan: GA and MAC: Disposition: Standard PACU
--- NOTE | 2022-12-15 16:12 | PM.OP ---
Brief Operative Note Date of Service: 12/15/22 Pre-op diagnosis: fox wt loss abnl celiac tests Post-op diagnosis: same Surgeon: Jacinto Parekh Anesthesia: MAC Was an Painting And Coating Worker used for this Procedure?: No Estimated blood loss (mL): 2 Pathology: other Condition: stable Disposition: PACU
[2022-12-15 16:17] VITALS: BP 120/50; PULSE 59; RESP 18; TEMP 36.3; O2SAT 98
[2022-12-15 16:32] VITALS: BP 125/47; PULSE 55; RESP 15; TEMP 36.4; O2SAT 99
--- NOTE | 2022-12-16 02:35 | OP_ITS ---
SURGEON: Jacinto Parekh MD INDICATIONS: 1. Iron-deficiency anemia. 2. Abnormal celiac antibody panel. 3. Weight loss. PREOPERATIVE DIAGNOSIS: POSTOPERATIVE DIAGNOSIS: PROCEDURE PERFORMED: Upper endoscopy with biopsy, colonoscopy to the terminal ileum with snare polypectomy. ESTIMATED BLOOD LOSS: COMPLICATIONS: ANESTHESIA: Monitored anesthesia care. ASSISTANTS: SPECIMENS: DESCRIPTION OF PROCEDURE: The procedure was performed on 12/15/2022. A history and physical performed. The risks and benefits of the procedure were explained to the patient. Informed consent was obtained. The patient was placed in the left lateral decubitus position. The Olympus video gastroscope was introduced into the esophagus, stomach, and duodenum. Examination was performed. The scope was removed. She was repositioned for colonoscopy. A digital rectal exam was performed and was found to be normal. The Olympus pediatric video colonoscope was introduced into the rectum and advanced to the cecum without difficulty. The cecum was identified by transillumination, palpation, and identification of ileocecal valve. Examination was performed. The scope was removed. She tolerated both procedures well, was returned to recovery in stable condition. FINDINGS: Upper endoscopy: Esophagus: The esophagus was normal. There was no esophagitis. Stomach: The stomach was slightly nodular in the antrum. No ulcer or lesion was identified. There were some flat polyps in the body and fundus consistent with fundic gland polyps. Biopsies were obtained from the antrum. Duodenum: The bulb and 2nd portion were normal. Biopsies were obtained to evaluate for celiac disease. Colonoscopy: The terminal ileum was briefly examined and appeared normal. In the cecum was a flat 7 mm polyp, which was removed with a snare and recovered via suction. No other polyps were identified. The quality of prep was good. Retroflexed examination showed some hypertrophic anal papillae and internal hemorrhoids. IMPRESSION: 1. Normal upper endoscopy. 2. Colon polyp. RECOMMENDATION: Follow up the biopsy results. MD DEEDEE Koo/RICKIL / [id number]
== END 2022-12-15 16:50 | disposition home or self-care (01) ==
PROVIDERS: PCP Internal Medicine; Visit Provider Internal Medicine Gastroenterology
PROC: (CPT 45385; principal; 2022-12-15 15:10)
DX: D50.9 Iron deficiency anemia, unspecified (principal); D12.0 Benign neoplasm of cecum; K64.8 Other hemorrhoids; K62.89 Other specified diseases of anus and rectum; R89.4 Abnormal immunological findings in specimens from other organs, systems and tissues; R63.4 Abnormal weight loss; Z68.24 Body mass index [BMI] 24.0-24.9, adult; K31.7 Polyp of stomach and duodenum; I48.0 Paroxysmal atrial fibrillation; I10 Essential (primary) hypertension; E78.5 Hyperlipidemia, unspecified; Z79.01 Long term (current) use of 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; Z79.899 Other long term (current) drug therapy; Z90.49 Acquired absence of other specified parts of digestive tract
CPT/HCPCS: 45385; 43239; 88305; 88342; J1100

== ENCOUNTER 2022-12-27 10:21 | Outpatient (REF) | payer MEDICARE, SELFPAY ==
[2022-12-27 10:38] LABS: MANUAL DIFF FLAG NO
[2022-12-27 12:13] LABS: Basophils Percent Auto 0.5 % (0-2); Eosinophils Absolute Auto 0.2 X10*3/uL (0.0-0.4); Eosinophils Percent Auto 2.5 % (0-4); Hematocrit 33.6 % (37.0-47.0); Hemoglobin 10.6 g/dl (12.0-16.0); Imm Gran Abs Auto 0.05 X10*3/uL (0.00-0.03); Imm Gran Pct Auto 0.7 % (0.0-0.4); Lymphocytes Absolute Auto 2.1 X10*3/uL (1.2-4.9); Lymphocytes Percent Auto 26.9 % (20-40); Mean Corpuscular HGB Conc 31.5 g/dl (31.0-35.0); Mean Corpuscular Hemoglobin 28.6 pg (27.0-33.0); Mean Corpuscular Volume 90.8 fL (80.0-98.0); Monocytes Absolute Auto 1.1 X10*3/uL (0.1-1.2); Monocytes Percent Auto 14.5 % (2-11); Neutrophils Absolute Auto 4.2 x10*3/uL (2.0-8.3); Neutrophils Percent Auto 54.9 % (45-73); Red Cell Distribution Width 14.6 % (11.0-16.0); White Blood Count 7.6 X10*3/uL (4.8-10.8)
[2022-12-27 12:14] LABS: Platelet Count 80 X10*3/uL (160-400)
[2022-12-27 12:58] LABS: Alanine Aminotransferase 8 U/L (0-31); Albumin Level 3.5 g/dL (3.5-5.0); Alkaline Phosphatase 72 U/L (39-117); Anion Gap 11 (12-20); Aspartate Amino Transferase 14 U/L (5-31); Bilirubin Total 0.6 mg/dL (0.0-1.0); Blood Urea Nitrogen 17 mg/dL (9-16); Calcium 8.7 mg/dL (8.4-10.2); Carbon Dioxide 25 mmol/L (22-29); Chloride 110 mmol/L (96-108); Cholesterol 158 mg/dL; Estimated Glomerular Filt Rate > 60; Glucose Fasting 77 mg/dL (60-99); HDL Cholesterol 37 mg/dL; LDL Cholesterol Calculated 105 mg/dl; Potassium 4.6 mmol/L (3.3-5.1); Sodium 141 mmol/L (135-145); Total Protein 7.1 g/dL (6.5-8.0); Triglycerides 81 mg/dL
[2022-12-27 13:19] LABS: Thyroid Stimulating Hormone 3.32 uIU/mL (0.32-4.0)
== END 2022-12-27 10:22 | disposition home or self-care (01) ==
LOC: HO.LAB 10:21
PROVIDERS: PCP Internal Medicine; Visit Provider Internal Medicine
DX: Z13.0 Encounter for screening for diseases of the blood and blood-forming organs and certain disorders involving the immune mechanism (principal); E03.9 Hypothyroidism, unspecified; I10 Essential (primary) hypertension; E78.5 Hyperlipidemia, unspecified
CPT/HCPCS: 36415; 80053; 80061; 84443; 85025

== ENCOUNTER 2023-01-07 11:20 | Outpatient (REF) | payer MEDICARE, SELFPAY ==
[2023-01-07 11:42] LABS: MANUAL DIFF FLAG NO
[2023-01-07 12:12] LABS: Basophils Percent Auto 0.4 % (0-2); Eosinophils Absolute Auto 0.2 X10*3/uL (0.0-0.4); Eosinophils Percent Auto 3.1 % (0-4); Hematocrit 32.6 % (37.0-47.0); Hemoglobin 10.7 g/dl (12.0-16.0); Imm Gran Abs Auto 0.04 X10*3/uL (0.00-0.03); Imm Gran Pct Auto 0.6 % (0.0-0.4); Lymphocytes Absolute Auto 1.7 X10*3/uL (1.2-4.9); Lymphocytes Percent Auto 24.5 % (20-40); Mean Corpuscular HGB Conc 32.8 g/dl (31.0-35.0); Mean Corpuscular Hemoglobin 29.5 pg (27.0-33.0); Mean Corpuscular Volume 89.8 fL (80.0-98.0); Monocytes Absolute Auto 0.9 X10*3/uL (0.1-1.2); Monocytes Percent Auto 13.2 % (2-11); Neutrophils Absolute Auto 4.1 x10*3/uL (2.0-8.3); Neutrophils Percent Auto 58.2 % (45-73); Red Blood Count 3.63 X10*6/uL (4.20-5.50); White Blood Count 7.1 X10*3/uL (4.8-10.8)
[2023-01-07 12:14] LABS: Platelet Count 80 X10*3/uL (160-400)
== END 2023-01-07 11:21 | disposition home or self-care (01) ==
LOC: HO.LAB 11:20
PROVIDERS: Visit Provider Nurse Practitioner Family
DX: D50.9 Iron deficiency anemia, unspecified (principal); I48.0 Paroxysmal atrial fibrillation; Z79.01 Long term (current) use of 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
CPT/HCPCS: 36415; 85025

== ENCOUNTER → 2023-02-07 11:03 | Outpatient (BNVA) | payer MEDICARE, SELFPAY | PROVIDERS: PCP Internal Medicine; Referring Provider Internal Medicine; Visit Provider Internal Medicine | DX: I48.0 Paroxysmal atrial fibrillation (principal); I27.20 Pulmonary hypertension, unspecified; I13.10 Hypertensive heart and chronic kidney disease without heart failure, with stage 1 through stage 4 chronic kidney disease, or unspecified chronic kidney disease; N18.9 Chronic kidney disease, unspecified; I51.89 Other ill-defined heart diseases; R60.0 Localized edema | CPT/HCPCS: 99212 ==

== ENCOUNTER 2023-02-28 12:23 | Outpatient (REF) | payer MEDICARE, SELFPAY ==
[2023-02-28 12:36] LABS: MANUAL DIFF FLAG NO
[2023-02-28 13:10] LABS: Basophils Percent Auto 0.4 % (0-2); Eosinophils Absolute Auto 0.2 X10*3/uL (0.0-0.4); Eosinophils Percent Auto 2.5 % (0-4); Hemoglobin 10.4 g/dl (12.0-16.0); Imm Gran Abs Auto 0.04 X10*3/uL (0.00-0.03); Imm Gran Pct Auto 0.5 % (0.0-0.4); Lymphocytes Percent Auto 25.5 % (20-40); Mean Corpuscular HGB Conc 32.5 g/dl (31.0-35.0); Mean Corpuscular Hemoglobin 29.2 pg (27.0-33.0); Mean Corpuscular Volume 89.9 fL (80.0-98.0); Monocytes Percent Auto 13.6 % (2-11); Neutrophils Absolute Auto 4.4 x10*3/uL (2.0-8.3); Neutrophils Percent Auto 57.5 % (45-73); Red Blood Count 3.56 X10*6/uL (4.20-5.50); White Blood Count 7.7 X10*3/uL (4.8-10.8)
[2023-02-28 13:11] LABS: Platelet Count 84 X10*3/uL (160-400)
[2023-02-28 13:46] LABS: Iron 57 mcg/dL (30-160); Percent Iron Saturation 24 % (15-50); Total Iron Binding Capacity 239 mcg/dL (228-428); Unsaturated Iron Binding 182 ug/dL
[2023-02-28 14:03] LABS: Ferritin 83 ng/mL (10-250)
== END 2023-02-28 12:24 | disposition home or self-care (01) ==
LOC: HO.LAB 12:23
PROVIDERS: PCP Internal Medicine; Visit Provider Internal Medicine
DX: D50.9 Iron deficiency anemia, unspecified (principal)
CPT/HCPCS: 36415; 82728; 83540; 85025

== ENCOUNTER 2023-03-14 11:04 | Outpatient (REF) | payer MEDICARE, SELFPAY ==
[2023-03-14 11:40] VITALS: BP 187/72; PULSE 57; RESP 16; TEMP 36.6; O2SAT 99
[2023-03-14 11:42] VITALS: BMI 24.6
== END 2023-03-14 11:05 | disposition home or self-care (01) ==
LOC: HO.MS 11:04
PROVIDERS: PCP Internal Medicine; Visit Provider Ophthalmology
PROC: (CPT 66821; principal; 2023-03-14 14:10)
DX: H26.492 Other secondary cataract, left eye (principal); I10 Essential (primary) hypertension
CPT/HCPCS: 66821

== ENCOUNTER 2023-03-28 12:12 | Outpatient (REF) | payer MEDICARE, SELFPAY ==
[2023-03-28 12:22] LABS: MANUAL DIFF FLAG NO
[2023-03-28 13:28] LABS: Basophils Percent Auto 0.3 % (0-2); Eosinophils Absolute Auto 0.2 X10*3/uL (0.0-0.4); Eosinophils Percent Auto 2.4 % (0-4); Hematocrit 32.1 % (37.0-47.0); Hemoglobin 10.4 g/dl (12.0-16.0); Imm Gran Abs Auto 0.07 X10*3/uL (0.00-0.03); Lymphocytes Absolute Auto 1.7 X10*3/uL (1.2-4.9); Lymphocytes Percent Auto 24.9 % (20-40); Mean Corpuscular HGB Conc 32.4 g/dl (31.0-35.0); Mean Corpuscular Hemoglobin 29.6 pg (27.0-33.0); Mean Corpuscular Volume 91.5 fL (80.0-98.0); Monocytes Absolute Auto 0.9 X10*3/uL (0.1-1.2); Monocytes Percent Auto 13.5 % (2-11); Neutrophils Absolute Auto 3.9 x10*3/uL (2.0-8.3); Neutrophils Percent Auto 57.9 % (45-73); Platelet Count 73 X10*3/uL (160-400); Red Blood Count 3.51 X10*6/uL (4.20-5.50); Red Cell Distribution Width 14.3 % (11.0-16.0); White Blood Count 6.8 X10*3/uL (4.8-10.8)
[2023-03-28 16:56] LABS: Appearance Urine Clear; Color Urine Yellow; Glucose Urine UA Negative (Negative); Leukocyte Esterase Urine Moderate (2+) (Negative); Nitrite Urine Negative (Negative); PH 6.5 (5.0-9.0); Specific Gravity - Urine 1.015 (1.005-1.025); UMIC TRIGGER UACC YES; Urine Blood Negative (Negative); Urine Ketones Negative (Negative); Urine Protein Negative (Neg-Trace)
[2023-03-28 17:09] LABS: Bacteria Urine Trace (None Seen); Hyaline Casts Urine 0-2 /LPF (0-2); RBC Urine 0-2 /HPF (0-2); Squamous Epithelial Cell Urine 0-2 /HPF (0-2); UACC Culture Trigger YES; WBC Urine 21-50 /HPF (0-5)
== END 2023-03-28 12:13 | disposition home or self-care (01) ==
LOC: HO.LAB 12:12
PROVIDERS: Nurse Practitioner Family; PCP Internal Medicine; Visit Provider Internal Medicine
DX: Z13.0 Encounter for screening for diseases of the blood and blood-forming organs and certain disorders involving the immune mechanism (principal); R70.0 Elevated erythrocyte sedimentation rate
CPT/HCPCS: 36415; 81001; 85025; 87086

== ENCOUNTER 2023-03-30 11:05 | Outpatient (REF) | payer MEDICARE, SELFPAY ==
--- NOTE | ~2023-03-30 | XR_ITS ---
EXAMINATION: XR CHEST CLINICAL INFORMATION: Hemoptysis COMPARISON: 07/07/2022 TECHNIQUE: 2 views of the chest were obtained. FINDINGS: No acute infiltrate. Lung rudolph are grossly comparable to previous. Some central calcifications are seen may be calcified nodes. The cardiac silhouette is felt to be comparable. The hilar regions do not appear pathologically enlarged. There is no effusion. XR/XR chest 2V IMPRESSION: No acute finding.
== END 2023-03-30 11:06 | disposition home or self-care (01) ==
LOC: HO.XRAY 11:05
PROVIDERS: PCP Internal Medicine; Visit Provider Internal Medicine
DX: R04.2 Hemoptysis (principal)
CPT/HCPCS: 71046

== ENCOUNTER 2023-06-16 11:41 | Outpatient (REF) | payer MEDICARE, SELFPAY ==
[2023-06-16 11:53] LABS: MANUAL DIFF FLAG NO
[2023-06-16 13:55] LABS: Basophils Percent Auto 0.3 % (0-2); Eosinophils Absolute Auto 0.2 X10*3/uL (0.0-0.4); Eosinophils Percent Auto 2.4 % (0-4); Hemoglobin 11.2 g/dl (12.0-16.0); Imm Gran Abs Auto 0.06 X10*3/uL (0.00-0.03); Imm Gran Pct Auto 0.9 % (0.0-0.4); Lymphocytes Absolute Auto 1.5 X10*3/uL (1.2-4.9); Lymphocytes Percent Auto 23.4 % (20-40); Mean Corpuscular HGB Conc 32.9 g/dl (31.0-35.0); Mean Corpuscular Hemoglobin 29.3 pg (27.0-33.0); Monocytes Absolute Auto 0.9 X10*3/uL (0.1-1.2); Neutrophils Absolute Auto 3.9 x10*3/uL (2.0-8.3); Red Blood Count 3.82 X10*6/uL (4.20-5.50); Red Cell Distribution Width 14.4 % (11.0-16.0); White Blood Count 6.6 X10*3/uL (4.8-10.8)
[2023-06-16 14:08] LABS: Platelet Count 63 X10*3/uL (160-400)
[2023-06-16 14:41] LABS: Iron 56 mcg/dL (30-160); Percent Iron Saturation 27 % (15-50); Total Iron Binding Capacity 208 mcg/dL (228-428); Unsaturated Iron Binding 152 ug/dL
[2023-06-16 14:50] LABS: Ferritin 148 ng/mL (10-250)
== END 2023-06-16 11:42 | disposition home or self-care (01) ==
LOC: HO.LAB 11:41
PROVIDERS: PCP Internal Medicine; Visit Provider Internal Medicine
DX: D50.0 Iron deficiency anemia secondary to blood loss (chronic) (principal)
CPT/HCPCS: 36415; 82728; 83540; 85025

== ENCOUNTER 2023-06-28 10:28 | Outpatient (REF) | payer MEDICARE, SELFPAY ==
[2023-06-28 12:17] LABS: Basophils Percent Auto 0.4 % (0-2); Imm Gran Abs Auto 0.07 X10*3/uL (0.00-0.03); MANUAL DIFF FLAG SCAN; SCAN SMEAR FLAG 1
[2023-06-28 12:18] LABS: Appearance Urine Clear; Color Urine Yellow; Glucose Urine UA Negative (Negative); Leukocyte Esterase Urine Moderate (2+) (Negative); Nitrite Urine Negative (Negative); PH 5.5 (5.0-9.0); UMIC TRIGGER UACC YES; Urine Blood Negative (Negative); Urine Ketones Negative (Negative); Urine Protein Trace mg/dL (Neg-Trace)
[2023-06-28 12:19] LABS: Eosinophils Absolute Auto 0.2 X10*3/uL (0.0-0.4); Eosinophils Percent Auto 2.4 % (0-4); Hematocrit 34.1 % (37.0-47.0); Hemoglobin 11.4 g/dl (12.0-16.0); Lymphocytes Absolute Auto 1.6 X10*3/uL (1.2-4.9); Lymphocytes Percent Auto 22.3 % (20-40); Mean Corpuscular HGB Conc 33.4 g/dl (31.0-35.0); Mean Corpuscular Hemoglobin 29.7 pg (27.0-33.0); Mean Corpuscular Volume 88.8 fL (80.0-98.0); Monocytes Absolute Auto 1.2 X10*3/uL (0.1-1.2); Monocytes Percent Auto 16.3 % (2-11); Neutrophils Absolute Auto 4.1 x10*3/uL (2.0-8.3); Neutrophils Percent Auto 57.6 % (45-73); PLT CLUMP 1; Red Blood Count 3.84 X10*6/uL (4.20-5.50); Red Cell Distribution Width 14.3 % (11.0-16.0)
[2023-06-28 12:22] LABS: Bacteria Urine 1+ (None Seen); Hyaline Casts Urine 0-2 /LPF (0-2); RBC Urine 0-2 /HPF (0-2); UACC Culture Trigger YES; WBC Urine >50 /HPF (0-5)
[2023-06-28 12:27] LABS: PLT ABN DIST 1
[2023-06-28 12:45] LABS: White Blood Count 7.1 X10*3/uL (4.8-10.8)
[2023-06-28 12:46] LABS: Platelet Count 65 X10*3/uL (160-400); SLIDE REVIEW VERIFIED
[2023-06-28 12:52] LABS: Alanine Aminotransferase 7 U/L (0-31); Albumin Level 3.6 g/dL (3.5-5.0); Alkaline Phosphatase 56 U/L (39-117); Anion Gap 11 (12-20); Aspartate Amino Transferase 13 U/L (5-31); Bilirubin Total 0.5 mg/dL (0.0-1.0); Blood Urea Nitrogen 19 mg/dL (9-16); Calcium 9.2 mg/dL (8.4-10.2); Carbon Dioxide 25 mmol/L (22-29); Chloride 109 mmol/L (96-108); Cholesterol 135 mg/dL (<200); Estimated Glomerular Filt Rate 55; Glucose Fasting 77 mg/dL (60-99); HDL Cholesterol 37 mg/dL (>40); LDL Cholesterol Calculated 79 mg/dL (<100); Potassium 4.2 mmol/L (3.3-5.1); Sodium 141 mmol/L (135-145); Total Protein 7.6 g/dL (6.5-8.0); Triglycerides 97 mg/dL (<150)
== END 2023-06-28 10:29 | disposition home or self-care (01) ==
LOC: HO.LAB 10:28
PROVIDERS: Nurse Practitioner Family; PCP Internal Medicine; Visit Provider Internal Medicine
DX: N28.9 Disorder of kidney and ureter, unspecified (principal); D64.9 Anemia, unspecified; E78.5 Hyperlipidemia, unspecified
CPT/HCPCS: 36415; 80053; 80061; 81001; 85025; 87086

== ENCOUNTER 2023-06-30 11:31 | Outpatient (AMB) | payer MEDICARE, SELFPAY ==
[2023-06-30 11:33] VITALS: BP 138/50; PULSE 53; O2SAT 99; BMI 24.4
--- NOTE | 2023-06-30 11:33 | MHC.PC.OV ---
Vital Signs 06/30/23 11:33 Height 4 ft 11 in Weight 121 lb BMI 24.4 BP 138/50 L Blood Pressure Location Lt brachial Position Sitting Pulse 53 Pulse Source Pulse Oximeter Pulse Oximetry (%) 99 Oxygen Delivery Method Room Air Intake Visit Reasons: 3mth f/u Sheep Sticker: Present Accompanied by: Spouse Allergies vitamin k Allergy (Uncoded 06/30/23 11:33) Unknown Medication List - Last Reconciled 06/30/23 by Jamshid John MD amlodipine 2.5 mg See Protocol PO DAILY apixaban (Eliquis) 5 mg PO BID 90 days atenolol 75 mg See Protocol PO BID 90 days benzonatate 100 mg PO TID PRN ferrous sulfate 325 mg PO BID levothyroxine 50 mcg PO DAILY omeprazole 40 mg PO BID@0630,1630 Tobacco use date assessed: 03/30/23 Fall risk assessment: No Falls in past year Last assessed Fall Risk: 06/30/23 Dental Screening Dental Screen Date: 06/30/23 Did you have a dental visit in the last 12 months?: Yes Did you have a dental problem in the last 6 months where you did not have access to dental care?: No Was dental information given to patient?: Patient has dentist HPI 3mth f/u HPI Details HTN bleeding ulcer and hypothyroidism; seeing gi bleeding has stopped [facility] Medical History Preop cardiovascular exam Pulmonary nodules 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 Chronic kidney disease, unspecified Leg edema Pulmonary hypertension Essential hypertension 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 Osteopenia Polymyalgia rheumatica Surgical History History of bilateral cataract extraction History of cholecystectomy History of partial hysterectomy History of section Family History Father Coronary artery disease FH: CVA (cerebrovascular accident) Mother Kidney failure Social History Household Members: Spouse Housing: House Do you presently have visiting nurse or other home services: No Alcohol intake: never Patient Tobacco Use Status: Never used Tobacco e-Cigarette/Vaping Use: Never Used Second Hand Smoke Exposure: No service: No Current occupational status: retired Cognitive needs: Yes Hearing needs: No Vision needs: Yes Questionnaire PHQ-9 Over the last 2 weeks, how often have you been bothered by any of the following problems? 1. Little interest or pleasure in doing things: not at all 2. Feeling down, depressed, or hopeless: not at all 3. Trouble falling or staying asleep, or sleeping too much: not at all 4. Feeling tired or having little energy: not at all 5. Poor appetite or overeating: not at all 6. Feeling bad about yourself - or that you are a failure or have let yourself or your family down: not at all 7. Trouble concentrating on things, such as reading the newspaper or watching television: not at all 8. Moving or speaking so slowly that other people could have noticed. Or the opposite - being so fidgety or restless that you have been moving around a lot more than usual: not at all 9. Thoughts that you would be better off or of hurting yourself in some way: not at all Total score: 0 Depression Screening Interpretation: Negative Source: Developed by Drs. Luis Krause, Carissa Ruvalcaba, Eric Fernandez and colleagues, with an educational kee from [employer]. Thrive Questionnaire Date Thrive assessed: 12/29/22 Currently or been in a relationship where the following occur: no concerns reported AUDIT C Alcohol Use Questionnaire (AUDIT-C) 1. How often do you have a drink containing alcohol?: Never Total Score: 0 Score Reviewed/Action Taken: Yes MARCI-7 AMB Questionnaire MARCI-7 Date MARCI - 7 assessed: 12/29/22 Source: Developed by Drs. Luis Krause, Carissa Ruvalcaba, Eric Fernandez and colleagues, with an educational kee from [employer]. Review of Systems Const Denies chills, Denies headache(s) and Denies weight loss ENT Denies headache(s) Card Denies chest pain, Denies syncope, Denies irregular heart rhythm and Denies dyspnea Resp Denies chest congestion, Denies cough and Denies dyspnea GI Denies abdominal pain, Denies change in stool character, Denies nausea and Denies vomiting Musc Denies deformity and Denies joint swelling Neuro Denies syncope and Denies headache(s) Physical exam (Primary Care) Vital Signs: Last Vital Signs Pulse 53 06/30/23 11:33 BP 138/50 L 06/30/23 11:33 Pulse Ox 99 06/30/23 11:33 Oxygen Delivery Method Room Air 06/30/23 11:33 BMI result Body Mass Index 24.4 Tobacco/Smoking Status: Tobacco use Status Tobacco use date assessed 03/30/23 06/30/23 11:41 Patient Tobacco Use Status Never used Tobacco 06/30/23 11:41 e-Cigarette/Vaping Use Never Used 06/30/23 11:41 PHQ-9: PHQ-9 Score PHQ-9: Total score 0 06/30/23 11:41 Depression Screening Interpretation: Negative Thrive Assessment: Date of Thrive Assessment Date Thrive assessed 12/29/22 06/30/23 11:41 Currently or been in a relationship where the following occur: no concerns reported Const General: cooperative, comfortable and no acute distress Resp Effort & Inspection: normal respiratory effort Auscultation: clear to auscultation bilaterally Percussion: percussion normal Cardio Jugular venous distension: no JVD Rate: regular rate Rhythm: regular rhythm GI Inspection: Yes normal to inspection Assessment and Plan Assessment & Plan (1) Gastric ulcer: Code(s): K25.9 - Gastric ulcer, unspecified as acute or chronic, without hemorrhage or perforation Plan: stable; f/u with gi (2) Essential hypertension: Code(s): I10 - Essential (primary) hypertension Plan: stable; same rx (3) Hypothyroidism: Code(s): E03.9 - Hypothyroidism, unspecified Plan: stable; same rx Orders: Orders Thyroid Stimulating Hormone Today E03.9 - Hypothyroidism, unspecified Coding Level of Care Code Est Pt Level 4 (78566) Diagnoses Gastric ulcer K25.9 Essential hypertension I10 Hypothyroidism E03.9
== END 2023-06-30 11:55 | disposition home or self-care (01) ==
PROVIDERS: PCP Internal Medicine; Visit Provider Internal Medicine
DX: K25.9 Gastric ulcer, unspecified as acute or chronic, without hemorrhage or perforation (principal); I10 Essential (primary) hypertension; E03.9 Hypothyroidism, unspecified
CPT/HCPCS: 99214

== ENCOUNTER 2023-09-20 10:15 | Outpatient (REF) | payer MEDICARE, SELFPAY | END 2023-09-20 10:16 | disposition home or self-care (01) | LOC: HO.LAB 10:15 | PROVIDERS: PCP Internal Medicine; Visit Provider Internal Medicine | DX: E03.9 Hypothyroidism, unspecified (principal) | CPT/HCPCS: 36415; 84443 ==

== ENCOUNTER 2023-10-19 16:13 | Outpatient (REF) | payer MEDICARE, SELFPAY ==
[2023-10-19 17:49] LABS: Eosinophils Absolute Auto 0.1 X10*3/uL (0.0-0.4); Hematocrit 37.4 % (37.0-47.0); SCAN SMEAR FLAG 1
[2023-10-19 17:50] LABS: Basophils Percent Auto 0.4 % (0-2); Hemoglobin 12.3 g/dl (12.0-16.0); Imm Gran Abs Auto 0.07 X10*3/uL (0.00-0.03); Imm Gran Pct Auto 1.3 % (0.0-0.4); Lymphocytes Absolute Auto 1.5 X10*3/uL (1.2-4.9); Lymphocytes Percent Auto 27.8 % (20-40); Mean Corpuscular HGB Conc 32.9 g/dl (31.0-35.0); Mean Corpuscular Hemoglobin 29.9 pg (27.0-33.0); Monocytes Absolute Auto 0.9 X10*3/uL (0.1-1.2); Monocytes Percent Auto 15.3 % (2-11); Neutrophils Percent Auto 53.2 % (45-73); Red Blood Count 4.11 X10*6/uL (4.20-5.50); Red Cell Distribution Width 13.3 % (11.0-16.0); White Blood Count 5.5 X10*3/uL (4.8-10.8)
[2023-10-19 17:55] LABS: Platelet Count 53 X10*3/uL (160-400)
[2023-10-19 17:56] LABS: MANUAL DIFF FLAG NO; PLT ABN DIST 1
[2023-10-19 18:21] LABS: Iron 61 mcg/dL (30-160); Percent Iron Saturation 27 % (15-50); Total Iron Binding Capacity 225 mcg/dL (228-428); Unsaturated Iron Binding 164 ug/dL
[2023-10-19 18:38] LABS: Ferritin 175 ng/mL (10-250)
== END 2023-10-19 16:14 | disposition home or self-care (01) ==
LOC: HO.LAB 16:13
PROVIDERS: PCP Internal Medicine; Visit Provider Internal Medicine
DX: D50.9 Iron deficiency anemia, unspecified (principal); K25.9 Gastric ulcer, unspecified as acute or chronic, without hemorrhage or perforation
CPT/HCPCS: 36415; 82728; 83540; 85025

== ENCOUNTER 2023-11-01 08:00 | Inpatient (IN) | payer MEDICARE, SELFPAY ==
[2023-11-01] VITALS (8 sets, daily range): BP systolic 169–196; BP diastolic 53–72; PULSE 59–64; RESP 13–18; TEMP 36.1–36.8; O2SAT 96–98; BMI 25.0; BMI 24.8
--- NOTE | ~2023-11-01 | CT_ITS ---
EXAMINATION: CT ANGIOGRAM OF THE CHEST WITH AND WITHOUT CONTRAST (CT PULMONARY ANGIOGRAM FOR PE) CLINICAL INFORMATION: Reason for Exam Hemoptysis, rule out PE COMPARISON: Previous chest x-ray most recent from earlier the same day and chest CTA June 2021 TECHNIQUE: Prior to contrast administration, noncontrast localization images were obtained. Subsequently, multidetector volumetric imaging was performed from the thoracic inlet to below the diaphragms following the administration of 65 mL Omnipaque 350 intravenous contrast. No contrast reaction reported Sagittal, coronal, and MIP oblique sagittal reformatted images were obtained on the CT workstation, uploaded to PACS, and reviewed. This CT examination was performed using dose optimization techniques as appropriate, variously including the following: *Automated exposure control *Adjustment of mA and/or kV according to patient size (this includes techniques or standardized protocols for targeted exams where dose is matched to indication/reason for exam; i.e. extremities or head) *Use of iterative reconstruction technique Total exam dose-length product 112 mGy-cm FINDINGS: QUALITY OF STUDY/CONTRAST BOLUS: Satisfactory. PULMONARY ARTERIES: No pulmonary emboli. THORACIC AORTA: No aneurysm. LUNG: Stable calcified right lower lobe nodule 4 mm axial image 281 series 7. Subsegmental atelectasis in the inferior segment.. Mild bilateral lower lobe bronchial wall thickening. PLEURA: No pleural effusion or pneumothorax. MEDIASTINUM: Upper normal heart size No pericardial effusion. Calcified mediastinal and bilateral hilar nodes. No enlarged lymph nodes.. No evidence of septal bowing or right heart strain. CORONARY ARTERY CALCIFICATION: Mild CHEST WALL/AXILLA: No axillary or internal mammary lymphadenopathy. OSSEOUS STRUCTURES: No acute or suspicious osseous abnormality. UPPER ABDOMEN: Unremarkable. No reflux of contrast into the hepatic veins to suggest elevated right heart pressures. CT/CT angio chest PE protocol IMPRESSION: No evidence of pulmonary embolism. Mild bilateral lower lobe bronchial wall thickening. Old granulomatous disease. VTE: negative
--- NOTE | ~2023-11-01 | XR_ITS ---
EXAMINATION: XR CHEST CLINICAL INFORMATION: Hemoptysis versus hematemesis COMPARISON: Chest x-ray March 30, 2023 TECHNIQUE: Frontal view of the chest was obtained. FINDINGS: Similar mild cardiac enlargement. The lungs are well aerated. There is no lobar consolidation. No pleural effusion or pneumothorax. Similar calcified mediastinal lymph nodes. Surgical clips in the right upper abdomen suggesting prior cholecystectomy. XR/XR chest 1V IMPRESSION: No acute pulmonary pathology.
--- NOTE | 2023-11-01 08:18 | ED.GENADULT ---
HPI - General Adult General Chief complaint: General Medical Stated complaint: Coughing up Blood Time Seen by Provider: 11/01/23 08:17 Source: patient and family (, Ranjan) Mode of arrival: ambulatory Limitations: no limitations History of Present Illness HPI narrative: 78-year-old female with history of hypertension, bleeding gastric ulcer presented with hemoptysis 08/07/2022, anemia, pericardial effusion, chronic kidney disease, pulmonary hypertension, PMR, atrial fibrillator-not on anticoagulation, pulmonary nodules who presents emergency department for evaluation of hemoptysis. Patient states this morning she woke up in tasted blood in her mouth. She states that she has had 2-3 episodes of coughing up blood. She states that she is coughed up approximately 1 tablespoon of bright red blood each time she has had hemoptysis. She states that her stools are always dark since she is on iron. She has not noted any bloody stools. She continues to take omeprazole 40 mg twice a day. She was seen in follow-up by Dr. Marks on 10/19/2023 who recommended that she continue with her current treatment for her gastric ulcers. According to Dr. Marks's note the patient had an endoscopy December 2022 which revealed healing of the previous gastric ulcer with negative H pylori biopsy of the stomach and duodenal biopsy negative for celiac disease. The patient denied fever, chills, rhinorrhea, sore throat. She states that she has had a dry cough over the past 3-4 days. She denied chest pain, shortness of breath, dyspnea on exertion. She has had some slight nausea with no vomiting. She denied diarrhea. She denied abdominal pain. She states she does have black stools but this is secondary to her iron. She denied bloody stools. Related Data Home Medications Medication Instructions Recorded Confirmed levothyroxine 50 mcg tablet 50 mcg PO DAILY@0630 11/01/23 11/01/23 Previous Rx's Medication Instructions Recorded atenolol 25 mg tablet 75 mg PO BID 90 days #540 tabs 02/14/23 amlodipine 2.5 mg tablet 2.5 mg PO DAILY #30 tabs 04/28/23 ferrous sulfate 325 mg (65 mg 325 mg PO BID #60 tabs 04/28/23 iron) tablet omeprazole 40 mg capsule,delayed 40 mg PO BID@0630,1630 #60 caps 09/27/23 release Allergies Allergy/AdvReac Type Severity Reaction Status Date / Time vitamin k Allergy Unknown Uncoded 11/01/23 08:11 Review of Systems Review of Systems: Yes all other systems are reviewed and are negative [facility] Past Medical History [facility] Narrative: Social history: She is . She denies tobacco, alcohol and drug use. 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 Osteopenia Polymyalgia rheumatica Surgical History History of bilateral cataract extraction History of cholecystectomy History of partial hysterectomy History of section Family History Family History Father Coronary artery disease FH: CVA (cerebrovascular accident) Mother Kidney failure Social History Social History Household Members: Spouse Housing: House Do you presently have visiting nurse or other home services: No Alcohol intake: never Patient Tobacco Use Status: Never used Tobacco e-Cigarette/Vaping Use: Never Used Second Hand Smoke Exposure: No Use of substances other than those prescribed or required for medical reasons: No Advance Directives: No Advance Directives Information Provided: Yes service: No Current occupational status: retired Cognitive needs: Yes Hearing needs: No Vision needs: Yes Physical Exam ED Vital Signs: Vital Signs - 24 hr 11/01/23 08:11 11/01/23 08:36 11/01/23 12:19 Temperature 98 F 98.2 F Pulse Rate 63 61 Pulse Rate [Left Apical] 64 Respiratory Rate 18 13 Blood Pressure 180/53 H 178/67 H Pulse Oximetry 98 98 Oxygen Delivery Method Room Air Room Air 11/01/23 14:29 Temperature Pulse Rate 61 Pulse Rate [Left Apical] Respiratory Rate 17 Blood Pressure 182/57 H Pulse Oximetry 98 Oxygen Delivery Method Room Air BMI result Body Mass Index 25.0 Vital signs were normal except for an elevated blood pressure of 180/53. Exam: General: Awake, alert in no distress Head: Normocephalic, atraumatic EENT: PERRL, Lids normal, sclera normal, conjunctiva normal, nose normal , ears normal, throat without erythema or exudates Neck: Supple, no adenopathy, no trachea midline or C-spine tenderness Lung: breath sounds symmetric, no wheezing, rales or rhonchi Chest: symmetric movement, nontender Heart: regular rate and rhythm, normal S1, S2 no murmurs or rubs Abdomen: soft, non-tender, nondistended, normal bowel sounds Rectal: Patient does have erythema of the skin in her buttocks area with no skin breakdown, rectal tone was normal, stool was dark consistent with her taking iron, the stool was Hemoccult positive Back: no vertebral tenderness, no CVAT Extremities: no deformities, moves all extremities symmetrically Neuro: Awake, alert, oriented, normal speech, cranial nerves intact, moves all extremities symmetrically Psych: Pleasant, cooperative Medications Administered Discontinued Medications Generic Name Dose Route Start Last Admin Trade Name Freq PRN Reason Stop Dose Admin Iohexol 100 ml 11/01/23 13:47 11/01/23 13:48 Iohexol 350 Mg/Ml 100 Ml Infus..Btl IV 11/01/23 13:48 65 ml ONCE ONE Administration Pantoprazole Sodium 80 mg 11/01/23 09:09 11/01/23 09:18 Pantoprazole Sodium 40 Mg/10 Ml Vial IVPUSH 11/01/23 09:10 80 mg ONCE ONE Administration Medical Decision Making Medical Decision Making MDM Narrative: 78-year-old female with history of hypertension, bleeding gastric ulcer which presented as hemoptysis 08/07/2022, microcytic anemia, anemia, pericardial effusion, chronic kidney disease, pulmonary hypertension, PMR, atrial fibrillator-not on anticoagulation, pulmonary nodules who presents emergency department for evaluation of hemoptysis times 3 episodes this morning. She quantifies the amount of blood at 1 tablespoon of bright red blood each time she is coughed up blood. She was otherwise asymptomatic. Vital signs did reveal an elevated blood pressure. Patient had no abdominal tenderness, stool was dark but she is on iron, stool was Hemoccult positive Following evaluation was ordered: CBC, CMP, lipase, PT/INR, PTT, troponin, COVID-19, influenza, type and screen, chest x-ray one view, EKG. Patient will be placed on a cardiac and O2 saturation monitor. Patient was treated with the following: Pantoprazole 80 mg IV 15:46 My interpretation patient's laboratory evaluation is as follows: Anemia with an H&H of 12 and 35.6 compared to 12.3 and 37.4 on 10/19/2023. Patient's BUN is elevated 24 with a normal creatinine. Patient's COVID-19 and influenza were negative. Chest x-ray was unremarkable. CT pulmonary angiogram PE protocol revealed no clear source for the patient's hemoptysis. At this time I think that the patient's hemoptysis is actually hematemesis is probably caused by recurrence of her gastric ulcer. I did discuss this with the patient's GI doctor Dr. Marks. He was more concerned about the patient's decreasing platelet count and the fact that the patient has not seen a faculty administrator yet. Given the potential for the patient to have a serious upper GI bleed, I will discuss admission with the covering hospitalist. Differential Diagnosis Differential Diagnoses: The differential diagnosis associated with the presentation includes Differential diagnosis includes but is not limited to upper GI bleed, hematemesis, hemoptysis, anemia Admission/Observation Consideration of admission/observation: Escalation of care including admission/observation considered Lab Data MDM Lab Attestation statement: I reviewed the patient's lab results. 11/01/23 16:09 11/01/23 09:07 Labs: Lab Results 11/01/23 11/01/23 11/01/23 Range/Units 09:07 09:31 16:09 WBC 6.3 (4.8-10.8) X10*3/uL RBC 4.01 L (4.20-5.50) X10*6/uL Hgb 12.0 12.6 (12.0-16.0) g/dl Hct 35.6 L 37.7 (37.0-47.0) % MCV 88.8 (80.0-98.0) fL MCH 29.9 (27.0-33.0) pg MCHC 33.7 (31.0-35.0) g/dl RDW 13.2 (11.0-16.0) % Plt Count 43 L (160-400) X10*3/uL MPV TNP Immature Gran % (Auto) 1.1 H (0.0-0.4) % Neut % (Auto) 66.0 (45-73) % Lymph % (Auto) 17.6 L (20-40) % [place] % (Auto) 13.7 H (2-11) % Eos % (Auto) 1.4 (0-4) % Baso % (Auto) 0.2 (0-2) % Lymph # (Auto) 1.1 L (1.2-4.9) X10*3/uL [place] # (Auto) 0.9 (0.1-1.2) X10*3/uL Eos # (Auto) 0.1 (0.0-0.4) X10*3/uL Baso # (Auto) 0.0 (0.0-0.2) X10*3/uL Abs Immat Gran (auto) 0.07 H (0.00-0.03) X10*3/uL Absolute Neuts (auto) 4.1 (2.0-8.3) x10*3/uL Absolute Nucleated RBC 0.000 (0.0-0.012) X10*3/uL Nucleated RBC % (auto) 0.0 (0.0-0.2) /100WBC PT 12.5 (11.1-13.3) SEC INR 1.0 (0.9-1.1) APTT 30.3 (26.0-36.4) SEC Sodium 141 (135-145) mmol/L Potassium 4.5 (3.3-5.1) mmol/L Chloride 108 (96-108) mmol/L Carbon Dioxide 26 (22-29) mmol/L Anion Gap 12 (12-20) BUN 24 H (9-16) mg/dL Creatinine 0.98 (0.5-1.4) mg/dL Estim Creat Clear Calc 36.1 Estimated GFR 55 Random Glucose 91 (60-115) mg/dL Calcium 9.1 (8.4-10.2) mg/dL Total Bilirubin 0.5 (0.0-1.0) mg/dL AST 16 (5-31) U/L ALT 9 (0-31) U/L Alkaline Phosphatase 52 (39-117) U/L Troponin I High Sens < 2.7 (<3.5-17.0) ng/L Total Protein 7.8 (6.5-8.0) g/dL Albumin 3.6 (3.5-5.0) g/dL Lipase 56 (8-78) U/L Stool Occult Blood POSITIVE (NEGATIVE) COVID-19 ([place]) Negative (Negative) COVID-19 Clin Com See Note Influenza Type A ([place]) Negative (Negative) Influenza Type B ([place]) Negative (Negative) Influenza A & B Note See Note Blood Type A Negative Antibody Screen NEGATIVE Independent Interpretation I performed an independent interpretation of an: EKG Interpretation: My interpretation patient's 12 EKG done at 09:20 hours is as follows: Normal sinus rhythm with a rate of 66, normal CA interval, QRS duration QTC interval, no ST segment elevation, no ST segment depression, flat T-waves lead 3 and AVF, no PACs, no PVCs Radiology Impression Discussion of test interpretation with radiology: I have reviewed the radiologist's reading. Radiologist Impression: XR chest 1V IMPRESSION: No acute pulmonary pathology. Dictated By: Abhi Chavira MD CT angio chest PE protocol IMPRESSION: No evidence of pulmonary embolism. Mild bilateral lower lobe bronchial wall thickening. Old granulomatous disease. VTE: negative Dictated By: Cinthia Sanchez MD Independent Historian Clinical information obtained from an independent historian. History obtained from or confirmed by: Spouse Critical Care Time Critical Care Time Critical Care Time: Yes Total Critical Care Time: 45 Attestation: Critical Care: The patient was critically ill with a high probability of imminent or life threatening deterioration. I spent greater than 30 minutes of discontinuous time evaluating the patient,delivering critical care at the bedside, discussing and evaluating pertinent data with consultants. Critical care time does not include time spent performing separately billable procedures or teaching. Total time spent performing critical care was 45 minutes. Discharge Plan Discharge Clinical Impression: Hemoptysis, Anemia Patient Disposition: Admitted As Inpatient
--- NOTE | 2023-11-01 08:41 | PC.NURSE ---
patient a&ox3, lungs clear, rt leg 1+ edema noted, pt states she coughed up bright red blood and states she has a history of a gastric ulcer she though was healed. cardiac monitor technician applied-nsr, vss, pt awaiting provider, will continue to monitor.
--- NOTE | 2023-11-01 08:53 | ECG_ITS ---
Test Reason : page Blood Pressure : / mmHG Vent. Rate : 066 BPM Atrial Rate : 066 BPM P-R Int : 146 ms QRS Dur : 072 ms QT Int : 408 ms P-R-T Axes : 093 060 068 degrees QTc Int : 427 ms Normal sinus rhythm Nonspecific ST abnormality Abnormal ECG When compared with ECG of 08-JUL-2022 20:05, No significant change was found Referred By: Raza Babin Electronically Signed By:John Mueller
--- NOTE | 2023-11-01 09:10 | PHA.MEDREC ---
Pharmacy Consult ? Medication Reconciliation Pharmacy has completed the medication reconciliation. List brought in by patient, which matches claim history
--- NOTE | 2023-11-01 09:10 | PC.NURSE ---
iv inserted, labs drawn, nasal swabs performed
[2023-11-01 09:14] LABS: MANUAL DIFF FLAG NO
[2023-11-01] MEDS: Pantoprazole Sodium 40 MG/10 ML VIAL 80 MG IVPUSH (09:18)
[2023-11-01 09:21] LABS: Prothrombin Time 12.5 SEC (11.1-13.3)
[2023-11-01 09:23] LABS: Basophils Percent Auto 0.2 % (0-2); Eosinophils Absolute Auto 0.1 X10*3/uL (0.0-0.4); Eosinophils Percent Auto 1.4 % (0-4); Hematocrit 35.6 % (37.0-47.0); Imm Gran Abs Auto 0.07 X10*3/uL (0.00-0.03); Imm Gran Pct Auto 1.1 % (0.0-0.4); Lymphocytes Absolute Auto 1.1 X10*3/uL (1.2-4.9); Lymphocytes Percent Auto 17.6 % (20-40); Mean Corpuscular HGB Conc 33.7 g/dl (31.0-35.0); Mean Corpuscular Hemoglobin 29.9 pg (27.0-33.0); Mean Corpuscular Volume 88.8 fL (80.0-98.0); Monocytes Absolute Auto 0.9 X10*3/uL (0.1-1.2); Monocytes Percent Auto 13.7 % (2-11); Neutrophils Absolute Auto 4.1 x10*3/uL (2.0-8.3); Partial Thromboplastin Time 30.3 SEC (26.0-36.4); Platelet Count 43 X10*3/uL (160-400); Red Blood Count 4.01 X10*6/uL (4.20-5.50); Red Cell Distribution Width 13.2 % (11.0-16.0); White Blood Count 6.3 X10*3/uL (4.8-10.8)
--- NOTE | 2023-11-01 09:35 | PC.NURSE ---
this nurse assisted provider with rectal exam, pt medicated per order, ekg performed by tech.
[2023-11-01 09:38] LABS: Alanine Aminotransferase 9 U/L (0-31); Albumin Level 3.6 g/dL (3.5-5.0); Alkaline Phosphatase 52 U/L (39-117); Anion Gap 12 (12-20); Aspartate Amino Transferase 16 U/L (5-31); Bilirubin Total 0.5 mg/dL (0.0-1.0); Blood Urea Nitrogen 24 mg/dL (9-16); Calcium 9.1 mg/dL (8.4-10.2); Carbon Dioxide 26 mmol/L (22-29); Chloride 108 mmol/L (96-108); Creatinine Clr Calc Pharmacy 36.1; Estimated Glomerular Filt Rate 55; Glucose Random 91 mg/dL (60-115); Lipase 56 U/L (8-78); Potassium 4.5 mmol/L (3.3-5.1); Sodium 141 mmol/L (135-145); Total Protein 7.8 g/dL (6.5-8.0)
[2023-11-01 09:39] LABS: OBS Int Ctl Valid YES; OBS1 POSITIVE (NEGATIVE)
[2023-11-01 09:41] LABS: Troponin-I High Sensitivity < 2.7 ng/L (<3.5-17.0)
[2023-11-01 09:43] LABS: IDNOW Serial# 08D9AD1C
[2023-11-01 09:44] LABS: COVID-19 Test Negative (Negative)
[2023-11-01 10:20] LABS: IDNOW Serial# 152EDE1D; Influenza A Negative (Negative); Influenza B2 Negative (Negative)
--- NOTE | 2023-11-01 12:31 | PC.NURSE ---
pt BP elevated. pt sts she normally takes amlodipine but did not take her medications this morning. BP charted in worklist and provider aware.
[2023-11-01] MEDS: iohexoL 350 MG/ML 100 ML INFUS..BTL IV (13:48)
[2023-11-01 16:25] LABS: Hematocrit 37.7 % (37.0-47.0); Hemoglobin 12.6 g/dl (12.0-16.0)
--- NOTE | 2023-11-01 16:50 | PM.IMHP ---
History of Present Illness Date of Service: 11/01/23 Chief Complaint: Hemoptysis 78-year-old female with history of hypertension, bleeding gastric ulcer presented with hemoptysis 08/07/2022, anemia, pericardial effusion, chronic kidney disease, pulmonary hypertension, PMR, atrial fibrillator-not on anticoagulation, pulmonary nodules who presents emergency department for evaluation of hemoptysis. Patient states this morning she woke up in tasted blood in her mouth. She states that she has had 2-3 episodes of coughing up blood. She states that she is coughed up approximately 1 tablespoon of bright red blood each time she has had hemoptysis. She states that her stools are always dark since she is on iron. She has not noted any bloody stools. She continues to take omeprazole 40 mg twice a day. She was seen in follow-up by Dr. Marks on 10/19/2023 who recommended that she continue with her current treatment for her gastric ulcers. According to Dr. Marks's note the patient had an endoscopy December 2022 which revealed healing of the previous gastric ulcer with negative H pylori biopsy of the stomach and duodenal biopsy negative for celiac disease. The patient denied fever, chills, rhinorrhea, sore throat. She states that she has had a dry cough over the past 3-4 days. She denied chest pain, shortness of breath, dyspnea on exertion. She has had some slight nausea with no vomiting. She denied diarrhea. She denied abdominal pain. She states she does have black stools but this is secondary to her iron. She denied bloody stools. 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 Osteopenia Polymyalgia rheumatica Family History Father Coronary artery disease FH: CVA (cerebrovascular accident) Mother Kidney failure Surgical History History of bilateral cataract extraction History of cholecystectomy History of partial hysterectomy History of section Social History Household Members: Spouse Housing: House Do you presently have visiting nurse or other home services: No Alcohol intake: never Patient Tobacco Use Status: Never used Tobacco e-Cigarette/Vaping Use: Never Used Second Hand Smoke Exposure: No Use of substances other than those prescribed or required for medical reasons: No Advance Directives: No Advance Directives Information Provided: Yes service: No Current occupational status: retired Cognitive needs: Yes Hearing needs: No Vision needs: Yes Meds Allergies Allergy/AdvReac Type Severity Reaction Status Date / Time vitamin k Allergy Unknown Uncoded 11/01/23 08:11 Active Medications: Current Medications Acetaminophen (Acetaminophen 325 Mg Tablet) 650 mg PO Q6H PRN PRN Reason: Pain, Mild (Pain Scale 1-3) Amlodipine Besylate (Amlodipine Besylate 2.5 Mg Tablet) 2.5 mg PO DAILY [facility]; Protocol Atenolol (Atenolol 25 Mg Tablet) 75 mg PO BID [facility]; Protocol Levothyroxine Sodium (Levothyroxine Sodium 50 Mcg Tablet) 50 mcg PO DAILY@0630 [facility] Pantoprazole Sodium (Pantoprazole Sodium 40 Mg/10 Ml Vial) 40 mg IVPUSH BID ONE Stop: 11/01/23 16:49 Sodium Chloride (0.9 % Sodium Chloride Flush 3 Ml Syringe) 3 [facility] Medications Medication Instructions Recorded Confirmed Last Taken Type levothyroxine 50 mcg tablet 50 mcg PO DAILY@0630 11/01/23 11/01/23 Unknown History Physical Exam Vital Signs and Narrative: Vital Signs: Last Vital Signs Temp 98.2 F 11/01/23 12:19 Pulse 61 11/01/23 14:29 Resp 17 11/01/23 14:29 BP 182/57 H 11/01/23 14:29 Pulse Ox 98 11/01/23 14:29 O2 Del Method Room Air 11/01/23 14:29 BMI result Body Mass Index 25.0 Const: Other: Awake alert no acute distress Resp: Other: Clear to auscultation bilaterally no rales rhonchi or wheezes Cardio: Other: No S4; positive S1-S2; no S3 murmurs rubs or gallops GI: Other: Soft nontender nondistended normoactive bowel sounds x4 quadrants Skin: Other: No petechiae noted Neuro: Other: Cranial nerves 2-12 grossly intact as tested. Motor is 5/5 all extremities. Sensation is intact. Gait not observed Extrem: Other: No edema bilaterally Results Labs 11/01/23 16:09 11/01/23 09:07 Labs: Laboratory Results - last 24 hr 11/01/23 11/01/23 09:07 09:31 MCV 88.8 MCH 29.9 MCHC 33.7 RDW 13.2 Plt Count 43 L MPV TNP Immature Gran % (Auto) 1.1 H Neut % (Auto) 66.0 Lymph % (Auto) 17.6 L [place] % (Auto) 13.7 H Eos % (Auto) 1.4 Baso % (Auto) 0.2 Lymph # (Auto) 1.1 L [place] # (Auto) 0.9 Eos # (Auto) 0.1 Baso # (Auto) 0.0 Abs Immat Gran (auto) 0.07 H Absolute Neuts (auto) 4.1 Absolute Nucleated RBC 0.000 Nucleated RBC % (auto) 0.0 PT 12.5 INR 1.0 APTT 30.3 Anion Gap 12 Estim Creat Clear Calc 36.1 Estimated GFR 55 Random Glucose 91 Calcium 9.1 Total Bilirubin 0.5 AST 16 ALT 9 Alkaline Phosphatase 52 Total Protein 7.8 Albumin 3.6 Lipase 56 Stool Occult Blood POSITIVE COVID-19 ([place]) Negative COVID-19 Clin Com See Note Influenza Type A ([place]) Negative Influenza Type B ([place]) Negative Influenza A & B Note See Note Blood Type A Negative Antibody Screen NEGATIVE Imaging Radiologist's Impressions: Impressions Chest X-Ray 11/01/23 10:00 IMPRESSION: No acute pulmonary pathology. Chest CTA 11/01/23 13:46 IMPRESSION: No evidence of pulmonary embolism. Mild bilateral lower lobe bronchial wall thickening. Old granulomatous disease. VTE: negative Assessment and Plan (1) Hemoptysis: Status: Acute (2) Thrombocytopenia: Status: Acute (3) Anemia: Qualifiers: Anemia type: unspecified type Qualified Code(s): D64.9 - Anemia, unspecified Status: Acute (4) 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 atrial fibrillation): Status: Acute Plan 78-year-old female with a history of hypertension and bleeding gastric ulcer presents to the emergency room with hemoptysis x2 or 3 episodes. She states she has had this in the past and has been scoped multiple times for the same. This presentation however she is [place] [address]. She will be admitted for workup of both presenting complaints 1. Hemoptysis likely secondary to UGIB -GI source; CT chest failed to demonstrate any pulmonary abnormalities -IV Protonix q.12 hours -NPO after midnight -GI consult in a.m. 2. Thrombocytopenia -platelets have slowly been trending down over the last 1-1.5 years; was scheduled for Hematology early November -follow daily CBCs -hematology consult in a.m. 3. Paroxysmal atrial fibrillation -examined and normal sinus rhythm; EKG verifies -no anticoagulation given history of GI bleed Full code Pneumatics Patient will require 2 midnights going forward for IV PPI and specialty consults investigate thrombocytopenia an upper GI bleed. This can not be achieved a lesser acute setting Quality Stroke Does the patient have a stroke diagnosis?: No VTE Prior VTE?: No VTE Risk Level:: Medical - moderate - high VTE Device Contraindication: N/A - Device Ordered VTE Drug Contraindication: Treatment Not Indicated
[2023-11-01] MEDS: amLODIPine Besylate 2.5 MG TABLET PO (17:06)
[2023-11-01] MEDS: Pantoprazole Sodium 40 MG/10 ML VIAL IVPUSH (17:06)
--- NOTE | 2023-11-01 17:22 | PC.NURSE ---
pt medicated per dec. vital signs updated in worklist. admit orders in. awaiting bed assignment. pt resting quietly on stretcher in no apparent distress. at bedside. awaiting meal tray. call chamberlain within reach. rr even/unlabored. plan of care ongoing.
--- NOTE | 2023-11-01 19:21 | PC.NURSE ---
Assumed care of pt. Pt lying on stretcher, at bedside. no acute conmplaints at this time. Pending admit availability.
[2023-11-01] MEDS: atenoloL 25 MG TABLET 75 MG PO (21:16)
[2023-11-01] MEDS: 0.9 % Sodium Chloride Flush 3 ML SYRINGE IVFLUSH (21:16)
[2023-11-02 03:03] VITALS: BP 145/65; PULSE 55; RESP 16; TEMP 36.1; O2SAT 98
[2023-11-02] MEDS: Levothyroxine Sodium 50 MCG TABLET PO (05:42)
[2023-11-02 06:08] LABS: MANUAL DIFF FLAG NO
[2023-11-02 06:29] LABS: Alanine Aminotransferase 8 U/L (0-31); Albumin Level 3.4 g/dL (3.5-5.0); Alkaline Phosphatase 49 U/L (39-117); Anion Gap 15 (12-20); Aspartate Amino Transferase 12 U/L (5-31); Bilirubin Total 0.6 mg/dL (0.0-1.0); Blood Urea Nitrogen 20 mg/dL (9-16); Calcium 8.9 mg/dL (8.4-10.2); Carbon Dioxide 25 mmol/L (22-29); Chloride 104 mmol/L (96-108); Creatinine Clr Calc Pharmacy 34.9; Estimated Glomerular Filt Rate 53; Glucose Random 79 mg/dL (60-115); Potassium 3.8 mmol/L (3.3-5.1); Sodium 140 mmol/L (135-145); Total Protein 7.2 g/dL (6.5-8.0)
[2023-11-02 06:39] LABS: Basophils Percent Auto 0.4 % (0-2); Eosinophils Absolute Auto 0.1 X10*3/uL (0.0-0.4); Eosinophils Percent Auto 1.4 % (0-4); Hematocrit 35.6 % (37.0-47.0); Hemoglobin 11.8 g/dl (12.0-16.0); Imm Gran Abs Auto 0.08 X10*3/uL (0.00-0.03); Imm Gran Pct Auto 1.1 % (0.0-0.4); Lymphocytes Absolute Auto 1.5 X10*3/uL (1.2-4.9); Lymphocytes Percent Auto 21.5 % (20-40); Mean Corpuscular HGB Conc 33.1 g/dl (31.0-35.0); Mean Corpuscular Hemoglobin 29.9 pg (27.0-33.0); Mean Corpuscular Volume 90.1 fL (80.0-98.0); Monocytes Absolute Auto 1.2 X10*3/uL (0.1-1.2); Monocytes Percent Auto 17.2 % (2-11); Neutrophils Absolute Auto 4.2 x10*3/uL (2.0-8.3); Neutrophils Percent Auto 58.4 % (45-73); Platelet Count 42 X10*3/uL (160-400); Red Blood Count 3.95 X10*6/uL (4.20-5.50); Red Cell Distribution Width 13.1 % (11.0-16.0); White Blood Count 7.2 X10*3/uL (4.8-10.8)
[2023-11-02 07:17] VITALS: BP 169/71; PULSE 56; RESP 16; TEMP 36.1; O2SAT 96
[2023-11-02] MEDS: atenoloL 25 MG TABLET 75 MG PO (07:43)
[2023-11-02] MEDS: amLODIPine Besylate 2.5 MG TABLET PO (07:44)
[2023-11-02] MEDS: 0.9 % Sodium Chloride Flush 3 ML SYRINGE IVFLUSH (07:44)
[2023-11-02 08:49] LABS: Lactate Dehydrogenase 146 U/L (122-220)
--- NOTE | 2023-11-02 08:58 | PM.EVENT ---
Event Note Date of Service: 11/02/23 Event Note: GI consult dictated No signs or symptoms of GI bleeding. Hematocrit stable with no further hemoptysis Hematology evaluation is pending Rec: Continue ppi for history of gastric ulcer. Recent EGD/colonoscopy 12/30 reviewed. No need for EGD at this time. Diet advanced. Time Spent With Patient Time: Total time managing care of this patient today ____ minutes.
--- NOTE | 2023-11-02 11:29 | PM.HEMONCCN ---
Subjective - Subjective Chief complaint: Hemoptysis Patient: new to practice Consult date: 11/02/23 Primary Care Provider: Jamshid John MD HPI - Consult Narrative Reason for consult: Chronic thrombocytopenia Narrative: Sumi Hamilton is a 78 year old female with past medical history significant for atrial fibrillation, chronic kidney disease, peptic ulcer disease with severe anemia in 2021 who presented with a couple of episodes of hemoptysis yesterday. She says that she coughed up some blood yesterday and she presented to emergency department because she was worried that she could become extremely anemic similar to her previous admission in 2021. She was not told of thrombocytopenia in the past. She had only 1 episode of anemia in 2021 when she developed upper GI bleeding. Subsequent endoscopy in December 2022 revealed healing of prior gastric ulcer. She has had no recent changes to her medications, use of antibiotics, no fever or chills. She had significant weight loss in 2021 but she has gradually gained some of it back. At this time she feels well and wants to go. She has had further episodes of hemoptysis Review of Systems - Constitutional Reports as per HPI, Denies fatigue, Denies lack of energy - Cardiovascular Reports no additional cardiovascular complaints, Denies chest pain - Respiratory Reports no additional respiratory complaints, Denies cough - Gastrointestinal Reports no additional gastrointestinal complaints, Denies abdominal pain PMFSH Medical History: Medical History (Last Reviewed 11/01/23 @ 16:51 by Terrance Tucker DO) Chronic kidney disease, unspecified Essential hypertension Leg edema longterm current use of anticoagulant longterm systemic steroid user Osteopenia 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 atrial fibrillation) Polymyalgia rheumatica Preop cardiovascular exam Pulmonary hypertension Pulmonary nodules Family History: Family History (Last Reviewed 11/01/23 @ 16:51 by Terrance Tucker DO) Father Coronary artery disease FH: CVA (cerebrovascular accident) Mother Kidney failure Surgical History: Surgical History (Last Reviewed 11/01/23 @ 16:51 by Terrance Tucker DO) History of bilateral cataract extraction History of section History of cholecystectomy History of partial hysterectomy Social History: Social History (Last Reviewed 11/01/23 @ 16:51 by Terrance Tucker DO) Living Situation History: Household Members: Spouse Housing: House Do you presently have visiting nurse or other home services: No Alcohol History Details: 1. How often do you have a drink containing alcohol?: a. Never AUDIT-C Alcohol total score: 0 Tobacco History: Patient Tobacco Use Status: Never used Tobacco e-Cigarette/Vaping Use: Never Used Second Hand Smoke Exposure: No Substance Use History: Use of substances other than those prescribed or required for medical reasons: No Domestic Abuse History: Have you been hit, kicked, punched, or otherwise hurt by someone within the past year? If so, by whom?: No Do you feel safe in your current relationship?: Yes Is there a partner from a previous relationship who is making you feel unsafe now?: No Are you made to feel afraid or neglected: No Advance Directives: Advance Directives: No Advance Directives Information Provided: Yes Homicidal Assessment: Do you have thoughts of harming others: None Do you have a plan to hurt others: No Plan Nutrition Assessment: Recently lost weight without trying: No How much weight loss: Not applicable Eating poorly because of decreased appetite: No Nutrition screen score: 0 Nutrition Risks: No Nutritional Risk Patient : No : No Poor oral hygiene: No Occupation Assessmet: service: No Current occupational status: retired Home Medications and Allergies Current Medications: Current Medications Acetaminophen (Acetaminophen 325 Mg Tablet) 650 mg PO Q6H PRN PRN Reason: Pain, Mild (Pain Scale 1-3) Amlodipine Besylate (Amlodipine Besylate 2.5 Mg Tablet) 2.5 mg PO DAILY [facility]; Protocol Last Admin: 11/02/23 07:44 Dose: 2.5 mg Atenolol (Atenolol 25 Mg Tablet) 75 mg PO BID [facility]; Protocol Last Admin: 11/02/23 07:43 Dose: 75 mg Levothyroxine Sodium (Levothyroxine Sodium 50 Mcg Tablet) 50 mcg PO DAILY@0600 [facility] Last Admin: 11/02/23 05:42 Dose: 50 mcg Sodium Chloride (0.9 % Sodium Chloride Flush 3 Ml Syringe) 3 ml IVFLUSH PSYCHIATRIC Last Admin: 11/02/23 07:44 Dose: 3 ml Home Medications Medication Instructions Recorded Confirmed Type levothyroxine 50 mcg tablet 50 mcg PO DAILY@0630 11/01/23 11/01/23 History Allergies Allergy/AdvReac Type Severity Reaction Status Date / Time vitamin k Allergy Unknown Uncoded 11/01/23 08:11 Physical Exam Vital signs: Vital Signs Temp 97.0 F 11/02/23 07:17 Pulse 56 11/02/23 07:17 Resp 16 11/02/23 07:17 BP 169/71 H 11/02/23 07:17 Pulse Ox 96 11/02/23 07:17 O2 Del Method Room Air 11/02/23 07:17 Intake & Output 11/01/23 11/02/23 11/02/23 18:59 06:59 18:59 Intake Total 120 / 120 Balance 120 / 120 Intake: Intake, Oral Amount 120 / 120 Other: Number of Unmeasured Voids 1 Urine Bathroom Last Bowel Movement 11/01/23 Weight 56.245 kg 55.8 kg [place] Weight in Grams 53480 Weight 55.8 kg - Constitutional Present: no acute distress, average body habitus - Routine HEENT Exam Head: Present: normal inspection Eye: Present: EOMI - Routine Neck Exam Present: supple. Absent: lymphadenopathy - Routine Respiratory Exam Present: CTAB. Absent: accessory muscle use - Routine Cardiovascular Exam Cardiovascular: Present: S1, S2 - Routine Abdominal Exam Present: soft - Routine Skin Exam Present: intact - Routine Neurological Exam Present: alert, oriented X3 Hem/Onc Consult Result - Labs CBC & Chem 7: 11/02/23 05:39 11/02/23 05:39 Labs: Short CBC 11/01/23 11/02/23 Range/Units 16:09 05:39 WBC 7.2 (4.8-10.8) X10*3/uL Hgb 12.6 11.8 L (12.0-16.0) g/dl Hct 37.7 35.6 L (37.0-47.0) % Plt Count 42 L (160-400) X10*3/uL BMP 11/02/23 05:39 Sodium 140 Potassium 3.8 Chloride 104 Carbon Dioxide 25 BUN 20 H Creatinine 1.01 Calcium 8.9 Liver Function 11/02/23 Range/Units 05:39 Total Bilirubin 0.6 (0.0-1.0) mg/dL AST 12 (5-31) U/L ALT 8 (0-31) U/L Alkaline Phosphatase 49 (39-117) U/L Albumin 3.4 L (3.5-5.0) g/dL Assessment and Plan Patient Active problem list reviewed?: Yes (1) Thrombocytopenia Status: Chronic Assessment and plan: 1. This is a 78-year-old woman with chronic thrombocytopenia dating back to almost 2014. Her platelet counts have been above 100 K until 2021. Since July 2022 they have gradually declined and currently are about 40 K. apart from an episode of iron deficiency anemia related to GI bleeding, she has had normal hemoglobin and WBC count. She has a history of polymyalgia rheumatica. Vitamin B12 and folate levels were normal previously, no evidence of monoclonal spike previously. She does not have any significant constitutional symptoms. No evidence of coagulopathy or worsening kidney disease. Unlikely for this to be related to DIC or myelophthisic process. A CT abdomen/pelvis in 2020 did not show hepatosplenomegaly. Underlying primary bone marrow disorder such as lymphoma, myelodysplastic syndrome is a possibility. Autoimmune thrombocytopenia is another possibility. Thrombocytopenia is not the cause of her hemoptysis. Further workup such as bone marrow biopsy if necessary can be performed as outpatient. I thank you for this consultation. - Time Spent With Patient Time Spent with Patient (in minutes): 20
--- NOTE | 2023-11-02 13:32 | P.DS_ITS ---
DS: Providers Provider Date of Service: 11/02/23 Date of admission: 11/01/23 16:45 Primary care physician: Jamshid John MD Consults: 11/01/23 16:48 Consult to Gastroenterology Routine Consulting Provider: Luis Marks Reason for consultation: GIB Has provider been notified: No Consult to Hematology / Oncology Routine Consulting Provider: Lacy Noriega Reason for consultation: Thrombocytopenia Has provider been notified: No DS: Diagnosis Discharge Diagnosis (1) Thrombocytopenia: Status: Chronic DS: Summary Hospital Course Hospital Course: 78-year-old female with history of hypertension, bleeding gastric ulcer presented with hemoptysis 08/07/2022, anemia, pericardial effusion, chronic kidney disease, pulmonary hypertension, PMR, atrial fibrillator-not on anticoagulation, pulmonary nodules who presents emergency department for evaluation of hemoptysis. Patient states this morning she woke up in tasted blood in her mouth. She states that she has had 2-3 episodes of coughing up blood. She states that she is coughed up approximately 1 tablespoon of bright red blood each time she has had hemoptysis. She states that her stools are always dark since she is on iron. She has not noted any bloody stools. She continues to take omeprazole 40 mg twice a day. She was seen in follow-up by Dr. Marks on 10/19/2023 who recommended that she continue with her current treatment for her gastric ulcers. According to Dr. Marks's note the patient had an endoscopy December 2022 which revealed healing of the previous gastric ulcer with negative H pylori biopsy of the stomach and duodenal biopsy negative for celiac disease. The patient denied fever, chills, rhinorrhea, sore throat. She states that she has had a dry cough over the past 3-4 days. She denied chest pain, shortness of breath, dyspnea on exertion. She has had some slight nausea with no vomiting. She denied diarrhea. She denied abdominal pain. She states she does have black stools but this is secondary to her iron. She denied bloody stools. Hospital course Patient admitted to the general medical floor overnight and kept NPO pending GI eval. Seen by GI who felt repeat EGD was not necessary as 1 was done within the last 6 months. She was seen in consultation by Hematology who felt she could be followed up as an outpatient. At this time she is medically acceptable to be discharged home on current medications Time Attestation Discharge coordination time: Greater than 30 minutes Quality: Safe Use of Opioids Does Pt have an Active Cancer Diagnosis on the Problem List?: No Quality: Stroke Does the patient have a stroke diagnosis?: No Physical Exam Vital Signs: Vital Signs: Last Vital Signs Temp 97.0 F 11/02/23 07:17 Pulse 56 11/02/23 07:17 Resp 16 11/02/23 07:17 BP 169/71 H 11/02/23 07:17 Pulse Ox 96 11/02/23 07:17 O2 Del Method Room Air 11/02/23 07:17 BMI result Body Mass Index 24.8 Const: Other: Awake alert no acute distress Resp: Other: Clear to auscultation bilaterally no rales rhonchi or wheezes Cardio: Other: No S4; positive S1-S2; no S3 murmurs rubs or gallops GI: Other: Soft nontender nondistended normoactive bowel sounds x4 quadrants Skin: Other: No petechiae noted Neuro: Other: Cranial nerves 2-12 grossly intact as tested. Motor is 5/5 all extremities. Sensation is intact. Gait not observed Extrem: Other: No edema bilaterally DS: Data Data Completed and Pending Completed studies during hospitalization [Text1]: Procedures Excision of Stomach, Pylorus, Via Natural or Artificial Opening Endoscopic, Diagnostic (07/07/22) Transfusion of Nonautologous Red Blood Cells into Peripheral Vein, Percutaneous Approach (07/07/22) Labs on day of discharge: Laboratory Results - last 24 hr 11/01/23 11/02/23 16:09 05:39 WBC 7.2 RBC 3.95 L Hgb 12.6 11.8 L Hct 37.7 35.6 L MCV 90.1 MCH 29.9 MCHC 33.1 RDW 13.1 Plt Count 42 L MPV Not Reportable Immature Gran % (Auto) 1.1 H Neut % (Auto) 58.4 Lymph % (Auto) 21.5 [place] % (Auto) 17.2 H Eos % (Auto) 1.4 Baso % (Auto) 0.4 Lymph # (Auto) 1.5 [place] # (Auto) 1.2 Eos # (Auto) 0.1 Baso # (Auto) 0.0 Abs Immat Gran (auto) 0.08 H Absolute Neuts (auto) 4.2 Absolute Nucleated RBC 0.000 Nucleated RBC % (auto) 0.0 Sodium 140 Potassium 3.8 Chloride 104 Carbon Dioxide 25 Anion Gap 15 BUN 20 H Creatinine 1.01 Estim Creat Clear Calc 34.9 Estimated GFR 53 Random Glucose 79 Calcium 8.9 Total Bilirubin 0.6 AST 12 ALT 8 Alkaline Phosphatase 49 Lactate Dehydrogenase 146 Total Protein 7.2 Albumin 3.4 L Discharge Plan Discharge Anticipated Discharge Date/Time: 11/02/23 13:28 Patient Disposition: Home, Self-Care Discharge Diagnosis: Thrombocytopenia Referrals: Jamshid John MD [Primary Care Provider] - 1 Week Discharge Medications: Continued atenolol 25 mg tablet 75 mg PO BID 90 Days Qty: 540 3RF Protocol: Hold for SBP/HR < HOLD for SBP < : 90 HOLD for HR < : 60 ferrous sulfate 325 mg (65 mg iron) tablet 325 mg PO BID Qty: 60 6RF amlodipine 2.5 mg tablet 2.5 mg PO DAILY Qty: 30 8RF Protocol: Hold for SBP< HOLD for SBP < : 90 omeprazole 40 mg capsule,delayed release(DR/EC) 40 mg PO BID@0630,1630 Qty: 60 7RF levothyroxine 50 mcg tablet 50 mcg PO DAILY@0630 Discharge Orders: Discharge Order (Routine); Ordered 11/02/23 Ordered By: Terrance Tucker Diet: Advance to usual diet Activity on Discharge: As tolerated Stand Alone Forms: Patient Portal Discharge page Care Plan Goals: Resume all pre-hospital medications Health Concerns: Follow-up with hematology as scheduled Plan of Treatment: Follow-up with your PCP next available Assessment: See discharge summary
--- NOTE | 2023-11-02 13:49 | MHC.CM.PN ---
IMM delivered. Patient is from home with . Ambulates with a cane for long distances. Independent w/ ADL's. No services. Does have a w/c in the home, but doesn't use. PCP Jamshid John No HCP. CM provided education and offered assistance. Patient prefers to complete with PCP. DP: Patient is medically cleared for dc home self care. to transport.
[2023-11-02 13:55] LABS: Folate 8.2 ng/mL (> or = 4.0); Vitamin B12 801 pg/mL (200-900)
--- NOTE | 2023-11-03 01:44 | CONS_ITS ---
DATE OF SERVICE: 11/02/2023 REFERRING PHYSICIAN: Dr. Tucker REASON FOR CONSULTATION: Hematemesis. HISTORY OF PRESENT ILLNESS: Patient is a pleasant 78-year-old woman who was admitted to the hospital after presenting to the emergency room on November 01 with hemoptysis. She woke up in the morning on the day of admission with a taste of blood in her mouth and spit up 2 to 3 episodes where she coughed up blood. She specifically denies any vomiting. She has had dark stools from iron, but no genevieve melena. She states the blood was small amount. She has had no shortness of breath. She has a history of gastric ulcer and underwent upper endoscopy and colonoscopy in December of last year because of an iron deficiency anemia, abnormal celiac antibody panel, and weight loss. Findings at that time included a normal esophagus, a nodular antrum, and flat gastric polyps as well as a normal duodenum. She did have a small polyp in the colon. Pathology showed no evidence of celiac disease and no H pylori. The colon polyp was a tubular adenoma. Since that time, she has been maintained on a proton pump inhibitor. She has had no epigastric pain and denies any reflux. Evaluation in the emergency department included lab work showing a hematocrit of 35.6, which was stable overnight. She had thrombocytopenia with a platelet count of 43. Hematology consultation has been requested. Since admission, there has been no reported GI bleeding. Stool occult blood testing was positive with dark stool and some redness of the buttocks skin. PAST MEDICAL HISTORY: 1. Gastric ulcer. 2. Colon polyps. 3. Atrial fibrillation. 4. Hypertension. 5. Hyperlipidemia. 6. Iron-deficiency anemia. CURRENT MEDICATIONS: Her current medication list is reviewed in the chart. ALLERGIES: VITAMIN K. FAMILY HISTORY: This is reviewed with the patient and is noncontributory. SOCIAL HISTORY: There is no current tobacco, alcohol, or substance abuse. REVIEW OF SYSTEMS: SKIN: No pruritus. HEENT: Negative. CARDIOPULMONARY: No shortness of breath or chest pain. GASTROINTESTINAL: As above. GENITOURINARY: Negative. NEUROPSYCHIATRIC: Negative. PHYSICAL EXAMINATION: GENERAL: Reveals a pleasant female, lying comfortably in bed. VITAL SIGNS: Reviewed in electronic medical record and are stable. SKIN: Anicteric. HEENT: Shows no scleral icterus. NECK: Without lymphadenopathy or thyromegaly. LUNGS: Clear. HEART: Shows regular rate and rhythm. S1, S2. No murmur. ABDOMEN: Soft without focal masses or tenderness. Bowel sounds are present. No organomegaly is noted. EXTREMITIES: Without edema. IMPRESSION: 1. Hemoptysis. 2. Anemia with Hemoccult-positive stools. At this time, she shows no signs of GI bleeding. I have not recommended endoscopy at this time since she has undergone both upper endoscopy and colonoscopy within the past year. She is scheduled for inpatient consultation for her thrombocytopenia and I would recommend advancing her diet and discharging when stable. She should continue her proton pump inhibitor. Thanks for asking me to see her. I will follow her in the hospital with you. MD DEEDEE Koo/PAUL / [phone]
[2023-11-05 09:59] LABS: IgA 554 mg/dL (70-320); IgG 1813 mg/dL (600-1540); IgM 286 mg/dL (50-300)
== END 2023-11-02 15:57 | disposition home or self-care (01) | DRG 812 ==
LOC: HO.ED 15:58 → HO.EDOVER 19:14 → HO.S3 19:23
PROVIDERS: Internal Medicine; Admitting Provider Hospitalist; Emergency Provider Emergency Medicine Emergency Medical Services; PCP Internal Medicine; Visit Provider Hospitalist
DX: D64.9 Anemia, unspecified (principal); R04.2 Hemoptysis; D69.6 Thrombocytopenia, unspecified; M35.3 Polymyalgia rheumatica; I48.0 Paroxysmal atrial fibrillation; N18.9 Chronic kidney disease, unspecified; D63.1 Anemia in chronic kidney disease; Z87.11 Personal history of peptic ulcer disease; Z79.52 Long term (current) use of systemic steroids; Z79.890 Hormone replacement therapy; Z79.899 Other long term (current) drug therapy
CPT/HCPCS: 36415; 71045; 71275; 80053; 82272; 82607; 82746; 82784; 83615; 83690; 84484; 85014; 85018; 85025; 85610; 85730; 86334; 86850; 86900; 86901; 87502; 87635; 93005; 99221; 99285; C9113; Q9967

== ENCOUNTER → 2023-11-01 08:22 | Outpatient (BNV) | payer MEDICARE, SELFPAY | PROVIDERS: Emergency Provider Emergency Medicine Emergency Medical Services; PCP Internal Medicine; Visit Provider Hospitalist | DX: I48.0 Paroxysmal atrial fibrillation (principal); D69.6 Thrombocytopenia, unspecified; R04.2 Hemoptysis; D64.9 Anemia, unspecified | CPT/HCPCS: 99223; 99239 ==

== ENCOUNTER → 2023-11-01 08:53 | Outpatient (BNV) | payer MEDICARE, SELFPAY | PROVIDERS: Emergency Provider Emergency Medicine Emergency Medical Services; PCP Internal Medicine; Visit Provider Internal Medicine Cardiovascular Disease | DX: R94.31 Abnormal electrocardiogram [ECG] [EKG] (principal) | CPT/HCPCS: 93010 ==

== ENCOUNTER → 2023-11-01 16:45 | Outpatient (BNV) | payer MEDICARE, SELFPAY | PROVIDERS: Admitting Provider Hospitalist; Emergency Provider Emergency Medicine Emergency Medical Services; PCP Internal Medicine; Visit Provider Internal Medicine | DX: D69.6 Thrombocytopenia, unspecified (principal) | CPT/HCPCS: 99221 ==

== ENCOUNTER 2023-11-06 05:00 | Emergency (ER) | payer MEDICARE, SELFPAY ==
--- NOTE | 2023-11-06 | ECG_ITS ---
Test Reason : WEACKNESS Blood Pressure : / mmHG Vent. Rate : 065 BPM Atrial Rate : 065 BPM P-R Int : 160 ms QRS Dur : 086 ms QT Int : 406 ms P-R-T Axes : 076 047 029 degrees QTc Int : 422 ms Normal sinus rhythm Normal ECG When compared with ECG of 01-NOV-2023 09:20, No significant change was found Referred By: Generic ED Physician Electronically Signed By:John Mueller
[2023-11-06 05:07] VITALS: BP 132/50; PULSE 60; O2SAT 96; BMI 25.9
[2023-11-06 05:13] VITALS: BP 165/50; PULSE 65; RESP 17; TEMP 36.8; O2SAT 94
[2023-11-06 05:39] LABS: Basophils Percent Auto 0.5 % (0-2); Eosinophils Absolute Auto 0.1 X10*3/uL (0.0-0.4); Eosinophils Percent Auto 1.4 % (0-4); Hematocrit 34.4 % (37.0-47.0); Hemoglobin 11.5 g/dl (12.0-16.0); Imm Gran Abs Auto 0.14 X10*3/uL (0.00-0.03); Imm Gran Pct Auto 2.2 % (0.0-0.4); Lymphocytes Absolute Auto 0.9 X10*3/uL (1.2-4.9); MANUAL DIFF FLAG SCAN; Mean Corpuscular HGB Conc 33.4 g/dl (31.0-35.0); Mean Corpuscular Hemoglobin 29.4 pg (27.0-33.0); Monocytes Absolute Auto 1.6 X10*3/uL (0.1-1.2); Neutrophils Absolute Auto 3.6 x10*3/uL (2.0-8.3); Neutrophils Percent Auto 56.9 % (45-73); Red Blood Count 3.91 X10*6/uL (4.20-5.50); Red Cell Distribution Width 12.9 % (11.0-16.0); SCAN SMEAR FLAG 1; White Blood Count 6.4 X10*3/uL (4.8-10.8)
[2023-11-06 05:40] LABS: Platelet Count 21 X10*3/uL (160-400)
[2023-11-06 05:51] LABS: Alanine Aminotransferase 10 U/L (0-31); Albumin Level 3.4 g/dL (3.5-5.0); Alkaline Phosphatase 61 U/L (39-117); Anion Gap 13 (12-20); Aspartate Amino Transferase 16 U/L (5-31); Bilirubin Direct 0.3 mg/dL (0.0-0.5); Bilirubin Total 0.7 mg/dL (0.0-1.0); Blood Urea Nitrogen 18 mg/dL (9-16); Calcium 8.7 mg/dL (8.4-10.2); Carbon Dioxide 22 mmol/L (22-29); Chloride 104 mmol/L (96-108); Creatinine Clr Calc Pharmacy 31.8; Estimated Glomerular Filt Rate 47; Glucose Random 94 mg/dL (60-115); Sodium 135 mmol/L (135-145); Total Protein 7.3 g/dL (6.5-8.0)
--- NOTE | 2023-11-06 05:59 | ED.GENADULT ---
HPI - General Adult General Chief complaint: General Medical Stated complaint: blood in stool/generalized weakness Time Seen by Provider: 11/06/23 05:59 History of Present Illness HPI narrative: 78-year-old female with history of hypertension, bleeding gastric ulcer presented with hemoptysis 08/07/2022, anemia, pericardial effusion, chronic kidney disease, pulmonary hypertension, PMR, atrial fibrillator-not on anticoagulation, pulmonary nodules who presents emergency department for evaluation abdominal pain relieved by bowel movement, family then noted drops of blood on the bathroom carpet. was concerned about possible GI bleed and brought the patient to the emergency department for evaluation. Patient was recently admitted on 11/01/2023 for small volume hemoptysis and rule out GI bleed and progressive thrombocytopenia. During the hospitalization the patient's H&H did not change in GI felt that endoscopy was not needed. Patient had progressive decrease in her platelet count and hematology consult by Dr. Noriega on 11/02/2023 noted the following as possible differential: Underlying primary bone marrow disorder such as lymphoma, myelodysplastic syndrome is a possibility. Autoimmune thrombocytopenia is another possibility . Patient states that since being discharged from the hospital she has had occasional episodes of feeling lightheaded and dizzy. She states that she continues to have black stools but this is secondary to taking iron. She did not notice blood in the stool and does not believe that the bowel movement that you had today was bloody. Related Data Home Medications Medication Instructions Recorded Confirmed levothyroxine 50 mcg tablet 50 mcg PO DAILY@0630 11/01/23 11/01/23 Previous Rx's Medication Instructions Recorded atenolol 25 mg tablet 75 mg PO BID 90 days #540 tabs 02/14/23 ferrous sulfate 325 mg (65 mg 325 mg PO BID #60 tabs 04/28/23 iron) tablet omeprazole 40 mg capsule,delayed 40 mg PO BID@0630,1630 #60 caps 09/27/23 release amlodipine 2.5 mg tablet 2.5 mg PO DAILY #30 tabs 11/02/23 prednisone 20 mg tablet 40 mg (2 x 20 mg) PO DAILY 30 days 11/06/23 #60 tabs Allergies Allergy/AdvReac Type Severity Reaction Status Date / Time vitamin k Allergy Unknown Uncoded 11/01/23 08:11 Review of Systems Review of Systems: Yes all other systems are reviewed and are negative PMFSH Past Medical History Medical History Preop cardiovascular exam Pulmonary nodules 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 Chronic kidney disease, unspecified Leg edema Pulmonary hypertension Essential hypertension 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 atrial fibrillation) 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 Osteopenia Polymyalgia rheumatica Surgical History History of bilateral cataract extraction History of cholecystectomy History of partial hysterectomy History of section Family History Family History Father Coronary artery disease FH: CVA (cerebrovascular accident) Mother Kidney failure Social History Social History Household Members: Spouse Housing: House Do you presently have visiting nurse or other home services: No Alcohol intake: never Patient Tobacco Use Status: Never used Tobacco e-Cigarette/Vaping Use: Never Used Second Hand Smoke Exposure: No Advance Directives: No Advance Directives Information Provided: No service: No Current occupational status: retired Cognitive needs: Yes Hearing needs: No Vision needs: Yes Physical Exam ED Vital Signs: Vital Signs - 24 hr 11/06/23 05:13 Temperature 98.2 F Pulse Rate 65 Respiratory Rate 17 Blood Pressure 165/50 H Pulse Oximetry 94 Oxygen Delivery Method Room Air BMI result Body Mass Index 25.9 Vital signs revealed an elevated blood pressure of 165/50 Exam: General: Awake, alert in no distress Head: Normocephalic, atraumatic EENT: PERRL, Lids normal, sclera normal, conjunctiva normal, nose normal , ears normal, throat without erythema or exudates Neck: Supple, no adenopathy, no trachea midline or C-spine tenderness Lung: breath sounds symmetric, no wheezing, rales or rhonchi Chest: symmetric movement, nontender Heart: regular rate and rhythm, normal S1, S2 no murmurs or rubs Abdomen: soft, non-tender, nondistended, normal bowel sounds Rectal: Dark stool, Hemoccult negative Back: no vertebral tenderness, no CVAT Extremities: no deformities, moves all extremities symmetrically Neuro: Awake, alert, oriented, normal speech, cranial nerves intact, moves all extremities symmetrically Psych: Pleasant, cooperative Medical Decision Making Medical Decision Making [facility] Narrative: 78-year-old female with history of hypertension, bleeding gastric ulcer presented with hemoptysis 08/07/2022, anemia, pericardial effusion, chronic kidney disease, pulmonary hypertension, PMR, atrial fibrillator-not on anticoagulation, pulmonary nodules who presents emergency department for evaluation abdominal pain relieved by bowel movement, family then noted drops of blood on the bathroom carpet. Vital signs did reveal an elevated blood pressure otherwise unremarkable. Abdominal exam revealed no tenderness. Rectal exam revealed dark stools secondary to taking iron, stool was Hemoccult negative. Differential diagnosis includes but is not limited to upper GI bleed, lower GI bleed, hemorrhoid bleed, polyp bleed. Thrombocytopenia differential includes but is not limited to lymphoma, myelodysplasia syndrome, autoimmune thrombocytopenia. Following evaluation was ordered: CBC, BMP, liver panel, occult blood, EKG Patient was treated with the following: Prednisone 40 mg orally 07:23 My interpretation patient's laboratory evaluation is as follows: WBC normal 6400. Anemia with an H&H of 11 and 34-baseline. Low platelet count 96067, decreased from 43,000 on 11/02/2023. BUN and creatinine were normal. LFTs were normal. Occult stool test was negative. Given the fact that the patient's H&H is her baseline I do not think that she has a significant lower GI bleed. I did discuss the patient's progressive thrombocytopenia with her shredder/granulator operator, Dr. Noriega over tiger text. She recommended starting the patient on prednisone 40 mg once a day and continuing the patient's proton pump inhibitor, omeprazole and repeat CBC on 11/09/2023. Patient does have a follow-up appointment with Dr. Noriega on 11/11/2023. Patient was discharged home with printed and verbal instructions in the care of her . Admission/Observation Consideration of admission/observation: Escalation of care including admission/observation considered Lab Data [facility] Lab Attestation statement: I reviewed the patient's lab results. 11/06/23 05:31 11/06/23 05:32 Labs: Lab Results 11/06/23 11/06/23 11/06/23 Range/Units 05:31 05:32 06:22 WBC 6.4 (4.8-10.8) X10*3/uL RBC 3.91 L (4.20-5.50) X10*6/uL Hgb 11.5 L (12.0-16.0) g/dl Hct 34.4 L (37.0-47.0) % MCV 88.0 (80.0-98.0) fL MCH 29.4 (27.0-33.0) pg MCHC 33.4 (31.0-35.0) g/dl RDW 12.9 (11.0-16.0) % Plt Count 21 L D (160-400) X10*3/uL MPV Not Reportable Immature Gran % (Auto) 2.2 H (0.0-0.4) % Neut % (Auto) 56.9 (45-73) % Lymph % (Auto) 14.0 L (20-40) % Bacon % (Auto) 25.0 H (2-11) % Eos % (Auto) 1.4 (0-4) % Baso % (Auto) 0.5 (0-2) % Lymph # (Auto) 0.9 L (1.2-4.9) X10*3/uL Bacon # (Auto) 1.6 H (0.1-1.2) X10*3/uL Eos # (Auto) 0.1 (0.0-0.4) X10*3/uL Baso # (Auto) 0.0 (0.0-0.2) X10*3/uL Abs Immat Gran (auto) 0.14 H (0.00-0.03) X10*3/uL Absolute Neuts (auto) 3.6 (2.0-8.3) x10*3/uL Absolute Nucleated RBC 0.000 (0.0-0.012) X10*3/uL Nucleated RBC % (auto) 0.0 (0.0-0.2) /100WBC Smear Tech's Comments VERIFIED Sodium 135 (135-145) mmol/L Potassium 4.0 (3.3-5.1) mmol/L Chloride 104 (96-108) mmol/L Carbon Dioxide 22 (22-29) mmol/L Anion Gap 13 (12-20) BUN 18 H (9-16) mg/dL Creatinine 1.13 (0.5-1.4) mg/dL Estim Creat Clear Calc 31.8 Estimated GFR 47 Random Glucose 94 (60-115) mg/dL Calcium 8.7 (8.4-10.2) mg/dL Total Bilirubin 0.7 (0.0-1.0) mg/dL Direct Bilirubin 0.3 (0.0-0.5) mg/dL AST 16 (5-31) U/L ALT 10 (0-31) U/L Alkaline Phosphatase 61 (39-117) U/L Total Protein 7.3 (6.5-8.0) g/dL Albumin 3.4 L (3.5-5.0) g/dL Stool Occult Blood NEGATIVE (NEGATIVE) Prescription Management I considered prescription management with: Other (steroid) Chronic Conditions Patient?s care impacted by: Hypertension Discharge Plan Discharge Clinical Impression: Bright red rectal bleeding, Thrombocytopenia Patient Disposition: Home, Self-Care Additional Instructions: I discuss your low platelet count with your shredder/granulator operator, Dr. Noriega. She wants to start you on prednisone 40 mg once a day. She wants you to get a repeat complete blood count (CBC) is on Tuesday, November 09, 2023 from the outpatient lab. Keep your appointment with Dr. Noriega on 11/11/2023 is scheduled. Continue taking your omeprazole. Please return to the emergency department if your symptoms get worse or if you develop any symptoms that are concerning to you. Prescriptions: New prednisone 20 mg tablet 40 mg PO DAILY 30 Days Qty: 60 0RF No Action atenolol 25 mg tablet 75 mg PO BID 90 Days Qty: 540 3RF Protocol: Hold for SBP/HR < HOLD for SBP < : 90 HOLD for HR < : 60 ferrous sulfate 325 mg (65 mg iron) tablet 325 mg PO BID Qty: 60 6RF omeprazole 40 mg capsule,delayed release(DR/EC) 40 mg PO BID@0630,1630 Qty: 60 7RF levothyroxine 50 mcg tablet 50 mcg PO DAILY@0630 amlodipine 2.5 mg Tablet 2.5 mg PO DAILY Qty: 30 0RF Protocol: Hold for SBP< HOLD for SBP < : 90
[2023-11-06 06:26] LABS: SLIDE REVIEW VERIFIED
[2023-11-06 06:27] LABS: OBS Int Ctl Valid YES
[2023-11-06 06:28] LABS: OBS1 NEGATIVE (NEGATIVE)
--- NOTE | 2023-11-06 07:23 | PC.NURSE ---
Resumed care of patient, she is reporting to this nurse that she is feeling better this morning, reports no pain at this time. This RN discussed with patient on attempting to get out of bed and trial how her strength is, pt in agreement at this time.
[2023-11-06] MEDS: predniSONE 20 MG TABLET 40 MG PO (07:37)
[2023-11-06 07:44] VITALS: BP 166/54; PULSE 64; RESP 18; TEMP 37.1; O2SAT 98
== END 2023-11-06 07:46 | disposition home or self-care (01) ==
PROVIDERS: Emergency Provider Emergency Medicine Emergency Medical Services; PCP Internal Medicine
DX: D69.49 Other primary thrombocytopenia (principal); K92.1 Melena; R42 Dizziness and giddiness; I48.91 Unspecified atrial fibrillation; Z79.899 Other long term (current) drug therapy
CPT/HCPCS: 36415; 80048; 80076; 82272; 85025; 93005; 99283; 99285

== ENCOUNTER → 2023-11-06 05:25 | Outpatient (BNV) | payer MEDICARE, SELFPAY | PROVIDERS: Emergency Provider Emergency Medicine Emergency Medical Services; PCP Internal Medicine; Visit Provider Internal Medicine Cardiovascular Disease | DX: M62.81 Muscle weakness (generalized) (principal) | CPT/HCPCS: 93010 ==

== ENCOUNTER 2023-11-09 15:25 | Outpatient (REF) | payer MEDICARE, SELFPAY ==
[2023-11-09 16:27] LABS: Hemoglobin 12.4 g/dl (12.0-16.0); Mean Corpuscular Volume 89.1 fL (80.0-98.0); SCAN SMEAR FLAG 1
[2023-11-09 16:29] LABS: Basophils Percent Auto 0.2 % (0-2); Eosinophils Percent Auto 0.1 % (0-4); Hematocrit 36.8 % (37.0-47.0); Imm Gran Abs Auto 0.47 X10*3/uL (0.00-0.03); Imm Gran Pct Auto 4.2 % (0.0-0.4); Lymphocytes Absolute Auto 1.5 X10*3/uL (1.2-4.9); Lymphocytes Percent Auto 13.7 % (20-40); MANUAL DIFF FLAG SCAN; Mean Corpuscular HGB Conc 33.7 g/dl (31.0-35.0); Monocytes Absolute Auto 0.9 X10*3/uL (0.1-1.2); Monocytes Percent Auto 7.8 % (2-11); Neutrophils Absolute Auto 8.2 x10*3/uL (2.0-8.3); PLT CLUMP 1; Red Blood Count 4.13 X10*6/uL (4.20-5.50); Red Cell Distribution Width 13.2 % (11.0-16.0)
[2023-11-09 16:30] LABS: PLT ABN DIST 1
[2023-11-09 16:48] LABS: Platelet Count 47 X10*3/uL (160-400); SLIDE REVIEW VERIFIED; White Blood Count 11.1 X10*3/uL (4.8-10.8)
== END 2023-11-09 15:26 | disposition home or self-care (01) ==
LOC: HO.LAB 15:25
PROVIDERS: PCP Internal Medicine; Visit Provider Internal Medicine
DX: D69.6 Thrombocytopenia, unspecified (principal)
CPT/HCPCS: 36415; 85025

== ENCOUNTER → 2023-11-11 10:53 | Outpatient (BNV) | payer MEDICARE, SELFPAY | PROVIDERS: Visit Provider Internal Medicine | DX: D69.6 Thrombocytopenia, unspecified (principal) | CPT/HCPCS: 99213; 99214; G2211 ==

== ENCOUNTER 2024-01-02 12:49 | Emergency (ER) | payer MEDICARE, SELFPAY ==
[2024-01-02] VITALS (7 sets, daily range): BP systolic 160–218; BP diastolic 58–87; PULSE 68–84; RESP 16–24; TEMP 35.6–36.9; O2SAT 94–99; BMI 34.3
--- NOTE | ~2024-01-02 | CT_ITS ---
EXAMINATION: CT HEAD W/O IV CONTRAST CT CERVICAL SPINE W/O IV CONTRAST CLINICAL INFORMATION: Headache and neck pain. Evaluate for fracture. Nausea. Evaluate for intracranial bleed. COMPARISON: Head CT from 07/08/2022 TECHNIQUE: Head - Contiguous axial imaging of the head was performed from the skull base to the vertex without the administration of intravenous contrast, and axial images are reconstructed at 2 mm and 5 mm slice thickness. Cervical spine - A volumetric, helical CT acquisition of the cervical spine was obtained without contrast; in addition to the standard set of axial images, multiplanar reformatted images were provided in the coronal and sagittal imaging planes. This CT examination was performed using dose optimization techniques as appropriate, variously including the following: *Automated exposure control *Adjustment of mA and/or kV according to patient size (this includes techniques or standardized protocols for targeted exams where dose is matched to indication/reason for exam; i.e. extremities or head) *Use of iterative reconstruction technique DLP: 818 mGy-cm (total) FINDINGS: HEAD: No evidence of intracranial hemorrhage, extra-axial surface collection, focal mass effect or midline shift. The stanford-white matter differentiation is maintained. No evidence of an acute major vascular territory infarction. Chronic bztp-gk-agffhkct parenchymal volume loss with commensurate prominence of ventricles and sulci; no hydrocephalus. The brainstem and cerebellum are unremarkable. There is atherosclerotic calcification of vertebral and cavernous carotid arteries. Again noted is heterogeneous attenuation from the skull with chronic patchy sclerosis, regions of generalized osteopenia, and mild diploic expansion. Abnormalities are consistent with Paget's disease. No calvarial fracture. The visualized paranasal sinuses are well aerated and without air-fluid levels. The mastoid air cells are clear. Temporomandibular joints are unremarkable. Prior ocular lens extractions. CERVICAL SPINE: There is lack of lordotic curvature of the cervical spine. The craniocervical junction is normal. The occipital condyles, dens and atlantodental articulation are intact. The vertebral body heights and alignment are maintained. No fractures in the anterior or posterior elements. No prevertebral soft tissue edema or soft tissue hematoma. Moderate degenerative loss of disc height at C5-C6 and C6-C7. No evidence of cervical spinal canal stenosis. The uncovertebral joint hypertrophy at C5-C6 causes moderate left and mild right neural foraminal stenosis. Thyroid gland is unremarkable. The common carotid arteries have a retropharyngeal course. The visualized lung apices have mosaic attenuation which suggests air trapping phenomenon from airway inflammation. CT/CT head/brain wo IV con IMPRESSION: * No intracranial hemorrhage or other acute intracranial pathology. * No fracture or malalignment in the cervical spine. There is moderate disc degenerative change at C5-C6 and C6-C7, and the neural foraminal stenosis in the cervical spine is worst (moderate in degree) on the left at C5-C6. * Chronic Paget disease affecting the skull.
--- NOTE | ~2024-01-02 | CT_ITS ---
EXAMINATION: CT HEAD WITHOUT CONTRAST CLINICAL INFORMATION: Nausea, vomiting, headache COMPARISON: 07/08/2022 TECHNIQUE: Contiguous axial imaging was performed from the skull base to vertex without intravenous administration of contrast. This CT examination was performed using dose optimization techniques as appropriate, variously including the following: *Automated exposure control *Adjustment of mA and/or kV according to patient size (this includes techniques or standardized protocols for targeted exams where dose is matched to indication/reason for exam; i.e. extremities or head) *Use of iterative reconstruction technique DLP: 253 mGy-cm FINDINGS: Examination is technically limited due to extensive motion during the examination, due to vomiting and agitation and couldn't be interpreted. CT/CT head/brain wo IV con IMPRESSION: Nondiagnostic study
--- NOTE | ~2024-01-02 | CT_ITS ---
EXAMINATION: CT HEAD W/O IV CONTRAST CT CERVICAL SPINE W/O IV CONTRAST CLINICAL INFORMATION: Headache and neck pain. Evaluate for fracture. Nausea. Evaluate for intracranial bleed. COMPARISON: Head CT from 07/08/2022 TECHNIQUE: Head - Contiguous axial imaging of the head was performed from the skull base to the vertex without the administration of intravenous contrast, and axial images are reconstructed at 2 mm and 5 mm slice thickness. Cervical spine - A volumetric, helical CT acquisition of the cervical spine was obtained without contrast; in addition to the standard set of axial images, multiplanar reformatted images were provided in the coronal and sagittal imaging planes. This CT examination was performed using dose optimization techniques as appropriate, variously including the following: *Automated exposure control *Adjustment of mA and/or kV according to patient size (this includes techniques or standardized protocols for targeted exams where dose is matched to indication/reason for exam; i.e. extremities or head) *Use of iterative reconstruction technique DLP: 818 mGy-cm (total) FINDINGS: HEAD: No evidence of intracranial hemorrhage, extra-axial surface collection, focal mass effect or midline shift. The stanford-white matter differentiation is maintained. No evidence of an acute major vascular territory infarction. Chronic dbmw-vs-pdppfodf parenchymal volume loss with commensurate prominence of ventricles and sulci; no hydrocephalus. The brainstem and cerebellum are unremarkable. There is atherosclerotic calcification of vertebral and cavernous carotid arteries. Again noted is heterogeneous attenuation from the skull with chronic patchy sclerosis, regions of generalized osteopenia, and mild diploic expansion. Abnormalities are consistent with Paget's disease. No calvarial fracture. The visualized paranasal sinuses are well aerated and without air-fluid levels. The mastoid air cells are clear. Temporomandibular joints are unremarkable. Prior ocular lens extractions. CERVICAL SPINE: There is lack of lordotic curvature of the cervical spine. The craniocervical junction is normal. The occipital condyles, dens and atlantodental articulation are intact. The vertebral body heights and alignment are maintained. No fractures in the anterior or posterior elements. No prevertebral soft tissue edema or soft tissue hematoma. Moderate degenerative loss of disc height at C5-C6 and C6-C7. No evidence of cervical spinal canal stenosis. The uncovertebral joint hypertrophy at C5-C6 causes moderate left and mild right neural foraminal stenosis. Thyroid gland is unremarkable. The common carotid arteries have a retropharyngeal course. The visualized lung apices have mosaic attenuation which suggests air trapping phenomenon from airway inflammation. CT/CT cervical spine wo IV con IMPRESSION: * No intracranial hemorrhage or other acute intracranial pathology. * No fracture or malalignment in the cervical spine. There is moderate disc degenerative change at C5-C6 and C6-C7, and the neural foraminal stenosis in the cervical spine is worst (moderate in degree) on the left at C5-C6. * Chronic Paget disease affecting the skull.
--- NOTE | 2024-01-02 12:58 | ED.GENADULT ---
HPI - General Adult General Chief complaint: Headache Stated complaint: vomiting headache Time Seen by Provider: 01/02/24 12:56 Related Data Home Medications Medication Instructions Recorded Confirmed levothyroxine 50 mcg tablet 50 mcg PO DAILY@0630 11/01/23 12/13/23 Previous Rx's Medication Instructions Recorded atenolol 25 mg tablet 75 mg PO BID 90 days #540 tabs 02/14/23 ferrous sulfate 325 mg (65 mg 325 mg PO BID #60 tabs 04/28/23 iron) tablet omeprazole 40 mg capsule,delayed 40 mg PO BID@0630,1630 #60 caps 09/27/23 release amlodipine 2.5 mg tablet 2.5 mg PO DAILY #30 tabs 11/02/23 prednisone 10 mg tablet 10 mg PO DIRECTED #60 tabs 12/13/23 Allergies Allergy/AdvReac Type Severity Reaction Status Date / Time vitamin k Allergy Unknown Uncoded 12/13/23 11:35 PMFSH Past Medical History Medical History Preop cardiovascular exam Pulmonary nodules 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 Chronic kidney disease, unspecified Leg edema Pulmonary hypertension Essential hypertension 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 atrial fibrillation) 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 Osteopenia Polymyalgia rheumatica Surgical History History of bilateral cataract extraction History of cholecystectomy History of partial hysterectomy History of section Family History Family History Father Coronary artery disease FH: CVA (cerebrovascular accident) Mother Kidney failure Social History Social History Household Members: Spouse Housing: House Do you presently have visiting nurse or other home services: No Alcohol intake: never Patient Tobacco Use Status: Never used Tobacco e-Cigarette/Vaping Use: Never Used Second Hand Smoke Exposure: No Advance Directives: No Advance Directives Information Provided: No service: No Current occupational status: retired Cognitive needs: Yes Hearing needs: No Vision needs: Yes Physical Exam ED Vital Signs: Vital Signs - 24 hr 01/02/24 12:53 01/02/24 14:43 01/02/24 16:03 Temperature 96.1 F L 98.4 F Pulse Rate 84 77 Respiratory Rate 19 24 H 18 Blood Pressure 218/85 H 181/75 H Pulse Oximetry 95 Oxygen Delivery Method Nasal Cannula Room Air 01/02/24 16:30 01/02/24 17:19 Temperature 98.5 F Pulse Rate 80 72 Respiratory Rate 20 18 Blood Pressure 206/87 H 203/81 H Pulse Oximetry 94 99 Oxygen Delivery Method Room Air Room Air BMI result Body Mass Index 34.3 Course Course Course Narrative: RME performed by Alena Bates PA-C. Patient is a 78 year old assigned female at presenting to the emergency department with a severe headache, nausea, and vomiting. Detailed physical exam and review of systems are deferred to the nurse educator. Labs and imaging ordered. Patient immediately brought to CT scanner. Dr. Babin saw and dispositioned this patient. Please refer to his note from same day of this visit. Medications Administered Discontinued Medications Generic Name Dose Route Start Last Admin Trade Name Freq PRN Reason Stop Dose Admin Diphenhydramine HCl 12.5 mg 01/02/24 14:34 01/02/24 14:48 Diphenhydramine Hcl 50 Mg/Ml Vial IVPUSH 01/02/24 14:35 12.5 mg ONCE ONE Administration Haloperidol Lactate 2.5 mg 01/02/24 15:19 01/02/24 15:25 Haloperidol Lactate 5 Mg/Ml Vial IVPUSH 01/02/24 15:20 2.5 mg STAT STA Administration Haloperidol Lactate 2.5 mg 01/02/24 16:08 01/02/24 16:15 Haloperidol Lactate 5 Mg/Ml Vial IVPUSH 01/02/24 16:09 2.5 mg STAT STA Administration Sodium Chloride 1,000 mls @ 999 mls/hr 01/02/24 13:27 01/02/24 17:14 Ns IV 01/02/24 14:27 Infused .Q1H1M STA Infusion Metoclopramide HCl 5 mg 01/02/24 13:27 01/02/24 13:57 Metoclopramide Hcl 10 Mg/2 Ml Vial IVPUSH 01/02/24 13:28 5 mg ONCE STA Administration Metoclopramide HCl 10 mg 01/02/24 14:34 01/02/24 14:47 Metoclopramide Hcl 10 Mg/2 Ml Vial IVPUSH 01/02/24 14:35 10 mg ONCE STA Administration Morphine Sulfate 4 mg 01/02/24 13:27 01/02/24 13:57 Morphine Sulfate 4 Mg/Ml Cartridge IVPUSH 01/02/24 13:28 4 mg ONCE STA Administration Protocol Medical Decision Making Lab Data 01/02/24 13:50 01/02/24 16:49 Labs: Lab Results 01/02/24 01/02/24 01/02/24 Range/Units 13:50 13:54 15:31 WBC 21.6 H (4.8-10.8) X10*3/uL RBC 4.54 (4.20-5.50) X10*6/uL Hgb 14.5 (12.0-16.0) g/dl Hct 41.5 (37.0-47.0) % MCV 91.4 (80.0-98.0) fL MCH 31.9 (27.0-33.0) pg MCHC 34.9 (31.0-35.0) g/dl RDW 15.4 (11.0-16.0) % Plt Count 75 L (160-400) X10*3/uL MPV Not Reportable Immature Gran % (Auto) 2.7 H (0.0-0.4) % Neut % (Auto) 83.8 H (45-73) % Lymph % (Auto) 7.3 L (20-40) % [place] % (Auto) 6.1 (2-11) % Eos % (Auto) 0.0 (0-4) % Baso % (Auto) 0.1 (0-2) % Lymph # (Auto) 1.6 (1.2-4.9) X10*3/uL [place] # (Auto) 1.3 H (0.1-1.2) X10*3/uL Eos # (Auto) 0.0 (0.0-0.4) X10*3/uL Baso # (Auto) 0.0 (0.0-0.2) X10*3/uL Abs Immat Gran (auto) 0.58 H (0.00-0.03) X10*3/uL Absolute Neuts (auto) 18.1 H (2.0-8.3) x10*3/uL Absolute Nucleated RBC 0.000 (0.0-0.012) X10*3/uL Nucleated RBC % (auto) 0.0 (0.0-0.2) /100WBC Smear Tech's Comments VERIFIED ESR 2 (0-20) MM/HR Hold Purple Top SEE NOTE PT 11.7 (11.1-13.3) SEC INR 1.0 (0.9-1.1) APTT 19.9 L (26.0-36.8) SEC Sodium (135-145) mmol/L Potassium (3.3-5.1) mmol/L Chloride (96-108) mmol/L Carbon Dioxide (22-29) mmol/L Anion Gap (12-20) BUN (9-16) mg/dL Creatinine (0.5-1.4) mg/dL Estim Creat Clear Calc Estimated GFR Random Glucose (60-115) mg/dL Calcium (8.4-10.2) mg/dL Total Bilirubin (0.0-1.0) mg/dL AST (5-31) U/L ALT (0-31) U/L Alkaline Phosphatase (39-117) U/L C-Reactive Protein (< or = 0.50) mg/dL Total Protein (6.5-8.0) g/dL Albumin (3.5-5.0) g/dL Lipase (8-78) U/L Urine Color Yellow Urine Appearance Urine pH (5.0-9.0) Ur Specific [place] (1.005-1.025) Urine Protein (Neg-Trace) mg/dL Urine Glucose (UA) (Negative) mg/dL Urine Ketones (Negative) mg/dL Urine Blood (Negative) Urine Nitrite (Negative) Ur Leukocyte Esterase (Negative) Urine RBC (0-2) /HPF Urine WBC (0-5) /HPF Urine WBC Clumps Ur Squamous Epith Cells (0-2) /HPF Ur Transition Epith Cell Ur Renal Epithelial Cell Calcium Oxalate Crystal Leucine Crystals Cystine Crystals Tyrosine Crystals Other Crystals Urine Bacteria (None Seen) Urine Parasites Bilirubin Casts Epithelial Casts Fatty Casts Hyaline Casts (0-2) /LPF Granular Casts Waxy Casts Broad Casts RBC Casts WBC Casts Other Casts Urine Trichomonas Urine Yeast Influenza Type A (PCR) NEGATIVE (Negative) Influenza Type B (PCR) NEGATIVE (Negative) RSV RNA Qual (PCR) NEGATIVE (Negative) SARS-CoV-2 RNA (RT-PCR) NEGATIVE (Negative) 01/02/24 01/02/24 01/02/24 Range/Units 15:31 15:31 15:31 WBC (4.8-10.8) X10*3/uL RBC (4.20-5.50) X10*6/uL Hgb (12.0-16.0) g/dl Hct (37.0-47.0) % MCV (80.0-98.0) fL MCH (27.0-33.0) pg MCHC (31.0-35.0) g/dl RDW (11.0-16.0) % Plt Count (160-400) X10*3/uL MPV Immature Gran % (Auto) (0.0-0.4) % Neut % (Auto) (45-73) % Lymph % (Auto) (20-40) % [place] % (Auto) (2-11) % Eos % (Auto) (0-4) % Baso % (Auto) (0-2) % Lymph # (Auto) (1.2-4.9) X10*3/uL [place] # (Auto) (0.1-1.2) X10*3/uL Eos # (Auto) (0.0-0.4) X10*3/uL Baso # (Auto) (0.0-0.2) X10*3/uL Abs Immat Gran (auto) (0.00-0.03) X10*3/uL Absolute Neuts (auto) (2.0-8.3) x10*3/uL Absolute Nucleated RBC (0.0-0.012) X10*3/uL Nucleated RBC % (auto) (0.0-0.2) /100WBC Smear Tech's Comments ESR (0-20) MM/HR Hold Purple Top PT (11.1-13.3) SEC INR (0.9-1.1) APTT (26.0-36.8) SEC Sodium (135-145) mmol/L Potassium (3.3-5.1) mmol/L Chloride (96-108) mmol/L Carbon Dioxide (22-29) mmol/L Anion Gap (12-20) BUN (9-16) mg/dL Creatinine (0.5-1.4) mg/dL Estim Creat Clear Calc Estimated GFR Random Glucose (60-115) mg/dL Calcium (8.4-10.2) mg/dL Total Bilirubin (0.0-1.0) mg/dL AST (5-31) U/L ALT (0-31) U/L Alkaline Phosphatase (39-117) U/L C-Reactive Protein (< or = 0.50) mg/dL Total Protein (6.5-8.0) g/dL Albumin (3.5-5.0) g/dL Lipase (8-78) U/L Urine Color Cancelled Urine Appearance Clear Cancelled Urine pH 6.5 Cancelled (5.0-9.0) Ur Specific [place] 1.015 (1.005-1.025) Urine Protein (Neg-Trace) mg/dL Urine Glucose (UA) (Negative) mg/dL Urine Ketones (Negative) mg/dL Urine Blood (Negative) Urine Nitrite (Negative) Ur Leukocyte Esterase (Negative) Urine RBC (0-2) /HPF Urine WBC (0-5) /HPF Urine WBC Clumps Ur Squamous Epith Cells (0-2) /HPF Ur Transition Epith Cell Ur Renal Epithelial Cell Calcium Oxalate Crystal Leucine Crystals Cystine Crystals Tyrosine Crystals Other Crystals Urine Bacteria (None Seen) Urine Parasites Bilirubin Casts Epithelial Casts Fatty Casts Hyaline Casts (0-2) /LPF Granular Casts Waxy Casts Broad Casts RBC Casts WBC Casts Other Casts Urine Trichomonas Urine Yeast Influenza Type A (PCR) (Negative) Influenza Type B (PCR) (Negative) RSV RNA Qual (PCR) (Negative) SARS-CoV-2 RNA (RT-PCR) (Negative) 01/02/24 01/02/24 01/02/24 Range/Units 15:31 15:31 15:31 WBC (4.8-10.8) X10*3/uL RBC (4.20-5.50) X10*6/uL Hgb (12.0-16.0) g/dl Hct (37.0-47.0) % MCV (80.0-98.0) fL MCH (27.0-33.0) pg MCHC (31.0-35.0) g/dl RDW (11.0-16.0) % Plt Count (160-400) X10*3/uL MPV Immature Gran % (Auto) (0.0-0.4) % Neut % (Auto) (45-73) % Lymph % (Auto) (20-40) % [place] % (Auto) (2-11) % Eos % (Auto) (0-4) % Baso % (Auto) (0-2) % Lymph # (Auto) (1.2-4.9) X10*3/uL [place] # (Auto) (0.1-1.2) X10*3/uL Eos # (Auto) (0.0-0.4) X10*3/uL Baso # (Auto) (0.0-0.2) X10*3/uL Abs Immat Gran (auto) (0.00-0.03) X10*3/uL Absolute Neuts (auto) (2.0-8.3) x10*3/uL Absolute Nucleated RBC (0.0-0.012) X10*3/uL Nucleated RBC % (auto) (0.0-0.2) /100WBC Smear Tech's Comments ESR (0-20) MM/HR Hold Purple Top PT (11.1-13.3) SEC INR (0.9-1.1) APTT (26.0-36.8) SEC Sodium (135-145) mmol/L Potassium (3.3-5.1) mmol/L Chloride (96-108) mmol/L Carbon Dioxide (22-29) mmol/L Anion Gap (12-20) BUN (9-16) mg/dL Creatinine (0.5-1.4) mg/dL Estim Creat Clear Calc Estimated GFR Random Glucose (60-115) mg/dL Calcium (8.4-10.2) mg/dL Total Bilirubin (0.0-1.0) mg/dL AST (5-31) U/L ALT (0-31) U/L Alkaline Phosphatase (39-117) U/L C-Reactive Protein (< or = 0.50) mg/dL Total Protein (6.5-8.0) g/dL Albumin (3.5-5.0) g/dL Lipase (8-78) U/L Urine Color Urine Appearance Urine pH (5.0-9.0) Ur Specific [place] Cancelled (1.005-1.025) Urine Protein 300 (3+) H Cancelled (Neg-Trace) mg/dL Urine Glucose (UA) Negative Cancelled (Negative) mg/dL Urine Ketones Negative (Negative) mg/dL Urine Blood (Negative) Urine Nitrite (Negative) Ur Leukocyte Esterase (Negative) Urine RBC (0-2) /HPF Urine WBC (0-5) /HPF Urine WBC Clumps Ur Squamous Epith Cells (0-2) /HPF Ur Transition Epith Cell Ur Renal Epithelial Cell Calcium Oxalate Crystal Leucine Crystals Cystine Crystals Tyrosine Crystals Other Crystals Urine Bacteria (None Seen) Urine Parasites Bilirubin Casts Epithelial Casts Fatty Casts Hyaline Casts (0-2) /LPF Granular Casts Waxy Casts Broad Casts RBC Casts WBC Casts Other Casts Urine Trichomonas Urine Yeast Influenza Type A (PCR) (Negative) Influenza Type B (PCR) (Negative) RSV RNA Qual (PCR) (Negative) SARS-CoV-2 RNA (RT-PCR) (Negative) 01/02/24 01/02/24 01/02/24 Range/Units 15:31 15:31 15:31 WBC (4.8-10.8) X10*3/uL RBC (4.20-5.50) X10*6/uL Hgb (12.0-16.0) g/dl Hct (37.0-47.0) % MCV (80.0-98.0) fL MCH (27.0-33.0) pg MCHC (31.0-35.0) g/dl RDW (11.0-16.0) % Plt Count (160-400) X10*3/uL MPV Immature Gran % (Auto) (0.0-0.4) % Neut % (Auto) (45-73) % Lymph % (Auto) (20-40) % [place] % (Auto) (2-11) % Eos % (Auto) (0-4) % Baso % (Auto) (0-2) % Lymph # (Auto) (1.2-4.9) X10*3/uL [place] # (Auto) (0.1-1.2) X10*3/uL Eos # (Auto) (0.0-0.4) X10*3/uL Baso # (Auto) (0.0-0.2) X10*3/uL Abs Immat Gran (auto) (0.00-0.03) X10*3/uL Absolute Neuts (auto) (2.0-8.3) x10*3/uL Absolute Nucleated RBC (0.0-0.012) X10*3/uL Nucleated RBC % (auto) (0.0-0.2) /100WBC Smear Tech's Comments ESR (0-20) MM/HR Hold Purple Top PT (11.1-13.3) SEC INR (0.9-1.1) APTT (26.0-36.8) SEC Sodium (135-145) mmol/L Potassium (3.3-5.1) mmol/L Chloride (96-108) mmol/L Carbon Dioxide (22-29) mmol/L Anion Gap (12-20) BUN (9-16) mg/dL Creatinine (0.5-1.4) mg/dL Estim Creat Clear Calc Estimated GFR Random Glucose (60-115) mg/dL Calcium (8.4-10.2) mg/dL Total Bilirubin (0.0-1.0) mg/dL AST (5-31) U/L ALT (0-31) U/L Alkaline Phosphatase (39-117) U/L C-Reactive Protein (< or = 0.50) mg/dL Total Protein (6.5-8.0) g/dL Albumin (3.5-5.0) g/dL Lipase (8-78) U/L Urine Color Urine Appearance Urine pH (5.0-9.0) Ur Specific [place] (1.005-1.025) Urine Protein (Neg-Trace) mg/dL Urine Glucose (UA) (Negative) mg/dL Urine Ketones Cancelled (Negative) mg/dL Urine Blood Small (1+) H Cancelled (Negative) Urine Nitrite Negative Cancelled (Negative) Ur Leukocyte Esterase Trace H (Negative) Urine RBC (0-2) /HPF Urine WBC (0-5) /HPF Urine WBC Clumps Ur Squamous Epith Cells (0-2) /HPF Ur Transition Epith Cell Ur Renal Epithelial Cell Calcium Oxalate Crystal Leucine Crystals Cystine Crystals Tyrosine Crystals Other Crystals Urine Bacteria (None Seen) Urine Parasites Bilirubin Casts Epithelial Casts Fatty Casts Hyaline Casts (0-2) /LPF Granular Casts Waxy Casts Broad Casts RBC Casts WBC Casts Other Casts Urine Trichomonas Urine Yeast Influenza Type A (PCR) (Negative) Influenza Type B (PCR) (Negative) RSV RNA Qual (PCR) (Negative) SARS-CoV-2 RNA (RT-PCR) (Negative) 01/02/24 01/02/24 01/02/24 Range/Units 15:31 15:31 15:31 WBC (4.8-10.8) X10*3/uL RBC (4.20-5.50) X10*6/uL Hgb (12.0-16.0) g/dl Hct (37.0-47.0) % MCV (80.0-98.0) fL MCH (27.0-33.0) pg MCHC (31.0-35.0) g/dl RDW (11.0-16.0) % Plt Count (160-400) X10*3/uL MPV Immature Gran % (Auto) (0.0-0.4) % Neut % (Auto) (45-73) % Lymph % (Auto) (20-40) % [place] % (Auto) (2-11) % Eos % (Auto) (0-4) % Baso % (Auto) (0-2) % Lymph # (Auto) (1.2-4.9) X10*3/uL [place] # (Auto) (0.1-1.2) X10*3/uL Eos # (Auto) (0.0-0.4) X10*3/uL Baso # (Auto) (0.0-0.2) X10*3/uL Abs Immat Gran (auto) (0.00-0.03) X10*3/uL Absolute Neuts (auto) (2.0-8.3) x10*3/uL Absolute Nucleated RBC (0.0-0.012) X10*3/uL Nucleated RBC % (auto) (0.0-0.2) /100WBC Smear Tech's Comments ESR (0-20) MM/HR Hold Purple Top PT (11.1-13.3) SEC INR (0.9-1.1) APTT (26.0-36.8) SEC Sodium (135-145) mmol/L Potassium (3.3-5.1) mmol/L Chloride (96-108) mmol/L Carbon Dioxide (22-29) mmol/L Anion Gap (12-20) BUN (9-16) mg/dL Creatinine (0.5-1.4) mg/dL Estim Creat Clear Calc Estimated GFR Random Glucose (60-115) mg/dL Calcium (8.4-10.2) mg/dL Total Bilirubin (0.0-1.0) mg/dL AST (5-31) U/L ALT (0-31) U/L Alkaline Phosphatase (39-117) U/L C-Reactive Protein (< or = 0.50) mg/dL Total Protein (6.5-8.0) g/dL Albumin (3.5-5.0) g/dL Lipase (8-78) U/L Urine Color Urine Appearance Urine pH (5.0-9.0) Ur Specific [place] (1.005-1.025) Urine Protein (Neg-Trace) mg/dL Urine Glucose (UA) (Negative) mg/dL Urine Ketones (Negative) mg/dL Urine Blood (Negative) Urine Nitrite (Negative) Ur Leukocyte Esterase Cancelled (Negative) Urine RBC 11-20 H Cancelled (0-2) /HPF Urine WBC 11-20 H Cancelled (0-5) /HPF Urine WBC Clumps Cancelled Ur Squamous Epith Cells 0-2 (0-2) /HPF Ur Transition Epith Cell Ur Renal Epithelial Cell Calcium Oxalate Crystal Leucine Crystals Cystine Crystals Tyrosine Crystals Other Crystals Urine Bacteria (None Seen) Urine Parasites Bilirubin Casts Epithelial Casts Fatty Casts Hyaline Casts (0-2) /LPF Granular Casts Waxy Casts Broad Casts RBC Casts WBC Casts Other Casts Urine Trichomonas Urine Yeast Influenza Type A (PCR) (Negative) Influenza Type B (PCR) (Negative) RSV RNA Qual (PCR) (Negative) SARS-CoV-2 RNA (RT-PCR) (Negative) 01/02/24 01/02/24 01/02/24 Range/Units 15:31 15:31 15:31 WBC (4.8-10.8) X10*3/uL RBC (4.20-5.50) X10*6/uL Hgb (12.0-16.0) g/dl Hct (37.0-47.0) % MCV (80.0-98.0) fL MCH (27.0-33.0) pg MCHC (31.0-35.0) g/dl RDW (11.0-16.0) % Plt Count (160-400) X10*3/uL MPV Immature Gran % (Auto) (0.0-0.4) % Neut % (Auto) (45-73) % Lymph % (Auto) (20-40) % [place] % (Auto) (2-11) % Eos % (Auto) (0-4) % Baso % (Auto) (0-2) % Lymph # (Auto) (1.2-4.9) X10*3/uL [place] # (Auto) (0.1-1.2) X10*3/uL Eos # (Auto) (0.0-0.4) X10*3/uL Baso # (Auto) (0.0-0.2) X10*3/uL Abs Immat Gran (auto) (0.00-0.03) X10*3/uL Absolute Neuts (auto) (2.0-8.3) x10*3/uL Absolute Nucleated RBC (0.0-0.012) X10*3/uL Nucleated RBC % (auto) (0.0-0.2) /100WBC Smear Tech's Comments ESR (0-20) MM/HR Hold Purple Top PT (11.1-13.3) SEC INR (0.9-1.1) APTT (26.0-36.8) SEC Sodium (135-145) mmol/L Potassium (3.3-5.1) mmol/L Chloride (96-108) mmol/L Carbon Dioxide (22-29) mmol/L Anion Gap (12-20) BUN (9-16) mg/dL Creatinine (0.5-1.4) mg/dL Estim Creat Clear Calc Estimated GFR Random Glucose (60-115) mg/dL Calcium (8.4-10.2) mg/dL Total Bilirubin (0.0-1.0) mg/dL AST (5-31) U/L ALT (0-31) U/L Alkaline Phosphatase (39-117) U/L C-Reactive Protein (< or = 0.50) mg/dL Total Protein (6.5-8.0) g/dL Albumin (3.5-5.0) g/dL Lipase (8-78) U/L Urine Color Urine Appearance Urine pH (5.0-9.0) Ur Specific [place] (1.005-1.025) Urine Protein (Neg-Trace) mg/dL Urine Glucose (UA) (Negative) mg/dL Urine Ketones (Negative) mg/dL Urine Blood (Negative) Urine Nitrite (Negative) Ur Leukocyte Esterase (Negative) Urine RBC (0-2) /HPF Urine WBC (0-5) /HPF Urine WBC Clumps Ur Squamous Epith Cells Cancelled (0-2) /HPF Ur Transition Epith Cell Cancelled Ur Renal Epithelial Cell Cancelled Calcium Oxalate Crystal Cancelled Leucine Crystals Cancelled Cystine Crystals Cancelled Tyrosine Crystals Cancelled Other Crystals Cancelled Urine Bacteria 1+ Cancelled (None Seen) Urine Parasites Cancelled Bilirubin Casts Cancelled Epithelial Casts Cancelled Fatty Casts Cancelled Hyaline Casts 0-2 Cancelled (0-2) /LPF Granular Casts Cancelled Waxy Casts Cancelled Broad Casts Cancelled RBC Casts Cancelled WBC Casts Cancelled Other Casts Cancelled Urine Trichomonas Cancelled Urine Yeast Cancelled Influenza Type A (PCR) (Negative) Influenza Type B (PCR) (Negative) RSV RNA Qual (PCR) (Negative) SARS-CoV-2 RNA (RT-PCR) (Negative) 01/02/24 Range/Units 16:49 WBC (4.8-10.8) X10*3/uL RBC (4.20-5.50) X10*6/uL Hgb (12.0-16.0) g/dl Hct (37.0-47.0) % MCV (80.0-98.0) fL MCH (27.0-33.0) pg MCHC (31.0-35.0) g/dl RDW (11.0-16.0) % Plt Count (160-400) X10*3/uL MPV Immature Gran % (Auto) (0.0-0.4) % Neut % (Auto) (45-73) % Lymph % (Auto) (20-40) % [place] % (Auto) (2-11) % Eos % (Auto) (0-4) % Baso % (Auto) (0-2) % Lymph # (Auto) (1.2-4.9) X10*3/uL [place] # (Auto) (0.1-1.2) X10*3/uL Eos # (Auto) (0.0-0.4) X10*3/uL Baso # (Auto) (0.0-0.2) X10*3/uL Abs Immat Gran (auto) (0.00-0.03) X10*3/uL Absolute Neuts (auto) (2.0-8.3) x10*3/uL Absolute Nucleated RBC (0.0-0.012) X10*3/uL Nucleated RBC % (auto) (0.0-0.2) /100WBC Smear Tech's Comments ESR (0-20) MM/HR Hold Purple Top PT (11.1-13.3) SEC INR (0.9-1.1) APTT (26.0-36.8) SEC Sodium 137 (135-145) mmol/L Potassium 4.2 (3.3-5.1) mmol/L Chloride 106 (96-108) mmol/L Carbon Dioxide 22 (22-29) mmol/L Anion Gap 13 (12-20) BUN 30 H (9-16) mg/dL Creatinine 0.87 (0.5-1.4) mg/dL Estim Creat Clear Calc 47.7 Estimated GFR > 60 Random Glucose 138 H (60-115) mg/dL Calcium 9.2 (8.4-10.2) mg/dL Total Bilirubin 1.0 (0.0-1.0) mg/dL AST 19 (5-31) U/L ALT 16 (0-31) U/L Alkaline Phosphatase 60 (39-117) U/L C-Reactive Protein 0.35 (< or = 0.50) mg/dL Total Protein 7.4 (6.5-8.0) g/dL Albumin 4.3 (3.5-5.0) g/dL Lipase 34 (8-78) U/L Urine Color Urine Appearance Urine pH (5.0-9.0) Ur Specific [place] (1.005-1.025) Urine Protein (Neg-Trace) mg/dL Urine Glucose (UA) (Negative) mg/dL Urine Ketones (Negative) mg/dL Urine Blood (Negative) Urine Nitrite (Negative) Ur Leukocyte Esterase (Negative) Urine RBC (0-2) /HPF Urine WBC (0-5) /HPF Urine WBC Clumps Ur Squamous Epith Cells (0-2) /HPF Ur Transition Epith Cell Ur Renal Epithelial Cell Calcium Oxalate Crystal Leucine Crystals Cystine Crystals Tyrosine Crystals Other Crystals Urine Bacteria (None Seen) Urine Parasites Bilirubin Casts Epithelial Casts Fatty Casts Hyaline Casts (0-2) /LPF Granular Casts Waxy Casts Broad Casts RBC Casts WBC Casts Other Casts Urine Trichomonas Urine Yeast Influenza Type A (PCR) (Negative) Influenza Type B (PCR) (Negative) RSV RNA Qual (PCR) (Negative) SARS-CoV-2 RNA (RT-PCR) (Negative) Discharge Plan Discharge Clinical Impression: Headache, Vomiting Patient Disposition: Home, Self-Care Prescriptions: No Action atenolol 25 mg tablet 75 mg PO BID 90 Days Qty: 540 3RF Protocol: Hold for SBP/HR < HOLD for SBP < : 90 HOLD for HR < : 60 ferrous sulfate 325 mg (65 mg iron) tablet 325 mg PO BID Qty: 60 6RF omeprazole 40 mg capsule,delayed release(DR/EC) 40 mg PO BID@0630,1630 Qty: 60 7RF prednisone 10 mg Tablet 10 mg PO DIRECTED Qty: 60 0RF Rx Instructions: see taper instructions - Take 20 mg PO daily x10 days from 12/14/23, return for repeat CBC on 12/23/23. levothyroxine 50 mcg tablet 50 mcg PO DAILY@0630 amlodipine 2.5 mg Tablet 2.5 mg PO DAILY Qty: 30 0RF Protocol: Hold for SBP< HOLD for SBP < : 90
--- NOTE | 2024-01-02 13:01 | ED_ITS ---
HPI - Headache General Chief Complaint: Headache Stated Complaint: vomiting headache Time Seen by Provider: 01/02/24 12:56 Source: patient Mode of arrival: ambulatory Limitations: no limitations History of Present Illness HPI Narrative: 78-year-old female history of hypertension, diastolic dysfunction, thrombocytopenia, gastric ulcer, hemoptysis, pulmonary hypertension, hypothyroidism who presents emergency department for evaluation of headache x2 days. Patient is a poor informant and the also is difficult to get detailed history from. The patient did state that her headache is the worst headache that she has had and can not describe the character of the headache. She does appear to be uncomfortable. states she has had nausea and vomiting over the past several days. 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 Platelet count has improved after steroid treatment with a low of 21,000 on 11/06/2023 and after steroid treatment platelet count was 69,000 on 12/30/2023 Related Data Home Medications Medication Instructions Recorded Confirmed levothyroxine 50 mcg tablet 50 mcg PO DAILY@0630 11/01/23 12/13/23 Previous Rx's Medication Instructions Recorded atenolol 25 mg tablet 75 mg PO BID 90 days #540 tabs 02/14/23 ferrous sulfate 325 mg (65 mg 325 mg PO BID #60 tabs 04/28/23 iron) tablet omeprazole 40 mg capsule,delayed 40 mg PO BID@0630,1630 #60 caps 09/27/23 release amlodipine 2.5 mg tablet 2.5 mg PO DAILY #30 tabs 11/02/23 prednisone 10 mg tablet 10 mg PO DIRECTED #60 tabs 12/13/23 Allergies Allergy/AdvReac Type Severity Reaction Status Date / Time vitamin k Allergy Unknown Uncoded 12/13/23 11:35 Review of Systems 2 Review of Systems: Yes Unobtainable due to mental condition PMFSH Past Medical History Medical History Preop cardiovascular exam Pulmonary 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 Chronic kidney disease, unspecified Leg edema Pulmonary hypertension Essential hypertension 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 atrial fibrillation) [facility] systemic steroid user Osteopenia Polymyalgia rheumatica Surgical History History of bilateral cataract extraction History of cholecystectomy History of partial hysterectomy History of section Family History Family History Father Coronary artery disease FH: CVA (cerebrovascular accident) Mother Kidney failure Social History Social History Household Members: Spouse Housing: House Do you presently have visiting nurse or other home services: No Alcohol intake: never Patient Tobacco Use Status: Never used Tobacco e-Cigarette/Vaping Use: Never Used Second Hand Smoke Exposure: No Advance Directives: No Advance Directives Information Provided: No service: No Current occupational status: retired Cognitive needs: Yes Hearing needs: No Vision needs: Yes Physical Exam 2 Vital Signs: Vital Signs: Last Vital Signs Temp 98.5 F 01/02/24 17:19 Pulse 72 01/02/24 17:19 Resp 18 01/02/24 17:19 BP 203/81 H 01/02/24 17:19 Pulse Ox 99 01/02/24 17:19 O2 Del Method Room Air 01/02/24 17:19 BMI result Body Mass Index 34.3 Exam: General: Patient is holding her head, she has not answering questions, she is complaining of a severe headache and nausea, she did have 2 episodes of emesis while he was in the room Head: Normocephalic, atraumatic, no tenderness palpation of the patient's temporal region. EENT: PERRL, Lids normal, sclera normal, conjunctiva normal, nose normal , ears normal, throat without erythema or exudates Neck: Supple, no adenopathy Lung: breath sounds symmetric, no wheezing, rales or rhonchi Chest: symmetric movement, nontender Heart: regular rate and rhythm, normal S1, S2 no murmurs or rubs Abdomen: soft, non-tender, nondistended, normal bowel sounds Back: no vertebral tenderness, no CVAT Extremities: no deformities, moves all extremities symmetrically Neuro: Awake, alert, oriented to person, moves all extremities symmetrically Medications Administered Discontinued Medications Generic Name Dose Route Start Last Admin Trade Name Freq PRN Reason Stop Dose Admin Diphenhydramine HCl 12.5 mg 01/02/24 14:34 01/02/24 14:48 Diphenhydramine Hcl 50 Mg/Ml Vial IVPUSH 01/02/24 14:35 12.5 mg ONCE ONE Administration Haloperidol Lactate 2.5 mg 01/02/24 15:19 01/02/24 15:25 Haloperidol Lactate 5 Mg/Ml Vial IVPUSH 01/02/24 15:20 2.5 mg STAT STA Administration Haloperidol Lactate 2.5 mg 01/02/24 16:08 01/02/24 16:15 Haloperidol Lactate 5 Mg/Ml Vial IVPUSH 01/02/24 16:09 2.5 mg STAT STA Administration Sodium Chloride 1,000 mls @ 999 mls/hr 01/02/24 13:27 01/02/24 17:14 Ns IV 01/02/24 14:27 Infused .Q1H1M STA Infusion Metoclopramide HCl 5 mg 01/02/24 13:27 01/02/24 13:57 Metoclopramide Hcl 10 Mg/2 Ml Vial IVPUSH 01/02/24 13:28 5 mg ONCE STA Administration Metoclopramide HCl 10 mg 01/02/24 14:34 01/02/24 14:47 Metoclopramide Hcl 10 Mg/2 Ml Vial IVPUSH 01/02/24 14:35 10 mg ONCE STA Administration Morphine Sulfate 4 mg 01/02/24 13:27 01/02/24 13:57 Morphine Sulfate 4 Mg/Ml Cartridge IVPUSH 01/02/24 13:28 4 mg ONCE STA Administration Protocol Medical Decision Making Medical Decision Making MDM Narrative: 78-year-old female history of hypertension, diastolic dysfunction, thrombocytopenia, gastric ulcer, hemoptysis, pulmonary hypertension, hypothyroidism who presents emergency department for evaluation of headache x2 days associated with nausea and vomiting.. Patient is a poor informant and the also is difficult to get detailed history from. Patient did state that this is the worst headache that she has ever had. Patient did appear to be uncomfortable and did have 2 episodes of emesis while was in the room. She had no tenderness palpation over her temporal regions of her head. Her exam was otherwise unremarkable with a nonfocal neurologic exam. Differential diagnosis: ?Includes but is not limited to intracranial bleed, giant cell arteritis, headache, migraine syndrome, infectious process Following evaluation was ordered: CBC, CMP, lipase, PTT, ESR, CRP, COVID-19, influenza, RSV, CT scan of the head and cervical spine without IV contrast. Patient was initially treated with the following: Normal saline x1 L, morphine 4 mg IV, Reglan 5 mg IV Course: Lab Data 01/02/24 13:50 01/02/24 16:49 Labs: Lab Results 01/02/24 01/02/24 01/02/24 Range/Units 13:50 13:54 15:31 WBC 21.6 H (4.8-10.8) X10*3/uL RBC 4.54 (4.20-5.50) X10*6/uL Hgb 14.5 (12.0-16.0) g/dl Hct 41.5 (37.0-47.0) % MCV 91.4 (80.0-98.0) fL MCH 31.9 (27.0-33.0) pg MCHC 34.9 (31.0-35.0) g/dl RDW 15.4 (11.0-16.0) % Plt Count 75 L (160-400) X10*3/uL MPV Not Reportable Immature Gran % (Auto) 2.7 H (0.0-0.4) % Neut % (Auto) 83.8 H (45-73) % Lymph % (Auto) 7.3 L (20-40) % [place] % (Auto) 6.1 (2-11) % Eos % (Auto) 0.0 (0-4) % Baso % (Auto) 0.1 (0-2) % Lymph # (Auto) 1.6 (1.2-4.9) X10*3/uL [place] # (Auto) 1.3 H (0.1-1.2) X10*3/uL Eos # (Auto) 0.0 (0.0-0.4) X10*3/uL Baso # (Auto) 0.0 (0.0-0.2) X10*3/uL Abs Immat Gran (auto) 0.58 H (0.00-0.03) X10*3/uL Absolute Neuts (auto) 18.1 H (2.0-8.3) x10*3/uL Absolute Nucleated RBC 0.000 (0.0-0.012) X10*3/uL Nucleated RBC % (auto) 0.0 (0.0-0.2) /100WBC Smear Tech's Comments VERIFIED ESR 2 (0-20) MM/HR Hold Purple Top SEE NOTE PT 11.7 (11.1-13.3) SEC INR 1.0 (0.9-1.1) APTT 19.9 L (26.0-36.8) SEC Sodium (135-145) mmol/L Potassium (3.3-5.1) mmol/L Chloride (96-108) mmol/L Carbon Dioxide (22-29) mmol/L Anion Gap (12-20) BUN (9-16) mg/dL Creatinine (0.5-1.4) mg/dL Estim Creat Clear Calc Estimated GFR Random Glucose (60-115) mg/dL Calcium (8.4-10.2) mg/dL Total Bilirubin (0.0-1.0) mg/dL AST (5-31) U/L ALT (0-31) U/L Alkaline Phosphatase (39-117) U/L C-Reactive Protein (< or = 0.50) mg/dL Total Protein (6.5-8.0) g/dL Albumin (3.5-5.0) g/dL Lipase (8-78) U/L Urine Color Yellow Urine Appearance Urine pH (5.0-9.0) Ur Specific [place] (1.005-1.025) Urine Protein (Neg-Trace) mg/dL Urine Glucose (UA) (Negative) mg/dL Urine Ketones (Negative) mg/dL Urine Blood (Negative) Urine Nitrite (Negative) Ur Leukocyte Esterase (Negative) Urine RBC (0-2) /HPF Urine WBC (0-5) /HPF Urine WBC Clumps Ur Squamous Epith Cells (0-2) /HPF Ur Transition Epith Cell Ur Renal Epithelial Cell Calcium Oxalate Crystal Leucine Crystals Cystine Crystals Tyrosine Crystals Other Crystals Urine Bacteria (None Seen) Urine Parasites Bilirubin Casts Epithelial Casts Fatty Casts Hyaline Casts (0-2) /LPF Granular Casts Waxy Casts Broad Casts RBC Casts WBC Casts Other Casts Urine Trichomonas Urine Yeast Influenza Type A (PCR) NEGATIVE (Negative) Influenza Type B (PCR) NEGATIVE (Negative) RSV RNA Qual (PCR) NEGATIVE (Negative) SARS-CoV-2 RNA (RT-PCR) NEGATIVE (Negative) 01/02/24 01/02/2401/01/24 Range/Units 15:31 15:31 15:31 WBC (4.8-10.8) X10*3/uL RBC (4.20-5.50) X10*6/uL Hgb (12.0-16.0) g/dl Hct (37.0-47.0) % MCV (80.0-98.0) fL MCH (27.0-33.0) pg MCHC (31.0-35.0) g/dl RDW (11.0-16.0) % Plt Count (160-400) X10*3/uL MPV Immature Gran % (Auto) (0.0-0.4) % Neut % (Auto) (45-73) % Lymph % (Auto) (20-40) % [place] % (Auto) (2-11) % Eos % (Auto) (0-4) % Baso % (Auto) (0-2) % Lymph # (Auto) (1.2-4.9) X10*3/uL [place] # (Auto) (0.1-1.2) X10*3/uL Eos # (Auto) (0.0-0.4) X10*3/uL Baso # (Auto) (0.0-0.2) X10*3/uL Abs Immat Gran (auto) (0.00-0.03) X10*3/uL Absolute Neuts (auto) (2.0-8.3) x10*3/uL Absolute Nucleated RBC (0.0-0.012) X10*3/uL Nucleated RBC % (auto) (0.0-0.2) /100WBC Smear Tech's Comments ESR (0-20) MM/HR Hold Purple Top PT (11.1-13.3) SEC INR (0.9-1.1) APTT (26.0-36.8) SEC Sodium (135-145) mmol/L Potassium (3.3-5.1) mmol/L Chloride (96-108) mmol/L Carbon Dioxide (22-29) mmol/L Anion Gap (12-20) BUN (9-16) mg/dL Creatinine (0.5-1.4) mg/dL Estim Creat Clear Calc Estimated GFR Random Glucose (60-115) mg/dL Calcium (8.4-10.2) mg/dL Total Bilirubin (0.0-1.0) mg/dL AST (5-31) U/L ALT (0-31) U/L Alkaline Phosphatase (39-117) U/L C-Reactive Protein (< or = 0.50) mg/dL Total Protein (6.5-8.0) g/dL Albumin (3.5-5.0) g/dL Lipase (8-78) U/L Urine Color Cancelled Urine Appearance Clear Cancelled Urine pH 6.5 Cancelled (5.0-9.0) Ur Specific [place] 1.015 (1.005-1.025) Urine Protein (Neg-Trace) mg/dL Urine Glucose (UA) (Negative) mg/dL Urine Ketones (Negative) mg/dL Urine Blood (Negative) Urine Nitrite (Negative) Ur Leukocyte Esterase (Negative) Urine RBC (0-2) /HPF Urine WBC (0-5) /HPF Urine WBC Clumps Ur Squamous Epith Cells (0-2) /HPF Ur Transition Epith Cell Ur Renal Epithelial Cell Calcium Oxalate Crystal Leucine Crystals Cystine Crystals Tyrosine Crystals Other Crystals Urine Bacteria (None Seen) Urine Parasites Bilirubin Casts Epithelial Casts Fatty Casts Hyaline Casts (0-2) /LPF Granular Casts Waxy Casts Broad Casts RBC Casts WBC Casts Other Casts Urine Trichomonas Urine Yeast Influenza Type A (PCR) (Negative) Influenza Type B (PCR) (Negative) RSV RNA Qual (PCR) (Negative) SARS-CoV-2 RNA (RT-PCR) (Negative) 01/02/24 01/02/24 01/02/24 Range/Units 15:31 15:31 15:31 WBC (4.8-10.8) X10*3/uL RBC (4.20-5.50) X10*6/uL Hgb (12.0-16.0) g/dl Hct (37.0-47.0) % MCV (80.0-98.0) fL MCH (27.0-33.0) pg MCHC (31.0-35.0) g/dl RDW (11.0-16.0) % Plt Count (160-400) X10*3/uL MPV Immature Gran % (Auto) (0.0-0.4) % Neut % (Auto) (45-73) % Lymph % (Auto) (20-40) % [place] % (Auto) (2-11) % Eos % (Auto) (0-4) % Baso % (Auto) (0-2) % Lymph # (Auto) (1.2-4.9) X10*3/uL [place] # (Auto) (0.1-1.2) X10*3/uL Eos # (Auto) (0.0-0.4) X10*3/uL Baso # (Auto) (0.0-0.2) X10*3/uL Abs Immat Gran (auto) (0.00-0.03) X10*3/uL Absolute Neuts (auto) (2.0-8.3) x10*3/uL Absolute Nucleated RBC (0.0-0.012) X10*3/uL Nucleated RBC % (auto) (0.0-0.2) /100WBC Smear Tech's Comments ESR (0-20) MM/HR Hold Purple Top PT (11.1-13.3) SEC INR (0.9-1.1) APTT (26.0-36.8) SEC Sodium (135-145) mmol/L Potassium (3.3-5.1) mmol/L Chloride (96-108) mmol/L Carbon Dioxide (22-29) mmol/L Anion Gap (12-20) BUN (9-16) mg/dL Creatinine (0.5-1.4) mg/dL Estim Creat Clear Calc Estimated GFR Random Glucose (60-115) mg/dL Calcium (8.4-10.2) mg/dL Total Bilirubin (0.0-1.0) mg/dL AST (5-31) U/L ALT (0-31) U/L Alkaline Phosphatase (39-117) U/L C-Reactive Protein (< or = 0.50) mg/dL Total Protein (6.5-8.0) g/dL Albumin (3.5-5.0) g/dL Lipase (8-78) U/L Urine Color Urine Appearance Urine pH (5.0-9.0) Ur Specific [place] Cancelled (1.005-1.025) Urine Protein 300 (3+) H Cancelled (Neg-Trace) mg/dL Urine Glucose (UA) Negative Cancelled (Negative) mg/dL Urine Ketones Negative (Negative) mg/dL Urine Blood (Negative) Urine Nitrite (Negative) Ur Leukocyte Esterase (Negative) Urine RBC (0-2) /HPF Urine WBC (0-5) /HPF Urine WBC Clumps Ur Squamous Epith Cells (0-2) /HPF Ur Transition Epith Cell Ur Renal Epithelial Cell Calcium Oxalate Crystal Leucine Crystals Cystine Crystals Tyrosine Crystals Other Crystals Urine Bacteria (None Seen) Urine Parasites Bilirubin Casts Epithelial Casts Fatty Casts Hyaline Casts (0-2) /LPF Granular Casts Waxy Casts Broad Casts RBC Casts WBC Casts Other Casts Urine Trichomonas Urine Yeast Influenza Type A (PCR) (Negative) Influenza Type B (PCR) (Negative) RSV RNA Qual (PCR) (Negative) SARS-CoV-2 RNA (RT-PCR) (Negative) 01/02/24 01/02/24 01/02/24 Range/Units 15:31 15:31 15:31 WBC (4.8-10.8) X10*3/uL RBC (4.20-5.50) X10*6/uL Hgb (12.0-16.0) g/dl Hct (37.0-47.0) % MCV (80.0-98.0) fL MCH (27.0-33.0) pg MCHC (31.0-35.0) g/dl RDW (11.0-16.0) % Plt Count (160-400) X10*3/uL MPV Immature Gran % (Auto) (0.0-0.4) % Neut % (Auto) (45-73) % Lymph % (Auto) (20-40) % [place] % (Auto) (2-11) % Eos % (Auto) (0-4) % Baso % (Auto) (0-2) % Lymph # (Auto) (1.2-4.9) X10*3/uL [place] # (Auto) (0.1-1.2) X10*3/uL Eos # (Auto) (0.0-0.4) X10*3/uL Baso # (Auto) (0.0-0.2) X10*3/uL Abs Immat Gran (auto) (0.00-0.03) X10*3/uL Absolute Neuts (auto) (2.0-8.3) x10*3/uL Absolute Nucleated RBC (0.0-0.012) X10*3/uL Nucleated RBC % (auto) (0.0-0.2) /100WBC Smear Tech's Comments ESR (0-20) MM/HR Hold Purple Top PT (11.1-13.3) SEC INR (0.9-1.1) APTT (26.0-36.8) SEC Sodium (135-145) mmol/L Potassium (3.3-5.1) mmol/L Chloride (96-108) mmol/L Carbon Dioxide (22-29) mmol/L Anion Gap (12-20) BUN (9-16) mg/dL Creatinine (0.5-1.4) mg/dL Estim Creat Clear Calc Estimated GFR Random Glucose (60-115) mg/dL Calcium (8.4-10.2) mg/dL Total Bilirubin (0.0-1.0) mg/dL AST (5-31) U/L ALT (0-31) U/L Alkaline Phosphatase (39-117) U/L C-Reactive Protein (< or = 0.50) mg/dL Total Protein (6.5-8.0) g/dL Albumin (3.5-5.0) g/dL Lipase (8-78) U/L Urine Color Urine Appearance Urine pH (5.0-9.0) Ur Specific [place] (1.005-1.025) Urine Protein (Neg-Trace) mg/dL Urine Glucose (UA) (Negative) mg/dL Urine Ketones Cancelled (Negative) mg/dL Urine Blood Small (1+) H Cancelled (Negative) Urine Nitrite Negative Cancelled (Negative) Ur Leukocyte Esterase Trace H (Negative) Urine RBC (0-2) /HPF Urine WBC (0-5) /HPF Urine WBC Clumps Ur Squamous Epith Cells (0-2) /HPF Ur Transition Epith Cell Ur Renal Epithelial Cell Calcium Oxalate Crystal Leucine Crystals Cystine Crystals Tyrosine Crystals Other Crystals Urine Bacteria (None Seen) Urine Parasites Bilirubin Casts Epithelial Casts Fatty Casts Hyaline Casts (0-2) /LPF Granular Casts Waxy Casts Broad Casts RBC Casts WBC Casts Other Casts Urine Trichomonas Urine Yeast Influenza Type A (PCR) (Negative) Influenza Type B (PCR) (Negative) RSV RNA Qual (PCR) (Negative) SARS-CoV-2 RNA (RT-PCR) (Negative) 01/02/24 01/02/24 01/02/24 Range/Units 15:31 15:31 15:31 WBC (4.8-10.8) X10*3/uL RBC (4.20-5.50) X10*6/uL Hgb (12.0-16.0) g/dl Hct (37.0-47.0) % MCV (80.0-98.0) fL MCH (27.0-33.0) pg MCHC (31.0-35.0) g/dl RDW (11.0-16.0) % Plt Count (160-400) X10*3/uL MPV Immature Gran % (Auto) (0.0-0.4) % Neut % (Auto) (45-73) % Lymph % (Auto) (20-40) % [place] % (Auto) (2-11) % Eos % (Auto) (0-4) % Baso % (Auto) (0-2) % Lymph # (Auto) (1.2-4.9) X10*3/uL [place] # (Auto) (0.1-1.2) X10*3/uL Eos # (Auto) (0.0-0.4) X10*3/uL Baso # (Auto) (0.0-0.2) X10*3/uL Abs Immat Gran (auto) (0.00-0.03) X10*3/uL Absolute Neuts (auto) (2.0-8.3) x10*3/uL Absolute Nucleated RBC (0.0-0.012) X10*3/uL Nucleated RBC % (auto) (0.0-0.2) /100WBC Smear Tech's Comments ESR (0-20) MM/HR Hold Purple Top PT (11.1-13.3) SEC INR (0.9-1.1) APTT (26.0-36.8) SEC Sodium (135-145) mmol/L Potassium (3.3-5.1) mmol/L Chloride (96-108) mmol/L Carbon Dioxide (22-29) mmol/L Anion Gap (12-20) BUN (9-16) mg/dL Creatinine (0.5-1.4) mg/dL Estim Creat Clear Calc Estimated GFR Random Glucose (60-115) mg/dL Calcium (8.4-10.2) mg/dL Total Bilirubin (0.0-1.0) mg/dL AST (5-31) U/L ALT (0-31) U/L Alkaline Phosphatase (39-117) U/L C-Reactive Protein (< or = 0.50) mg/dL Total Protein (6.5-8.0) g/dL Albumin (3.5-5.0) g/dL Lipase (8-78) U/L Urine Color Urine Appearance Urine pH (5.0-9.0) Ur Specific [place] (1.005-1.025) Urine Protein (Neg-Trace) mg/dL Urine Glucose (UA) (Negative) mg/dL Urine Ketones (Negative) mg/dL Urine Blood (Negative) Urine Nitrite (Negative) Ur Leukocyte Esterase Cancelled (Negative) Urine RBC 11-20 H Cancelled (0-2) /HPF Urine WBC 11-20 H Cancelled (0-5) /HPF Urine WBC Clumps Cancelled Ur Squamous Epith Cells 0-2 (0-2) /HPF Ur Transition Epith Cell Ur Renal Epithelial Cell Calcium Oxalate Crystal Leucine Crystals Cystine Crystals Tyrosine Crystals Other Crystals Urine Bacteria (None Seen) Urine Parasites Bilirubin Casts Epithelial Casts Fatty Casts Hyaline Casts (0-2) /LPF Granular Casts Waxy Casts Broad Casts RBC Casts WBC Casts Other Casts Urine Trichomonas Urine Yeast Influenza Type A (PCR) (Negative) Influenza Type B (PCR) (Negative) RSV RNA Qual (PCR) (Negative) SARS-CoV-2 RNA (RT-PCR) (Negative) 01/02/24 01/02/24 01/02/24 Range/Units 15:31 15:31 15:31 WBC (4.8-10.8) X10*3/uL RBC (4.20-5.50) X10*6/uL Hgb (12.0-16.0) g/dl Hct (37.0-47.0) % MCV (80.0-98.0) fL MCH (27.0-33.0) pg MCHC (31.0-35.0) g/dl RDW (11.0-16.0) % Plt Count (160-400) X10*3/uL MPV Immature Gran % (Auto) (0.0-0.4) % Neut % (Auto) (45-73) % Lymph % (Auto) (20-40) % [place] % (Auto) (2-11) % Eos % (Auto) (0-4) % Baso % (Auto) (0-2) % Lymph # (Auto) (1.2-4.9) X10*3/uL [place] # (Auto) (0.1-1.2) X10*3/uL Eos # (Auto) (0.0-0.4) X10*3/uL Baso # (Auto) (0.0-0.2) X10*3/uL Abs Immat Gran (auto) (0.00-0.03) X10*3/uL Absolute Neuts (auto) (2.0-8.3) x10*3/uL Absolute Nucleated RBC (0.0-0.012) X10*3/uL Nucleated RBC % (auto) (0.0-0.2) /100WBC Smear Tech's Comments ESR (0-20) MM/HR Hold Purple Top PT (11.1-13.3) SEC INR (0.9-1.1) APTT (26.0-36.8) SEC Sodium (135-145) mmol/L Potassium (3.3-5.1) mmol/L Chloride (96-108) mmol/L Carbon Dioxide (22-29) mmol/L Anion Gap (12-20) BUN (9-16) mg/dL Creatinine (0.5-1.4) mg/dL Estim Creat Clear Calc Estimated GFR Random Glucose (60-115) mg/dL Calcium (8.4-10.2) mg/dL Total Bilirubin (0.0-1.0) mg/dL AST (5-31) U/L ALT (0-31) U/L Alkaline Phosphatase (39-117) U/L C-Reactive Protein (< or = 0.50) mg/dL Total Protein (6.5-8.0) g/dL Albumin (3.5-5.0) g/dL Lipase (8-78) U/L Urine Color Urine Appearance Urine pH (5.0-9.0) Ur Specific [place] (1.005-1.025) Urine Protein (Neg-Trace) mg/dL Urine Glucose (UA) (Negative) mg/dL Urine Ketones (Negative) mg/dL Urine Blood (Negative) Urine Nitrite (Negative) Ur Leukocyte Esterase (Negative) Urine RBC (0-2) /HPF Urine WBC (0-5) /HPF Urine WBC Clumps Ur Squamous Epith Cells Cancelled (0-2) /HPF Ur Transition Epith Cell Cancelled Ur Renal Epithelial Cell Cancelled Calcium Oxalate Crystal Cancelled Leucine Crystals Cancelled Cystine Crystals Cancelled Tyrosine Crystals Cancelled Other Crystals Cancelled Urine Bacteria 1+ Cancelled (None Seen) Urine Parasites Cancelled Bilirubin Casts Cancelled Epithelial Casts Cancelled Fatty Casts Cancelled Hyaline Casts 0-2 Cancelled (0-2) /LPF Granular Casts Cancelled Waxy Casts Cancelled Broad Casts Cancelled RBC Casts Cancelled WBC Casts Cancelled Other Casts Cancelled Urine Trichomonas Cancelled Urine Yeast Cancelled Influenza Type A (PCR) (Negative) Influenza Type B (PCR) (Negative) RSV RNA Qual (PCR) (Negative) SARS-CoV-2 RNA (RT-PCR) (Negative) 01/02/24 Range/Units 16:49 WBC (4.8-10.8) X10*3/uL RBC (4.20-5.50) X10*6/uL Hgb (12.0-16.0) g/dl Hct (37.0-47.0) % MCV (80.0-98.0) fL MCH (27.0-33.0) pg MCHC (31.0-35.0) g/dl RDW (11.0-16.0) % Plt Count (160-400) X10*3/uL MPV Immature Gran % (Auto) (0.0-0.4) % Neut % (Auto) (45-73) % Lymph % (Auto) (20-40) % [place] % (Auto) (2-11) % Eos % (Auto) (0-4) % Baso % (Auto) (0-2) % Lymph # (Auto) (1.2-4.9) X10*3/uL [place] # (Auto) (0.1-1.2) X10*3/uL Eos # (Auto) (0.0-0.4) X10*3/uL Baso # (Auto) (0.0-0.2) X10*3/uL Abs Immat Gran (auto) (0.00-0.03) X10*3/uL Absolute Neuts (auto) (2.0-8.3) x10*3/uL Absolute Nucleated RBC (0.0-0.012) X10*3/uL Nucleated RBC % (auto) (0.0-0.2) /100WBC Smear Tech's Comments ESR (0-20) MM/HR Hold Purple Top PT (11.1-13.3) SEC INR (0.9-1.1) APTT (26.0-36.8) SEC Sodium 137 (135-145) mmol/L Potassium 4.2 (3.3-5.1) mmol/L Chloride 106 (96-108) mmol/L Carbon Dioxide 22 (22-29) mmol/L Anion Gap 13 (12-20) BUN 30 H (9-16) mg/dL Creatinine 0.87 (0.5-1.4) mg/dL Estim Creat Clear Calc 47.7 Estimated GFR > 60 Random Glucose 138 H (60-115) mg/dL Calcium 9.2 (8.4-10.2) mg/dL Total Bilirubin 1.0 (0.0-1.0) mg/dL AST 19 (5-31) U/L ALT 16 (0-31) U/L Alkaline Phosphatase 60 (39-117) U/L C-Reactive Protein 0.35 (< or = 0.50) mg/dL Total Protein 7.4 (6.5-8.0) g/dL Albumin 4.3 (3.5-5.0) g/dL Lipase 34 (8-78) U/L Urine Color Urine Appearance Urine pH (5.0-9.0) Ur Specific [place] (1.005-1.025) Urine Protein (Neg-Trace) mg/dL Urine Glucose (UA) (Negative) mg/dL Urine Ketones (Negative) mg/dL Urine Blood (Negative) Urine Nitrite (Negative) Ur Leukocyte Esterase (Negative) Urine RBC (0-2) /HPF Urine WBC (0-5) /HPF Urine WBC Clumps Ur Squamous Epith Cells (0-2) /HPF Ur Transition Epith Cell Ur Renal Epithelial Cell Calcium Oxalate Crystal Leucine Crystals Cystine Crystals Tyrosine Crystals Other Crystals Urine Bacteria (None Seen) Urine Parasites Bilirubin Casts Epithelial Casts Fatty Casts Hyaline Casts (0-2) /LPF Granular Casts Waxy Casts Broad Casts RBC Casts WBC Casts Other Casts Urine Trichomonas Urine Yeast Influenza Type A (PCR) (Negative) Influenza Type B (PCR) (Negative) RSV RNA Qual (PCR) (Negative) SARS-CoV-2 RNA (RT-PCR) (Negative) Discharge Plan Discharge Clinical Impression: Headache, Vomiting Patient Disposition: Home, Self-Care Prescriptions: No Action atenolol 25 mg tablet 75 mg PO BID 90 Days Qty: 540 3RF Protocol: Hold for SBP/HR < HOLD for SBP < : 90 HOLD for HR < : 60 ferrous sulfate 325 mg (65 mg iron) tablet 325 mg PO BID Qty: 60 6RF omeprazole 40 mg capsule,delayed release(DR/EC) 40 mg PO BID@0630,1630 Qty: 60 7RF prednisone 10 mg Tablet 10 mg PO DIRECTED Qty: 60 0RF Rx Instructions: see taper instructions - Take 20 mg PO daily x10 days from 12/14/23, return for repeat CBC on 12/23/23. levothyroxine 50 mcg tablet 50 mcg PO DAILY@0630 amlodipine 2.5 mg Tablet 2.5 mg PO DAILY Qty: 30 0RF Protocol: Hold for SBP< HOLD for SBP < : 90
[2024-01-02] MEDS: Morphine Sulfate 4 MG/ML CARTRIDGE IVPUSH (13:57)
[2024-01-02] MEDS: Metoclopramide HCl 10 MG/2 ML VIAL 5 MG IVPUSH (13:57)
[2024-01-02] MEDS: 0.9 % Sodium Chloride 1,000 ML 999 ML IV (13:58)
[2024-01-02 14:05] LABS: Basophils Percent Auto 0.1 % (0-2); Hematocrit 41.5 % (37.0-47.0); Hemoglobin 14.5 g/dl (12.0-16.0); Imm Gran Abs Auto 0.58 X10*3/uL (0.00-0.03); Imm Gran Pct Auto 2.7 % (0.0-0.4); Lymphocytes Absolute Auto 1.6 X10*3/uL (1.2-4.9); Lymphocytes Percent Auto 7.3 % (20-40); MANUAL DIFF FLAG SCAN; Mean Corpuscular HGB Conc 34.9 g/dl (31.0-35.0); Mean Corpuscular Hemoglobin 31.9 pg (27.0-33.0); Mean Corpuscular Volume 91.4 fL (80.0-98.0); Monocytes Absolute Auto 1.3 X10*3/uL (0.1-1.2); Monocytes Percent Auto 6.1 % (2-11); Neutrophils Absolute Auto 18.1 x10*3/uL (2.0-8.3); Neutrophils Percent Auto 83.8 % (45-73); PLT CLUMP 1; Red Blood Count 4.54 X10*6/uL (4.20-5.50); Red Cell Distribution Width 15.4 % (11.0-16.0); SCAN SMEAR FLAG 1
[2024-01-02 14:21] LABS: Prothrombin Time 11.7 SEC (11.1-13.3)
[2024-01-02 14:35] LABS: Platelet Count 75 X10*3/uL (160-400); SLIDE REVIEW VERIFIED; White Blood Count 21.6 X10*3/uL (4.8-10.8)
[2024-01-02 14:38] LABS: Partial Thromboplastin Time 19.9 SEC (26.0-36.8)
[2024-01-02] MEDS: Metoclopramide HCl 10 MG/2 ML VIAL IVPUSH (14:47)
[2024-01-02] MEDS: diphenhydrAMINE HCL 50 MG/ML VIAL 12.5 MG IVPUSH (14:48)
[2024-01-02 14:52] LABS: Erythrocyte Sedimentation Rate 2 MM/HR (0-20)
--- NOTE | 2024-01-02 15:00 | PC.NURSE ---
attempted to take patient to ct scan, unable to tolerate - patient vomiting on way to scan. patient agitated/confused pulling at equipment. plan to medicate patient to obtain ct scan.
[2024-01-02 15:14] LABS: Influenza A PCR NEGATIVE (Negative); Influenza B PCR NEGATIVE (Negative); Resp Syncy Virus RNA Qual PCR NEGATIVE (Negative); SARS COV2 PCR INHOUSE NEGATIVE (Negative)
[2024-01-02] MEDS: Haloperidol Lactate 5 MG/ML VIAL 2.5 MG IVPUSH ×2 (15:25→16:15)
[2024-01-02 15:44] LABS: Appearance Urine Clear; Color Urine Yellow; Glucose Urine UA Negative (Negative); Leukocyte Esterase Urine Trace (Negative); Nitrite Urine Negative (Negative); PH 6.5 (5.0-9.0); Specific Gravity - Urine 1.015 (1.005-1.025); UMIC TRIGGER UACC YES; Urine Blood Small (1+) (Negative); Urine Ketones Negative (Negative); Urine Protein 300 (3+) mg/dL (Neg-Trace)
[2024-01-02 15:47] LABS: Bacteria Urine 1+ (None Seen); Hyaline Casts Urine 0-2 /LPF (0-2); Squamous Epithelial Cell Urine 0-2 /HPF (0-2); UACC Culture Trigger YES
--- NOTE | 2024-01-02 16:00 | PC.NURSE ---
patient remains confused and pulling at equipment, continues to remove blood pressure cuff from arm. repeat haldol to be administered at this time to obtain ct scan.
[2024-01-02 17:16] LABS: Alanine Aminotransferase 16 U/L (0-31); Albumin Level 4.3 g/dL (3.5-5.0); Alkaline Phosphatase 60 U/L (39-117); Anion Gap 13 (12-20); Aspartate Amino Transferase 19 U/L (5-31); Blood Urea Nitrogen 30 mg/dL (9-16); C Reactive Protein 0.35 mg/dL (< or = 0.50); Calcium 9.2 mg/dL (8.4-10.2); Carbon Dioxide 22 mmol/L (22-29); Chloride 106 mmol/L (96-108); Creatinine Clr Calc Pharmacy 47.7; Estimated Glomerular Filt Rate > 60; Glucose Random 138 mg/dL (60-115); Lipase 34 U/L (8-78); Potassium 4.2 mmol/L (3.3-5.1); Sodium 137 mmol/L (135-145); Total Protein 7.4 g/dL (6.5-8.0)
--- NOTE | 2024-01-02 19:00 | PC.NURSE ---
late entry: patient remained uncooperative and pulling at devices, unable to keep blood pressure cuff/oxygen probe on patient due to increased confusion. patient became calm and cooperative approx 1715, able to be taken for ct scan and obtain accurate vital signs.
--- NOTE | 2024-01-02 19:32 | PC.NURSE ---
patient no longer vomiting, able to answer questions appropriately. blood pressure has improved at this time. provider in to speak with family about potential discharge - patient aware and accepting of taking patient home at this time.
[2024-01-02] MEDS: cefuroxime axetiL 250 MG TABLET PO (19:38)
== END 2024-01-02 19:44 | disposition home or self-care (01) ==
PROVIDERS: Physician Assistant Medical; Emergency Provider Emergency Medicine Emergency Medical Services; PCP Internal Medicine
DX: R51.9 Headache, unspecified (principal); R11.10 Vomiting, unspecified; I12.9 Hypertensive chronic kidney disease with stage 1 through stage 4 chronic kidney disease, or unspecified chronic kidney disease; N18.9 Chronic kidney disease, unspecified; I48.0 Paroxysmal atrial fibrillation; Z79.01 Long term (current) use of 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; Z11.52 Encounter for screening for COVID-19; Z20.828 Contact with and (suspected) exposure to other viral communicable diseases
CPT/HCPCS: 0241U; 36415; 70450; 72125; 80053; 81001; 83690; 85025; 85610; 85652; 85730; 86140; 87086; 87088; 87186; 96361; 96374; 96375; 96376; 99284; 99285; J1200; J1630; J2270; J2765

== ENCOUNTER 2024-01-23 10:06 | Outpatient (AMB) | payer MEDICARE, SELFPAY ==
[2024-01-23 10:09] VITALS: BP 162/80; PULSE 61; O2SAT 97; BMI 27.9
--- NOTE | 2024-01-23 10:09 | MHC.PC.OV ---
Vital Signs 01/23/24 10:09 Height 4 ft 11 in Weight 138 lb 0.4 oz BMI 27.9 BP 162/80 H Blood Pressure Location Lt brachial Position Sitting Pulse 61 Pulse Source Pulse Oximeter Pulse Oximetry (%) 97 Oxygen Delivery Method Room Air Intake Visit Reasons: ed follow up UTI Intake Note: Patient is here to follow-up after a visit the emergency department at [facility] on 01/02/2024 Submarine Diver Required: No Allergies vitamin k Allergy (Uncoded 12/13/23 11:35) Unknown Medication List - Last Reconciled 01/23/24 by Jamshid John MD amlodipine 2.5 mg See Protocol PO DAILY atenolol 75 mg See Protocol PO BID 90 days ferrous sulfate 325 mg PO BID levothyroxine 50 mcg PO DAILY@0630 omeprazole 40 mg PO BID@0630,1630 prednisone 10 mg PO DIRECTED Tobacco use date assessed: 01/23/24 Fall risk assessment: No Falls in past year Last assessed Fall Risk: 01/23/24 Dental Screening Dental Screen Date: 06/30/23 HPI ed follow up UTI HPI Details was treated for a uti; improved [facility] Medical History Preop cardiovascular exam Pulmonary nodules [facility] current use of anticoagulant Chronic kidney disease, unspecified Leg edema Pulmonary hypertension Essential hypertension 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 Osteopenia Polymyalgia rheumatica Surgical History History of bilateral cataract extraction History of cholecystectomy History of partial hysterectomy History of section Family History Father Coronary artery disease FH: CVA (cerebrovascular accident) Mother Kidney failure Social History Household Members: Spouse Housing: House Do you presently have visiting nurse or other home services: No Alcohol intake: never Patient Tobacco Use Status: Never used Tobacco e-Cigarette/Vaping Use: Never Used Second Hand Smoke Exposure: No service: No Current occupational status: retired Cognitive needs: Yes Hearing needs: No Vision needs: Yes Questionnaire Thrive Questionnaire Date Thrive assessed: 01/23/24 I am a: Patient What is your living situation today?: I have a steady place to live Within the past 12 months, did the food you bought not last and you didn't have the money to get more?: Never true Within the past 12 months, did you worry whether your food would run out before you got money to buy more?: Never true Do you have trouble paying for medicines?: No Do you have trouble getting transportation to medical appointments?: No Do you have trouble paying your heating and electricity bill?: No Do you have trouble taking care of your child, family member or friend?: No Do you have trouble with day-to-day activities such as bathing, preparing meals, shopping, managing finances, etc.?: No Are you currently unemployed and looking for a job?: No Are you interested in more education?: No Please select the resources that you would like help with: None Currently or been in a relationship where the following occur: no concerns reported THRIVE Score: 0 AUDIT C Alcohol Use Questionnaire (AUDIT-C) 1. How often do you have a drink containing alcohol?: Never 3. How often do you have six or more drinks on one occasion?: Never Total Score: 0 Score Reviewed/Action Taken: Yes MARCI-7 AMB Questionnaire MARCI-7 Date MARCI - 7 assessed: 01/23/24 Source: Developed by Drs. Luis Krause, Carissa Ruvalcaba, Eric Fernandez and colleagues, with an educational kee from [employer]. Review of Systems Const Denies chills, Denies headache(s) and Denies weight loss ENT Denies headache(s) Card Denies chest pain, Denies syncope, Denies irregular heart rhythm and Denies dyspnea Resp Denies chest congestion, Denies cough and Denies dyspnea GI Denies abdominal pain, Denies change in stool character, Denies nausea and Denies vomiting Musc Denies deformity and Denies joint swelling Neuro Denies syncope and Denies headache(s) Physical exam (Primary Care) Vital Signs: Last Vital Signs Pulse 61 01/23/24 10:09 BP 162/80 H 01/23/24 10:09 Pulse Ox 97 01/23/24 10:09 Oxygen Delivery Method Room Air 01/23/24 10:09 BMI result Body Mass Index 27.9 Tobacco/Smoking Status: Tobacco use Status Tobacco use date assessed 01/23/24 01/23/24 10:15 Patient Tobacco Use Status Never used Tobacco 01/23/24 10:10 e-Cigarette/Vaping Use Never Used 01/23/24 10:10 Thrive Assessment: Date of Thrive Assessment Date Thrive assessed 01/23/24 01/23/24 10:15 Currently or been in a relationship where the following occur: no concerns reported Const General: cooperative, comfortable, no acute distress and alert Neck Neck: Yes no lymphadenopathy Thyroid: Thyroid normal Resp Effort & Inspection: normal respiratory effort Auscultation: clear to auscultation bilaterally Percussion: percussion normal Cardio Jugular venous distension: no JVD Palpation: normal PMI Rate: regular rate Rhythm: regular rhythm Heart sounds: S1 normal heart sound present and S2 normal heart sound present GI Inspection: Yes normal to inspection Palpation (GI): No hepatosplenomegaly present Skin General skin exam: no rashes or lesions noted Extrem General: Yes no clubbing, cyanosis or edema Assessment and Plan Assessment & Plan (1) UTI (urinary tract infection): Code(s): N39.0 - Urinary tract infection, site not specified Plan: resolved Coding Level of Care Code Est Pt Level 3 (46962) Diagnoses UTI (urinary tract infection) N39.0
== END 2024-01-23 10:27 | disposition home or self-care (01) ==
PROVIDERS: PCP Internal Medicine; Visit Provider Internal Medicine
DX: N39.0 Urinary tract infection, site not specified (principal)
CPT/HCPCS: 99213

== ENCOUNTER 2024-02-13 10:44 | Outpatient (AMB) | payer MEDICARE, SELFPAY ==
[2024-02-13 10:50] VITALS: BP 128/68; PULSE 63; O2SAT 97; BMI 27.7
--- NOTE | 2024-02-13 10:50 | A.OFFVIS_ITS ---
Vital Signs 02/13/24 10:50 Height 4 ft 11 in Weight 137 lb BMI 27.7 BP 128/68 Blood Pressure Location Lt brachial Position Sitting Pulse 63 Pulse Source Monitor Pulse Oximetry (%) 97 Oxygen Delivery Method Room Air Intake Visit Reasons: 1 year follow up Allergies vitamin k Allergy (Uncoded 02/13/24 09:08) Unknown Medication List - Last Reconciled 02/13/24 by Dean Calderón MD amlodipine 2.5 mg See Protocol PO DAILY atenolol 75 mg See Protocol PO BID 90 days ferrous sulfate 325 mg PO BID levothyroxine 50 mcg PO DAILY@0630 omeprazole 40 mg PO BID@0630,1630 prednisone 10 mg PO DIRECTED HPI Comments Details: Sumi returns for follow-up regarding atrial fibrillation. To recall, we originally saw her in 2015 for elevated cardiac BNP. At that time, thought to be from possibly hypertension/diastolic dysfunction. Then she was following up with her PCP but in the interim, developed leg DVT. She took Xarelto for some time. Then she had palpitations that led to a diagnosis of atrial fibrillation. Subsequently, beta-erich dose has been increased. She was also put on Eliquis. She was taking hydrochlorothiazide but had elevated renal function. Then we stopped it. She was mostly doing okay, but few months ago she had hemoptysis that led to ER visit. Then it seems that she had GI bleed as well as thrombocytopenia. She has no longer on Eliquis. On prednisone through 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 Osteopenia Polymyalgia rheumatica Surgical History History of bilateral cataract extraction History of cholecystectomy History of partial hysterectomy History of section Family History Father Coronary artery disease FH: CVA (cerebrovascular accident) Mother Kidney failure Social History Household Members: Spouse Housing: House Do you presently have visiting nurse or other home services: No Alcohol intake: never Patient Tobacco Use Status: Never used Tobacco e-Cigarette/Vaping Use: Never Used Second Hand Smoke Exposure: No service: No Current occupational status: retired Cognitive needs: Yes Hearing needs: No Vision needs: Yes Review of Systems Const Denies weakness ENT Denies dizziness Card Denies chest pain, Denies chest pain with activity, Denies syncope, Denies rapid heart rate, Denies pedal edema, Denies edema, Denies leg edema, Denies lightheadedness, Denies palpitations, Denies dyspnea, Denies dyspnea on exertion and Denies orthopnea Resp Denies cough, Denies dyspnea and Denies dyspnea on exertion GI Denies hematochezia and Denies change in stool character Musc Denies abnormal gait, Denies muscle cramps, Denies muscle weakness, Denies numbness, Denies radiating pain into limb and Denies tingling Neuro Denies abnormal gait, Denies dizziness, Denies syncope, Denies numbness, Denies tingling and Denies weakness Endo Denies palpitations Physical Exam Vital Signs: Last Vital Signs Pulse 63 02/13/24 10:50 BP 128/68 02/13/24 10:50 Pulse Ox 97 02/13/24 10:50 Oxygen Delivery Method Room Air 02/13/24 10:50 BMI result Body Mass Index 27.7 Const General: comfortable and no acute distress Orientation/consciousness: patient oriented x3 HEENT Other: Unremarkable Head: Yes normal to inspection Neck Neck: Yes normal visual inspection Chest Chest palpation & inspection: normal inspection of the chest Resp Auscultation: clear to auscultation bilaterally Cardio Palpation: normal PMI Heart sounds: S1 normal heart sound present, S2 normal heart sound present, no gallops, no murmurs and no rubs GI Palpation (GI): Soft to palpation Back/Spine/Pelvis Other: unremarkable Skin General skin exam: no rashes or lesions noted Neuro General: patient oriented x3 Extrem General: Yes normal to inspection Psych Mental Status: mental status grossly normal Office Procedures EKG Details: EKG shows sinus rhythm at 63/Min; inferior/anterolateral T inversions which are not seen before. [id number], Complete Assessment & Plan Assessment & Plan (1) 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 atrial fibrillation): Code(s): I48.0 - Paroxysmal atrial fibrillation Category: Medical Plan: No recent issues. Continue beta-blockers. With regard to anticoagulation, she was on Eliquis but not anymore. This history of GI bleed as well as thrombocytopenia requiring steroids. No changes for now. (2) Abnormal EKG: Code(s): R94.31 - Abnormal electrocardiogram [ECG] [EKG] Category: Medical Plan: Could indicate coronary disease. However, she is dealing with thrombocytopenia, bleeding issues and also does not have any angina or in fact any symptoms at all. Hence we will just conservatively manage this. (3) Essential hypertension: Code(s): I10 - Essential (primary) hypertension Category: Medical Plan: She is on atenolol and amlodipine. Stable. (4) Diastolic dysfunction: Code(s): I51.89 - Other ill-defined heart diseases Category: Medical Plan: Grade 2 diastolic dysfunction on the echocardiogram. No clear heart failure symptoms or signs. (5) Pulmonary hypertension: Code(s): I27.20 - Pulmonary hypertension, unspecified Category: Medical Plan: Moderate pulmonary hypertension on the echocardiogram. Probably all from left heart dysfunction. No symptoms from this. No known interstitial lung disease or chronic thromboembolic issues. At her age, no specific management. (6) Chronic kidney disease, unspecified: Code(s): N18.9 - Chronic kidney disease, unspecified Category: Medical Qualifiers: Chronic kidney disease stage: unspecified stage Qualified Code(s): N18.9 - Chronic kidney disease, unspecified Plan: Stable. Coding Level of Care Code Est Pt Level 4 (69893) Diagnoses 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 atrial fibrillation) I48.0 Abnormal EKG R94.31 Essential hypertension I10 Diastolic dysfunction I51.89 Pulmonary hypertension I27.20 Chronic kidney disease, unspecified CKD stage N18.9 Chronic kidney disease stage: unspecified stage CPT Codes EKG - CPT: 76316-[id number], Complete ([id number])
== END 2024-02-13 11:17 | disposition home or self-care (01) ==
PROVIDERS: Visit Provider Internal Medicine
DX: I48.0 Paroxysmal atrial fibrillation (principal); R94.31 Abnormal electrocardiogram [ECG] [EKG]; I12.9 Hypertensive chronic kidney disease with stage 1 through stage 4 chronic kidney disease, or unspecified chronic kidney disease; I51.89 Other ill-defined heart diseases; I27.20 Pulmonary hypertension, unspecified; N18.9 Chronic kidney disease, unspecified
CPT/HCPCS: 93010; 99214

== ENCOUNTER → 2024-02-13 10:44 | Outpatient (BNVA) | payer MEDICARE, SELFPAY | PROVIDERS: Visit Provider Internal Medicine | DX: R94.31 Abnormal electrocardiogram [ECG] [EKG] (principal); I51.89 Other ill-defined heart diseases; I27.20 Pulmonary hypertension, unspecified; I12.9 Hypertensive chronic kidney disease with stage 1 through stage 4 chronic kidney disease, or unspecified chronic kidney disease; N18.9 Chronic kidney disease, unspecified | CPT/HCPCS: 93005; 99212 ==

== ENCOUNTER 2024-04-21 09:54 | Outpatient (REF) | payer MEDICARE, SELFPAY ==
[2024-04-21 10:13] LABS: MANUAL DIFF FLAG NO
[2024-04-21 12:18] LABS: Basophils Percent Auto 0.2 % (0-2); Eosinophils Absolute Auto 0.1 X10*3/uL (0.0-0.4); Eosinophils Percent Auto 2.3 % (0-4); Hematocrit 34.9 % (37.0-47.0); Hemoglobin 11.5 g/dl (12.0-16.0); Imm Gran Abs Auto 0.05 X10*3/uL (0.00-0.03); Imm Gran Pct Auto 1.1 % (0.0-0.4); Lymphocytes Absolute Auto 1.3 X10*3/uL (1.2-4.9); Lymphocytes Percent Auto 27.5 % (20-40); Mean Corpuscular Hemoglobin 31.3 pg (27.0-33.0); Mean Corpuscular Volume 94.8 fL (80.0-98.0); Monocytes Absolute Auto 0.8 X10*3/uL (0.1-1.2); Monocytes Percent Auto 17.1 % (2-11); Neutrophils Absolute Auto 2.4 x10*3/uL (2.0-8.3); Neutrophils Percent Auto 51.8 % (45-73); Platelet Count 96 X10*3/uL (160-400); Red Blood Count 3.68 X10*6/uL (4.20-5.50); Red Cell Distribution Width 13.3 % (11.0-16.0); White Blood Count 4.7 X10*3/uL (4.8-10.8)
[2024-04-21 12:40] LABS: Alanine Aminotransferase 8 U/L (0-31); Albumin Level 3.6 g/dL (3.5-5.0); Alkaline Phosphatase 45 U/L (39-117); Anion Gap 13 (12-20); Aspartate Amino Transferase 13 U/L (5-31); Bilirubin Total 0.6 mg/dL (0.0-1.0); Blood Urea Nitrogen 16 mg/dL (9-16); Calcium 9.3 mg/dL (8.4-10.2); Carbon Dioxide 22 mmol/L (22-29); Chloride 110 mmol/L (96-108); Cholesterol 131 mg/dL (<200); Estimated Glomerular Filt Rate 54; Glucose Fasting 77 mg/dL (60-99); HDL Cholesterol 29 mg/dL (>40); LDL Cholesterol Calculated 77 mg/dL (<100); Potassium 3.7 mmol/L (3.3-5.1); Sodium 141 mmol/L (135-145); Total Protein 7.1 g/dL (6.5-8.0); Triglycerides 127 mg/dL (<150)
[2024-04-21 12:59] LABS: Thyroid Stimulating Hormone 1.99 uIU/mL (0.32-4.0)
== END 2024-04-21 09:55 | disposition home or self-care (01) ==
LOC: HO.LAB 09:54
PROVIDERS: PCP Internal Medicine; Visit Provider Internal Medicine
DX: Z13.29 Encounter for screening for other suspected endocrine disorder (principal); Z20.2 Contact with and (suspected) exposure to infections with a predominantly sexual mode of transmission; Z13.220 Encounter for screening for lipoid disorders
CPT/HCPCS: 36415; 80053; 80061; 84443; 85025

== ENCOUNTER 2024-04-23 09:38 | Outpatient (AMB) | payer MEDICARE, SELFPAY ==
--- NOTE | 2024-04-23 09:42 | A.OFFPC_ITS ---
Vital Signs 04/23/24 09:45 Height 4 ft 11 in Weight 137 lb BMI 27.7 BP 130/66 Blood Pressure Location Lt brachial Position Sitting Pulse 60 Pulse Source Pulse Oximeter Pulse Oximetry (%) 95 Oxygen Delivery Method Room Air Intake Visit Reasons: 3mof\u - see comment Intake Note: Patient is here to follow up on CKD, HTN. Chief Cardiopulmonary Technologist Required: No Foundation Relations Manager: Present Accompanied by: Spouse Allergies vitamin k Allergy (Uncoded 04/23/24 09:44) Unknown Medication List - Last Reconciled 04/23/24 by Jamshid John MD amlodipine 2.5 mg See Protocol PO DAILY atenolol 75 mg See Protocol PO BID 90 days ferrous sulfate 325 mg PO BID levothyroxine 50 mcg PO DAILY@0630 omeprazole 40 mg PO BID@06,1630 Tobacco use date assessed: 04/23/24 Fall risk assessment: No Falls in past year Last assessed Fall Risk: 04/23/24 Dental Screening Dental Screen Date: 04/23/24 Did you have a dental visit in the last 12 months?: Yes Did you have a dental problem in the last 6 months where you did not have access to dental care?: No Was dental information given to patient?: Patient has dentist HPI 3mof\u - see comment HPI Details HTN on Rx; doing well; compliant [facility] Medical History Thrombocytopenia Anemia Preop cardiovascular exam Pulmonary nodules 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 Chronic kidney disease, unspecified Leg edema Pulmonary hypertension Essential hypertension 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 atrial fibrillation) 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 Osteopenia Polymyalgia rheumatica Surgical History History of bilateral cataract extraction History of cholecystectomy History of partial hysterectomy History of section Family History Father Coronary artery disease FH: CVA (cerebrovascular accident) Mother Kidney failure Social History Household Members: Spouse Housing: House Do you presently have visiting nurse or other home services: No Alcohol intake: never Patient Tobacco Use Status: Never used Tobacco e-Cigarette/Vaping Use: Never Used Second Hand Smoke Exposure: No service: No Current occupational status: retired Cognitive needs: Yes Hearing needs: No Vision needs: Yes Questionnaire PHQ-9 Over the last 2 weeks, how often have you been bothered by any of the following problems? 1. Little interest or pleasure in doing things: not at all 2. Feeling down, depressed, or hopeless: not at all 3. Trouble falling or staying asleep, or sleeping too much: not at all 4. Feeling tired or having little energy: not at all 5. Poor appetite or overeating: not at all 6. Feeling bad about yourself - or that you are a failure or have let yourself or your family down: not at all 7. Trouble concentrating on things, such as reading the newspaper or watching television: not at all 8. Moving or speaking so slowly that other people could have noticed. Or the opposite - being so fidgety or restless that you have been moving around a lot more than usual: not at all 9. Thoughts that you would be better off or of hurting yourself in some way: not at all Total score: 0 Depression Screening Interpretation: Negative Depression Screening Done: Yes Source: Developed by Drs. Luis Krause, Eric Jara and colleagues, with an educational kee from [employer]. Thrive Questionnaire Date Thrive assessed: 01/23/24 MARCI-7 AMB Questionnaire MARCI-7 Date MARCI - 7 assessed: 01/23/24 Source: Developed by Drs. Luis Krause, Eric Jara and colleagues, with an educational kee from [employer]. Review of Systems Const Denies chills, Denies headache(s) and Denies weight loss ENT Denies headache(s) Card Denies chest pain, Denies syncope, Denies irregular heart rhythm and Denies dyspnea Resp Denies chest congestion, Denies cough and Denies dyspnea GI Denies abdominal pain, Denies change in stool character, Denies nausea and Denies vomiting Musc Denies deformity and Denies joint swelling Neuro Denies syncope and Denies headache(s) Physical exam (Primary Care) Vital Signs: Last Vital Signs Pulse 60 04/23/24 09:45 BP 130/66 04/23/24 09:45 Pulse Ox 95 04/23/24 09:45 Oxygen Delivery Method Room Air 07/15/24 09:45 BMI result Body Mass Index 27.7 Tobacco/Smoking Status: Tobacco use Status Tobacco use date assessed 04/23/24 04/23/24 09:49 Patient Tobacco Use Status Never used Tobacco 04/23/24 09:49 e-Cigarette/Vaping Use Never Used 04/23/24 09:49 PHQ-9: PHQ-9 Score PHQ-9: Total score 0 04/23/24 09:49 Depression Screening Interpretation: Negative Thrive Assessment: Date of Thrive Assessment Date Thrive assessed 01/23/24 04/23/24 09:49 Const General: cooperative, comfortable, no acute distress and alert Neck Neck: Yes no lymphadenopathy Thyroid: Thyroid normal Resp Effort & Inspection: normal respiratory effort Auscultation: clear to auscultation bilaterally Percussion: percussion normal Cardio Jugular venous distension: no JVD Palpation: normal PMI Rate: regular rate Rhythm: regular rhythm Heart sounds: S1 normal heart sound present and S2 normal heart sound present GI Inspection: Yes normal to inspection Palpation (GI): No hepatosplenomegaly present Skin General skin exam: no rashes or lesions noted Extrem General: Yes no clubbing, cyanosis or edema Assessment and Plan Assessment & Plan (1) Essential hypertension: Code(s): I10 - Essential (primary) hypertension Plan: stable; same rx Orders: Orders Lipid Panel Today Z13.220 - Encounter for screening for lipoid disorders Comprehensive [place]. Panel Fast Today Z13.9 - Encounter for screening, unspecified Thyroid Stimulating Hormone Today Z13.29 - Encounter for screening for other suspected endocrine disorder Coding Level of Care Code Est Pt Level 3 (95428) Diagnoses Essential hypertension I10
[2024-04-23 09:45] VITALS: BP 130/66; PULSE 60; O2SAT 95; BMI 27.7
== END 2024-04-23 10:10 | disposition home or self-care (01) ==
PROVIDERS: PCP Internal Medicine; Visit Provider Internal Medicine
DX: I10 Essential (primary) hypertension (principal)
CPT/HCPCS: 99213

== ENCOUNTER 2024-07-23 10:51 | Outpatient (REF) | payer MEDICARE, SELFPAY ==
[2024-07-23 12:16] LABS: Alanine Aminotransferase 9 U/L (0-31); Albumin Level 3.7 g/dL (3.5-5.0); Alkaline Phosphatase 59 U/L (39-117); Anion Gap 10 (12-20); Aspartate Amino Transferase 15 U/L (5-31); Bilirubin Total 0.6 mg/dL (0.0-1.0); Blood Urea Nitrogen 16 mg/dL (9-16); Calcium 9.3 mg/dL (8.4-10.2); Carbon Dioxide 26 mmol/L (22-29); Chloride 108 mmol/L (96-108); Cholesterol 130 mg/dL (<200); Estimated Glomerular Filt Rate 49; Glucose Fasting 85 mg/dL (60-99); HDL Cholesterol 35 mg/dL (>40); LDL Cholesterol Calculated 77 mg/dL (<100); Potassium 4.3 mmol/L (3.3-5.1); Sodium 140 mmol/L (135-145); Total Protein 7.6 g/dL (6.5-8.0); Triglycerides 91 mg/dL (<150)
[2024-07-23 12:24] LABS: Thyroid Stimulating Hormone 5.44 uIU/mL (0.32-4.0)
== END 2024-07-23 10:52 | disposition home or self-care (01) ==
LOC: HO.LAB 10:51
PROVIDERS: PCP Internal Medicine; Visit Provider Internal Medicine
DX: Z13.29 Encounter for screening for other suspected endocrine disorder (principal); Z13.220 Encounter for screening for lipoid disorders; Z13.9 Encounter for screening, unspecified
CPT/HCPCS: 36415; 80053; 80061; 84443

== ENCOUNTER 2024-07-24 10:32 | Outpatient (AMB) | payer MEDICARE, SELFPAY ==
[2024-07-24 10:32] VITALS: BP 144/62; PULSE 57; O2SAT 96; BMI 26.1
--- NOTE | 2024-07-24 10:32 | MHC.PC.OV ---
Vital Signs 07/24/24 10:32 Height 4 ft 11 in Weight 129 lb BMI 26.1 BP 144/62 H Blood Pressure Location Lt brachial Position Sitting Pulse 57 Pulse Source Pulse Oximeter Pulse Oximetry (%) 96 Oxygen Delivery Method Room Air Intake Visit Reasons: 3mth f/u Erp Engineer Required: No Accompanied by: Spouse Allergies vitamin k Allergy (Uncoded 07/24/24 10:33) Unknown Medication List - Last Reconciled 07/24/24 by Jamshid John MD amlodipine 2.5 mg PO DAILY atenolol 75 mg See Protocol PO BID 90 days ferrous sulfate 325 mg PO BID levothyroxine 50 mcg PO DAILY@0630 omeprazole 40 mg PO BID@0630,1630 Tobacco use date assessed: 04/23/24 Fall risk assessment: No Falls in past year Last assessed Fall Risk: 07/24/24 Dental Screening Dental Screen Date: 04/23/24 HPI 3mth f/u HPI Details hypertension on rx; doing well and compliant [facility] Medical History Thrombocytopenia Anemia Preop cardiovascular exam 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 Chronic kidney disease, unspecified Leg edema Pulmonary hypertension Essential hypertension 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 Osteopenia Polymyalgia rheumatica Surgical History History of bilateral cataract extraction History of cholecystectomy History of partial hysterectomy History of section Family History Father Coronary artery disease FH: CVA (cerebrovascular accident) Mother Kidney failure Social History Household Members: Spouse Housing: House Do you presently have visiting nurse or other home services: No Alcohol intake: never Patient Tobacco Use Status: Never used Tobacco Tobacco use type: Cigarette e-Cigarette/Vaping Use: Never Used Second Hand Smoke Exposure: No service: No Current occupational status: retired Cognitive needs: Yes Hearing needs: No Vision needs: Yes Questionnaire PHQ-9 Over the last 2 weeks, how often have you been bothered by any of the following problems? 1. Little interest or pleasure in doing things: not at all 2. Feeling down, depressed, or hopeless: not at all 3. Trouble falling or staying asleep, or sleeping too much: not at all 4. Feeling tired or having little energy: not at all 5. Poor appetite or overeating: not at all 6. Feeling bad about yourself - or that you are a failure or have let yourself or your family down: not at all 7. Trouble concentrating on things, such as reading the newspaper or watching television: not at all 8. Moving or speaking so slowly that other people could have noticed. Or the opposite - being so fidgety or restless that you have been moving around a lot more than usual: not at all 9. Thoughts that you would be better off or of hurting yourself in some way: not at all Total score: 0 Depression Screening Interpretation: Negative Depression Screening Done: Yes Source: Developed by Drs. Luis Krause, Carissa Ruvalcaba, Eric Fernandez and colleagues, with an educational kee from [employer]. Thrive Questionnaire Date Thrive assessed: 01/23/24 Are you currently unemployed and looking for a job?: No AUDIT C Alcohol Use Questionnaire (AUDIT-C) 1. How often do you have a drink containing alcohol?: Never 3. How often do you have six or more drinks on one occasion?: Never Total Score: 0 Score Reviewed/Action Taken: Yes MARCI-7 AMB Questionnaire MARCI-7 Date MARCI - 7 assessed: 01/23/24 Source: Developed by Drs. Luis Krause, Carissa Ruvalcaba, Eric Fernandez and colleagues, with an educational kee from [employer]. Review of Systems Const Denies chills, Denies headache(s) and Denies weight loss ENT Denies headache(s) Card Denies chest pain, Denies syncope, Denies irregular heart rhythm and Denies dyspnea Resp Denies chest congestion, Denies cough and Denies dyspnea GI Denies abdominal pain, Denies change in stool character, Denies nausea and Denies vomiting Musc Denies deformity and Denies joint swelling Neuro Denies syncope and Denies headache(s) Physical exam (Primary Care) Vital Signs: Last Vital Signs Pulse 57 07/24/24 10:32 BP 144/62 H 07/24/24 10:32 Pulse Ox 96 07/24/24 10:32 Oxygen Delivery Method Room Air 07/24/24 10:32 BMI result Body Mass Index 26.1 Tobacco/Smoking Status: Tobacco use Status Tobacco use date assessed 04/23/24 07/24/24 10:39 Patient Tobacco Use Status Never used Tobacco 07/24/24 10:39 Tobacco use type Cigarette 07/24/24 10:39 e-Cigarette/Vaping Use Never Used 07/24/24 10:39 PHQ-9: PHQ-9 Score PHQ-9: Total score 0 07/24/24 10:39 Depression Screening Interpretation: Negative Thrive Assessment: Date of Thrive Assessment Date Thrive assessed 01/23/24 07/24/24 10:39 Const General: cooperative, comfortable, no acute distress and alert Neck Neck: Yes no lymphadenopathy Thyroid: Thyroid normal Resp Effort & Inspection: normal respiratory effort Auscultation: clear to auscultation bilaterally Percussion: percussion normal Cardio Jugular venous distension: no JVD Palpation: normal PMI Rate: regular rate Rhythm: regular rhythm Heart sounds: S1 normal heart sound present and S2 normal heart sound present GI Inspection: Yes normal to inspection Palpation (GI): No hepatosplenomegaly present Skin General skin exam: no rashes or lesions noted Extrem General: Yes no clubbing, cyanosis or edema Coding Level of Care Code Est Pt Level 3 (65018) Diagnoses Essential hypertension I10 Assessment & Plan Assessment & Plan (1) Essential hypertension: Code(s): I10 - Essential (primary) hypertension Category: Medical Plan: stable; same rx
== END 2024-07-24 10:50 | disposition home or self-care (01) ==
PROVIDERS: PCP Internal Medicine; Visit Provider Internal Medicine
DX: I10 Essential (primary) hypertension (principal)

== ENCOUNTER → 2024-07-24 10:32 | Outpatient (BNVA) | payer MEDICARE, SELFPAY | PROVIDERS: PCP Internal Medicine; Visit Provider Internal Medicine | DX: I10 Essential (primary) hypertension (principal) | CPT/HCPCS: 99212 ==

== ENCOUNTER 2024-10-12 11:05 | Outpatient (REF) | payer MEDICARE, SELFPAY ==
[2024-10-12 12:22] LABS: Cholesterol 132 mg/dL (<200); HDL Cholesterol 35 mg/dL (>40); LDL Cholesterol Calculated 73 mg/dL (<100); Triglycerides 121 mg/dL (<150)
[2024-10-12 12:38] LABS: Thyroid Stimulating Hormone 2.67 uIU/mL (0.32-4.0)
--- OUTSIDE RECORDS SUMMARY | 2024-10-12 12:55 | XMS_ITS ---
Author Organization [facility] Address [address] [place] [address] Care Team Providers Care Heel Shaper Name Role Phone Jamshid John MD Primary Care Provider Luis Langford [phone] REASON FOR VISIT Needs Hematology referral. Encounters Encounter Location Date Provider Diagnosis [facility] [address] [place] [address] 10/26/2023 Luis Marks PLAN OF TREATMENT Next Appt Details Provider Name:Luis Marks , 10/18/2024 11:00:00 AM, [address], [address], [place], [address],
--- OUTSIDE RECORDS SUMMARY | 2024-10-12 12:55 | XMS_ITS ---
Author Organization [facility] Address [address] [place] [address] Care Team Providers Care Laboratory Asst Name Role Phone Jamshid John MD Primary Care Provider Luis Langford [phone] ALLERGIES Allergen (clinical drug ingredient) Drug/Non Drug Allergy documented on EMR Reaction Allergy Type Onset Date Status vitamin K Vitamin K Unknown Drug Allergy Active RESULTS Component Value Reference Range Notes Ferritin Reviewed date:10/19/2023 07:44:06 PM Interpretation: Performing Lab:[facility], [address] [place] [phone] Notes/Report: Ferritin 175 10-250 ng/mL REASON FOR VISIT Patient presents today for anemia MEDICATIONS Medication SIG (Take, Route, Frequency, Duration) Notes Start Date End Date Status Atenolol 50 MG 1 and half tablet Or ally twice a day for 30 day(s) 07/28/2022 Active Levothyroxine Sodium 50 MCG 1 tablet in the morning on an empty stomach Orally Once a day for 30 day(s) 07/28/2022 Active Tylenol 325 MG 1 tablet as needed Orally prn 07/28/2022 Active Omeprazole 40 MG 1 capsule 30 minutes before morning meal Orally twice a day 07/28/2022 Active Ferrous Sulfate 325 MG as directed Orally BID Active amLODIPine Besylate 2.5 MG 1 tablet Oral ly Once a day for 30 day(s) 07/28/2022 Active SOCIAL HISTORY Tobacco Use: Social History Observation Description Date Details (start date - stop date) Never Smoker NA - NA Sex Assigned At : Social History Observation Description Sex Assigned At Unknown Tobacco Use/Smoking Question Answer Notes Patient is a nonsmoker Alcohol Screen Question Answer Notes Did you have a drink containing alcohol in the p ast year? No Points 0 Interpretation Negative VITAL SIGNS BMI 25.14 kg/m2 10/19/2023 Blood pressure systolic 000 mm Hg 10/19/19 24 Blood pressure diastolic 00 mm Hg 024 Height 59 in 10/19/2023 Temperature 97.8 degrees Fahrenheit 10/19/19 24 Weight 124 lb 8 oz lbs 10/19/2023 Encounters Encounter Location Date Provider Diagnosis [facility] [address] [place] [address] 10/19/2023 Luis Marks Iron deficiency anemia D50.9 and Gastric ulcer K25.9 ASSESSMENTS Encounter Date Diagnosis Assessment Notes Treatment Notes Treatment Clinical Notes 10/19/2023 Iron deficiency anemia (ICD-10 - D50.9) 10/19/2023 Gastric ulcer (ICD-10 - K25.9) PLAN OF TREATMENT Medication Medication Name Sig Start Date Stop Date Notes Omeprazole 40 MG 1 capsule 30 minutes before morning meal Orally twice a day 07/28/2022 Ferrous Sulfate 325 MG as directed Orally BID Pending Test Test Name Order Date IRON + IBC (FE) 10/19/2023 CBC w DIFF 10/19/2023 Next Appt Details Follow Up: 1 Year, Reason: Provider Name:Luis Marks , 10/18/2024 11:00:00 AM, [address], [address], [place], [address], Progress Notes * Examination Category Sub-Category Detail Notes General Examination GENERAL APPEARANCE: pleasant , well nourished, well developed, in no acute distress HEAD: EYES: sclera non-icteric EARS: NOSE: THROAT: NECK/THYROID: no cervical lymphade nopathy, neck supple HEART: S1, S2 normal CHEST: LUNGS: clear to auscultatio n bilaterally ABDOMEN: normal bowel sounds, no guarding or rigidity, no guarding or rigidity, no masses palpable, soft, nontender, nondistended NEUROLOGIC: alert and oriented SKIN: nonjaundiced, no spi walker angiomata EXTREMITIES: no edema PERIPHERAL PULSES: BACK: BREASTS: MUSCULOSKELETAL: MALE GENITOURINARY: LYMPH NODES: RECTAL EXAM: FEMALE GENITOURINARY: ORAL CAVITY: mucosa moist
--- OUTSIDE RECORDS SUMMARY | 2024-10-12 12:55 | XMS_ITS | Patient Health Record ---
Author Organization [facility] Address [address] [place] [address] Care Team Providers Care Client Analyst Name Role Phone Jamshid John MD Primary Care Provider Luis Langford [phone] ALLERGIES Allergen (clinical drug ingredient) Drug/Non Drug Allergy documented on EMR Reaction Allergy Type Onset Date Status vitamin K Vitamin K Unknown Drug Allergy Active RESULTS Component Value Reference Range Notes Ferritin Reviewed date:10/19/2023 07:44:06 PM Interpretation: Performing Lab:[facility], [address] [place] [phone] Notes/Report: Ferritin 175 10-250 ng/mL Complete Blood Count Auto Di ff Reviewed date:10/26/2023 06:39:20 PM Interpretation: Performing Lab:[facility], [address] [place] [phone] Notes/Report: White Blood Count 5.5 4.8-10.8 X10*3/uL Red Blood Count 4.11 4.20-5.50 X10*6/uL Hemoglobin 12.3 12.0-16.0 g/dl Hematocrit 37.4 37.0-47.0 % Mean Corpuscular Volume 91.0 80.0-98.0 fL Mean Corpuscular Hemoglobin 29.9 27.0-33.0 pg Mean Corpuscular HGB Conc 32.9 31.0-35.0 g/dl Red Cell Distribution Width 13.3 11.0-16.0 % Platelet Count 53 160-400 X10*3/uL Neutrophils Percent Auto 53.2 45-73 % Imm Gran Pct Auto 1.3 0.0-0.4 % Lymphocytes Percent Auto 27.8 20-40 % Monocytes Percent Auto 15.3 2-11 % Eosinophils Percent Auto 2.0 0-4 % Basophils Percent Auto 0.4 0-2 % NRBC Pct Auto 0.0 0.0-0.2 /100WBC Neutrophils Absolute Auto 3.0 2.0-8.3 x10*3/u L Imm Gran Abs Auto 0.07 0.00-0.03 X10*3/uL Lymphocytes Absolute Auto 1.5 1.2-4.9 X10*3/u L Monocytes Absolute Auto 0.9 0.1-1.2 X10*3/uL Eosinophils Absolute Auto 0.1 0.0-0.4 X10*3/u L Basophils Absolute Auto 0.0 0.0-0.2 X10*3/uL NRBC Abs Auto 0.000 0.0-0.012 X10*3/uL IRON PROFILE Reviewed date:10/19/2023 07:44:41 PM Interpretation: Performing Lab:[facility], [address] [place] [phone] Notes/Report: Iron 61 30-160 mcg/dL Total Iron Binding Capacity 225 228-428 mcg/d L Percent Iron Saturation 27 15-50 % Unsaturated Iron Binding 164 REASON FOR REFERRAL No Information MEDICATIONS Medication SIG (Take, Route, Frequency, Duration) Notes Start Date End Date Status Omeprazole 40 MG 1 capsule 30 minutes before morning meal Orally twice a day 07/28/2022 Active Ferrous Sulfate 325 MG as directed Orally BID Active Atenolol 50 MG 1 and half tablet Or ally twice a day for 30 day(s) 07/28/2022 Active amLODIPine Besylate 2.5 MG 1 tablet Oral ly Once a day for 30 day(s) 07/28/2022 Active Levothyroxine Sodium 50 MCG 1 tablet in the morning on an empty stomach Orally Once a day for 30 day(s) 07/28/2022 Active Tylenol 325 MG 1 tablet as needed Orally prn 07/28/2022 Active IMMUNIZATIONS Vaccine Route Administration Date Status Comme nts Influenza Unknown 06/10/2022 Administered Influenza Unknown 10/11/2023 Administered SOCIAL HISTORY Tobacco Use: Social History Observation Description Date Details (start date - stop date) Never Smoker NA - NA Sex Assigned At : Social History Observation Description Sex Assigned At Unknown Tobacco Use/Smoking Question Answer Notes Patient is a nonsmoker Alcohol Screen Question Answer Notes Did you have a drink containing alcohol in the p ast year? No Points 0 Interpretation Negative PROBLEMS Problem Type ICD Code Onset Dates Problem Status W/U Status Risk SNOMED Code Notes Problem Iron deficiency anemia (D50.9) Active confirmed Iron deficiency anemia (06274083) Problem Gastric ulcer (K25.9) Active confirmed Gastric ulcer (462044434) Problem Gastric ulcer with hemorrhage (K25.4) Active confirmed Gastric ulcer with hemorrhage (58392055) Problem Gastritis (K29.70) Active confirmed Gastritis (9855048) Problem Anemia, unspecified type (D64.9) Active confirmed 040236234 Problem Abnormal celiac antibody panel (R89.4) Active confirmed 942889176 Problem Iron deficiency anemia, unspecified iron deficiency anemia type (D50.9) Active confirmed 64675880 Problem Weight loss (R63.4) Active confirmed 39533185 Problem Iron deficiency anemia due to chronic blood loss (D50.0) Active confirmed 594333820 VITAL SIGNS Temperature 97.8 degrees Fahrenheit 10/19/2023 Blood pressure diastolic 00 mm Hg 10/19/2023 Height 59 in 10/19/2023 Blood pressure systolic 000 mm Hg 10/19/2023 Weight 124 lb 8 oz lbs 10/19/2023 BMI 25.14 kg/m2 10/19/2023 Encounters Encounter Location Date Provider Diagnosis [facility] [address] [place] [address] 10/19/2023 Luis Marks Iron deficiency anemia D50.9 and Gastric ulcer K25.9 [facility] [address] [place] [phone] 10/26/2023 Luis Marks ASSESSMENTS Encounter Date Diagnosis Assessment Notes Treatment Notes Treatment Clinical Notes 10/19/2023 Iron deficiency anemia (ICD-10 - D50.9) 10/19/2023 Gastric ulcer (ICD-10 - K25.9) PLAN OF TREATMENT Pending Test Test Name Order Date LIVER PROFILE 10/15/2022 IRON + IBC (FE) 10/15/2022 IRON + IBC (FE) 10/19/2023 IRON + IBC (FE) 07/28/2022 IRON + IBC (FE) 12/20/2022 CBC w DIFF 12/20/2022 CBC w DIFF 10/15/2022 CBC w DIFF 10/19/2023 CBC w DIFF 07/28/2022 CBC w DIFF 06/07/2023 CELIAC PANEL #10 10/15/2022 IRON PROFILE 06/07/2023 Ferritin 12/20/2022 Ferritin 07/28/2022 Ferritin 06/07/2023 Future Test Test Name Order Date UPPER GI ENDOSCOPY 07/28/2022 UPPER GI ENDOSCOPY 11/04/2022 COLONOSCOPY 11/04/2022 Next Appt Details Provider Name:Luis Marks , 10/18/2024 11:00:00 AM, [address], [address], [place], [address], Insurance Providers Payer Name Payer Address Payer Phone Subscriber Number Group Number Insured Name Patient Relationship to Insured Coverage Start Date Coverage End Date [employer] MEDI COMPLETE (REFERRAL REQUIRED) [address] [address] [place] [address] [phone] [id number] JOSE PONCE Self - patient is the insured MEDICAL (GENERAL) HISTORY Medical History History ICD Code Afib Hypertension Hyperlipidemia Iron deficiency anemia with associated weight loss and anorexia with hospitalization in June 2022. She was on Eliquis at that time. She had a hemoglobin of 6.9 and received transfusions. She underwent an upper endoscopy at that time which revealed a gastric ulcer and gastritis, with biopsies negative for H. pylori. A followup upper endoscopy in September of 2022 revealed healing of the ulcer but persistent gastritis. Gastric biopsies were again negative for H. pylori. She was started on iron supplements and maintained on omeprazole at that time. [place] colon[place] [address] Melina cueva Abnormal celiac disease labo ratories in October of 2022 with a significantly elevated IgA level of over 700. Denies AR,DM,CVA,Lung disease,renal dise ase Negative CT of abdomen in 07/2021. Upper endoscopy in December of 2022 revealed healing of her previous gastric ulcer. Gastric biopsies were negative for H. pylori. Duodenal biopsies were negative for celiac disease Colonoscopy in December of 2022 revealed on ly a small cecal tubular adenoma Surgical History Surgery Date(Month/Year) cholecystectomy foot surgery
--- OUTSIDE RECORDS SUMMARY | 2024-10-12 12:55 | XMS_ITS ---
Author Organization [facility] Address [address] [place] [address] Care Team Providers Care Commercial Maintenance Technician Name Role Phone Jamshid John MD Primary Care Provider Luis Langford [phone] REASON FOR VISIT Patient presents today for anemia MEDICATIONS Medication SIG (Take, Route, Frequency, Duration) Notes Start Date End Date Status Omeprazole 40 MG 1 capsule 30 minutes before morning meal Orally twice a day for 30 day(s) 07/28/2022 Active Levothyroxine Sodium 50 MCG 1 tablet in the morning on an empty stomach Orally Once a day for 30 day(s) 07/28/2022 Active Tylenol 325 MG 1 tablet as needed Orally prn 07/28/2022 Active MiraLax (colon prep) 17 GM/SCOOP 1 238 Gm bottle mixed with Gatorade or Crystal Light Orally begin at 5:00 p.m. the day before the procedure for 1 day 11/06/2022 Active Dulcolax (colon prep) 5 MG take at 3:00 p.m and 7:00p.m. Orally two tablets twice a day for one day for 1 day 11/06/2022 Active Atenolol 50 MG 1 and half tablet Or ally twice a day for 30 day(s) 07/28/2022 Active amLODIPine Besylate 2.5 MG 1 tablet Oral ly Once a day for 30 day(s) 07/28/2022 Active Encounters Encounter Location Date Provider Diagnosis [facility] [address] [place] [address] 06/07/2023 Luis Marks PLAN OF TREATMENT Next Appt Details Provider Name:Luis Marks , 10/18/2024 11:00:00 AM, [address], [address], [place], [address],
== END 2024-10-12 11:06 | disposition home or self-care (01) ==
LOC: HO.LAB 11:05
PROVIDERS: PCP Internal Medicine; Visit Provider Internal Medicine
DX: Z13.220 Encounter for screening for lipoid disorders (principal); Z13.29 Encounter for screening for other suspected endocrine disorder
CPT/HCPCS: 36415; 80061; 84443

== ENCOUNTER 2024-10-16 11:08 | Outpatient (AMB) | payer MEDICARE, SELFPAY ==
--- NOTE | 2024-10-16 11:20 | MHC.PC.OV ---
Vital Signs 10/16/24 11:23 Height 4 ft 11 in Weight 125 lb 2 oz BMI 25.3 BP 140/84 H Blood Pressure Location Lt brachial Position Sitting Pulse 60 Pulse Source Pulse Oximeter Pulse Oximetry (%) 95 Oxygen Delivery Method Room Air Intake Visit Reasons: 3 month f/u Intake Note: Patient is here to follow up on HTN, Hypothyroidism, . 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 Accompanied by: Spouse Allergies vitamin k Allergy (Uncoded 10/16/24 11:22) Unknown Medication List - Last Reconciled 10/16/24 by Jamshid John MD amlodipine 2.5 mg PO DAILY atenolol 75 mg See Protocol PO BID 90 days ferrous sulfate 325 mg PO BID levothyroxine 50 mcg PO DAILY@0630 omeprazole 40 mg PO BID@629,1630 Tobacco use date assessed: 10/16/24 Fall risk assessment: No Falls in past year Last assessed Fall Risk: 10/16/24 Dental Screening Dental Screen Date: 10/16/24 Did you have a dental visit in the last 12 months?: No Did you have a dental problem in the last 6 months where you did not have access to dental care?: No Was dental information given to patient?: Patient has dentist HPI 3 month f/u HPI Details hypertension on rx; doing well; compliant with meds [facility] Medical History Thrombocytopenia Anemia Preop cardiovascular exam 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 Chronic kidney disease, unspecified Leg edema Pulmonary hypertension Essential hypertension 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 atrial fibrillation) 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 Osteopenia Polymyalgia rheumatica Surgical History History of bilateral cataract extraction History of cholecystectomy History of partial hysterectomy History of section Family History Father Coronary artery disease FH: CVA (cerebrovascular accident) Mother Kidney failure Social History Household Members: Spouse Housing: House Do you presently have visiting nurse or other home services: No Alcohol intake: never Patient Tobacco Use Status: Never used Tobacco Tobacco use type: Cigarette e-Cigarette/Vaping Use: Never Used Second Hand Smoke Exposure: No service: No Current occupational status: retired Cognitive needs: Yes (Cane) Hearing needs: No Vision needs: Yes (Glasses) Questionnaire PHQ-9 Over the last 2 weeks, how often have you been bothered by any of the following problems? 1. Little interest or pleasure in doing things: not at all 2. Feeling down, depressed, or hopeless: not at all 3. Trouble falling or staying asleep, or sleeping too much: not at all 4. Feeling tired or having little energy: not at all 5. Poor appetite or overeating: not at all 6. Feeling bad about yourself - or that you are a failure or have let yourself or your family down: not at all 7. Trouble concentrating on things, such as reading the newspaper or watching television: not at all 8. Moving or speaking so slowly that other people could have noticed. Or the opposite - being so fidgety or restless that you have been moving around a lot more than usual: not at all 9. Thoughts that you would be better off or of hurting yourself in some way: not at all Total score: 0 Depression Screening Interpretation: Negative Depression Screening Done: Yes Source: Developed by Drs. Luis Krause, Carissa Ruvalcaba, Eric Fernandez and colleagues, with an educational kee from [employer]. Thrive Questionnaire Date Thrive assessed: 10/16/24 I am a: Patient What is your living situation today?: I have a steady place to live Within the past 12 months, did the food you bought not last and you didn't have the money to get more?: Never true Within the past 12 months, did you worry whether your food would run out before you got money to buy more?: Never true Do you have trouble paying for medicines?: No Do you have trouble getting transportation to medical appointments?: No Do you have trouble paying your heating and electricity bill?: No Do you have trouble taking care of your child, family member or friend?: No Do you have trouble with day-to-day activities such as bathing, preparing meals, shopping, managing finances, etc.?: No Are you currently unemployed and looking for a job?: No Are you interested in more education?: No Currently or been in a relationship where the following occur: No concerns reported THRIVE Score: 0 AUDIT C Alcohol Use Questionnaire (AUDIT-C) 1. How often do you have a drink containing alcohol?: Never Total Score: 0 MARCI-7 AMB Questionnaire MARCI-7 Date MARCI - 7 assessed: 10/16/24 Feeling nervous, anxious, or on edge: 0 = Not at all Not being able to stop or control worryin = Not at all Worrying too much about different things: 0 = Not at all Trouble relaxin = Not at all Being so restless that it is hard to sit still: 0 = Not at all Becoming easily annoyed or irritable: 0 = Not at all Feeling afraid as if something awful might happen: 0 = Not at all Total MARCI-7 score (0-4 normal; 5-9 mild; 10-14 moderate; 15-21 severe): 0 Source: Developed by Drs. Luis Krause, Carissa Ruvalcaba, Eric Fernandez and colleagues, with an educational kee from [employer]. Review of Systems Const Denies chills, Denies headache(s) and Denies weight loss ENT Denies headache(s) Card Denies chest pain, Denies syncope, Denies irregular heart rhythm and Denies dyspnea Resp Denies chest congestion, Denies cough and Denies dyspnea GI Denies abdominal pain, Denies change in stool character, Denies nausea and Denies vomiting Musc Denies deformity and Denies joint swelling Neuro Denies syncope and Denies headache(s) Physical exam (Primary Care) Vital Signs: Last Vital Signs Pulse 60 10/16/24 11:23 BP 140/84 H 10/16/24 11:23 Pulse Ox 95 10/16/24 11:23 Oxygen Delivery Method Room Air 10/16/24 11:23 BMI result Body Mass Index 25.3 Tobacco/Smoking Status: Tobacco use Status Tobacco use date assessed 10/16/24 10/16/24 11:30 Patient Tobacco Use Status Never used Tobacco 10/16/24 11:30 Tobacco use type Cigarette 10/16/24 11:30 e-Cigarette/Vaping Use Never Used 10/16/24 11:30 PHQ-9: PHQ-9 Score PHQ-9: Total score 0 10/16/24 11:30 Depression Screening Interpretation: Negative Thrive Assessment: Date of Thrive Assessment Date Thrive assessed 10/16/24 10/16/24 11:30 Currently or been in a relationship where the following occur: No concerns reported Const General: cooperative, comfortable, no acute distress and alert Neck Neck: Yes no lymphadenopathy Thyroid: Thyroid normal Resp Effort & Inspection: normal respiratory effort Auscultation: clear to auscultation bilaterally Percussion: percussion normal Cardio Jugular venous distension: no JVD Palpation: normal PMI Rate: regular rate Rhythm: regular rhythm Heart sounds: S1 normal heart sound present and S2 normal heart sound present GI Inspection: Yes normal to inspection Palpation (GI): No hepatosplenomegaly present Skin General skin exam: no rashes or lesions noted Extrem General: Yes no clubbing, cyanosis or edema Coding Level of Care Code Est Pt Level 3 (36320) Diagnoses Hypertension I10 Assessment & Plan Assessment & Plan (1) Hypertension: Code(s): I10 - Essential (primary) hypertension Category: Medical Plan: stable; same rx
[2024-10-16 11:23] VITALS: BP 140/84; PULSE 60; O2SAT 95; BMI 25.3
--- OUTSIDE RECORDS SUMMARY | 2024-10-16 12:37 | XMS_ITS | Patient Health Record ---
Author Organization [facility] Address [address] [place] [address] Care Team Providers Care Pilot Boat Deckhand Name Role Phone Jamshid John MD Primary Care Provider Luis Langford [phone] ALLERGIES Allergen (clinical drug ingredient) Drug/Non Drug Allergy documented on EMR Reaction Allergy Type Onset Date Status vitamin K Vitamin K Unknown Drug Allergy Active RESULTS Component Value Reference Range Notes Ferritin Reviewed date:10/19/2023 07:44:06 PM Interpretation: Performing Lab:[facility], [address] [place] [phone] Notes/Report: Ferritin 175 10-250 ng/mL Complete Blood Count Auto Di ff Reviewed date:10/26/2023 06:39:20 PM Interpretation: Performing Lab:[facility], [address] [place] [phone] Notes/Report: White Blood Count 5.5 4.8-10.8 X10*3/uL [...] PROFILE Reviewed date:10/19/2023 07:44:41 PM Interpretation: Performing Lab:[facility], [address] [place] [phone] Notes/Report: Iron 61 30-160 mcg/dL Total Iron [...] anemia (D50.9) Active confirmed Iron deficiency anemia (18970437) Problem Gastric ulcer (K25.9) Active confirmed Gastric ulcer (455457069) Problem Gastric ulcer with hemorrhage (K25.4) Active confirmed Gastric ulcer with hemorrhage (16914526) Problem Gastritis (K29.70) Active confirmed Gastritis (2352884) Problem Anemia, unspecified type (D64.9) Active confirmed 458460260 Problem Abnormal celiac antibody panel (R89.4) Active confirmed 688213666 Problem Iron deficiency anemia, unspecified iron deficiency anemia type (D50.9) Active confirmed 52146472 Problem Weight loss (R63.4) Active confirmed 84293679 Problem Iron deficiency anemia due to chronic blood loss (D50.0) Active confirmed 906579981 VITAL SIGNS Temperature 97.8 degrees Fahrenheit 10/19/2023 Blood pressure diastolic 00 mm Hg 10/19/2023 Height 59 in 10/19/2023 Blood pressure systolic 000 mm Hg 10/19/2023 Weight 124 lb 8 oz lbs 10/19/2023 BMI 25.14 kg/m2 10/19/2023 Encounters Encounter Location Date Provider Diagnosis [facility] [address] [place] [address] 10/19/2023 Luis Marks Iron deficiency anemia D50.9 and Gastric ulcer K25.9 [facility] [address] [place] [address] 10/26/2023 Luis Marks ASSESSMENTS Encounter Date Diagnosis Assessment Notes Treatment Notes Treatment Clinical Notes 10/19/2023 Iron deficiency anemia (ICD-10 - D50.9) 10/19/2023 Gastric ulcer (ICD-10 - K25.9) PLAN OF TREATMENT Pending Test Test Name Order Date LIVER PROFILE 10/15/2022 IRON + IBC (FE) 12/20/2022 IRON + IBC (FE) 10/15/2022 IRON + IBC (FE) 10/19/2023 IRON + IBC (FE) 07/28/2022 CBC w DIFF 12/20/2022 CBC w DIFF 10/15/2022 CBC w DIFF 10/19/2023 CBC w DIFF 07/28/2022 CBC w DIFF 06/07/2023 CELIAC PANEL #10 10/15/2022 IRON PROFILE 06/07/2023 Ferritin 06/07/2023 Ferritin 12/20/2022 Ferritin 07/28/2022 Future Test Test Name Order Date UPPER GI ENDOSCOPY 07/28/2022 UPPER GI ENDOSCOPY 11/04/2022 COLONOSCOPY 11/04/2022 Next Appt Details Provider Name:Luis Marks , 10/18/2024 11:00:00 AM, [address], [address], [place], [address], Insurance Providers Payer Name Payer Address Payer Phone Subscriber Number Group Number Insured Name Patient Relationship to Insured Coverage Start Date Coverage End Date AARP MEDI COMPLETE (REFERRAL REQUIRED) [address] [address] [place] [address] [id number] JOSE PONCE Self - patient is the [...] elevated IgA level of over 700. Denies ME,DM,CVA,Lung disease,renal dise ase Negative CT of abdomen in 07/2021. Upper endoscopy in December of 2022 revealed healing of her previous gastric ulcer. Gastric biopsies were negative for H. pylori. Duodenal biopsies were negative for celiac disease Colonoscopy in December of 2022 revealed on ly a small cecal tubular adenoma Surgical History Surgery Date(Month/Year) cholecystectomy foot surgery
--- OUTSIDE RECORDS SUMMARY | 2024-10-16 12:37 | XMS_ITS ---
Author Organization [facility] Address [address] [place] [address] Care Team Providers Care Cook Mayonnaise Name Role Phone Jamshid John MD Primary Care Provider Luis Langford [phone] REASON FOR VISIT Needs Hematology referral. Encounters Encounter Location Date Provider Diagnosis [facility] [address] [place] [address] 10/26/2023 Luis Marks PLAN OF TREATMENT Next Appt Details Provider Name:Luis Marks , 10/18/2024 11:00:00 AM, [address], [address], [place], [address],
--- OUTSIDE RECORDS SUMMARY | 2024-10-16 12:37 | XMS_ITS ---
Author Organization [facility] Address [address] [place] [address] Care Team Providers Care Pharmacy Order Entry Technician Name Role Phone Jamshid John MD Primary Care Provider Luis Langford [phone] REASON FOR VISIT Patient presents today for [...] Active Encounters Encounter Location Date Provider Diagnosis [facility] [address] [place] [address] 06/07/2023 Luis Marks PLAN OF TREATMENT Next Appt Details Provider Name:Luis Marks , 10/18/2024 11:00:00 AM, [address], [address], [place], [address],
--- OUTSIDE RECORDS SUMMARY | 2024-10-16 12:37 | XMS_ITS ---
Author Organization [facility] Address [address] [place] [address] Care Team Providers Care Process Description Writer Name Role Phone Jamshid John MD Primary Care Provider Luis Langford [phone] ALLERGIES Allergen (clinical drug ingredient) Drug/Non Drug Allergy documented on EMR Reaction Allergy Type Onset Date Status vitamin K Vitamin K Unknown Drug Allergy Active RESULTS Component Value Reference Range Notes Ferritin Reviewed date:10/19/2023 07:44:06 PM Interpretation: Performing Lab:[facility], [address] [place] [phone] Notes/Report: Ferritin 175 10-250 ng/mL REASON FOR [...] 10/19/2023 Encounters Encounter Location Date Provider Diagnosis [facility] [address] [place] [address] 10/19/2023 Luis Marks Iron deficiency anemia D50.9 [...] Name:Luis Marks , 10/18/2024 11:00:00 AM, [address], [address], [place], [address], Progress Notes * Examination Category Sub-Category Detail [...]
== END 2024-10-16 11:47 | disposition home or self-care (01) ==
PROVIDERS: PCP Internal Medicine; Visit Provider Internal Medicine
DX: I10 Essential (primary) hypertension (principal)

== ENCOUNTER → 2024-10-16 11:08 | Outpatient (BNVA) | payer MEDICARE, SELFPAY | PROVIDERS: PCP Internal Medicine; Visit Provider Internal Medicine | DX: I10 Essential (primary) hypertension (principal) | CPT/HCPCS: 96127; 99212 ==

== ENCOUNTER 2024-10-29 10:50 | Day surgery (SDC) | payer MEDICARE, SELFPAY ==
--- OUTSIDE RECORDS SUMMARY | 2024-10-18 13:17 | XMS_ITS ---
Author Organization [facility] Address [address] [place] [address] Care Team Providers Care Administrative Medical Director Name Role Phone Jamshid John MD Primary Care Provider Luis Langford [phone] REASON FOR VISIT Needs Hematology referral. Encounters Encounter Location Date Provider Diagnosis [facility] [address] [place] [address] 10/26/2023 Luis Marks PLAN OF TREATMENT No Information
--- OUTSIDE RECORDS SUMMARY | 2024-10-18 13:18 | XMS_ITS ---
Author Organization [facility] Address [address] [place] [address] Care Team Providers Care Technical Program Manager Name Role Phone Jamshid John MD Primary Care Provider Luis Langford [phone] ALLERGIES Allergen (clinical drug ingredient) Drug/Non Drug Allergy documented on EMR Reaction Allergy Type Onset Date Status vitamin K Vitamin K Unknown Drug Allergy Active RESULTS Component Value Reference Range Notes Ferritin Reviewed date:10/19/2023 07:44:06 PM Interpretation: Performing Lab:[facility], [address] [place] [phone] Notes/Report: Ferritin 175 10-250 ng/mL REASON FOR [...] 10/19/2023 Encounters Encounter Location Date Provider Diagnosis [facility] [address] [place] [address] 10/19/2023 Luis Marks Iron deficiency anemia D50.9 [...] Appt Details Follow Up: 1 Year, Reason: Progress Notes * Examination Category Sub-Category Detail [...]
--- OUTSIDE RECORDS SUMMARY | 2024-10-18 13:18 | XMS_ITS | Patient Health Record ---
Author Organization [facility] Address [address] [place] [address] Care Team Providers Care Grain Loader Name Role Phone Jamshid John MD Primary Care Provider Luis Langford [phone] ALLERGIES Allergen (clinical drug ingredient) Drug/Non Drug Allergy documented on EMR Reaction Allergy Type Onset Date Status vitamin K Vitamin K Unknown Drug Allergy Active RESULTS Component Value Reference Range Notes Ferritin Reviewed date:10/19/2023 07:44:06 PM Interpretation: Performing Lab:[facility], [address] [place] [phone] Notes/Report: Ferritin 175 10-250 ng/mL Complete Blood Count Auto Di ff Reviewed date:10/26/2023 06:39:20 PM Interpretation: Performing Lab:[facility], [address] [place] [phone] Notes/Report: White Blood Count 5.5 4.8-10.8 X10*3/uL [...] PROFILE Reviewed date:10/19/2023 07:44:41 PM Interpretation: Performing Lab:[facility], [address] [place] [phone] Notes/Report: Iron 61 30-160 mcg/dL Total Iron Binding Capacity 225 228-428 mcg/d L Percent Iron Saturation 27 15-50 % Unsaturated Iron Binding 164 REASON FOR REFERRAL No Information MEDICATIONS Medication SIG (Take, Route, Frequency, Duration) Notes Start Date End Date Status Omeprazole 40 MG 1 capsule 30 minutes before morning meal Orally twice a day 07/28/2022 Active Atenolol 50 MG 1 and half tablet Or ally twice a day for 30 day(s) 07/28/2022 Active amLODIPine Besylate 2.5 MG 1 tablet Oral ly Once a day for 30 day(s) 07/28/2022 Active Tylenol 325 MG 1 tablet as needed Orally prn 07/28/2022 Active Levothyroxine Sodium 50 MCG 1 tablet in the morning on an empty stomach Orally Once a day for 30 day(s) 07/28/2022 Active Ferrous Sulfate 325 MG as directed Orally BID Active IMMUNIZATIONS Vaccine Route Administration Date Status Comme nts Influenza Unknown 06/10/2022 Administered Influenza Unknown 10/11/2023 Administered SOCIAL HISTORY Tobacco Use: Social History Observation Description Date Details (start date - stop date) Never Smoker NA - NA Sex Assigned At : Social History Observation Description Sex Assigned At Unknown Tobacco Use/Smoking Question Answer Notes Patient is a nonsmoker PROBLEMS Problem Type ICD Code Onset Dates Problem Status W/U Status Risk SNOMED Code Notes Problem Iron deficiency anemia (D50.9) Active confirmed Iron deficiency anemia (92463432) Problem Gastric ulcer (K25.9) Active confirmed Gastric ulcer (648276715) Problem Gastric ulcer with hemorrhage (K25.4) Active confirmed Gastric ulcer with hemorrhage (36419009) Problem Gastritis (K29.70) Active confirmed Gastritis (7604842) Problem Anemia, unspecified type (D64.9) Active confirmed 561831024 Problem Abnormal celiac antibody panel (R89.4) Active confirmed 306212971 Problem Iron deficiency anemia, unspecified iron deficiency anemia type (D50.9) Active confirmed 05614379 Problem Weight loss (R63.4) Active confirmed 83805414 Problem Iron deficiency anemia due to chronic blood loss (D50.0) Active confirmed 610244806 VITAL SIGNS Temperature 97.8 degrees Fahrenheit 10/19/2023 Blood pressure diastolic 00 mm Hg 10/18/2024 Height 59 in 10/18/2024 Blood pressure systolic 00 mm Hg 10/18/2024 Weight 126 lbs 10/18/2024 BMI 25.45 kg/m2 10/18/2024 Encounters Encounter Location Date Provider Diagnosis [facility] [address] [place] [address] 10/19/2023 Luis Marks Iron deficiency anemia D50.9 and Gastric ulcer K25.9 [facility] [address] [place] [address] 10/18/2024 Luis Marks Iron deficiency anemia D50.9 and Gastric ulcer K25.9 [facility] [address] [place] [address] 10/26/2023 Luis Marks ASSESSMENTS Encounter Date Diagnosis Assessment Notes Treatment Notes Treatment Clinical Notes 10/19/2023 Iron deficiency anemia (ICD-10 - D50.9) 10/19/2023 Gastric ulcer (ICD-10 - K25.9) 10/18/2024 Iron deficiency anemia (ICD-10 - D50.9) Continue Omeprazole and Iron long term care phlebotomist Saty off all 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 You can take Tylenol as needed. 10/18/2024 Gastric ulcer (ICD-10 - K25.9) PLAN OF [...] 07/28/2022 UPPER GI ENDOSCOPY 11/04/2022 COLONOSCOPY 11/04/2022 Insurance Providers Payer Name Payer Address Payer Phone Subscriber Number Group Number Insured Name Patient Relationship to Insured Coverage Start Date Coverage End Date A[employer] MEDI COMPLETE (REFERRAL REQUIRED) [address] [address] [place] [address] [id number] JOSE PONCE Self - patient is the [...] elevated IgA level of over 700. Denies MA,DM,CVA,Lung disease,renal dise ase Negative CT of abdomen in 07/2021. Upper endoscopy in December of 2022 revealed healing of her previous gastric ulcer. Gastric biopsies were negative for H. pylori. Duodenal biopsies were negative for celiac disease Colonoscopy in December of 2022 revealed on ly a small cecal tubular adenoma Surgical History Surgery Date(Month/Year) cholecystectomy foot surgery
[2024-10-29] VITALS (11 sets, daily range): BP systolic 150–198; BP diastolic 47–70; PULSE 64–82; RESP 12–19; TEMP 36.1–36.7; O2SAT 93–100; BMI 25.6
--- NOTE | ~2024-10-29 | CT_ITS ---
Thrombocytopenia. Concern for MDS. PROCEDURES: 1. Limited preprocedure CT of the pelvis. Permanent images saved in PACS. 2. 11 g bone marrow core biopsy of the right posterior iliac spine 3. 11 g bone marrow aspiration of the right posterior iliac spine CLINICIANS: Mekhi Sexton PA-C MEDICATIONS: -Versed 1.5 mg, Fentanyl 75 mcg, and lidocaine 1% 10 mL SQ -Antibiotics: None -For additional details, please see nursing flowsheet. COMPLICATIONS: None ESTIMATED BLOOD LOSS: < 5 ml CONTRAST: None SPECIMENS: 11 g core placed in formalin. Bone marrow aspirate placed in EDTA and sodium heparin tubes MODERATE SEDATION TIME: 23 min PROCEDURE NOTE: The procedure, risks, benefits, and alternatives were carefully explained to the patient and written informed consent was obtained. The patient was placed prone on the CT table. A timeout was performed. A limited CT of the pelvis was performed to localize posterior iliac spine and choose appropriate needle entry and trajectory. The patient was prepped and draped in usual sterile fashion. The skin, subcutaneous tissues, and periosteum were anesthetized with lidocaine. Under CT guidance, an 11-gauge bone marrow biopsy needle was advanced into the posterior iliac spine, with the tip positioned slightly cephalad. An 11-gauge core biopsy of the bone marrow was performed and was placed in formalin. Next, the 11-gauge bone marrow biopsy needle was then advanced into the posterior iliac spine, under CT guidance, with the tip positioned slightly caudal. A bone marrow aspiration was performed. The specimen was placed in the provided EDTA and sodium heparin tubes. The needle was removed. A dry dressing was applied and secured with Tegaderm. There were no immediate complications. The patient was stable after the procedure and was transferred to the post anesthesia care unit. The procedure was done under moderate sedation with a dedicated nurse for monitoring of vital signs. CT/CT biopsy asp core bone marrow Impression: CT-guided bone marrow biopsy and aspiration. This procedure was performed by Mekhi Sexton PA-C and supervised by Dr. Bobby. Electronically signed by: Genaro Mishra MD 11/01/2024 06:07 PM [facility]
[2024-10-29 11:47] LABS: MANUAL DIFF FLAG NO
[2024-10-29 12:02] LABS: Basophils Percent Auto 0.5 % (0-2); Eosinophils Absolute Auto 0.2 X10*3/uL (0.0-0.4); Eosinophils Percent Auto 2.7 % (0-4); Hematocrit 34.6 % (37.0-47.0); Hemoglobin 11.7 g/dl (12.0-16.0); Imm Gran Abs Auto 0.07 X10*3/uL (0.00-0.03); Imm Gran Pct Auto 1.1 % (0.0-0.4); Lymphocytes Absolute Auto 1.3 X10*3/uL (1.2-4.9); Lymphocytes Percent Auto 20.1 % (20-40); Mean Corpuscular HGB Conc 33.8 g/dl (31.0-35.0); Mean Corpuscular Hemoglobin 30.6 pg (27.0-33.0); Mean Corpuscular Volume 90.6 fL (80.0-98.0); Monocytes Absolute Auto 0.8 X10*3/uL (0.1-1.2); Monocytes Percent Auto 12.7 % (2-11); Neutrophils Absolute Auto 4.2 x10*3/uL (2.0-8.3); Neutrophils Percent Auto 62.9 % (45-73); Platelet Count 25 X10*3/uL (160-400); Red Blood Count 3.82 X10*6/uL (4.20-5.50); Red Cell Distribution Width 14.2 % (11.0-16.0); White Blood Count 6.6 X10*3/uL (4.8-10.8)
[2024-10-29 12:05] LABS: Partial Thromboplastin Time 31.6 SEC (26.0-36.8)
--- NOTE | 2024-10-29 13:03 | MHC.SHP ---
Pre-Procedural Eval Section A - 24 Hr Update-Section A only Date of Service: 10/29/24 Section B - Complete if H&P > 30 days Chief Complaint: BONE MARROW. THROMBOCYTEOPENIA Details of Present Illness: 79 y/o female with thrombocytopenia. Oncology requests a bone marrow biopsy. Relevant Family History (Specify if Yes): No Relevant Social History: None Present Medications: see Short Stay Collaborative assessment Medical History: Significant History History of Previous Operations: Relevant previous surgery/procedure and date(s) Allergies: Allergies Allergy/AdvReac Type Severity Reaction Status Date / Time vitamin k Allergy Unknown Uncoded 10/16/24 11:22 Review of Systems Sugical H&P ROS: Negative: Constitution, Cardiovascular and Respiratory Exam Surgical H&P Exam: Normal: Heart, Normal: Lungs and Normal: Neurological and Significant Findings: Skin (ecchymosis on arms) Plan 79 y/o female with thrombocytopenia -Bone marrow biopsy. Time Spent With Patient Time: Total time managing care of this patient today ____ minutes.
[2024-10-29] MEDS: fentaNYL citrate/PF 100 MCG/2 ML VIAL 50 MCG IVPUSH (13:20)
[2024-10-29] MEDS: Midazolam HCl 2 MG/2 ML VIAL 1 MG IVPUSH (13:20)
[2024-10-29] MEDS: fentaNYL citrate/PF 100 MCG/2 ML VIAL 25 MCG IVPUSH (13:35)
[2024-10-29] MEDS: Midazolam HCl 5 MG/ML VIAL IVPUSH (13:36)
[2024-10-29] MEDS: Ondansetron ODT 4 MG TAB.RAPDIS TRANSLINGU (14:22)
[2024-10-30 10:54] LABS: Bone Marrow SEE SEPARATE REPORT
== END 2024-10-29 14:14 | disposition home or self-care (01) ==
PROVIDERS: Pathology Anatomic Pathology & Clinical Pathology; Physician Assistant Surgical; PCP Internal Medicine; Visit Provider Internal Medicine
PROC: (CPT 38221; principal; 2024-10-29 13:00)
DX: D69.6 Thrombocytopenia, unspecified (principal); I12.9 Hypertensive chronic kidney disease with stage 1 through stage 4 chronic kidney disease, or unspecified chronic kidney disease; N18.9 Chronic kidney disease, unspecified; D64.9 Anemia, unspecified; I48.0 Paroxysmal atrial fibrillation; M35.3 Polymyalgia rheumatica; R60.0 Localized edema; I27.20 Pulmonary hypertension, unspecified; R91.8 Other nonspecific abnormal finding of lung field; Z87.11 Personal history of peptic ulcer disease; Z79.01 Long term (current) use of 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; Z79.52 Long term (current) use of systemic steroids; Z79.899 Other long term (current) drug therapy; Z88.8 Allergy status to other drugs, medicaments and biological substances; Z98.890 Other specified postprocedural states
CPT/HCPCS: 36415; 38222; 85025; 85610; 85730; 88184; 88185; 88237; 88264; 88305; 88311; 88313; 88342; 99152; 99153; J0360; J1920; J2003; J2004; J2250; J2310; J3010

== ENCOUNTER → 2024-10-29 12:47 | Outpatient (BNV) | payer MEDICARE, SELFPAY | PROVIDERS: PCP Internal Medicine; Visit Provider Physician Assistant Surgical | DX: D69.6 Thrombocytopenia, unspecified (principal) | CPT/HCPCS: 38222; 77012 ==

== ENCOUNTER 2024-11-29 08:06 | Outpatient (REF) | payer MEDICARE, SELFPAY ==
--- NOTE | ~2024-11-29 | US_ITS ---
CLINICAL HISTORY: ? Hepatosplenomegaly, thrombocytopenia US abdomen complete Comparison: None Findings: The visualized pancreas is normal. The visualized IVC is unremarkable. The visualized aorta is normal caliber. Liver length 13.3 cm. Unremarkable liver echogenicity. Moderately dilated intrahepatic biliary tree. No focal liver lesion. There is no intrahepatic bile duct dilatation. Common bile duct diameter 12 mm The gallbladder is normal. There is no sonographic Canseco sign. The main portal vein is antegrade. The right kidney is 9.2 cm in length. 1 cm cyst within the upper pole of the right kidney. The left kidney is 8.6 cm in length. 1.4 cm cyst within the lower pole of the left kidney. The spleen is normal. No ascites. IMPRESSION: 1. Moderate dilatation of the intra and extrahepatic biliary tree. Correlate with laboratory data to help exclude an obstructive process. Consider further evaluation with MRCP if indicated. 2. No evidence of hepatosplenomegaly. This document has been electronically signed by: Fidelia Mora MD on 11/30/2024 14:16:04
--- OUTSIDE RECORDS SUMMARY | 2024-11-29 08:10 | XMS_ITS ---
Author Organization [facility] Address [address] [place] [address] Care Team Providers Care Senior Mechanical Technician Name Role Phone Jamshid John MD Primary Care Provider Luis Langford [phone] REASON FOR VISIT Needs Hematology referral. Encounters Encounter Location Date Provider Diagnosis [facility] [address] [place] [address] 10/26/2023 Luis Marks PLAN OF TREATMENT No Information
--- OUTSIDE RECORDS SUMMARY | 2024-11-29 08:10 | XMS_ITS ---
Author Organization [facility] Address [address] [place] [address] Care Team Providers Care Corridor Redevelopment Manager Name Role Phone Jamshid John MD Primary Care Provider Luis Langford [phone] ALLERGIES Allergen (clinical drug ingredient) Drug/Non Drug Allergy documented on EMR Reaction Allergy Type Onset Date Status vitamin K Vitamin K Unknown Drug Allergy Active REASON FOR VISIT Patient presents today for fe def , gastric ulcer MEDICATIONS Medication SIG (Take, Route, Frequency, Duration) [...] 325 MG as directed Orally BID Active SOCIAL HISTORY Tobacco Use: Social History Observation Description Date Details (start date - stop date) Never Smoker NA - NA Sex Assigned At : Social History Observation Description Sex Assigned At Unknown Tobacco Use/Smoking Question Answer Notes Patient is a nonsmoker VITAL SIGNS BMI 25.45 kg/m2 10/18/2024 Blood pressure systolic 00 mm Hg 10/18/19 25 Blood pressure diastolic 00 mm Hg 025 Height 59 in 10/18/2024 Weight 126 lbs 10/18/2024 Encounters Encounter Location Date Provider Diagnosis [facility] [address] [place] [address] 10/18/2024 Luis Marks Iron deficiency anemia D50.9 and Gastric ulcer K25.9 ASSESSMENTS Encounter Date Diagnosis Assessment Notes Treatment Notes Treatment Clinical Notes 10/18/2024 Iron deficiency anemia (ICD-10 - D50.9) Continue Omeprazole and 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 You can take Tylenol as needed. 10/18/2024 Gastric ulcer (ICD-10 - K25.9) PLAN OF TREATMENT Treatment Notes Assessment Notes Iron deficiency anemia Continue Omeprazole and Iron half-way Saty off all 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 You can take Tylenol as needed. Next Appt Details Follow Up: prn, Reason:
--- OUTSIDE RECORDS SUMMARY | 2024-11-29 08:11 | XMS_ITS ---
Author Organization [facility] Address [address] [place] [address] Care Team Providers Care Event Host Name Role Phone Jamshid John MD Primary Care Provider Luis Langford [phone] ALLERGIES Allergen (clinical drug ingredient) Drug/Non Drug Allergy documented on EMR Reaction Allergy Type Onset Date Status vitamin K Vitamin K Unknown Drug Allergy Active RESULTS Component Value Reference Range Notes Ferritin Reviewed date:10/19/2023 07:44:06 PM Interpretation: Performing Lab:[facility], [address] [place] [phone] Notes/Report: Ferritin 175 10-250 ng/mL REASON FOR [...] 10/19/2023 Encounters Encounter Location Date Provider Diagnosis [facility] [address] [place] [address] 10/19/2023 Luis Marks Iron deficiency anemia D50.9 [...]
--- OUTSIDE RECORDS SUMMARY | 2024-11-29 08:11 | XMS_ITS | Patient Health Record ---
Author Organization [facility] Address [address] [place] [address] Care Team Providers Care Farm Equipment Mechanic Apprentice Name Role Phone Jamshid John MD Primary Care Provider Luis Langford [phone] ALLERGIES Allergen (clinical drug ingredient) Drug/Non Drug Allergy documented on EMR Reaction Allergy Type Onset Date Status vitamin K Vitamin K Unknown Drug Allergy Active REASON FOR REFERRAL No Information MEDICATIONS Medication [...] anemia (D50.9) Active confirmed Iron deficiency anemia (90822899) Problem Gastric ulcer (K25.9) Active confirmed Gastric ulcer (474215736) Problem Gastric ulcer with hemorrhage (K25.4) Active confirmed Gastric ulcer with hemorrhage (75546146) Problem Gastritis (K29.70) Active confirmed Gastritis (6987007) Problem Anemia, unspecified type (D64.9) Active confirmed 054391173 Problem Abnormal celiac antibody panel (R89.4) Active confirmed 597542160 Problem Iron deficiency anemia, unspecified iron deficiency anemia type (D50.9) Active confirmed 16900637 Problem Weight loss (R63.4) Active confirmed 48626092 Problem Iron deficiency anemia due to chronic blood loss (D50.0) Active confirmed 925107624 VITAL SIGNS Blood pressure diastolic 00 mm Hg 10/18/2024 Height 59 in 10/18/2024 Blood pressure systolic 00 mm Hg 10/18/2024 Weight 126 lbs 10/18/2024 BMI 25.45 kg/m2 10/18/2024 Encounters Encounter Location Date Provider Diagnosis [facility] [address] [place] [address] 10/18/2024 Luis Marks Iron deficiency anemia D50.9 and Gastric ulcer K25.9 ASSESSMENTS Encounter Date Diagnosis Assessment Notes Treatment Notes Treatment Clinical Notes 10/18/2024 Iron deficiency anemia (ICD-10 - D50.9) Continue Omeprazole and 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 You [...] Coverage Start Date Coverage End Date [facility] COMPLETE (REFERRAL REQUIRED) [address] [address] [place] [phone] [id number] JOSE PONCE Self - patient is the [...]
== END 2024-11-29 08:07 | disposition home or self-care (01) ==
LOC: HO.US 08:06
PROVIDERS: PCP Internal Medicine; Visit Provider Internal Medicine
DX: D69.6 Thrombocytopenia, unspecified (principal)
CPT/HCPCS: 76700

== ENCOUNTER → 2024-11-29 08:08 | Outpatient (BNV) | payer MEDICARE, SELFPAY | PROVIDERS: PCP Internal Medicine; Visit Provider Radiology Diagnostic Radiology | DX: D69.6 Thrombocytopenia, unspecified (principal) | CPT/HCPCS: 76700 ==

== ENCOUNTER 2025-01-16 10:13 | Outpatient (AMB) | payer MEDICARE, SELFPAY ==
--- NOTE | 2025-01-16 10:15 | A.OFFVIS_ITS ---
Vital Signs 01/16/25 10:16 Height 4 ft 11 in Weight 129 lb 3.054 oz BMI 26.1 BP 168/60 H Blood Pressure Location Lt brachial Position Sitting Pulse 59 Intake Visit Reasons: 6 mos followup/ High Blood Pressure Support Group Manager Required: No Accompanied by: Spouse Allergies vitamin k Allergy (Uncoded 10/16/24 11:22) Unknown Medication List - Last Reconciled 01/16/25 by Dean Calderón MD amlodipine 2.5 mg PO DAILY atenolol 75 mg See Protocol PO BID 90 days ferrous sulfate 325 mg PO BID levothyroxine 50 mcg PO DAILY@0630 omeprazole 40 mg PO BID@0630,1630 ondansetron 8 mg PO Q8H PRN HPI Comments Details: Sumi returns for follow-up regarding atrial fibrillation. To recall, we originally saw her in 2015 for elevated cardiac BNP. At that time, thought to be from possibly hypertension/diastolic dysfunction. Then she was following up with her PCP but in the interim, developed leg DVT. She took Xarelto for some time. Then she had palpitations that led to a diagnosis of atrial fibrillation. Subsequently, beta-erich dose has been increased. She was also put on Eliquis. She was taking hydrochlorothiazide but had elevated renal function. Then we stopped it. She was mostly doing okay, but few months ago she had hemoptysis that led to ER visit. Then it seems that she had GI bleed as well as thrombocytopenia. She has no longer on Eliquis. Seeing hematology and is being treated for the low platelet issue. Seems blood pressures going high. Otherwise, no specific cardiac symptoms. 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 Osteopenia Polymyalgia rheumatica Surgical History History of bilateral cataract extraction History of cholecystectomy History of partial hysterectomy History of section Family History Father Coronary artery disease FH: CVA (cerebrovascular accident) Mother Kidney failure Social History Household Members: Spouse Housing: House Do you presently have visiting nurse or other home services: No Alcohol intake: never Patient Tobacco Use Status: Never used Tobacco Tobacco use type: Cigarette e-Cigarette/Vaping Use: Never Used Second Hand Smoke Exposure: No service: No Current occupational status: retired Cognitive needs: Yes (Cane) Hearing needs: No Vision needs: Yes (Glasses) Review of Systems Const Denies chills, Denies fatigue, Denies fever(s), Denies weight gain and Denies weight loss ENT Denies dizziness Card Denies chest pain, Denies leg edema, Denies lightheadedness, Denies palpitations, Denies dyspnea on exertion, Denies orthopnea and Denies other Resp Denies cough and Denies dyspnea on exertion GI Denies hematochezia and Denies change in stool character Musc Denies abnormal gait, Denies muscle weakness, Denies numbness, Denies radiating pain into limb and Denies tingling Neuro Denies abnormal gait, Denies dizziness, Denies numbness and Denies tingling Endo Denies fatigue and Denies palpitations Physical Exam Vital Signs: Last Vital Signs Pulse 59 01/16/25 10:16 BP 168/60 H 01/16/25 10:16 BMI result Body Mass Index 26.1 Const General: comfortable and no acute distress Orientation/consciousness: patient oriented x3 HEENT Other: Unremarkable Head: Yes normal to inspection Neck Neck: Yes normal visual inspection Chest Chest palpation & inspection: normal inspection of the chest Resp Auscultation: clear to auscultation bilaterally Cardio Palpation: normal PMI Heart sounds: S1 normal heart sound present, S2 normal heart sound present, no gallops, no murmurs and no rubs GI Palpation (GI): Soft to palpation Back/Spine/Pelvis Other: unremarkable Skin General skin exam: no rashes or lesions noted Neuro General: patient oriented x3 Extrem General: Yes normal to inspection Psych Mental Status: mental status grossly normal Assessment & Plan Assessment & Plan (1) 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 atrial fibrillation): Code(s): I48.0 - Paroxysmal atrial fibrillation Category: Medical Plan: Stable. On atenolol. With regard to anticoagulation, she was on Eliquis but not anymore. History of GI bleeding, thrombocytopenia. (2) Abnormal EKG: Code(s): R94.31 - Abnormal electrocardiogram [ECG] [EKG] Category: Medical Plan: Inferolateral ST-T changes. Either from hypertension or coronary disease. Not suitable for any cardiac workup with thrombocytopenia. She has got no angina either. (3) Essential hypertension: Code(s): I10 - Essential (primary) hypertension Category: Medical Plan: Increase amlodipine dosing. (4) Diastolic dysfunction: Code(s): I51.89 - Other ill-defined heart diseases Category: Medical Plan: Grade 2 diastolic dysfunction on the echocardiogram. No clear heart failure symptoms or signs. (5) Pulmonary hypertension: Code(s): I27.20 - Pulmonary hypertension, unspecified Category: Medical Plan: Moderate pulmonary hypertension on the echocardiogram. Probably all from left heart dysfunction related to hypertension. No specific treatment at her age and with comorbidities. Manage hypertension. (6) Chronic kidney disease, unspecified: Code(s): N18.9 - Chronic kidney disease, unspecified Category: Medical Qualifiers: Chronic kidney disease stage: unspecified stage Qualified Code(s): N18.9 - Chronic kidney disease, unspecified Plan: Stable. Medications: New amlodipine 10 mg PO DAILY 90 tabs 1RF Discontinued amlodipine Discontinued Reason: Doctor's Order 2.5 mg PO DAILY 90 tabs 0RF Coding Level of Care Code Est Pt Level 4 (48128) Complex EM visit Add On G2211 Diagnoses 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 atrial fibrillation) I48.0 Abnormal EKG R94.31 Essential hypertension I10 Diastolic dysfunction I51.89 Pulmonary hypertension I27.20 Chronic kidney disease, unspecified CKD stage N18.9 Chronic kidney disease stage: unspecified stage
[2025-01-16 10:16] VITALS: BP 168/60; PULSE 59; BMI 26.1
--- OUTSIDE RECORDS SUMMARY | 2025-01-16 11:32 | XMS_ITS ---
Author Organization [facility] Address [address] [place] [address] Care Team Providers Care Auto Dealership Porter Name Role Phone Jamshid John MD Primary Care Provider Luis Langford [phone] REASON FOR VISIT PLEASE LOCK 10-18-24 NOTE Encounters Encounter Location Date Provider Diagnosis [facility] [address] [place] [phone] 01/01/2025 Luis Marks Plan Of Treatment No Information Progress Notes * JOSE PONCE BDOB:[birth year] (79 yo F)Acc No.[id number]:01/01/2025 Patient:?JOSE PONCE :1945???Age:79 Y???Sex:Female Address:[address] [place] [address], [address] * * Date:?
--- OUTSIDE RECORDS SUMMARY | 2025-01-16 11:32 | XMS_ITS ---
Author Organization [facility] Address [address] [place] [address] Care Team Providers Care Shuttle Threader Name Role Phone Jamshid John MD Primary Care Provider Luis Langford [phone] REASON FOR VISIT Needs Hematology referral. Encounters Encounter Location Date Provider Diagnosis [facility] [address] [place] [phone] 10/26/2023 Luis Marks Plan Of Treatment No Information Progress Notes * JOSE PONCE BDOB:[birth year] (78 yo F)Acc No.[id number]:10/26/2023 Patient:?ADAMKAITLYNNJOSE Lian :1945???Age:78 Y???Sex:Female Address:[address] [place] [address], [address] * true * Date:? Generated for Darien rockwell/Minal/eTransmitting on:?01/16/2025 11:31 AM EDT
--- OUTSIDE RECORDS SUMMARY | 2025-01-16 11:32 | XMS_ITS | Patient Health Record ---
Author Organization [facility] Address [address] [place] [address] Care Team Providers Care Sectional Belt Mold Assembler Name Role Phone Jamshid John MD Primary Care Provider Luis Langford Unavailable [phone] Allergies Allergen (clinical drug ingredient) Drug/Non Drug Allergy documented on EMR Reaction Allergy Type Onset Date Status vitamin K Vitamin K Unknown Drug Allergy Active Reason For Referral No Information Medications Medication SIG (Take, Route, Frequency, Duration) Notes [...] 325 MG as directed Orally BID Active Immunizations Vaccine Route Administration Date Status Comme nts Influenza Unknown 06/10/2022 Administered Influenza Unknown 10/11/2023 Administered Social History Tobacco Use: Social History Observation Description Date Details (start date - stop date) Never Smoker NA - NA Tobacco Use/Smoking Question Answer Notes Patient is a nonsmoker Alcohol Screen Question Answer Notes Did you have a drink containing alcohol in the p ast year? No Points 0 Interpretation Negative Problems Problem Type SNOMED Code ICD Code Onset Dates Problem Status W/U Status Risk Notes Problem 16167144 Weight loss (R63.4) Active confirmed Problem Iron deficiency anemia (52340003) Iron deficiency anemia (D50.9) Active confirmed Problem 733969690 Abnormal celiac antibody panel (R89.4) Active confirmed Problem 254400886 Iron deficiency anemia due to chronic blood loss (D50.0) Active confirmed Problem Gastritis (6163889) Gastritis (K29.70) Active confirmed Problem 55832984 Iron deficiency anemia, unspecified iron deficiency anemia type (D50.9) Active confirmed Problem 741855735 Anemia, unspecified type (D64.9) Active confirmed Problem Gastric ulcer (564742877) Gastric ulcer (K25.9) Active confirmed Problem Gastric ulcer with hemorrhage (05736528) Gastric ulcer with hemorrhage (K25.4) Active confirmed Vital Signs Blood pressure diastolic 00 mm Hg 10/18/2024 Height 59 in 10/18/2024 Blood pressure systolic 00 mm Hg 10/18/2024 Weight 126 lbs 10/18/2024 BMI 25.45 kg/m2 10/18/2024 Encounters Encounter Location Date Provider Diagnosis [facility] [address] [place] [address] 10/18/2024 Luis Marks Iron deficiency anemia D50.9 and Gastric ulcer K25.9 [facility] [address] [place] [address] 01/01/2025 Luis Marks Assessments Encounter Date Diagnosis (ICD Code) Assessment Notes Treatment Notes Treatment Clinical Notes Section Notes 10/18/2024 Iron deficiency anemia (ICD-10 - D50.9) Continue Omeprazole and Iron custodial Saty off all 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 You can take Tylenol as needed. Overall, Sumi appears well from a GI standpoint. She is not having any new or worrisome GI complaints at the present time. She has not shown any evidence of recurrent bleeding and her most recent hemoglobin several days ago was quite stable. I did advise her to continue her omeprazole and to continue to obviously stay off all aspirin and NSAIDs, both in regard to her previous GI bleeding from her gastriculcer and particularly in light of her current issues with the significant thrombocytopenia . I don't think Sumi need any further diagnostic or therapeutic intervention on my part. At this point she will followup with Dr. Noriega with her upcoming bone marrow biopsy. If things remain well from a GI standpoint I advised her to simply see me again on a p.r.n. basis. I did advise her and her to certainly call if they have any questions or problems I can be of assistance with. They were both comfortable with this plan. Thank you again for allowing me to have participated in Sumi's care. Please do not hesitate to contact me if I can be of any further assistance in the future. 10/18/2024 Gastric ulcer (ICD-10 - K25.9) Overall, Sumi appears well from a GI standpoint. She is not having any new or worrisome GI complaints at the present time. She has not shown any evidence of recurrent bleeding and her most recent hemoglobin several days ago was quite stable. I did advise her to continue her omeprazole and to continue to obviously stay off all aspirin and NSAIDs, both in regard to her previous GI bleeding from her gastriculcer and particularly in light of her current issues with the significant thrombocytopenia . I don't think Sumi need any further diagnostic or therapeutic intervention on my part. At this point she will followup with Dr. Noriega with her upcoming bone marrow biopsy. If things remain well from a GI standpoint I advised her to simply see me again on a p.r.n. basis. I did advise her and her to certainly call if they have any questions or problems I can be of assistance with. They were both comfortable with this plan. Thank you again for allowing me to have participated in Sumi's care. Please do not hesitate to contact me if I can be of any further assistance in the future. Plan Of Treatment Pending Test Test Name Order Date LIVER PROFILE 10/15/2022 IRON + IBC (FE) 12/20/2022 IRON + IBC (FE) 10/19/2023 IRON + IBC (FE) 10/15/2022 IRON + IBC (FE) 07/28/2022 CBC w DIFF 12/20/2022 CBC w DIFF 10/19/2023 CBC w DIFF 10/15/2022 CBC w DIFF 06/07/2023 CBC w DIFF 07/28/2022 CELIAC PANEL #10 10/15/2022 IRON PROFILE 06/07/2023 Ferritin 07/28/2022 Ferritin 06/07/2023 Ferritin 12/20/2022 Future Test Test Name Order Date UPPER GI ENDOSCOPY 07/28/2022 UPPER GI ENDOSCOPY 11/04/2022 COLONOSCOPY 11/04/2022 Insurance Providers Payer Name Payer Address Payer Phone Subscriber Number Group Number Insured Name Patient Relationship to Insured Coverage Start Date Coverage End Date [facility]ARP [facility] COMPLETE (REFERRAL REQUIRED) [address] [address] [place] [id number] SUMI PONCE Self - patient is the insured Medical (General) History Medical History History ICD Code Afib Hypertension [...] elevated IgA level of over 700. Denies IA,DM,CVA,Lung disease,renal dise ase Negative CT of abdomen in 07/2021. Upper endoscopy in December of 2022 revealed healing of her previous gastric ulcer. Gastric biopsies were negative for H. pylori. Duodenal biopsies were negative for celiac disease Colonoscopy in December of 2022 revealed on ly a small cecal tubular adenoma Thrombocytopenia--sees Dr. Pb fulton--Bone marrow biopsy scheduled for 10/29/2024 Surgical History Surgery Date(Month/Year) cholecystectomy foot surgery
--- OUTSIDE RECORDS SUMMARY | 2025-01-16 11:32 | XMS_ITS ---
Author Organization [facility] Address [address] [place] [id number] Care Team Providers Care Director Of User Experience Name Role Phone Jamshid John MD Primary Care Provider Luis Langford [phone] Allergies Allergen (clinical drug ingredient) Drug/Non Drug Allergy documented on EMR Reaction Allergy Type Onset Date Status vitamin K Vitamin K Unknown Drug Allergy Active REASON FOR VISIT Patient presents today for fe def , gastric ulcer Medications Medication SIG (Take, Route, Frequency, Duration) [...] 325 MG as directed Orally BID Active Social History Tobacco Use: Social History Observation Description Date Details (start date - stop date) Never Smoker NA - NA Tobacco Use/Smoking Question Answer Notes Patient is a nonsmoker Vital Signs Blood pressure systolic 00 mm Hg 10/18/19 25 Blood pressure diastolic 00 mm Hg 025 Height 59 in 10/18/2024 Weight 126 lbs 10/18/2024 BMI 25.45 kg/m2 10/18/2024 Encounters Encounter Location Date Provider Diagnosis [facility] [address] [place] [address] 10/18/2024 Luis Marks Iron deficiency anemia D50.9 and Gastric ulcer K25.9 Assessments Encounter Date Diagnosis (ICD Code) Assessment Notes Treatment Notes Treatment Clinical Notes Section Notes 10/18/2024 Iron deficiency anemia (ICD-10 - D50.9) Continue Omeprazole and 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 [...] assistance in the future. Plan Of Treatment Medication Medication Name Sig Start Date Stop Date Notes Omeprazole 40 MG 1 capsule 30 minutes before morning meal Orally twice a day 07/28/2022 Treatment Notes Assessment Notes Iron deficiency anemia Continue Omeprazole and Iron senior care Saty off all 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 You can take Tylenol as needed. Next Appt Details Follow Up: prn, Reason: Progress Notes * SUMI PONCE BDOB:[birth year] (79 yo F)Acc No.[id number]:10/18/2024 Progress Notes Patient:?SUMI PONCE Provider:?Luis Marks MD :1945???Age:79 Y???Sex:Female D ate:10/18/2024 Address:[address] [place] [address] Pcp:Jamshid John MD Subjective: * Chief Complaints: * ???1. Patient presents today for fe def , gastric ulcer. * HPI: ???incontinence:? I saw Sumi in followup today in regard to her previous gastric ulcer and anemia. She was accompanied by her . I last saw Sumi in October of 2023. Since that time she has been doing well from a GI standpoint. She has remained on her daily omeprazole and has not been using any aspirin or NSAIDs. She has not had any sign of bleeding and her most recent hemoglobin from just several days ago was 11.6 with a normal MCV. However, she is continuing to see Dr. Noriega for her thrombocytopenia and is scheduled for a bone marrow biopsy later this month as the most recent platelet count was down to 22,000 on October 15. She has not noticed any melena or hematochezia. She has been eating comfortably and denies any significant heartburn or dysphagia. She denies any particular abdominal pains nor jaundice. * ROS:?General/Constitutional:?Change in appetite?denies.?Chills?denies.?Fatigue?denies.?Ophthalmologic:?Comments?all negative.?ENT:?Comments?all negative.?Respiratory:?hemoptysis?denies.?Cough?denies.?Cardiovascular:?Chest pain?denies.?Orthopnea?denies.?Gastrointestinal:?Comments?See HPI for details.?Genitourinary:?Hematuria?denies.?Dysuria?denies.?Musculoskeletal:?Painful joints?denies.?Weakness?denies.?Skin:?Itching?denies.?Rash?denies.?Neurologic:?Headache?denies.?Seizures?denies.?Psychiatric:?Comments?all negative.? * Medical History:?Afib, Hyper tension, Hyperlipidemia, Iron deficiency anemia with associated weight loss [...] supplements and maintained on omeprazole at that time., Negative colonoscopy [place] [address] Sen, Abnormal celiac disease laboratories in October of 2022 with a significantly elevated IgA level of over 700., Denies PR,DM,CVA,Lung disease,renal disease, Negative CT of abdomen in 07/2021., Upper endoscopy in December of 2022 revealed healing of her previous gastric ulcer. Gastric biopsies were negative for H. pylori. Duodenal biopsies were negative for celiac disease, Colonoscopy in December of 2022 revealed only a small cecal tubular adenoma, Thrombocytopenia--sees Dr. Noriega--Bone marrow biopsy scheduled for 10/29/2024. * Surgical History:?cholecyste ctomy , foot surgery . * Family History:?Father: dece ased.?Mother: .? no known hx of colon cancer nor celiac disease. * Social History:?Tobacco Use:?Tobacco Use/Smoking?Patient is a?nonsmoker.?Miscellaneous:?Marital status: . Occupation: retired. * Medications:?Taking Omeprazo le 40 MG Capsule Delayed Release 1 capsule 30 minutes before morning meal Orally twice a day , Taking amLODIPine Besylate 2.5 MG Tablet 1 tablet Orally Once a day , Taking Atenolol 50 MG Tablet 1 and half tablet Orally twice a day , Taking Levothyroxine Sodium 50 MCG Tablet 1 tablet in the morning on an empty stomach Orally Once a day , Taking Tylenol 325 MG Tablet 1 tablet as needed Orally prn , Taking Ferrous Sulfate 325 MG Capsule as directed Orally BID , Medication List reviewed and reconciled with the patient * Allergies:?Vitamin K. Objective: * Vitals:?Wt: 126 lbs, Ht: 59 in, BMI:25.45Index, BP: 00/00 mm Hg. * Examination: ???General Examination: ?GENERAL APPEARANCE:?pleasant, well nourished, well developed, in no acute distress.?EYES:?sclera non-icteric.?ORAL CAVITY:?mucosa moist.?NECK/THYROID:?no cervical lymphadenopathy, neck supple.?SKIN:?nonjaundiced, no spider angiomata.?HEART:?S1, S2 normal.?LUNGS:?clear to auscultation bilaterally.?ABDOMEN:?normal bowel sounds, no guarding or rigidity, no guarding or rigidity, no masses palpable, soft, nontender, nondistended.?EXTREMITIES:?no edema.?NEUROLOGIC:?alert and oriented.? Assessment: * Assessment: 1.?Iron deficiency anemia - D50.9 (Primary)???2.?Gastric ulcer - K25.9??? Overall, Sumi appears well from a GI [...] of her current issues with the significant thrombocytopenia. I don't think Sumi need any further [...] of any further assistance in the future. Plan: * Treatment: 2.?Others? Continue Omeprazole Capsule Delayed Release, 40 MG, 1 capsule 30 minutes before morning meal, Orally, twice a day.?? * Procedure Codes:?1036F TOBAC CO NON-USER, G8785 BP SCR NOT PRFRM REC REASON NOS * Preventive Medicine:? ??Counseling:?Care goal follow-up plan:?Above Normal BMI Follow-up?Giving encouragement to exercise,?BMI management provided?Yes.? ??Urinary Incontinence:?Urinary Incontinence?Assessment:?Present,?Plan of care documented:?Yes,?Type of plan of care:?Lifestyle interventions.? ??Screenings:?Fall Risk Screening?Fall Risk Assessment:?No falls in the past year,?Screening:?No falls in the past year,?Assessment:?Not performed, no reason specified,?Plan of Care:?Not documented, no reason specified.? * Follow Up:?prn * * The named appointment provid er may or may not be the originator of this progress note, and it is not deemed complete until electronically signed by the appointment provider. Sign off status: Pending * Provider:?Luis Marks MD Date:? 025 Generated for Darien rockwell/Faxing/eTransmitting on:?01/16/2025 11:31 AM EDT History and Physical Notes * HPI (History of Present Illness) Category Sub-Category Detail Notes Category Not es incontinence I saw Sumi in followup today in regard to her previous gastric ulcer and anemia. She was accompanied by her . I last saw Sumi in October of 2023. Since that time she has been doing well from a GI standpoint. She has remained on her daily omeprazole and has not been using any aspirin or NSAIDs. She has not had any sign of bleeding and her most recent hemoglobin from just several days ago was 11.6 with a normal MCV. However, she is continuing to see Dr. Noriega for her thrombocytopenia and is scheduled for a bone marrow biopsy later this month as the most recent platelet count was down to 22,000 on October 15. She has not noticed any melena or hematochezia. She has been eating comfortably and denies any significant heartburn or dysphagia. She denies any particular abdominal pains nor jaundice. Examination Category Sub-Category Detail Notes Category Not es General Examination GENERAL APPEARANCE: pleasant , well [...]
== END 2025-01-16 10:38 | disposition home or self-care (01) ==
LOC: HO.HCS 10:14
PROVIDERS: PCP Internal Medicine; Visit Provider Internal Medicine
DX: I48.0 Paroxysmal atrial fibrillation (principal); R94.31 Abnormal electrocardiogram [ECG] [EKG]; I12.9 Hypertensive chronic kidney disease with stage 1 through stage 4 chronic kidney disease, or unspecified chronic kidney disease; I51.89 Other ill-defined heart diseases; I27.20 Pulmonary hypertension, unspecified; N18.9 Chronic kidney disease, unspecified
CPT/HCPCS: 93010; 99214; G2211

== ENCOUNTER → 2025-01-16 10:13 | Outpatient (BNVA) | payer MEDICARE, SELFPAY | PROVIDERS: PCP Internal Medicine; Visit Provider Internal Medicine | DX: I48.0 Paroxysmal atrial fibrillation (principal); R94.31 Abnormal electrocardiogram [ECG] [EKG]; I51.89 Other ill-defined heart diseases; I27.20 Pulmonary hypertension, unspecified; I12.9 Hypertensive chronic kidney disease with stage 1 through stage 4 chronic kidney disease, or unspecified chronic kidney disease; N18.9 Chronic kidney disease, unspecified | CPT/HCPCS: 93005; 99212 ==

== ENCOUNTER 2025-01-21 09:11 | Outpatient (AMB) | payer MEDICARE, SELFPAY ==
--- NOTE | 2025-01-21 09:13 | MHC.PC.OV ---
Vital Signs 01/21/25 09:17 Height 4 ft 11 in Weight 129 lb BMI 26.1 BP 124/82 Blood Pressure Location Lt brachial Position Sitting Pulse 60 Pulse Source Pulse Oximeter Temp 97.3 F Temp Source Temporal Artery Scan Pulse Oximetry (%) 98 Oxygen Delivery Method Room Air Intake Visit Reasons: Transfer Care from Dr. John On Site Coordinator Required: No Accompanied by: Spouse Allergies vitamin k Allergy (Uncoded 01/21/25 09:30) Unknown Medication List - Last Reconciled 01/21/25 by DIMITRY Anderson amlodipine 10 mg PO DAILY atenolol 75 mg See Protocol PO BID 90 days ferrous sulfate 325 mg PO BID levothyroxine 50 mcg PO DAILY@0630 omeprazole 40 mg PO BID@0630,1630 ondansetron 8 mg PO Q8H PRN Tobacco use date assessed: 10/16/24 Dental Screening Dental Screen Date: 10/16/24 HPI Transfer Care from Dr. John HPI Details The patient is a 79-year-old female presenting to establish care from Dr. John The patient has significant past medical history of chronic kidney disease, diastolic dysfunction, thrombocytopenia, gastric ulcer, microcystic anemia, diastolic dysfunction, AFib long-term use of anticoagulation, has been discontinued due to GI bleed. Essential hypertension, osteopenia, hypothyroidism. Patient reports that she saw Cardiology recently and her blood pressure medication was increased because it was running high Reports that she is glad that her numbers are down today in the office The patient reports that she is seeing hematology for her thrombocytopenia. CT-guided bone marrow biopsy and aspiration was done on 11/01/24 The patient denies any chest pain, shortness of Breath, heart palpitation, or dizziness Denies abdominal pain or change in bowel habits. 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 Osteopenia Polymyalgia rheumatica Surgical History History of bilateral cataract extraction History of cholecystectomy History of partial hysterectomy History of section Family History Father Coronary artery disease FH: CVA (cerebrovascular accident) Mother Kidney failure Social History Household Members: Spouse Housing: House Do you presently have visiting nurse or other home services: No Alcohol intake: never Patient Tobacco Use Status: Never used Tobacco Tobacco use type: Cigarette e-Cigarette/Vaping Use: Never Used Second Hand Smoke Exposure: No service: No Current occupational status: retired Cognitive needs: Yes (Cane) Hearing needs: No Vision needs: Yes (Glasses) Questionnaire Thrive Questionnaire Date Thrive assessed: 10/16/24 MARCI-7 AMB Questionnaire MARCI-7 Date MARCI - 7 assessed: 10/16/24 Source: Developed by Drs. Luis Krause, Carissa Ruvalcaba, Eric Fernandez and colleagues, with an educational kee from [employer]. Review of Systems Const Denies headache(s) Eyes Denies loss of vision ENT Denies vertigo, Denies dizziness, Denies headache(s) and Denies sore throat Card Denies chest pain, Denies leg edema and Denies lightheadedness Resp Denies cough, Denies hemoptysis and Denies wheezing GI Denies abdominal pain, Denies melena, Denies constipation, Denies diarrhea and Denies vomiting Denies urinary frequency, Denies dysuria and Denies urinary urgency Musc Denies arthralgias, Denies joint swelling, Denies numbness and Denies tingling Neuro Denies Abnormal speech present, Denies vertigo, Denies dizziness, Denies headache(s), Denies loss of vision, Denies numbness and Denies tingling Werner/Lymph Denies easy bleeding and Denies easy bruising Aller/Immun Denies wheezing Physical exam (Primary Care) Vital Signs: Last Vital Signs Temp 97.3 F 01/21/25 09:17 Pulse 60 01/21/25 09:17 BP 124/82 01/21/25 09:17 Pulse Ox 98 01/21/25 09:17 Oxygen Delivery Method Room Air 01/21/25 09:17 BMI result Body Mass Index 26.1 Tobacco/Smoking Status: Tobacco use Status Tobacco use date assessed 10/16/24 01/21/25 09:13 Patient Tobacco Use Status Never used Tobacco 01/21/25 09:13 Tobacco use type Cigarette 01/21/25 09:13 e-Cigarette/Vaping Use Never Used 01/21/25 09:13 Thrive Assessment: Date of Thrive Assessment Date Thrive assessed 10/16/24 01/21/25 09:13 Const General: healthy appearing, no acute distress, alert and awake Nutritional Appearance: well nourished Orientation/consciousness: oriented to person, oriented to place and oriented to time HENMT Ears: external ears normal General nose exam: Normal external nose present Eyes Conjunctivae: conjunctivae normal Sclerae: sclerae normal Pupils: Equal, round and reactive pupils present Neck Neck: Yes no lymphadenopathy and Yes no JVD Thyroid: Thyroid normal Carotids: no bruits Resp Effort & Inspection: normal respiratory effort and not tachypneic Auscultation: no crackles, no rales, no rhonchi and no wheezes Cardio Rate: regular rate Rhythm: regular rhythm Heart sounds: no murmurs and normal S1 and S2 GI Palpation (GI): Soft to palpation and nontender Auscultation: normal bowel sounds General: Yes no CVA tenderness Back/Spine/Pelvis Back: no CVA tenderness Skin General skin exam: no rashes or lesions noted and dry skin Neuro General: oriented to person, oriented to place and oriented to time Cranial nerves: Yes Equal, round and reactive pupils present Speech: No Abnormal speech present Gait exam (Neuro): Normal gait present and Assistive device used (Cane) Motor exam (neuro): no tremor noted Extrem Right upper extremity: full ROM Left upper extremity: full ROM Right lower extremity: full ROM; no edema Left lower extremity: full ROM; no edema Psych Mental Status: mental status grossly normal Speech and movement: Normal speech and movement present Affect: normal affect Attitude: cooperative Thought process: Normal thought process present Results Reviewed Results Reviewed: Laboratory Tests 10/29/24 01/09/25 11:43 13:11 WBC 5.6 RBC 3.45 L Hgb 10.8 L Hct 32.2 L MCV 93.3 MCH 31.3 RDW 15.2 Plt Count 58 L D PT 12.0 INR 1.0 APTT 31.6 D Sodium 142 Potassium 4.7 Chloride 112 H Carbon Dioxide 26 Anion Gap 9 L BUN 21 H Creatinine 1.02 Estimated GFR 52 Random Glucose 105 Calcium 9.2 AST 18 ALT 8 Alkaline Phosphatase 75 Total Protein 6.9 Albumin 3.6 Coding Level of Care Code Est Pt Level 4 (43902) Diagnoses Thrombocytopenia D69.6 Gastric ulcer without hemorrhage or perforation, unspecified chronicity K25.9 Gastric ulcer chronicity: unspecified ulcer chronicity Gastric ulcer complication status: without hemorrhage or perforation Microcytic anemia D50.9 Diastolic dysfunction I51.89 Chronic kidney disease, unspecified CKD stage N18.9 Chronic kidney disease stage: unspecified stage Essential hypertension I10 Hypothyroidism, unspecified type E03.9 Hypothyroidism type: unspecified Time Spent (min) 41 Assessment & Plan Assessment & Plan (1) Thrombocytopenia: Code(s): D69.6 - Thrombocytopenia, unspecified Category: Medical Plan: The patient recent plt 58, she is being followed by Dr. Noriega. The patient had a CT-guided bone marrow biopsy and aspiration on 11/01/2024. 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 Follow up with Hematology/Oncology as scheduled. (2) Gastric ulcer: Code(s): K25.9 - Gastric ulcer, unspecified as acute or chronic, without hemorrhage or perforation Category: Medical Qualifiers: Gastric ulcer chronicity: unspecified ulcer chronicity Gastric ulcer complication status: without hemorrhage or perforation Qualified Code(s): K25.9 - Gastric ulcer, unspecified as acute or chronic, without hemorrhage or perforation Plan: Patient was on long-term use of 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. The apixaban was discontinued due to GI bleed. No evidence/sign of bleeding noted. The patient denies blood in the stool or urine. We will continue to monitor (3) Microcytic anemia: Code(s): D50.9 - Iron deficiency anemia, unspecified Category: Medical Plan: Patient last ferritin level was 237. We will reorder iron panel and CBC in 3 months. She denies feeling tired or short of breath. (4) Diastolic dysfunction: Code(s): I51.89 - Other ill-defined heart diseases Category: Medical Plan: Grade 2 diastolic dysfunction on the echocardiogram 2021. No clear heart failure symptoms or signs at this time. (5) Chronic kidney disease, unspecified: Code(s): N18.9 - Chronic kidney disease, unspecified Category: Medical Qualifiers: Chronic kidney disease stage: unspecified stage Qualified Code(s): N18.9 - Chronic kidney disease, unspecified Plan: Stable. Reinforced to avoid NSAIDs (6) Essential hypertension: Code(s): I10 - Essential (primary) hypertension Category: Medical Plan: Blood pressure 124/82 in office Reinforced low-sodium diet Continue amlodipine 10 mg daily, atenolol 75 mg b.i.d. per parameter (7) Hypothyroidism: Code(s): E03.9 - Hypothyroidism, unspecified Category: Medical Qualifiers: Hypothyroidism type: unspecified Qualified Code(s): E03.9 - Hypothyroidism, unspecified Plan: TSH 2.67 on 10/12/2024, Continue levothyroxine 50 mcg daily Will recheck labs Orders: Orders UA CC w/rflx Micro + Cult 3 Months D46.9 - Myelodysplastic syndrome, unspecified, D69.6 - Thrombocytopenia, unspecified, E03.9 - Hypothyroidism, unspecified, E66.9 - Obesity, unspecified, I10 - Essential (primary) hypertension, I27.20 - Pulmonary hypertension, unspecified, K25.9 - Gastric ulcer, unspecified as acute or chronic, without hemorrhage or perforation, M85.89 - Other specified disorders of bone density and structure, multiple sites, N18.9 - Chronic kidney disease, unspecified, R91.8 - Other nonspecific abnormal finding of lung field, Z79.01 - retirement (current) use of 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 TSH reflex Free T4 3 Months D46.9 - Myelodysplastic syndrome, unspecified, D69.6 - Thrombocytopenia, unspecified, E03.9 - Hypothyroidism, unspecified, E66.9 - Obesity, unspecified, I10 - Essential (primary) hypertension, I27.20 - Pulmonary hypertension, unspecified, K25.9 - Gastric ulcer, unspecified as acute or chronic, without hemorrhage or perforation, M85.89 - Other specified disorders of bone density and structure, multiple sites, N18.9 - Chronic kidney disease, unspecified, R91.8 - Other nonspecific abnormal finding of lung field, 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 IRON PROFILE 3 Months D46.9 - Myelodysplastic syndrome, unspecified, D69.6 - Thrombocytopenia, unspecified, E03.9 - Hypothyroidism, unspecified, E66.9 - Obesity, unspecified, I10 - Essential (primary) hypertension, I27.20 - Pulmonary hypertension, unspecified, K25.9 - Gastric ulcer, unspecified as acute or chronic, without hemorrhage or perforation, M85.89 - Other specified disorders of bone density and structure, multiple sites, N18.9 - Chronic kidney disease, unspecified, R91.8 - Other nonspecific abnormal finding of lung field, Z79.01 - retirement (current) use of 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 Free T4 (Free Thyroxine) 3 Months E03.9 - Hypothyroidism, unspecified Complete Blood Count Auto Diff 3 Months D46.9 - Myelodysplastic syndrome, unspecified, D69.6 - Thrombocytopenia, unspecified, E03.9 - Hypothyroidism, unspecified, E66.9 - Obesity, unspecified, I10 - Essential (primary) hypertension, I27.20 - Pulmonary hypertension, unspecified, K25.9 - Gastric ulcer, unspecified as acute or chronic, without hemorrhage or perforation, M85.89 - Other specified disorders of bone density and structure, multiple sites, N18.9 - Chronic kidney disease, unspecified, R91.8 - Other nonspecific abnormal finding of lung field, Z79.01 - retirement (current) use of 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 Comprehensive [place]. 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 Lipid Panel 3 Months D46.9 - Myelodysplastic syndrome, unspecified, D69.6 - Thrombocytopenia, unspecified, E03.9 - Hypothyroidism, unspecified, E66.9 - Obesity, unspecified, I10 - Essential (primary) hypertension, I27.20 - Pulmonary hypertension, unspecified, K25.9 - Gastric ulcer, unspecified as acute or chronic, without hemorrhage or perforation, M85.89 - Other specified disorders of bone density and structure, multiple sites, N18.9 - Chronic kidney disease, unspecified, R91.8 - Other nonspecific abnormal finding of lung field, 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 Vitamin D 25-OH Total 3 Months D46.9 - Myelodysplastic syndrome, unspecified, D69.6 - Thrombocytopenia, unspecified, E03.9 - Hypothyroidism, unspecified, E66.9 - Obesity, unspecified, I10 - Essential (primary) hypertension, I27.20 - Pulmonary hypertension, unspecified, K25.9 - Gastric ulcer, unspecified as acute or chronic, without hemorrhage or perforation, M85.89 - Other specified disorders of bone density and structure, multiple sites, N18.9 - Chronic kidney disease, unspecified, R91.8 - Other nonspecific abnormal finding of lung field, 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 Glucose Fasting 3 Months D46.9 - Myelodysplastic syndrome, unspecified, D69.6 - Thrombocytopenia, unspecified, E03.9 - Hypothyroidism, unspecified, E66.9 - Obesity, unspecified, I10 - Essential (primary) hypertension, I27.20 - Pulmonary hypertension, unspecified, K25.9 - Gastric ulcer, unspecified as acute or chronic, without hemorrhage or perforation, M85.89 - Other specified disorders of bone density and structure, multiple sites, N18.9 - Chronic kidney disease, unspecified, R91.8 - Other nonspecific abnormal finding of lung field, 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 B Type Natriuretic Peptide 3 Months D46.9 - Myelodysplastic syndrome, unspecified, D69.6 - Thrombocytopenia, unspecified, E03.9 - Hypothyroidism, unspecified, E66.9 - Obesity, unspecified, I10 - Essential (primary) hypertension, I27.20 - Pulmonary hypertension, unspecified, K25.9 - Gastric ulcer, unspecified as acute or chronic, without hemorrhage or perforation, M85.89 - Other specified disorders of bone density and structure, multiple sites, N18.9 - Chronic kidney disease, unspecified, R91.8 - Other nonspecific abnormal finding of lung field, 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
[2025-01-21 09:17] VITALS: BP 124/82; PULSE 60; TEMP 36.3; O2SAT 98; BMI 26.1
== END 2025-01-21 09:51 | disposition home or self-care (01) ==
LOC: HO.HMCH 09:12
DX: I12.9 Hypertensive chronic kidney disease with stage 1 through stage 4 chronic kidney disease, or unspecified chronic kidney disease (principal); D69.6 Thrombocytopenia, unspecified; N18.9 Chronic kidney disease, unspecified; K25.9 Gastric ulcer, unspecified as acute or chronic, without hemorrhage or perforation; D50.9 Iron deficiency anemia, unspecified; I51.89 Other ill-defined heart diseases; E03.9 Hypothyroidism, unspecified

== ENCOUNTER → 2025-01-21 09:11 | Outpatient (BNVA) | payer MEDICARE, SELFPAY | PROVIDERS: PCP Internal Medicine | DX: D69.6 Thrombocytopenia, unspecified (principal); K25.9 Gastric ulcer, unspecified as acute or chronic, without hemorrhage or perforation; D50.9 Iron deficiency anemia, unspecified; I51.89 Other ill-defined heart diseases; E03.9 Hypothyroidism, unspecified; I12.9 Hypertensive chronic kidney disease with stage 1 through stage 4 chronic kidney disease, or unspecified chronic kidney disease; E11.22 Type 2 diabetes mellitus with diabetic chronic kidney disease; N18.9 Chronic kidney disease, unspecified | CPT/HCPCS: 99212 ==

== ENCOUNTER 2025-04-22 13:01 | Outpatient (REF) | payer MEDICARE, SELFPAY ==
[2025-04-22 13:23] LABS: MANUAL DIFF FLAG NO
[2025-04-22 13:43] LABS: Hematocrit 32.9 % (37.0-47.0); Hemoglobin 11.2 g/dl (12.0-16.0); Imm Gran Abs Auto 0.05 X10*3/uL (0.00-0.03); Imm Gran Pct Auto 1.0 % (0.0-0.4); Lymphocytes Absolute Auto 1.3 X10*3/uL (1.2-4.9); Mean Corpuscular HGB Conc 34.0 g/dl (31.0-35.0); Mean Corpuscular Hemoglobin 30.8 pg (27.0-33.0); Mean Corpuscular Volume 90.4 fL (80.0-98.0); NRBC Abs Auto 0.000 X10*3/uL (0.0-0.012); NRBC Pct Auto 0.0 /100WBC (0.0-0.2); Red Blood Count 3.64 X10*6/uL (4.20-5.50); White Blood Count 4.9 X10*3/uL (4.8-10.8)
[2025-04-22 13:44] LABS: Platelet Count 43 X10*3/uL (160-400)
[2025-04-22 14:03] LABS: Appearance Urine Clear; Glucose Urine UA Negative (Negative); PH 6.0 (5.0-9.0); Specific Gravity - Urine 1.020 (1.005-1.025); UMIC TRIGGER UACC YES
[2025-04-22 14:13] LABS: UACC Culture Trigger YES
[2025-04-22 14:23] LABS: B Type Natriuretic Peptide 397 pg/mL (<100)
[2025-04-22 14:47] LABS: Alanine Aminotransferase 17 U/L (0-31); Albumin Level 3.9 g/dL (3.5-5.0); Alkaline Phosphatase 81 U/L (39-117); Anion Gap 11 (12-20); Aspartate Amino Transferase 20 U/L (5-31); Blood Urea Nitrogen 18 mg/dL (9-16); Calcium 8.9 mg/dL (8.4-10.2); Carbon Dioxide 24 mmol/L (22-29); Chloride 112 mmol/L (96-108); Cholesterol 137 mg/dL (<200); Estimated Glomerular Filt Rate 49; HDL Cholesterol 40 mg/dL (>40); Iron 78 mcg/dL (30-160); Percent Iron Saturation 36 % (15-50); Potassium 4.5 mmol/L (3.3-5.1); Sodium 142 mmol/L (135-145); Total Iron Binding Capacity 219 mcg/dL (228-428); Total Protein 6.5 g/dL (6.5-8.0); Triglycerides 90 mg/dL (<150); Unsaturated Iron Binding 141 ug/dL
[2025-04-22 14:49] LABS: Free T4 (Free Thyroxine) 1.12 ng/dL (0.71-1.85)
== END 2025-04-22 13:02 | disposition home or self-care (01) ==
LOC: HO.LAB 13:01
DX: K25.9 Gastric ulcer, unspecified as acute or chronic, without hemorrhage or perforation (principal); D46.9 Myelodysplastic syndrome, unspecified; D69.6 Thrombocytopenia, unspecified; I12.9 Hypertensive chronic kidney disease with stage 1 through stage 4 chronic kidney disease, or unspecified chronic kidney disease; N18.9 Chronic kidney disease, unspecified; I27.20 Pulmonary hypertension, unspecified; M85.89 Other specified disorders of bone density and structure, multiple sites; E03.9 Hypothyroidism, unspecified; E66.811 Obesity, class 1; R91.8 Other nonspecific abnormal finding of lung field; Z79.01 Long term (current) use of 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
CPT/HCPCS: 36415; 80053; 80061; 81001; 81003; 82306; 83540; 83880; 84439; 84443; 85025; 87086

== ENCOUNTER 2025-04-24 09:36 | Outpatient (AMB) | payer MEDICARE, SELFPAY ==
--- NOTE | 2025-04-24 09:39 | A.OFFPC_ITS ---
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 Accompanied by: Self / Same As Patient Allergies vitamin k Allergy (Uncoded 05/12/25 00:25) Unknown Medication List - Last Reconciled 04/24/25 by DIMITRY Anderson amlodipine 10 mg PO DAILY atenolol 75 mg (3 x 25 mg) PO BID ferrous sulfate 325 mg PO BID levothyroxine 50 mcg PO DAILY@0630 loperamide (Imodium A-D) 2 mg PO QID PRN omeprazole 40 mg PO BID@0630,1630 ondansetron 8 mg PO Q8H PRN Tobacco use date assessed: 04/24/25 Last assessed Fall Risk: 04/24/25 Dental Screening Dental Screen Date: 04/24/25 HPI annual htn/afib/hypothyroidism - see comments HPI Details The patient is a 79-year-old female who presenting to a follow up appointment Reports that she is feeling well the today and has no complaints Recent labs-to be reviewed Denies chest pain, shortness of breath, dizziness or heart palpitation Denies abdominal pain/change in bowel habits-reports on and off alternation between constipation and diarrhea secondary to chemotherapy. Otherwise she is doing well. 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 Osteopenia Polymyalgia rheumatica Surgical History History of bilateral cataract extraction History of cholecystectomy History of partial hysterectomy History of section Family History Father Coronary artery disease FH: CVA (cerebrovascular accident) Mother Kidney failure Social History Household Members: Spouse Housing: House Do you presently have visiting nurse or other home services: No Alcohol intake: never Patient Tobacco Use Status: Never used Tobacco Tobacco use type: Cigarette e-Cigarette/Vaping Use: Never Used Second Hand Smoke Exposure: No service: No Current occupational status: retired Cognitive needs: Yes (Cane) Hearing needs: No Vision needs: Yes (Glasses) Questionnaire Thrive Questionnaire Date Thrive assessed: 04/24/25 MARCI-7 AMB Questionnaire MARCI-7 Date MARCI - 7 assessed: 04/24/25 Source: Developed by Drs. Luis Krause, Carissa Ruvalcaba, Eric Fernandez and colleagues, with an educational kee from [employer]. Review of Systems Const Denies body aches, Denies chills, Denies fever(s), Denies headache(s) and Denies poor appetite Eyes Reports no additional complaints ENT Denies dysphagia, Denies dizziness, Denies headache(s) and Denies odynophagia Card Denies chest pain, Denies syncope, Denies irregular heart rhythm, Reports leg edema (Ongoing, right slightly worse than left), Denies lightheadedness and Denies dyspnea Resp Denies cough and Denies dyspnea GI Denies abdominal pain, Reports constipation, Denies dysphagia, Reports diarrhea, Denies nausea, Denies odynophagia and Denies vomiting Reports no additional complaints Musc Reports no additional complaints and Denies abnormal gait Skin/Breast Reports system reviewed and no additional complaints, except as documented Neuro Denies abnormal gait, Denies dizziness, Denies syncope and Denies headache(s) Psych Reports no additional complaints Physical exam (Primary Care) Vital Signs: Last Vital Signs Temp 98.4 F 04/24/25 09:43 Pulse 55 04/24/25 09:43 Resp 16 04/24/25 09:43 BP 122/54 L 04/24/25 09:43 Pulse Ox 97 04/24/25 09:43 BMI result Body Mass Index 27.1 Tobacco/Smoking Status: Tobacco use Status Tobacco use date assessed 04/24/25 04/24/25 09:45 Patient Tobacco Use Status Never used Tobacco 04/24/25 09:45 Tobacco use type Cigarette 04/24/25 09:45 e-Cigarette/Vaping Use Never Used 04/24/25 09:45 Thrive Assessment: Date of Thrive Assessment Date Thrive assessed 04/24/25 04/24/25 09:45 Const General: cooperative, healthy appearing, comfortable and no acute distress Orientation/consciousness: patient oriented x3 HENMT Head: Yes normocephalic Ears: hearing grossly normal bilaterally General nose exam: Normal external nose present Eyes General: appearance normal, both eyes and all related structures Conjunctivae: conjunctivae normal Neck Neck: Yes full ROM and Yes no lymphadenopathy Resp Effort & Inspection: normal respiratory effort Auscultation: clear to auscultation bilaterally, no crackles, no rales, no rhonchi and no wheezes Cardio Rate: bradycardic Rhythm: regular rhythm Heart sounds: S1 normal heart sound present, S2 normal heart sound present, no gallops and no murmurs GI Palpation (GI): Soft to palpation and nontender Auscultation: normal bowel sounds General: Yes no CVA tenderness Back/Spine/Pelvis Back: no CVA tenderness Skin General skin exam: no rashes or lesions noted Neuro General: patient oriented x3 Gait exam (Neuro): Normal gait present Extrem General: Yes normal to inspection, Yes full ROM and No edema Right lower extremity: lower leg Details: pitting edema Details: 2+ Left lower extremity: lower leg Details: pitting edema Details: 2+ Psych Affect: normal affect Attitude: cooperative Insight: Good insight present (Psych) Judgement: Good judgement present (Psych) Results Reviewed Results Reviewed: Laboratory Tests 04/22/25 04/22/25 13:14 13:21 WBC 4.9 RBC 3.64 L Hgb 11.2 L Hct 32.9 L MCV 90.4 MCH 30.8 MCHC 34.0 RDW 15.3 Plt Count 43 L D Sodium 142 Potassium 4.5 Chloride 112 H Carbon Dioxide 24 Anion Gap 11 L BUN 18 H Creatinine 1.08 Estimated GFR 49 Fasting Glucose 81 Calcium 8.9 D Iron 78 TIBC 219 L % Saturation 36 Unsat Iron Binding 141 Total Bilirubin 0.6 AST 20 ALT 17 Alkaline Phosphatase 81 B-Natriuretic Peptide 397 H Total Protein 6.5 Albumin 3.9 Triglycerides 90 Cholesterol 137 LDL Cholesterol, Calc 79 HDL Cholesterol 40 L 25-OH Vitamin D Total 13.9 L TSH 2.96 Free T4 1.12 Urine Color Yellow Urine Appearance Clear Urine pH 6.0 Ur Specific [place] 1.020 Urine Protein Negative Urine Glucose (UA) Negative Urine Ketones Negative Urine Blood Negative Urine Nitrite Negative Ur Leukocyte Esterase Moderate (2+) H Urine RBC 0-2 Urine WBC 6-10 H Ur Squamous Epith Cells 11-20 Urine Bacteria Trace Hyaline Casts 3-5 Coding Level of Care Code Est Pt Level 4 (79482) Diagnoses Essential hypertension I10 Diastolic dysfunction I51.89 Pulmonary hypertension I27.20 Thrombocytopenia D69.6 Hypothyroidism, unspecified type E03.9 Hypothyroidism type: unspecified Chronic kidney disease, unspecified CKD stage N18.9 Chronic kidney disease stage: unspecified stage Microcytic anemia D50.9 Myelodysplasia (myelodysplastic syndrome) D46.9 Leg edema R60.0 Overweight E66.3 Time Spent (min) 41 Assessment & Plan Assessment & Plan (1) Essential hypertension: Code(s): I10 - Essential (primary) hypertension Category: Medical Plan: Encouraged DASH diet and activity as tolerated-goal systolic is less than 130 mmhg Continue amlodipine 10 mg daily, atenolol 75 mg b.i.d. (2) Diastolic dysfunction: Code(s): I51.89 - Other ill-defined heart diseases Category: Medical Plan: Patient has a grade 2 diastolic dysfunction on echocardiogram. She has no clear heart failure or signs or symptoms (3) Pulmonary hypertension: Code(s): I27.20 - Pulmonary hypertension, unspecified Category: Medical Plan: Moderate pulmonary hypertension on echocardiogram. Probably all from left heart dysfunction related to hypertension, per cardiology. No specific treatment at her age and especially with her comorbidities. continue managing HTN (4) Thrombocytopenia: Code(s): D69.6 - Thrombocytopenia, unspecified Category: Medical Plan: Chronic thrombocytopenia since 2014. Her platelets count has been above 100 K until 2021. Since then this has gradually declined down to 40 K. apart from episode of iron-deficiency anemia related to GI bleeding she has had normal hemoglobin and WBC count. She was referred to hemotology. Bone marrow aspiration biopsy performed on October 2024 revealed hypercellular marrow with this megakaryopoiesis. Mostly increased iron stores. 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 US abdomen did not show hepatosplenomegaly. She has chronic biliary ductal dilatation. 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 Romiplostim was discontinued. Her platelets are now over 100K. Proceed with cycle 6 today, and will be given a break after this cycle and monitor monthly (5) Hypothyroidism: Code(s): E03.9 - Hypothyroidism, unspecified Category: Medical Qualifiers: Hypothyroidism type: unspecified Qualified Code(s): E03.9 - Hypothyroidism, unspecified Plan: Remains euthyroid Continue levothyroxine 50 mcg daily We will repeat TFTs in three-month (6) Chronic kidney disease, unspecified: Code(s): N18.9 - Chronic kidney disease, unspecified Category: Medical Qualifiers: Chronic kidney disease stage: unspecified stage Qualified Code(s): N18.9 - Chronic kidney disease, unspecified Plan: Chronic kidney failure stable GFR continues in the high 40s. Encouraged adequate hydration. Refrain from NSAIDs (7) Microcytic anemia: Code(s): D50.9 - Iron deficiency anemia, unspecified Category: Medical Plan: Continue to be anemic but H&H has been stable. Continue ferrous sulfate 325 mg b.i.d. 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 US abdomen did not show hepatosplenomegaly. She has chronic biliary ductal dilatation. 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 Romiplostim was discontinued. Her platelets are now over 100K. Proceed with cycle 6 today, and will be given a break after this cycle and monitor monthly Follow up with Oncology as scheduled (9) Leg edema: Code(s): R60.0 - Localized edema Category: Medical Plan: BNP elevated at 397. She does have lower legs edema, which has been chronic. She denies in his shortness of breath in her lungs were clear on auscultation. We will continue to monitor (10) Overweight: Code(s): E66.3 - Overweight Category: Medical Plan: Encouraged low-calorie diet Orders: Orders UA CC w/rflx Micro + Cult 3 Months I10 - Essential (primary) hypertension, I51.89 - Other ill-defined heart diseases, E03.9 - Hypothyroidism, unspecified, N18.9 - Chronic kidney disease, unspecified, D50.9 - Iron deficiency anemia, unspecified, D46.9 - Myelodysplastic syndrome, unspecified Comprehensive [place]. Panel Fast 3 Months I10 - Essential (primary) hypertension, I51.89 - Other ill-defined heart diseases, E03.9 - Hypothyroidism, unspecified, N18.9 - Chronic kidney disease, unspecified, D50.9 - Iron deficiency anemia, unspecified, D46.9 - Myelodysplastic syndrome, unspecified Free T4 (Free Thyroxine) 3 Months E03.9 - Hypothyroidism, unspecified Lipid Panel 3 Months I10 - Essential (primary) hypertension, I51.89 - Other ill-defined heart diseases, E03.9 - Hypothyroidism, unspecified, N18.9 - Chronic kidney disease, unspecified, D50.9 - Iron deficiency anemia, unspecified, D46.9 - Myelodysplastic syndrome, unspecified Complete Blood Count Auto Diff 3 Months I10 - Essential (primary) hypertension, I51.89 - Other ill-defined heart diseases, E03.9 - Hypothyroidism, unspecified, N18.9 - Chronic kidney disease, unspecified, D50.9 - Iron deficiency anemia, unspecified, D46.9 - Myelodysplastic syndrome, unspecified Medications: New cholecalciferol (vitamin D3) 50 mcg PO DAILY 90 caps 3RF
[2025-04-24 09:43] VITALS: BP 122/54; PULSE 55; RESP 16; TEMP 36.9; O2SAT 97; BMI 27.1
== END 2025-04-24 10:36 | disposition home or self-care (01) ==
LOC: HO.HMCH 09:37
PROVIDERS: PCP Internal Medicine
DX: I12.9 Hypertensive chronic kidney disease with stage 1 through stage 4 chronic kidney disease, or unspecified chronic kidney disease (principal); I51.89 Other ill-defined heart diseases; I27.20 Pulmonary hypertension, unspecified; D69.6 Thrombocytopenia, unspecified; E03.9 Hypothyroidism, unspecified; N18.9 Chronic kidney disease, unspecified; D50.9 Iron deficiency anemia, unspecified; D46.9 Myelodysplastic syndrome, unspecified; R60.0 Localized edema; E66.3 Overweight

== ENCOUNTER → 2025-04-24 09:36 | Outpatient (BNVA) | payer MEDICARE, SELFPAY | PROVIDERS: PCP Internal Medicine | DX: I12.9 Hypertensive chronic kidney disease with stage 1 through stage 4 chronic kidney disease, or unspecified chronic kidney disease (principal); N18.9 Chronic kidney disease, unspecified; D69.6 Thrombocytopenia, unspecified; I27.20 Pulmonary hypertension, unspecified; E03.9 Hypothyroidism, unspecified; R60.0 Localized edema; E66.3 Overweight; Z68.27 Body mass index [BMI] 27.0-27.9, adult; Z71.3 Dietary counseling and surveillance | CPT/HCPCS: 99212 ==

== ENCOUNTER 2025-05-23 10:57 | Outpatient (AMB) | payer MEDICARE, SELFPAY ==
--- NOTE | 2025-05-23 11:27 | MHC.OFFVIS ---
Vital Signs 05/23/25 11:31 Height 4 ft 11 in Weight 135 lb BMI 27.3 BP 120/62 Blood Pressure Location Lt brachial Position Sitting Pulse 56 Pulse Source Pulse Oximeter Intake Visit Reasons: 4m follow up Allergies vitamin k Allergy (Uncoded 05/12/25 00:25) Unknown Medication List - Last Reconciled 05/23/25 by Dean Calderón MD amlodipine 10 mg PO DAILY atenolol 75 mg (3 x 25 mg) PO BID cholecalciferol (vitamin D3) 50 mcg PO DAILY ferrous sulfate 325 mg PO BID levothyroxine 50 mcg PO DAILY@0630 loperamide (Imodium A-D) 2 mg PO QID PRN omeprazole 40 mg PO BID@0630,1630 ondansetron 8 mg PO Q8H PRN HPI Comments Details: Sumi returns for follow-up regarding atrial fibrillation. To recall, we originally saw her in 2015 for elevated cardiac BNP. At that time, thought to be from possibly hypertension/diastolic dysfunction. Then she was following up with her PCP but in the interim, developed leg DVT. She took Xarelto for some time. Then she had palpitations that led to a diagnosis of atrial fibrillation. Subsequently, beta-erich dose has been increased. She was also put on Eliquis. She was taking hydrochlorothiazide but had elevated renal function. Then we stopped it. She has been having issues with thrombocytopenia and sees Hematology for that. No longer on Eliquis. Otherwise, she states she feels good. No cardiac symptoms whatsoever. 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 Chronic kidney disease, unspecified Leg edema Pulmonary hypertension Essential hypertension 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 atrial fibrillation) [facility] systemic steroid user Osteopenia Polymyalgia rheumatica Surgical History History of bilateral cataract extraction History of cholecystectomy History of partial hysterectomy History of section Family History Father Coronary artery disease FH: CVA (cerebrovascular accident) Mother Kidney failure Social History Household Members: Spouse Housing: House Do you presently have visiting nurse or other home services: No Alcohol intake: never Patient Tobacco Use Status: Never used Tobacco Tobacco use type: Cigarette e-Cigarette/Vaping Use: Never Used Second Hand Smoke Exposure: No service: No Current occupational status: retired Cognitive needs: Yes (Cane) Hearing needs: No Vision needs: Yes (Glasses) Review of Systems Const Denies weakness ENT Denies dizziness Card Denies chest pain, Denies chest pain with activity, Denies syncope, Denies rapid heart rate, Denies pedal edema, Denies edema, Denies leg edema, Denies lightheadedness, Denies palpitations, Denies dyspnea, Denies dyspnea on exertion and Denies orthopnea Resp Denies cough, Denies dyspnea and Denies dyspnea on exertion GI Denies hematochezia and Denies change in stool character Musc Denies abnormal gait, Denies muscle cramps, Denies muscle weakness, Denies numbness, Denies radiating pain into limb and Denies tingling Neuro Denies abnormal gait, Denies dizziness, Denies syncope, Denies numbness, Denies tingling and Denies weakness Endo Denies palpitations Physical Exam Vital Signs: Last Vital Signs Pulse 56 05/23/25 11:31 BP 120/62 05/23/25 11:31 BMI result Body Mass Index 27.3 Const General: comfortable and no acute distress Orientation/consciousness: patient oriented x3 HEENT Other: Unremarkable Head: Yes normal to inspection Neck Neck: Yes normal visual inspection Chest Chest palpation & inspection: normal inspection of the chest Resp Auscultation: clear to auscultation bilaterally Cardio Palpation: normal PMI Heart sounds: S1 normal heart sound present, S2 normal heart sound present, no gallops, no murmurs and no rubs GI Palpation (GI): Soft to palpation Back/Spine/Pelvis Other: unremarkable Skin General skin exam: no rashes or lesions noted Neuro General: patient oriented x3 Extrem General: Yes normal to inspection Psych Mental Status: mental status grossly normal Assessment & Plan Assessment & Plan (1) 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 atrial fibrillation): Code(s): I48.0 - Paroxysmal atrial fibrillation Category: Medical Plan: Stable. On Atenolol. With regard to anticoagulation, she was on Eliquis but not anymore. History of GI bleeding, thrombocytopenia. (2) Essential hypertension: Code(s): I10 - Essential (primary) hypertension Category: Medical Plan: Stable. (3) Diastolic dysfunction: Code(s): I51.89 - Other ill-defined heart diseases Category: Medical Plan: Grade 2 diastolic dysfunction on prior echocardiogram. No clear heart failure symptoms or signs. (4) Pulmonary hypertension: Code(s): I27.20 - Pulmonary hypertension, unspecified Category: Medical Plan: Moderate pulmonary hypertension on the echocardiogram. Probably all from left heart dysfunction related to hypertension. No specific treatment at her age and with comorbidities. Manage hypertension. (5) Chronic kidney disease, unspecified: Code(s): N18.9 - Chronic kidney disease, unspecified Category: Medical Qualifiers: Chronic kidney disease stage: unspecified stage Qualified Code(s): N18.9 - Chronic kidney disease, unspecified Plan: Stable. Coding Level of Care Code Est Pt Level 4 (61605) Complex EM visit Add On [id number] Diagnoses 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 atrial fibrillation) I48.0 Essential hypertension I10 Diastolic dysfunction I51.89 Pulmonary hypertension I27.20 Chronic kidney disease, unspecified CKD stage N18.9 Chronic kidney disease stage: unspecified stage
[2025-05-23 11:31] VITALS: BP 120/62; PULSE 56; BMI 27.3
== END 2025-05-23 11:46 | disposition home or self-care (01) ==
LOC: HO.HCS 10:57
PROVIDERS: PCP Internal Medicine; Visit Provider Internal Medicine
DX: I48.0 Paroxysmal atrial fibrillation (principal); I12.9 Hypertensive chronic kidney disease with stage 1 through stage 4 chronic kidney disease, or unspecified chronic kidney disease; I51.89 Other ill-defined heart diseases; I27.20 Pulmonary hypertension, unspecified; N18.9 Chronic kidney disease, unspecified
CPT/HCPCS: 99214; G2211

== ENCOUNTER → 2025-05-23 10:57 | Outpatient (BNVA) | payer MEDICARE, SELFPAY | PROVIDERS: PCP Internal Medicine; Visit Provider Internal Medicine | DX: I48.0 Paroxysmal atrial fibrillation (principal); I12.9 Hypertensive chronic kidney disease with stage 1 through stage 4 chronic kidney disease, or unspecified chronic kidney disease; I51.89 Other ill-defined heart diseases; I27.20 Pulmonary hypertension, unspecified; N18.9 Chronic kidney disease, unspecified | CPT/HCPCS: 99212 ==